=== PATIENT | female | born 1945 | race Caucasian/White ===

== ENCOUNTER → 2016-08-17 | Outpatient (CLI) | payer MEDICARE, MEDICAID ==
[~2016-08-17] MED LIST: ACHD5005 PO; AMLO10TA PO; AMLO5TAB2 PO; ASCO500T20 PO; ASP325T; ASP325TEC PO; ASP81TEC PO; ATOR40TA PO; ATOR40TA70 PO; BENZ200C25 PO; BNZ20T PO; BNZ40T PO; CHOL20002 PO; CLOP75TA28 PO; CLPD75T PO; CODE118S2 PO; CPR500T PO; Cipro; DIPH25TA82 PO; DOXY100C2 PO; FAMO20TA5 PO; FENO135C PO; FENO135C4 PO; FERR-74 PO; FURO-125 PO; GABA-488 PO; GABA600T2 PO; GBPN300C PO; GBPN600T PO; GLMP4T; GLMP4T PO; HYDR-3816 PO; HYDR1CAP3 PO; HYDR25TA4 PO; INSU100I14 SC; INSU100I5 SC; INSU500I SQ; INSU500V SC; INSU500V SQ; ISM60TCR PO; LATA2.5D5 OU; LEVIMER; LEVO25TA5 PO; LEVO500T69 PO; LIRA0.6P3 SC; LISI10TA2 PO; LORA10TA7 PO; MAGN400T6 PO; MECL-106 PO; METF500T PO; METF500T8 PO; METO-272 PO; METO100T5; METO100T5 PO; MTF500TCR PO; MTP100TCR PO; NIA500ERT PO; NIAC100045 PO; NTR.4SL SL; OMEG1CAP26 PO; OMEP-10; ONDA-42 SL; PNT40TEC PO; PRM25T PO; PROP1TAB77; RANO500T3 PO; SIMV40TA2 PO; SITA100T PO; TRAM50TA2 PO; VIT1CAPS9; [UNRECOGNIZED DRUG - REMARK]
--- OUTSIDE RECORDS SUMMARY | 2016-08-17 13:56 | XMS REPORT | Continuity of Care Document ---
Author Author [facility] Organization [facility] Address Unknown Phone Unavailable Care Team Providers Care Meeting Coordinator Name Role Phone BRAULIO GERMAN DO PCP Insurance Providers Payer Name Policy Number Subscriber Name Relationship Wps Medicare [id number] Jossue Mcgee 18 Self / Same As Patient Medicaid [place] [id number] Jossue Mcgee 18 Self / Same As Patient Advance Directives Directive Response Recorded Date/Time Advance Directives No 09/08/14 8:00pm Health Care Power of Music Journalist No 09/08/14 8:00pm Organ Donor No 09/08/14 8:00pm Problems Medical Problems Problem Onset Date Status Lumbar radiculopathy Unknown Active Medications Medication Dose Route Sig Days/Qty Instructions Order Date Discontinued Date Status Benazepril HCl 40 Mg PO DAILY TAKES IN THE EVENING 10/30/08 01/22/14 Discontinued Metformin HCl 2,000 Mg PO DAILY 10/30/08 10/08/10 Discontinued Glimepiride 10/30/08 07/07/10 Discontinued Omeprazole 10/30/08 10/27/09 Discontinued Ciprofloxacin 1 Tab PO TWICE A DAY 7 Days OR 10/30/08 09/25/09 Discontinued Promethazine HCl 1 Tab PO QID PRN 20 Qty 10/30/08 09/25/09 Discontinued [Levimer 45 Units] 09/25/09 09/26/09 Discontinued Insulin Determir 51 Unit SC 09/26/09 Active Clopidogrel Bisulfate 75 Mg PO DAILY 10/27/09 Active Metoprolol Succinate 100 Mg PO DAILY 10/27/09 Active Niacin 100 Mg PO BEDTIME 10/27/09 01/22/14 Discontinued Simvastatin 40 Mg PO BEDTIME 10/27/09 06/13/13 Discontinued Magnesium Oxide 400 Mg PO DAILY 10/27/09 Active Aspirin 10/27/09 07/07/10 Discontinued Famotidine (Pepcid) 20 Mg PO DAILY 10/27/09 09/13/11 Discontinued [place]-3/Dha/Epa/Fish Oil 1,000 Mg PO THREE TIMES A DAY 10/27/09 Active Vit C/Vit E/Lutein/Min/[place]-3 10/27/09 07/07/10 Discontinued Glimepiride 8 Mg PO DAILY 10/27/09 12/23/13 Discontinued Propoxyphene HCl/Acetaminophen 10/27/09 07/07/10 Discontinued Metoprolol Succinate 12/07/09 07/07/10 Discontinued Levofloxacin 1 Tab PO Every day 10 Qty FOR INFECTION 12/08/09 07/07/10 Discontinued Ascorbic Acid 1,000 Mg PO DAILY 07/07/10 Active Aspirin 325 Mg PO DAILY 07/07/10 09/13/11 Discontinued Amlodipine Besylate (Norvasc 5 Mg) 10 Mg PO DAILY 07/07/10 01/22/14 Discontinued [Novalog Slide Scale] PER HOME SCHEDULE 07/07/10 10/08/10 Discontinued Metformin HCl 2,000 Mg PO AT SUPPER 10/08/10 01/22/14 Discontinued Insulin Aspart 32 Units SC BEFORE MEALS 10/08/10 Active Promethazine HCl 25 Mg PO THREE TIMES A DAY PRN NAUSEA 10/08/10 Active Diphenhydramine HCl (Benadryl) 1 Tab PO DAILY 10/08/10 09/13/11 Discontinued Hydrocodone Bit/Acetaminophen 2 Tab PO GIVE EVERY 6 HR ON SCHEDULE 09/13/11 Discontinued Doxycycline Hyclate (Vibramycin) 1 Each PO TWICE A DAY 10 Days 09/13/11 Discontinued Benzonatate (Tessalon Perles) 1 Each PO TID PRN 14 Qty 10/08/10 Discontinued Metoprolol Succinate 50 Mg PO BEDTIME 09/13/11 01/22/14 Discontinued Pantoprazole Sod 40 Mg PO DAILY 09/13/11 12/23/13 Discontinued Tramadol Hcl 50 Mg PO TWICE A DAY PRN PAIN NEEDED FOR PAIN 09/13/11 Active Aspirin 81 Mg PO DAILY 09/13/11 Active Acetaminophen/Hydrocodone Bitart 1 - 2 Each PO EVERY 6 HOURS PRN 14 Qty 10/26/12 06/13/13 Discontinued Gabapentin 600 Mg PO THREE TIMES A DAY 06/13/13 Active Gabapentin 600 Mg PO BEDTIME 06/13/13 08/23/13 Discontinued Atorvastatin Calcium 40 Mg PO BEDTIME 06/13/13 Active Fenofibrate 135 Mg PO BEDTIME 06/13/13 Active Loratadine 10 Mg PO DAILY PRN ALLERGIES NEEDED FOR ALLERGIES Active Promethazine HCl/Codeine 5-10 Ml PO THREE TIMES A DAY PRN COUGH 12/23 Active Sitagliptin Phosphate 100 Mg PO 1800 12/23/13 Active Ondansetron Hcl 4 Mg SL EVERY 4HRS 5 Qty FOR NAUSEA AND VOMITING 01/22/14 Discontinued [Cipro] TWICE A DAY 14 Qty 12/23/13 01/22/14 Discontinued Metoprolol Succinate (Toprol Xl) 50 Mg PO BEDTIME 01/22/14 Active Benazepril HCl 40 Mg PO BEDTIME 01/22/14 Active Niacin 1,000 Mg PO BEDTIME 01/22/14 Active Metformin HCl (Glucophage Xr) 2,000 Mg PO BEDTIME TAKES 4 (500MG) TABLETS 01/22/14 Active Amlodipine Besylate 10 Mg PO DAILY 01/22/14 Active Nitroglycerin 0 SL NEEDED 01/22/14 Active Hydrocodone Bit/Acetaminophen 1 Tab PO EVERY 6 HOURS PRN PAIN 20 Qty Active Social History Social History Problem Response Recorded Date/Time Alcohol Use Denies Use 09/08/2014 8:00pm Recreational Drug Use No 09/08/2014 8:00pm Recent Foreign Travel No 12/23/2013 1:21pm Recent Infectious Disease Exposure No 12/23/2013 1:21pm Sexually Transmitted Disease No 09/08/2014 8:00pm Hospital Discharge Instructions No hospital discharge instructions. Plan of Care No plan of care. Functional Status No functional status results. Allergies, Adverse Reactions, Alerts Allergen Type Severity Reaction Status Last Updated Penicillins ([id number]) Allergy Unknown Active 01/22/14 Sulfa (Sulfonamide Antibiotics) ([id number]) Allergy Mild Active metaxalone ([id number]) Allergy Mild Active 10/16/07 Ibuprofen Adverse Reaction Mild MAKES HER SICK; CAN TAKE ASA Active Cephalexin Allergy Mild Active 10/16/07 amoxicillin ([id number]) Allergy Mild Active 10/16/07 diphenhydramine ([id number]) Allergy Mild Active 10/16/07 desloratadine ([id number]) Allergy Mild Active 10/16/07 Immunizations Name Given Type Date of Pneumonia Vaccine 09/15/11 Historical Date of Influenza Vaccine 05/13/13 Historical Vital Signs No known vital signs results. Results Laboratory Results Test Name Result Units Flags Reference Collection Date/Time Result Date/ Time Comments Urine Color YELLOW 10/23/2014 3:23pm 10/23/2014 3:53pm Urine Clarity SLIGHTLY CLOUDY 10/23/2014 3:23pm 10/23/2014 3:53pm Urine pH 6 5-9 10/23/2014 3:23pm 10/23/2014 3:53pm Urine Specific [place] 1.020 1.016-1.022 10/23/2014 3:23pm 2014 3:53pm Urine Protein NEGATIVE NEGATIVE 10/23/2014 3:23pm 10/23/2014 3:53pm Urine Glucose (UA) NEGATIVE NEGATIVE 10/23/2014 3:23pm 10/23/2014 3: 53pm Urine RBC (Auto) NEGATIVE NEGATIVE 10/23/2014 3:23pm 10/23/2014 3: 53pm Urine Ketones NEGATIVE NEGATIVE 10/23/2014 3:23pm 10/23/2014 3:53pm Urine Nitrite NEGATIVE NEGATIVE 10/23/2014 3:23pm 10/23/2014 3:53pm Urine Bilirubin NEGATIVE NEGATIVE 10/23/2014 3:23pm 10/23/2014 3: 53pm Urine Urobilinogen NORMAL MG/DL NORMAL 10/23/2014 3:23pm 10/23/2014 3: 53pm Urine Leukocyte Esterase 1+ * NEGATIVE 10/23/2014 3:23pm 10/23/2014 3: 53pm Urine RBC NONE /HPF 10/23/2014 3:23pm 10/23/2014 3:53pm Urine WBC RARE /HPF 10/23/2014 3:23pm 10/23/2014 3:53pm Urine Bacteria NEGATIVE /HPF 10/23/2014 3:23pm 10/23/2014 3:53pm Urine Squamous Epithelial Cells 0-2 /HPF 10/23/2014 3:23pm 2014 3:53pm Urine Crystals NONE /LPF 10/23/2014 3:23pm 10/23/2014 3:53pm Urine Casts NONE /LPF 10/23/2014 3:23pm 10/23/2014 3:53pm Urine Mucus NEGATIVE /LPF 10/23/2014 3:23pm 10/23/2014 3:53pm Urine Culture Indicated NO 10/23/2014 3:23pm 10/23/2014 3:53pm Urine Total Volume 2800 ML 10/25/2014 7:00am 10/25/2014 8:43am Urine Random Total Protein < 7 MG/DL 01-0310/23/2014 3:23pm 10/23/2014 3:59pm Urine Total Protein mg/dL < 6 MG/DL L 01-0310/25/2014 7:00am 10/25/2014 8 :43am Urine Creatinine 64 MG/DL 30-125 10/25/2014 7:00am 10/25/2014 8:43am Urine Creatinine 24 Hour 1792 MG/24H H 800-1700 10/25/2014 7:00am 2014 8:43am Sodium Level 141 MMOL/L 135-145 10/23/2014 3:17pm 10/23/2014 3:49pm Potassium Level 4.3 MMOL/L 3.6-5.0 10/23/2014 3:17pm 10/23/2014 3:49pm Chloride Level 103 MMOL/L 98-107 10/23/2014 3:17pm 10/23/2014 3:49pm Carbon Dioxide Level 27 MMOL/L 21-32 10/23/2014 3:17pm 10/23/2014 3: 49pm Blood Urea Nitrogen 34 MG/DL H 7-18 10/23/2014 3:17pm 10/23/2014 3:49pm Creatinine 1.53 MG/DL H 0.60-1.30 10/23/2014 3:17pm 10/23/2014 3:49pm BUN/Creatinine Ratio 22 10/23/2014 3:17pm 10/23/2014 3:49pm Estimat Glomerular Filtration Rate 34 10/23/2014 3:17pm 10/23/2014 3:49pm GFR INTERPRETIVE DATA UNITS FOR ESTIMATED GFR (eGFR): mL/min/1.73 M2 REFERENCE RANGE FOR ESTIMATED GFR (eGFR) eGFR NORMAL eGFR >60 MODERATELY DECREASED eGFR 30-59 SEVERLY DECREASED eGFR 15-29 KIDNEY FAILURE <15 (OR DIALYSIS) Glucose Level 151 MG/DL H 70-105 10/23/2014 3:17pm 10/23/2014 3:49pm Calcium Level 9.7 MG/DL 8.5-10.1 10/23/2014 3:17pm 10/23/2014 3:49pm Phosphorus Level 4.2 MG/DL 2.3-4.7 10/23/2014 3:17pm 10/23/2014 3:49pm Albumin 3.9 G/DL 3.2-4.5 10/23/2014 3:pm 10/23/2014 3:49pm Calcium (PTH Intact) 9.6 MG/DL 8.5-10.5 10/23/2014 3:pm 10/24/2014 7: 33am Parathyroid Hormone (Intact) 30 PG/ML 10-65 10/23/2014 3:pm 2014 7:33am The Interpretation for this test has been moved online at: [email or web address] Enter Test Number:[id number] Vitamin B1 Level 94 NMOL/L 70-180 10/23/2014 3:17pm 10/28/2014 8:56am INTERPRETIVE INFORMATION: Vitamin B1, Whole Blood This assay measures the concentration of thiamine diphosphate (TDP), the primary active form of vitamin B1. Approximately 90 percent of vitamin B1 present in whole blood is TDP. Thiamine and thiamine monophosphate, which comprise the remaining 10 percent, are not measured. Performed by [facility], [address] [place] [id number] [email or web address] Vitamin B12 Level 615 PG/ML 200-1000 10/23/2014 3:17pm 10/24/2014 7: 33am Vitamin D 25-Hydroxy 11 L NG/ML 30-100 10/23/2014 3:17pm 10/24/2014 7: 33am Fluorescein dye has been shown to affect the Vitamin D assay and results may be falsely elevated. Patients that have had a procedure using this dye should be deferred 72 hours prior to blood samples drawn for this assay. Vitamin B6 Level 50.9 NMOL/L 20.0-125.0 10/23/2014 3:17pm 10/28/2014 8: 56am INTERPRETIVE INFORMATION: Vitamin B6 (Pyridoxal 5-Phosphate) Pyridoxal 5'-phosphate measured in a specimen collected following an 8 hour or overnight fast accurately indicates vitamin B6 nutritional status. Non-fasting specimen concentration reflects recent vitamin intake. Test developed and characteristics determined by [facility]. See Compliance Statement B: [facility]/CS Performed by [facility], [address] [place] [id number] [email or web address] White Blood Count 5.0 10^3/uL 4.3-11.0 12/30/2014 8:12/30/2014 8: 38am Red Blood Count 3.95 10^6/uL L 4.35-5.85 12/30/2014 8:12/30/2014 8: 38am Hemoglobin 11.8 G/DL 11.5-16.0 12/30/2014 8:12/30/2014 8:38am Hematocrit 36 % 35-52 12/30/2014 8:12/30/2014 8:38am Mean Corpuscular Volume 92 FL 80-99 12/30/2014 8:12/30/2014 8: 38am Mean Corpuscular Hemoglobin 30 PG 25-34 12/30/2014 8:12/30/2014 8: 38am Mean Corpuscular Hemoglobin Concent 32 G/DL 32-36 12/30/2014 8:02/2015 8:38am Red Cell Distribution Width 12.9 % 10.0-14.5 12/30/2014 8:2014 8:38am Platelet Count 225 10^3/uL 130-400 12/30/2014 8:12/30/2014 8:38am Mean Platelet Volume 8.9 FL 7.4-10.4 12/30/2014 8:12/30/2014 8: 38am Sodium Level 140 MMOL/L 135-145 12/30/2014 8:12/30/2014 8:49am Potassium Level 4.6 MMOL/L 3.6-5.0 12/30/2014 8:23am 12/30/2014 8:49am Chloride Level 108 MMOL/L H 98-107 12/30/2014 8:am 12/30/2014 8:49am Carbon Dioxide Level 24 MMOL/L 21-32 12/30/2014 8:am 12/30/2014 8: 49am Blood Urea Nitrogen 42 MG/DL H 7-18 12/30/2014 8:am 12/30/2014 8:49am Creatinine 1.60 MG/DL H 0.60-1.30 12/30/2014 8:am 12/30/2014 8:49am BUN/Creatinine Ratio 26 12/30/2014 8:am 12/30/2014 8:49am Estimat Glomerular Filtration Rate 32 12/30/2014 8:am 12/30/2014 8:49am GFR INTERPRETIVE DATA UNITS FOR ESTIMATED GFR (eGFR): mL/min/1.73 M2 REFERENCE RANGE FOR ESTIMATED GFR (eGFR) eGFR NORMAL eGFR >60 MODERATELY DECREASED eGFR 30-59 SEVERLY DECREASED eGFR 15-29 KIDNEY FAILURE <15 (OR DIALYSIS) Glucose Level 190 MG/DL H 70-105 12/30/2014 8:am 12/30/2014 8:49am Calcium Level 9.4 MG/DL 8.5-10.1 12/30/2014 8:12/30/2014 8:49am Vitamin D 25-Hydroxy 35 NG/ML 30-100 12/30/2014 8:am 12/31/2014 8: 01am Fluorescein dye has been shown to affect the Vitamin D assay and results may be falsely elevated. Patients that have had a procedure using this dye should be deferred 72 hours prior to blood samples drawn for this assay. Procedures No known history of procedures. Encounters Encounter Location Date/Time Registered Clinic Via [facility] 12/30/14 8:07am Discharged Recurring Via [facility] 10/25/14 8:02am
[2016-08-17 14:26] LABS: ALBUMIN 3.9 G/DL (3.2-4.5); CREATININE SERUM 1.66 MG/DL (0.60-1.30); PHOSPHORUS 3.1 MG/DL (2.3-4.7); POTASSIUM 4.6 MMOL/L (3.6-5.0)
== END ==
LOC: LAB 13:49
PROVIDERS: ATTEND Internal Medicine Nephrology
DX: I12.9 Hypertensive chronic kidney disease with stage 1 through stage 4 chronic kidney disease, or unspecified chronic kidney disease (principal); N18.3 Chronic kidney disease, stage 3 (moderate); R60.9 Edema, unspecified; E11.9 Type 2 diabetes mellitus without complications
CPT/HCPCS: 36415; 80069

== ENCOUNTER → 2016-08-30 | Outpatient (CLI) | payer MEDICARE, MEDICAID ==
--- OUTSIDE RECORDS SUMMARY | 2016-08-30 14:51 | XMS REPORT | Continuity of Care Document ---
Author Author [facility] Organization [facility] Address Unknown Phone Unavailable Care Team Providers Care Continuous Mining Machine Coal Miner Name Role Phone BRAULIO GERMAN DO PCP Insurance Providers Payer Name Policy Number Subscriber Name Relationship Wps Medicare [id number] Jossue Mcgee 18 Self / Same As Patient Medicaid [place] [id number] Jossue Mcgee 18 Self / Same As Patient Advance Directives Directive Response Recorded Date/Time Advance Directives No 09/08/14 8:00pm Health Care Power of Client Experience Administrator No 09/08/14 8:00pm Organ Donor No 09/08/14 [...] 20 Mg PO DAILY 10/27/09 09/13/11 Discontinued [place]-3/Dha/Epa/Fish Oil 1,000 Mg PO THREE TIMES A DAY 10/27/09 Active Vit C/Vit E/Lutein/Min/[place]-3 10/27/09 07/07/10 Discontinued Glimepiride 8 Mg PO [...] Type Severity Reaction Status Last Updated Penicillins ([id number]) Allergy Unknown Active 01/22/14 Sulfa (Sulfonamide Antibiotics) ([id number]) Allergy Mild Active metaxalone ([id number]) Allergy Mild Active 10/16/07 Ibuprofen Adverse Reaction Mild MAKES HER SICK; CAN TAKE ASA Active Cephalexin Allergy Mild Active 10/16/07 amoxicillin ([id number]) Allergy Mild Active 10/16/07 diphenhydramine (P999846774) Allergy Mild Active 10/16/07 desloratadine ([id number]) Allergy Mild Active 10/16/07 Immunizations Name Given [...] 5-9 10/23/2014 3:23pm 10/23/2014 3:53pm Urine Specific [place] 1.020 1.016-1.022 10/23/2014 3:23pm 2014 3:53pm Urine [...] this test has been moved online at: [email or web address] Enter Test Number:[id number] Vitamin B1 Level 94 NMOL/L 70-180 10/23/2014 3:17pm 10/28/2014 8:56am INTERPRETIVE INFORMATION: Vitamin B1, Whole Blood This assay measures the concentration of thiamine diphosphate (TDP), the primary active form of vitamin B1. Approximately 90 percent of vitamin B1 present in whole blood is TDP. Thiamine and thiamine monophosphate, which comprise the remaining 10 percent, are not measured. Performed by [facility], [address] [place] [id number] [email or web address] Vitamin B12 Level 615 PG/ML 200-1000 10/23/2014 [...] intake. Test developed and characteristics determined by [facility]. See Compliance Statement B: [facility]/CS Performed by [facility], [address] [place] [id number] [email or web address] White Blood Count 5.0 10^3/uL 4.3-11.0 12/30/2014 [...] Encounters Encounter Location Date/Time Registered Clinic Via [facility] 12/30/14 8:07am Discharged Recurring Via [facility] 10/25/14 8:02am
[2016-08-30 15:14] LABS: BASOPHILS % (AUTO) 0 % (0-10); EOSINOPHILS # (AUTO) 0.1 10^3/uL (0.0-0.3); EOSINOPHILS % (AUTO) 3 % (0-10); LYMPHOCYTES # (AUTO) 1.2 X 10^3 (1.0-4.0); LYMPHOCYTES % (AUTO) 26 % (12-44); MEAN CORPUSCULAR HEMOGLOBIN 32 PG (25-34); MEAN CORPUSCULAR HGB CONC 33 G/DL (32-36); MEAN CORPUSCULAR VOLUME 96 FL (80-99); MEAN PLATELET VOLUME 8.6 FL (7.4-10.4); MONOCYTES # (AUTO) 0.4 X 10^3 (0.0-1.0); MONOCYTES % (AUTO) 10 % (0-12); NEUTROPHILS # (AUTO) 2.8 X 10^3 (1.8-7.8); NEUTROPHILS % (AUTO) 61 % (42-75); PLATELET COUNT 216 10^3/uL (130-400); RED BLOOD COUNT 3.61 10^6/uL (4.35-5.85); RED CELL DISTRIBUTION WIDTH 12.9 % (10.0-14.5); WHITE BLOOD COUNT 4.5 10^3/uL (4.3-11.0)
[2016-08-30 15:21] LABS: BILIRUBIN,URINE NEGATIVE (NEGATIVE); KETONES,URINE NEGATIVE (NEGATIVE); LEUKOCYTE ESTERASE ,URINE NEGATIVE (NEGATIVE); NITRITE,URINE NEGATIVE (NEGATIVE); PH,URINE 6 (5-9); PROTEIN,URINE NEGATIVE (NEGATIVE); UROBILINOGEN,URINE NORMAL (NORMAL)
[2016-08-30 15:54] LABS: WBC,URINE RARE /HPF
[2016-08-31 07:45] LABS: CALCIUM PARA THYROID HORMONE 9.3 mg/dL (8.5-10.5); FOLIC ACID 11.7 ng/mL (1.5-24.0)
== END ==
LOC: LAB 14:46
PROVIDERS: ATTEND Internal Medicine Nephrology
DX: E11.22 Type 2 diabetes mellitus with diabetic chronic kidney disease (principal); I12.9 Hypertensive chronic kidney disease with stage 1 through stage 4 chronic kidney disease, or unspecified chronic kidney disease; N18.3 Chronic kidney disease, stage 3 (moderate); R60.9 Edema, unspecified
CPT/HCPCS: 36415; 81000; 82306; 82570; 82607; 82728; 82746; 83540; 83735; 83970; 84156; 85025

== ENCOUNTER 2016-09-30 14:04 | Outpatient (RCR) | payer MEDICARE, MEDICAID ==
--- OUTSIDE RECORDS SUMMARY | 2016-09-30 14:08 | XMS REPORT | Continuity of Care Document ---
Author Author [facility] Organization [facility] Address Unknown Phone Unavailable Care Team Providers Care Promotions Manager Name Role Phone BRAULIO GERMAN DO PCP Insurance Providers Payer Name Policy Number Subscriber Name Relationship Wps Medicare [id number] Jossue Mcgee 18 Self / Same As Patient Medicaid [place] [id number] Jossue Mcgee 18 Self / Same As Patient Advance Directives Directive Response Recorded Date/Time Advance Directives No 09/08/14 8:00pm Health Care Power of Water Quality Analyst No 09/08/14 8:00pm Organ Donor No 09/08/14 [...] 20 Mg PO DAILY 10/27/09 09/13/11 Discontinued [place]-3/Dha/Epa/Fish Oil 1,000 Mg PO THREE TIMES A DAY 10/27/09 Active Vit C/Vit E/Lutein/Min/[place]-3 10/27/09 07/07/10 Discontinued Glimepiride 8 Mg PO [...] Type Severity Reaction Status Last Updated Penicillins ([id number]) Allergy Unknown Active 01/22/14 Sulfa (Sulfonamide Antibiotics) ([id number]) Allergy Mild Active metaxalone (O080608430) Allergy Mild Active 10/16/07 Ibuprofen Adverse Reaction Mild MAKES HER SICK; CAN TAKE ASA Active Cephalexin Allergy Mild Active 10/16/07 amoxicillin (G733673701) Allergy Mild Active 10/16/07 diphenhydramine (B408167446) Allergy Mild Active 10/16/07 desloratadine (I032898409) Allergy Mild Active 10/16/07 Immunizations Name Given [...] 5-9 10/23/2014 3:23pm 10/23/2014 3:53pm Urine Specific [place] 1.020 1.016-1.022 10/23/2014 3:23pm 2014 3:53pm Urine [...] this test has been moved online at: [email or web address] Enter Test Number:[id number] Vitamin B1 Level 94 NMOL/L 70-180 10/23/2014 3:17pm 10/28/2014 8:56am INTERPRETIVE INFORMATION: Vitamin B1, Whole Blood This assay measures the concentration of thiamine diphosphate (TDP), the primary active form of vitamin B1. Approximately 90 percent of vitamin B1 present in whole blood is TDP. Thiamine and thiamine monophosphate, which comprise the remaining 10 percent, are not measured. Performed by [email or web address], [address] [place] [id number] [email or web address] Vitamin B12 Level 615 PG/ML 200-1000 10/23/2014 [...] intake. Test developed and characteristics determined by [email or web address]. See Compliance Statement B: [facility]/CS Performed by [email or web address], [address] [place] [address] www.[email or web address] White Blood Count 5.0 10^3/uL 4.3-11.0 12/30/2014 [...] Encounters Encounter Location Date/Time Registered Clinic [facility] 12/30/14 8:07am Discharged Recurring [facility] 10/25/14 8:02am
== END 2016-10-01 13:48 | disposition home or self-care (01) ==
PROVIDERS: ATTEND Internal Medicine Endocrinology, Diabetes & Metabolism
DX: R60.9 Edema, unspecified (principal)

== ENCOUNTER → 2016-10-11 | Outpatient (CLI) | payer MEDICARE, MEDICAID ==
--- OUTSIDE RECORDS SUMMARY | 2016-10-11 10:03 | XMS REPORT | Continuity of Care Document ---
Author Author [facility] Organization [facility] Address Unknown Phone Unavailable Care Team Providers Care Elevated Guard Name Role Phone BRAULIO GERMAN DO PCP Insurance Providers Payer Name Policy Number Subscriber Name Relationship Wps Medicare [id number] Jossue Mcgee 18 Self / Same As Patient Medicaid [place] [id number] Jossue Mcgee 18 Self / Same As Patient Advance Directives Directive Response Recorded Date/Time Advance Directives No 09/08/14 8:00pm Health Care Power of Grouter Helper No 09/08/14 8:00pm Organ Donor No 09/08/14 [...] 20 Mg PO DAILY 10/27/09 09/13/11 Discontinued [place]-3/Dha/Epa/Fish Oil 1,000 Mg PO THREE TIMES A DAY 10/27/09 Active Vit C/Vit E/Lutein/Min/[place]-3 10/27/09 07/07/10 Discontinued Glimepiride 8 Mg PO [...] Type Severity Reaction Status Last Updated Penicillins ([id number]) Allergy Unknown Active 01/22/14 Sulfa (Sulfonamide Antibiotics) ([id number]) Allergy Mild Active metaxalone (N692442589) Allergy Mild Active 10/16/07 Ibuprofen Adverse Reaction Mild MAKES HER SICK; CAN TAKE ASA Active Cephalexin Allergy Mild Active 10/16/07 amoxicillin (G476613649) Allergy Mild Active 10/16/07 diphenhydramine ([id number]) Allergy Mild Active 10/16/07 desloratadine (L663839281) Allergy Mild Active 10/16/07 Immunizations Name Given [...] 5-9 10/23/2014 3:23pm 10/23/2014 3:53pm Urine Specific [place] 1.020 1.016-1.022 10/23/2014 3:23pm 2014 3:53pm Urine [...] this test has been moved online at: [email or web address] Enter Test Number:[id number] Vitamin B1 Level 94 NMOL/L 70-180 10/23/2014 3:17pm 10/28/2014 8:56am INTERPRETIVE INFORMATION: Vitamin B1, Whole Blood This assay measures the concentration of thiamine diphosphate (TDP), the primary active form of vitamin B1. Approximately 90 percent of vitamin B1 present in whole blood is TDP. Thiamine and thiamine monophosphate, which comprise the remaining 10 percent, are not measured. Performed by [facility], [address] [place] [id number] [email or web address] Vitamin B12 Level 615 PG/ML 200-1000 10/23/2014 [...] intake. Test developed and characteristics determined by [facility]. See Compliance Statement B: [facility]/CS Performed by [facility], [address] [place] [id number] [email or web address] White Blood Count 5.0 10^3/uL 4.3-11.0 12/30/2014 [...] Encounters Encounter Location Date/Time Registered Clinic [facility] 12/30/14 8:07am Discharged Recurring [facility] 10/25/14 8:02am
[2016-10-11 10:33] LABS: ALBUMIN 3.9 G/DL (3.2-4.5); CALCIUM 9.2 MG/DL (8.5-10.1); CREATININE SERUM 1.77 MG/DL (0.60-1.30); POTASSIUM 4.5 MMOL/L (3.6-5.0)
== END ==
LOC: LAB 09:58
PROVIDERS: ATTEND Internal Medicine Nephrology
DX: I12.9 Hypertensive chronic kidney disease with stage 1 through stage 4 chronic kidney disease, or unspecified chronic kidney disease (principal); E11.22 Type 2 diabetes mellitus with diabetic chronic kidney disease; N18.3 Chronic kidney disease, stage 3 (moderate); R60.9 Edema, unspecified
CPT/HCPCS: 36415; 80069

== ENCOUNTER → 2016-12-29 | Outpatient (CLI) | payer MEDICARE, MEDICAID ==
[2016-12-29 09:43] LABS: CHOLESTEROL 170 MG/DL (< 200); DIRECT LDL 96 MG/DL (1-129); TRIGLYCERIDES 156 MG/DL (<150); VLDL CHOLESTEROL 31 MG/DL (5-40)
== END ==
LOC: LAB 12-28 11:55
PROVIDERS: ATTEND Internal Medicine Endocrinology, Diabetes & Metabolism
DX: E11.9 Type 2 diabetes mellitus without complications (principal)
CPT/HCPCS: 36415; 80061

== ENCOUNTER 2017-01-09 16:06 | Emergency (ER) | payer MEDICARE, MEDICAID ==
[~2017-01-09] VITALS: Ht 160 cm; Wt 95.3 kg
--- NOTE | 2017-01-09 17:07 | ED Lower Extremity ---
General Chief Complaint: Lower Extremity Stated Complaint: R KNEE PAIN Source: patient Exam Limitations: no limitations History of Present Illness Time seen by provider: 17:05 Initial Comments [place] right knee yesterday while shopping. Pain to right knee since then Onset: yesterday Severity: moderate Pain/Injury Location: right knee Method of Injury: twisted Modifying Factors: Worse With Movement Allergies and Home Medications Allergies Coded Allergies: Sulfa (Sulfonamide Antibiotics) (Unverified Allergy, Mild, 10/16/07) amoxicillin (Unverified Allergy, Mild, 10/16/07) cephalexin (Unverified Allergy, Mild, 10/16/07) desloratadine (Unverified Allergy, Mild, 10/16/07) diphenhydramine (Unverified Allergy, Mild, 10/16/07) metaxalone (Unverified Allergy, Mild, 10/16/07) Penicillins (Unverified Allergy, Unknown, 01/22/14) ibuprofen (Unverified Adverse Reaction, Mild, MAKES HER SICK; CAN TAKE ASA , 09/26/09) Home Medications Amlodipine Besylate 10 Mg Tablet, 10 MG PO DAILY, (Reported) Ascorbic Acid 500 Mg Tablet, 1,000 MG PO DAILY, (Reported) TAKES 2 (500MG) TABLETS Aspirin 81 Mg Tabec, 81 MG PO HS, (Reported) Atorvastatin Calcium 40 Mg Tablet, 40 MG PO HS, (Reported) Cholecalciferol (Vitamin D3) 2,000 Unit Capsule, 2,000 UNIT PO DAILY, (Reported) Clopidogrel Bisulfate 75 Mg Tablet, 75 MG PO DAILY, (Reported) Fenofibric Acid (Choline) 135 Mg Capsule.dr, 135 MG PO EVERY EVENING, (Reported) Ferrous Sulfate 325 Mg Tablet, 325 MG PO BID, (Reported) Gabapentin 600 Mg Tablet, 600 MG PO TID, (Reported) Hydrocodone/Acetaminophen 1 Each Tablet, 1 TAB PO Q6H PRN for PAIN, (Reported) Insulin Regular, Human 500 Unit/1 Ml Insuln.pen, 75 UNIT SQ 0700, (Reported) Insulin Regular, Human 500 Unit/1 Ml Insuln.pen, 50 UNIT SQ 1200, (Reported) Insulin Regular, Human 500 Unit/1 Ml Insuln.pen, 110 UNIT SQ 1700, (Reported) Isosorbide Mononitrate 60 Mg Tab.sr.24h, 60 MG PO DAILY, (Reported) Latanoprost 2.5 Ml Drops, 1 DROP OU HS, (Reported) Loratadine 10 Mg Tablet, 10 MG PO DAILY, (Reported) Meclizine HCl 25 Mg Tablet, 25 MG PO TID PRN for AD, (Reported) Metoprolol Succinate 100 Mg Tab.sr.24h, 50 MG PO HS, (Reported) TAKES 1/2 (100MG) TABLET Metoprolol Succinate 100 Mg Tab.sr.24h, 100 MG PO DAILY, (Reported) Niacin 1,000 Mg Tab.er.24h, 1,000 MG PO HS, (Reported) Nitroglycerin 0.4 Mg Tab, 0.4 MG SL UD PRN for CHEST PAIN, (Reported) [place]-3/Dha/Epa/Fish Oil 1 Each Capsule, 1,000 MG PO TID, (Reported) Promethazine Hcl 25 Mg Tab, 25 MG PO TID PRN for NAUSEA, (Reported) Ranolazine 500 Mg Tab.er.12h, 500 MG PO BID, #60 Ref 4 Prescribed by: KHOA HELTON on 08/31/15 0748 Constitutional: see HPI EENTM: see HPI Respiratory: no symptoms reported Cardiovascular: no symptoms reported Genitourinary: no symptoms reported Musculoskeletal: see HPI Skin: no symptoms reported Psychiatric/Neurological: No Symptoms Reported Past Jusmpre-Vjuzfk-Aiopkh Hx Patient Social History Former Smoker/When Quit: Aug 26, 1975 Recent Foreign Travel: No Contact w/Someone Who Travel: No Recent Hopitalizations: No Immunizations Up To Date Tetanus Booster (TDap): Unknown PED Vaccines UTD: No Date of Pneumonia Vaccine: Jul 05, 2012 Date of Influenza Vaccine: Mar 31, 2016 Seasonal Allergies Seasonal Allergies: Yes Surgeries HX Surgeries: Yes (TUBAL LIGATION AND GALLBLADER REMOVAL) Surgeries: Coronary Stent, Gallbladder, Orthopedic, Tonsillectomy, Tubal Ligation, Vascular Surgery Respiratory Hx Respiratory Disorders: No Cardiovascular Hx Cardiac Disorders: Yes Cardiac Disorders: Coronary Artery Disease, Heart Attack, Hypertension, Peripheral Vascular Neurological Hx Neurological Disorders: Yes Neurological Disorders: Headaches /Migraines 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 System Hx 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 Disorders: No Sexually Transmitted Disease: No HIV/AIDS: No Female 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 Disorders: 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 Genitourinary Hx Genitourinary Disorders: Yes Genitourinary Disorders: Renal Failure Gastrointestinal Hx Gastrointestinal Disorders: No Gastrointestinal Disorders: Gastroesophageal Reflux Musculoskeletal Hx Musculoskeletal Disorders: No Musculoskeletal Disorders: Arthritis Endocrine Hx Endocrine Disorders: Yes Endocrine Disorders: Diabetes, Insulin dep, Hypothyroidsim HEENT HX ENT Disorders: Yes ("SINUS PROBLEMS") Cancer Hx Cancer: No Psychosocial Hx Psychiatric Problems: No Behavioral Health Disorders: Anxiety, Depression Integumentary HX Skin/Integumentary Disorder: No Blood Transfusions Hx Blood Disorders: No Adverse Reaction to a Blood Tr: No Family Medical History Significant Family History: Heart Disease, Diabetes, Hypertension, Vascular Disease Family Medial History: Diabetes mellitus 19 MOTHER, Onset:Unknown FH: breast cancer Lip cancer 19 FATHER, Onset:40's - 50 Physical Exam Vital Signs Vital Sign - Last 12Hours 01/09/17 16:40 Temp 98.0 Pulse 60 Resp 18 B/P (MAP) 185/78 Pulse Ox 98 Capillary Refill : Less Than 3 Seconds General Appearance: WD/WN, no apparent distress HEENT: PERRL/EOMI, normal ENT inspection Neck: non-tender, full range of motion Respiratory: no respiratory distress, no accessory muscle use Gastrointestinal: normal bowel sounds, non tender, soft Hips: bilateral hip non-tender, bilateral hip normal inspection, bilateral hip normal range of motion Legs: bilateral leg non-tender, bilateral leg normal inspection, bilateral leg normal range of motion Knees: right knee pain, right knee other (no swelling erythema or ecchymosis) Ankles: bilateral ankle non-tender, bilateral ankle normal inspection, bilateral ankle normal range of motion Feet: bilateral foot non-tender, bilateral foot normal inspection, bilateral foot normal range of motion Neurologic/Psychiatric: alert, normal mood/affect, oriented x 3 Skin: normal color, warm/dry Progress/Results/Core Measures Results/Orders My Orders Orders - ANGEL RAMÍREZ APRN Knee, Right, 3 Views (01/09/17 17:05) Vital Signs/I&O Vital Sign - Last 12Hours 01/09/17 16:40 Temp 98.0 Pulse 60 Resp 18 B/P (MAP) 185/78 Pulse Ox 98 Departure Impression Impression: Primary Impression: Sprain of knee Disposition: 01 HOME, SELF-CARE Condition: Stable Departure-Patient Inst. Decision time for Depature: 17:40 Referrals: BRAULIO GERMAN DO (PCP/Family) Primary Care Physician Patient Instructions: Knee Sprain (DC) Add. Discharge Instructions: 1. Return to ER for any concerns 2. See your doctor next week All discharge instructions reviewed with patient and/or family. Voiced understanding. ANGEL RAMÍREZ APRN Jan 09, 2017 17:06
--- NOTE | 2017-01-09 17:36 | Diagnostic Imaging Report ---
INDICATION: Right knee pain since yesterday. EXAMINATION: Right knee, 01/09/2017. FINDINGS: Three views of the knee. Lucencies along the lateral tibial plateau appear to be stable since 08/19/2009 and are likely caused by the superimposed fibular head. The remaining osseous structures appear unremarkable other than degenerative findings in the patellofemoral joint space. There is a small joint effusion. No dislocations. Atherosclerotic disease is noted. IMPRESSION: Degenerative findings with no definite superimposed acute abnormality. If pain persists, further imaging recommended. Dictated by: Dictated on workstation # [id number]
[2017-01-09 17:47] VITALS: BP 185/78
== END 2017-01-09 17:47 | disposition home or self-care (01) ==
LOC: EDUNIT# 16:06 → ER 16:08
DX: S83.91XA Sprain of unspecified site of right knee, initial encounter (principal); I25.10 Atherosclerotic heart disease of native coronary artery without angina pectoris; I10 Essential (primary) hypertension; M19.90 Unspecified osteoarthritis, unspecified site; E11.9 Type 2 diabetes mellitus without complications; E03.9 Hypothyroidism, unspecified; F32.9 Major depressive disorder, single episode, unspecified; F41.9 Anxiety disorder, unspecified; Z79.82 Long term (current) use of aspirin; Z79.4 Long term (current) use of insulin; Z95.5 Presence of coronary angioplasty implant and graft; X50.0XXA Overexertion from strenuous movement or load, initial encounter
CPT/HCPCS: 73562; 99282

== ENCOUNTER → 2017-04-04 | Outpatient (CLI) | payer MEDICARE, MEDICAID ==
[2017-04-04 11:32] LABS: BASOPHILS % (AUTO) 1 % (0-10); EOSINOPHILS # (AUTO) 0.2 10^3/uL (0.0-0.3); EOSINOPHILS % (AUTO) 4 % (0-10); LYMPHOCYTES # (AUTO) 1.1 X 10^3 (1.0-4.0); LYMPHOCYTES % (AUTO) 27 % (12-44); MEAN CORPUSCULAR HEMOGLOBIN 31 PG (25-34); MEAN CORPUSCULAR HGB CONC 33 G/DL (32-36); MEAN CORPUSCULAR VOLUME 95 FL (80-99); MEAN PLATELET VOLUME 9.2 FL (7.4-10.4); MONOCYTES # (AUTO) 0.4 X 10^3 (0.0-1.0); MONOCYTES % (AUTO) 9 % (0-12); NEUTROPHILS # (AUTO) 2.4 X 10^3 (1.8-7.8); NEUTROPHILS % (AUTO) 59 % (42-75); PLATELET COUNT 233 10^3/uL (130-400); RED BLOOD COUNT 3.83 10^6/uL (4.35-5.85); WHITE BLOOD COUNT 4.1 10^3/uL (4.3-11.0)
[2017-04-04 11:54] LABS: BILIRUBIN,URINE NEGATIVE (NEGATIVE); KETONES,URINE NEGATIVE (NEGATIVE); LEUKOCYTE ESTERASE ,URINE NEGATIVE (NEGATIVE); NITRITE,URINE NEGATIVE (NEGATIVE); PH,URINE 6 (5-9); PROTEIN,URINE NEGATIVE (NEGATIVE); UROBILINOGEN,URINE NORMAL (NORMAL)
[2017-04-04 11:59] LABS: ALBUMIN 3.8 GM/DL (3.2-4.5); CALCIUM 9.5 MG/DL (8.5-10.1); CREATININE SERUM 1.98 MG/DL (0.60-1.30); MAGNESIUM 1.9 MG/DL (1.8-2.4); PHOSPHORUS 3.8 MG/DL (2.3-4.7); POTASSIUM 4.1 MMOL/L (3.6-5.0)
[2017-04-04 12:38] LABS: WBC,URINE 0-2 /HPF
[2017-04-05 08:03] LABS: CALCIUM PARA THYROID HORMONE 9.6 mg/dL (8.5-10.5); FOLIC ACID 9.6 ng/mL (1.5-24.0)
[2017-04-06 08:09] LABS: PTH INTACT IRMA 22.5 pg/mL (10.0-65.0)
== END ==
LOC: LAB 10:31
PROVIDERS: ATTEND Internal Medicine Nephrology
DX: I12.9 Hypertensive chronic kidney disease with stage 1 through stage 4 chronic kidney disease, or unspecified chronic kidney disease (principal); N18.3 Chronic kidney disease, stage 3 (moderate); E11.29 Type 2 diabetes mellitus with other diabetic kidney complication; R60.9 Edema, unspecified
CPT/HCPCS: 36415; 80069; 81000; 82306; 82570; 82607; 82728; 82746; 83540; 83735; 83970; 84156; 85025

== ENCOUNTER 2017-05-10 02:56 | Inpatient (IN) | payer MEDICARE, MEDICAID ==
[~2017-05-10] VITALS: Ht 160 cm; Wt 109.8 kg
[2017-05-10] MEDS ORDERED: RT-ALBUTEROL SULF 2.5 MG/3 ML PRE-MIX VIAL ONE (03:01)
--- NOTE | 2017-05-10 03:08 | ED Respiratory ---
General Stated Complaint: SOB Source: patient, EMS Exam Limitations: no limitations History of Present Illness Time seen by provider: 02:56 Initial Comments Patient presents to ER by EMS with chief complaint of shortness of breath. The past 3 or 4 days she's been progressively getting worse. She typically uses 2 L per nasal cannula and was still feeling short of breath even on this so she called EMS. EMS of the can audibly hear her wheezing when they came and put her on higher O2 flow and started DuoNeb and made 2 attempts at getting a peripheral IV started. The patient is short of breath and unable to give much history but did bring in a list of her paperwork to include meds and allergies and history of surgeries. She also reports that she felt cold but EMS says that she had a temperature of 97.5 Fahrenheit within the arrived. She's had a mildly productive cough. No chest pain no nausea, vomiting, diarrhea, rash. Allergies and Home Medications Allergies Coded Allergies: Sulfa (Sulfonamide Antibiotics) (Unverified Allergy, Mild, 10/16/07) amoxicillin (Unverified Allergy, Mild, 10/16/07) cephalexin (Unverified Allergy, Mild, 10/16/07) desloratadine (Unverified Allergy, Mild, 10/16/07) diphenhydramine (Unverified Allergy, Mild, 10/16/07) metaxalone (Unverified Allergy, Mild, 10/16/07) Penicillins (Unverified Allergy, Unknown, 01/22/14) ibuprofen (Unverified Adverse Reaction, Mild, MAKES HER SICK; CAN TAKE ASA , 09/26/09) Home Medications Amlodipine Besylate 10 Mg Tablet, 10 MG PO DAILY, (Reported) Ascorbic Acid 500 Mg Tablet, 1,000 MG PO DAILY, (Reported) TAKES 2 (500MG) TABLETS Aspirin 81 Mg Tabec, 81 MG PO HS, (Reported) Atorvastatin Calcium 40 Mg Tablet, 40 MG PO HS, (Reported) Cholecalciferol (Vitamin D3) 2,000 Unit Capsule, 2,000 UNIT PO DAILY, (Reported) Clopidogrel Bisulfate 75 Mg Tablet, 75 MG PO DAILY, (Reported) Fenofibric Acid (Choline) 135 Mg Capsule.dr, 135 MG PO EVERY EVENING, (Reported) Ferrous Sulfate 325 Mg Tablet, 325 MG PO BID, (Reported) Gabapentin 600 Mg Tablet, 600 MG PO TID, (Reported) Hydrocodone/Acetaminophen 1 Each Tablet, 1 TAB PO Q6H PRN for PAIN, (Reported) Insulin Regular, Human 500 Unit/1 Ml Insuln.pen, 75 UNIT SQ 0700, (Reported) Insulin Regular, Human 500 Unit/1 Ml Insuln.pen, 50 UNIT SQ 1200, (Reported) Insulin Regular, Human 500 Unit/1 Ml Insuln.pen, 110 UNIT SQ 1700, (Reported) Isosorbide Mononitrate 60 Mg Tab.sr.24h, 60 MG PO DAILY, (Reported) Latanoprost 2.5 Ml Drops, 1 DROP OU HS, (Reported) Loratadine 10 Mg Tablet, 10 MG PO DAILY, (Reported) Meclizine HCl 25 Mg Tablet, 25 MG PO TID PRN for AD, (Reported) Metoprolol Succinate 100 Mg Tab.sr.24h, 50 MG PO HS, (Reported) TAKES 1/2 (100MG) TABLET Metoprolol Succinate 100 Mg Tab.sr.24h, 100 MG PO DAILY, (Reported) Niacin 1,000 Mg Tab.er.24h, 1,000 MG PO HS, (Reported) Nitroglycerin 0.4 Mg Tab, 0.4 MG SL UD PRN for CHEST PAIN, (Reported) [place]-3/Dha/Epa/Fish Oil 1 Each Capsule, 1,000 MG PO TID, (Reported) Promethazine Hcl 25 Mg Tab, 25 MG PO TID PRN for NAUSEA, (Reported) Ranolazine 500 Mg Tab.er.12h, 500 MG PO BID, #60 Ref 4 Prescribed by: KHOA HELTON on 08/31/15 0748 Constitutional: see HPI, No chills, No diaphoresis, No fever, malaise EENTM: No hearing loss, No ear pain Respiratory: cough, short of breath Cardiovascular: No chest pain, No palpitations Gastrointestinal: No abdominal pain, No constipation, No diarrhea, No nausea, No vomiting Genitourinary: No discharge, No dysuria : No Musculoskeletal: No back pain, No joint pain Skin: No pruritus, No rash Psychiatric/Neurological: Denies Headache, Denies Numbness, Denies Paresthesia Past Rhmihnq-Piurax-Jadbmo Hx Patient Social History Former Smoker, Quit: Jan 15, 1976 Recent Foreign Travel: No Contact w/Someone Who Travel: No Recent Hopitalizations: No Immunizations Up To Date Tetanus Booster (TDap): Unknown PED Vaccines UTD: No Date of Pneumonia Vaccine: Jul 05, 2012 Date of Influenza Vaccine: Mar 31, 2016 Seasonal Allergies Seasonal Allergies: Yes Surgeries History of Surgeries: Yes (TUBAL LIGATION AND GALLBLADER REMOVAL) Surgeries: Coronary Stent, Gallbladder, Orthopedic, Tonsillectomy, Tubal Ligation, Vascular Surgery Respiratory History of Respiratory Disorde: No Currently Using CPAP: No Currently Using BIPAP: No Cardiovascular History of Cardiac Disorders: Yes Cardiac Disorders: Coronary Artery Disease, Heart Attack, Hypertension, Peripheral Vascular Neurological History of Neurological Disord: Yes Neurological Disorders: Headaches /Migraines 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 System Hx 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 Disorders: No Sexually Transmitted Disease: No HIV/AIDS: No 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 Genitourinary Genitourinary Disorders: Renal Failure Gastrointestinal History of Gastrointestinal Di: No Gastrointestinal Disorders: Gastroesophageal Reflux Musculoskeletal History of Musculoskeletal Dis: No Musculoskeletal Disorders: Arthritis Endocrine History of Endocrine Disorders: Yes Endocrine Disorders: Diabetes, Insulin dep, Hypothyroidsim Cancer History of Cancer: No Psychosocial History of Psychiatric Problem: No Behavioral Health Disorders: Anxiety, Depression Integumentary History of Skin or Integumenta: No Blood Transfusions History of Blood Disorders: No Adverse Reaction to a Blood Tr: No Family Medical History Significant Family History: Heart Disease, Diabetes, Hypertension, Vascular Disease Family Medial History: Diabetes mellitus 19 MOTHER, Onset:Unknown FH: breast cancer Lip cancer 19 FATHER, Onset:40's - 50 Physical Exam Vital Signs Vital Sign - Last 12Hours 05/10/17 02:56 Temp 97.2 Pulse 80 Resp 24 B/P (MAP) 157/85 Pulse Ox 100 O2 Delivery OxyMask O2 Flow Rate 8.00 Capillary Refill : General Appearance: moderate distress, obese Eyes: Bilateral Eye Normal Inspection, Bilateral Eye PERRL, Bilateral Eye EOMI HEENT: PERRL/EOMI, normal ENT inspection, TMs normal, pharynx normal Neck: non-tender, normal inspection Respiratory: chest non-tender, respiratory distress (moderate), decreased breath sounds, accessory muscle use, wheezing (bilateral), expiration Cardiovascular: normal peripheral pulses, regular rate, rhythm Gastrointestinal: normal bowel sounds, non tender, soft Extremities: normal capillary refill, pedal edema (bilateral 1+ pitting edema) Neurologic/Psychiatric: alert, oriented x 3 Skin: normal color, warm/dry Focused Exam Evaluation Lactate Level Laboratory Tests 05/10/17 03:00: Lactic Acid Level 1.23 Lactic Acid Level Laboratory Tests Test 05/10/17 03:00 Lactic Acid Level 1.23 MMOL/L (0.50-2.00) Progress/Results/Core Measures Results/Orders Lab Results Laboratory Tests Test 05/10/17 03:00 05/10/17 03:20 Range/Units White Blood Count 5.6 4.3-11.0 10^3/uL Red Blood Count 3.94 L 4.35-5.85 10^6/uL Hemoglobin 12.2 11.5-16.0 G/DL Hematocrit 39 35-52 % Mean Corpuscular Volume 98 80-99 FL Mean Corpuscular Hemoglobin 31 25-34 PG Mean Corpuscular Hemoglobin Concent 32 32-36 G/DL Red Cell Distribution Width 13.4 10.0-14.5 % Platelet Count 200 130-400 10^3/uL Mean Platelet Volume 9.3 7.4-10.4 FL Neutrophils (%) (Auto) 66 42-75 % Lymphocytes (%) (Auto) 22 12-44 % Monocytes (%) (Auto) 9 0-12 % Eosinophils (%) (Auto) 3 0-10 % Basophils (%) (Auto) 0 0-10 % Neutrophils # (Auto) 3.7 1.8-7.8 X 10^3 Lymphocytes # (Auto) 1.2 1.0-4.0 X 10^3 Monocytes # (Auto) 0.5 0.0-1.0 X 10^3 Eosinophils # (Auto) 0.2 0.0-0.3 10^3/uL Basophils # (Auto) 0.0 0.0-0.1 10^3/uL Sodium Level 142 135-145 MMOL/L Potassium Level 4.3 3.6-5.0 MMOL/L Chloride Level 101 98-107 MMOL/L Carbon Dioxide Level 27 21-32 MMOL/L Anion Gap 14 5-14 MMOL/L Blood Urea Nitrogen 31 H 7-18 MG/DL Creatinine 1.77 H 0.60-1.30 MG/DL Estimat Glomerular Filtration Rate 28 BUN/Creatinine Ratio 18 Glucose Level 313 H 70-105 MG/DL Lactic Acid Level 1.23 0.50-2.00 MMOL/L Calcium Level 10.1 8.5-10.1 MG/DL Magnesium Level 2.1 1.8-2.4 MG/DL Total Bilirubin 0.7 0.1-1.0 MG/DL Aspartate Amino Transf (AST/SGOT) 43 H 5-34 U/L Alanine Aminotransferase (ALT/SGPT) 58 H 0-55 U/L Alkaline Phosphatase 68 40-136 U/L Troponin I < 0.30 <0.30 NG/ML C-Reactive Protein High Sensitivity 0.91 H 0.00-0.50 MG/DL B-Type Natriuretic Peptide 143.8 H <100.0 PG/ML Total Protein 8.3 H 6.4-8.2 GM/DL Albumin 4.4 3.2-4.5 GM/DL Blood Gas Puncture Site RRAD Blood Gas Patient Temperature 97.2 Arterial Blood pH 7.35 L 7.37-7.43 Arterial Blood Partial Pressure CO2 56 H 35-45 MMHG Arterial Blood Partial Pressure O2 180 H 79-93 MMHG Arterial Blood HCO3 30 H 23-27 MMOL/L Arterial Blood Total CO2 31.9 H 21.0-31.0 MMOL/L Arterial Blood Oxygen Saturation 100 94-100 % Arterial Blood Base Excess 4.7 H -2.5-2.5 MMOL/L Av Test YES-POS Blood Gas Ventilator Setting NO Blood Gas Inspired Oxygen 6L My Orders Orders - SHUKRI SMALLS BNP (05/10/17 03:03) Cbc With Automated Diff (05/10/17 03:03) Comprehensive Metabolic Panel (05/10/17 03:03) Hs C Reactive Protein (05/10/17 03:03) Lactic Acid Analyzer (05/10/17 03:03) Magnesium (05/10/17 03:03) Troponin I (05/10/17 03:03) Ua Culture If Indicated (05/10/17 03:03) Blood Culture (05/10/17 03:03) Sputum Culture (05/10/17 03:03) Chest 1 View, Ap/Pa Only (05/10/17 03:03) Saline Lock/Iv-Start (05/10/17 03:03) Monitor-Rhythm Ecg Trace Only (05/10/17 03:03) Arterial Blood Gas (05/10/17 03:03) Ekg Tracing (05/10/17 03:03) Albuterol Pre-Mix Nebs (Rt) (Proventil P (05/10/17 03:01) Azithromycin Injection (Zithromax Inject (05/10/17 04:00) Methylprednisolone Sod Succ (Solu-Medrol (05/10/17 04:00) Medications Given in ED Current Medications Medications Dose Ordered Sig/Nat Route Start Time Stop Time Status Last Admin Dose Admin Albuterol Sulfate 2.5 mg STK-MED ONCE .ROUTE 05/10/17 03:01 05/10/17 03:10 DC 05/10/17 03:13 10 MG Vital Signs/I&O Vital Sign - Last 12Hours 05/10/17 05/10/17 02:56 03:16 Temp 97.2 Pulse 80 Resp 24 B/P (MAP) 157/85 Pulse Ox 100 100 O2 Delivery OxyMask Nasal Cannula O2 Flow Rate 8.00 6.00 ECG Initial ECG Impression Date: May 10, 2017 Initial ECG Impression Time: 03:05 Initial ECG Rate: 72 Initial ECG Rhythm: Normal Sinus Initial ECG Intervals: QT (QTC 504 ms) Initial ECG Impression: Normal, Nonspecific Changes Initial ECG Comparisson: Unchanged Comment Left bundle branch block unchanged from previous EKG . No T- wave elevation or depression. Diagnostic Imaging Diagonstic Imaging: Xray Plain Films/CT/US/NM/MRI: chest Comments Poor penetration probably secondary to body habitus. There is some possible infiltrates versus atelectasis bilateral basilar. Reviewed: Reviewed by Me Departure Communication (Admissions) Time/Spoke to Admitting Phy: 04:[address] German: Discussed the case, clinical findings, imaging, lab and he is okay with admission, azithromycin, Solu-Medrol and nebulizers. Impression Impression: Primary Impression: COPD with exacerbation Additional Impressions: Respiratory distress Hypercapnia Disposition: ADMITTED INPATIENT Condition: Improved Admissions Decision to Admit Reason: Admit from ER (General) Decision to Admit/Date: May 10, 2017 Time/Decision to Admit Time: 03:58 Departure-Patient Inst. Referrals: BRAULIO GERMAN DO (PCP/Family) Primary Care Physician Copy Copies To 1: BRAULIO GERMAN TITUS J May 10, 2017 03:08
[2017-05-10 03:13] LABS: BASOPHILS % (AUTO) 0 % (0-10); EOSINOPHILS # (AUTO) 0.2 10^3/uL (0.0-0.3); EOSINOPHILS % (AUTO) 3 % (0-10); LYMPHOCYTES # (AUTO) 1.2 X 10^3 (1.0-4.0); LYMPHOCYTES % (AUTO) 22 % (12-44); MEAN CORPUSCULAR HEMOGLOBIN 31 PG (25-34); MEAN CORPUSCULAR HGB CONC 32 G/DL (32-36); MEAN CORPUSCULAR VOLUME 98 FL (80-99); MEAN PLATELET VOLUME 9.3 FL (7.4-10.4); MONOCYTES # (AUTO) 0.5 X 10^3 (0.0-1.0); MONOCYTES % (AUTO) 9 % (0-12); NEUTROPHILS # (AUTO) 3.7 X 10^3 (1.8-7.8); NEUTROPHILS % (AUTO) 66 % (42-75); PLATELET COUNT 200 10^3/uL (130-400); RED BLOOD COUNT 3.94 10^6/uL (4.35-5.85); RED CELL DISTRIBUTION WIDTH 13.4 % (10.0-14.5); WHITE BLOOD COUNT 5.6 10^3/uL (4.3-11.0)
[2017-05-10 03:29] LABS: ABG BASE EXCESS 4.7 MMOL/L (-2.5-2.5); ABG HCO3 30 MMOL/L (23-27); ABG OXYGEN SATURATION 100 % (94-100); ABG PCO2 56 MMHG (35-45); ABG PH 7.35 (7.37-7.43); ABG PO2 180 MMHG (79-93); ABG TCO2 31.9 MMOL/L (21.0-31.0)
[2017-05-10 03:32] LABS: ALLENS TEST YES-POS; PATIENT TEMP 97.2
[2017-05-10 03:40] LABS: ALANINE AMINOTRANSFERASE 58 U/L (0-55); ALBUMIN 4.4 GM/DL (3.2-4.5); ANION GAP 14 MMOL/L (5-14); ASPARTATE AMINO TRANSFERASE 43 U/L (5-34); BILIRUBIN,TOTAL 0.7 MG/DL (0.1-1.0); BLOOD UREA NITROGEN 31 MG/DL (7-18); BUN/CREATININE RATIO 18; CALCIUM 10.1 MG/DL (8.5-10.1); CARBON DIOXIDE 27 MMOL/L (21-32); CHLORIDE 101 MMOL/L (98-107); CREATININE SERUM 1.77 MG/DL (0.60-1.30); GFR ESTIMATED 28; GLUCOSE 313 MG/DL (70-105); MAGNESIUM 2.1 MG/DL (1.8-2.4); POTASSIUM 4.3 MMOL/L (3.6-5.0); SODIUM 142 MMOL/L (135-145); TOTAL PROTEIN 8.3 GM/DL (6.4-8.2); hs C REACTIVE PROTEIN 0.91 MG/DL (0.00-0.50)
[2017-05-10 03:46] LABS: TROPONIN I < 0.30 NG/ML (<0.30)
[2017-05-10] MEDS ORDERED: AZITHROMYCIN INJECTION 500 MG in NS (IVPB) 250 ML IV ONE (04:00)
[2017-05-10] MEDS ORDERED: methylPREDNISolone 125 MG (Solu-MEDROL) VIAL IVP ONE (04:00)
[2017-05-10] MEDS ORDERED: ONDANSETRON 4 MG/2 ML (SDV) Z0FRAN ONE (04:07)
[2017-05-10] MEDS ORDERED: ONDANSETRON 4 MG/2 ML (SDV) Z0FRAN IVP ONE ×2 (04:15→04:30)
[2017-05-10 04:45] VITALS: BP 130/72
[2017-05-10 05:28] VITALS: BP 130/72
[2017-05-10] MEDS: PANTOPRAZOLE 40 MG/10 ML (PROTONIX) VIAL IV SCH ×2 (05:49→09:58)
[2017-05-10] MEDS: NITROGLYCERIN 0.4 MG SL TABS BTL 25'S SL PRN ×2 (05:55→08:07)
[2017-05-10] MEDS ORDERED: ACETAMINOPHEN 500 MG TAB (TYLENOL) PO PRN (06:00)
[2017-05-10] MEDS ORDERED: RT-ALBUTEROL SULF 2.5 MG/3 ML PRE-MIX VIAL IH PRN (06:00)
[2017-05-10] MEDS ORDERED: methylPREDNISolone 125 MG (Solu-MEDROL) VIAL IV SCH ×2 (06:00→12:00)
[2017-05-10] MEDS: inSUlin (REGULAR) HUMAN 1 UNIT/0.01 ML (CHARGE PER UNIT) SC SCH ×6 (06:14→22:23)
--- NOTE | 2017-05-10 07:20 | Diagnostic Imaging Report ---
INDICATION: Shortness of breath. Comparison with 04/15/2016. FINDINGS: The lungs are clear. The heart is not enlarged. No pulmonary edema. No pneumothorax or pleural effusion. IMPRESSION: Normal portable chest. Dictated by: Dictated on workstation # [id number]
[2017-05-10] MEDS: RT-ALBUTEROL/IPRATROPIUM 3 ML (DUONEB) VIAL IH SCH ×5 (07:26→21:56)
[2017-05-10] MEDS ORDERED: HYDROcodone/APAP 7.5 MG/325 MG (LORTAB, LORCET PLUS) TABLET PO ONE (07:47)
[2017-05-10 08:00] VITALS: BP 133/61
--- NOTE | 2017-05-10 08:00 | History & Physicial ---
History of Present Illness History of Present Illness Reason for visit/HPI patient called EMS due to shortness of breath. Patient brought to the emergency room where patient was in respiratory distress. Patient given treatments and admitted Patient this morning is complaining of right chest pain and right arm pain. Patient has renal insufficiency. Patient has COPD. Patient and known diabetic. Patient admitted Date of Admission May 10, 2017 at 04:12 Time Seen by Provider: 07:55 I consulted on this patient on 05/10/17 07:54 Attending Physician Wyatt German DO Admitting Physician Wyatt German DO Consult Allergies and Home Medications Allergies Coded Allergies: Sulfa (Sulfonamide Antibiotics) (Unverified Allergy, Mild, 10/16/07) amoxicillin (Unverified Allergy, Mild, 10/16/07) cephalexin (Unverified Allergy, Mild, 10/16/07) desloratadine (Unverified Allergy, Mild, 10/16/07) diphenhydramine (Unverified Allergy, Mild, 10/16/07) metaxalone (Unverified Allergy, Mild, 10/16/07) Penicillins (Unverified Allergy, Unknown, 01/22/14) ibuprofen (Unverified Adverse Reaction, Mild, MAKES HER SICK; CAN TAKE ASA , 09/26/09) Home Medications Amlodipine Besylate 10 Mg Tablet, 10 MG PO DAILY, (Reported) Ascorbic Acid 500 Mg Tablet, 1,000 MG PO DAILY, (Reported) TAKES 2 (500MG) TABLETS Aspirin 81 Mg Tabec, 81 MG PO HS, (Reported) Atorvastatin Calcium 40 Mg Tablet, 40 MG PO HS, (Reported) Cholecalciferol (Vitamin D3) 2,000 Unit Capsule, 2,000 UNIT PO DAILY, (Reported) Clopidogrel Bisulfate 75 Mg Tablet, 75 MG PO DAILY, (Reported) Fenofibric Acid (Choline) 135 Mg Capsule.dr, 135 MG PO EVERY EVENING, (Reported) Ferrous Sulfate 325 Mg Tablet, 325 MG PO BID, (Reported) Gabapentin 600 Mg Tablet, 600 MG PO TID, (Reported) Hydrocodone/Acetaminophen 1 Each Tablet, 1 TAB PO Q6H PRN for PAIN, (Reported) Insulin Regular, Human 500 Unit/1 Ml Insuln.pen, 75 UNIT SQ 0700, (Reported) Insulin Regular, Human 500 Unit/1 Ml Insuln.pen, 50 UNIT SQ 1200, (Reported) Insulin Regular, Human 500 Unit/1 Ml Insuln.pen, 110 UNIT SQ 1700, (Reported) Isosorbide Mononitrate 60 Mg Tab.sr.24h, 60 MG PO DAILY, (Reported) Latanoprost 2.5 Ml Drops, 1 DROP OU HS, (Reported) Loratadine 10 Mg Tablet, 10 MG PO DAILY, (Reported) Meclizine HCl 25 Mg Tablet, 25 MG PO TID PRN for AD, (Reported) Metoprolol Succinate 100 Mg Tab.sr.24h, 50 MG PO HS, (Reported) TAKES 1/2 (100MG) TABLET Metoprolol Succinate 100 Mg Tab.sr.24h, 100 MG PO DAILY, (Reported) Niacin 1,000 Mg Tab.er.24h, 1,000 MG PO HS, (Reported) Nitroglycerin 0.4 Mg Tab, 0.4 MG SL UD PRN for CHEST PAIN, (Reported) [place]-3/Dha/Epa/Fish Oil 1 Each Capsule, 1,000 MG PO TID, (Reported) Promethazine Hcl 25 Mg Tab, 25 MG PO TID PRN for NAUSEA, (Reported) Ranolazine 500 Mg Tab.er.12h, 500 MG PO BID, #60 Ref 4 Prescribed by: KHOA HELTON on 08/31/15 0748 Past Msqcuzj-Rmulod-Fthguh Hx Patient Social History Marrital Status: Employed/Student: unemployed Alcohol Use: Denies Use Recreational Drug Use: No Smoking Status: Former Smoker Former Smoker, Quit: Jan 15, 1976 Recent Foreign Travel: No Contact w/other who traveled: No Recent Hopitalizations: No Recent Infectious Disease Expo: No Immunizations Up To Date Tetanus Booster (TDap): Unknown Pediatric: No Date of Pneumonia Vaccine: Jul 15, 2012 Date of Influenza Vaccine: Mar 31, 2016 Seasonal Allergies Seasonal Allergies: Yes Surgeries Yes (TUBAL LIGATION AND GALLBLADER REMOVAL) Coronary Stent, Gallbladder, Orthopedic, Tonsillectomy, Tubal Ligation, Vascular Surgery Respiratory No COPD Currently Using CPAP: No Currently Using BIPAP: No Cardiovascular Yes Coronary Artery Disease, Heart Attack, Hypertension, Peripheral Vascular Neurological Yes Headaches /Migraines 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 System Hx 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 Disorders: No Sexually Transmitted Disease: No HIV/AIDS: No Female 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 Disorders: Denies 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 Genitourinary Renal Failure Gastrointestinal No Gastroesophageal Reflux Musculoskeletal No Arthritis Endocrine History of Endocrine Disorders: Yes Endocrine Disorders: Diabetes, Insulin dep, Hypothyroidsim Cancer No Psychosocial History of Psychiatric Problem: No Behavioral Health Disorders: Anxiety, Depression Integumentary History of Skin or Integumenta: No Blood Transfusions History of Blood Disorders: No Adverse Reaction to a Blood Tr: No Family Medical History Significant Family History: Heart Disease, Diabetes, Hypertension, Vascular Disease Family Hx: Diabetes mellitus 19 MOTHER, Onset:Unknown FH: breast cancer Lip cancer 19 FATHER, Onset:40's - 50 Constitutional: no symptoms reported EENTM: no symptoms reported Respiratory: dyspnea on exertion, short of breath, wheezing Cardiovascular: chest pain (right sided chest pain and right hand pain), other (right sided chest pain) Gastrointestinal: no symptoms reported Genitourinary: other (renal insufficiency history) Physical Exam Vital Signs Vital Sign - Last 12Hours 05/10/17 02:56 Temp 97.2 Pulse 80 Resp 24 B/P (MAP) 157/85 Pulse Ox 100 O2 Delivery OxyMask O2 Flow Rate 8.00 Capillary Refill : Less Than 3 Seconds General Appearance: No Apparent Distress, WD/WN Eyes: Bilateral Eye Normal Inspection HEENT: Normal ENT Inspection Neck: Full Range of Motion, Normal Inspection Respiratory: No Accessory Muscle Use, No Respiratory Distress, Decreased Breath Sounds Cardiovascular: Regular Rate, Rhythm, No Murmur Gastrointestinal: Non Tender, Soft Assessment/Plan Assessment and Plan COPD with acute exacerbation. Hypocapnia. Renal insufficiency. Diabetes. Coronary artery disease. Chest pain. Hypertension. Problems: Clinical Quality Measures DVT/VTE Risk/Contraindication: Risk Factor Score Per Nursin RFS Level Per Nursing on Admit: 4+=Very High WYATT GERMAN DO May 10, 2017 08:00
[2017-05-10] MEDS: fentaNYL INJECTION 100 MCG/2 ML AMP IVP NR ×2 (08:02→09:51)
[2017-05-10] MEDS: HYDROcodone/APAP 7.5 MG/325 MG (LORTAB, LORCET PLUS) TABLET PO PRN ×4 (08:02→20:23)
[2017-05-10] MEDS ORDERED: fentaNYL INJECTION 100 MCG/2 ML AMP IVP NR (09:30)
[2017-05-10] MEDS ORDERED: ALPRAZolam 0.5 MG (XANAX) TAB PO NR (09:30)
[2017-05-10] MEDS ORDERED: ASPI-983 PO (09:57)
[2017-05-10] MEDS ORDERED: FURO40TA4 PO (09:57)
[2017-05-10] MEDS ORDERED: ASCO500T7 PO (09:57)
[2017-05-10] MEDS ORDERED: GABA-488 PO (09:57)
[2017-05-10] MEDS ORDERED: NITR0.4T39 SL (09:57)
[2017-05-10] MEDS ORDERED: LORA10TA7 PO (09:57)
[2017-05-10] MEDS ORDERED: RANO500T3 PO (09:57)
[2017-05-10] MEDS ORDERED: DOXA4TAB2 PO (09:57)
[2017-05-10] MEDS ORDERED: FENO135C4 PO (09:57)
[2017-05-10] MEDS ORDERED: ATOR80TA76 PO (09:57)
[2017-05-10] MEDS ORDERED: OMEG-160 PO (09:57)
[2017-05-10] MEDS ORDERED: CLOP75TA28 PO (09:57)
[2017-05-10] MEDS ORDERED: NIAC100045 PO (09:57)
[2017-05-10] MEDS ORDERED: ISM60TCR PO (09:57)
[2017-05-10] MEDS ORDERED: AMLO10TA2 PO (09:57)
[2017-05-10] MEDS ORDERED: CETI10TA17 PO (09:57)
[2017-05-10] MEDS ORDERED: METO-274 PO ×2 (10:09)
[2017-05-10] MEDS ORDERED: PROM25TA14 PO (10:09)
--- NOTE | 2017-05-10 10:20 | Consultation-Cardiology ---
HPI-Cardiology Cardiology Consultation: Date of Consultation 05/09/17 Time Seen by Provider: 10:15 Date of Admission 05-09-17 Attending Physician Wyatt Cuba DO Admitting Physician Wyatt Cuba DO Consulting Physician Giovanni Gallagher MD HPI: Chief Complaint: Chest pain Ms. Mcgee is a 71 year old female who has been admitted to [facility]note 3] from the ED with c/o increasing shortness of breath over the last 3 days at home. She is currently reporting mid-sternal sharp stabbing pain with radiation into her right arm. She describes it as severe. She states it has been constant since early this morning with the stabbing sensation coming and going. She is tender with palpation in the mid-sternal region. She also reports increased bilat LE edema over the course of the last few days. She is anxious. She has increased stress at home. She reports a frequent cough. She reports chills. No c/o n/v/ d. Nursing staff reports she is anxious and has been reporting chest pain since the time of her admission early this morning. Review of Systems-Cardiology Review of Systems Constitutional: chills, No fever, No lightheadedness Ears/Nose/Throat: No chronic hearing loss, No ear discharge, No ear pain, No nasal drainage, No ulcerations Respiratory: As described under HPI Cardiovascular: As described under HPI Gastrointestinal: No abdomen distended, No abdominal pain, No blood streaked bowels, No constipation, No diarrhea, No nausea, No vomiting, No stool coloration changes Genitourinary: No burning, No dysuria, No discharge, No frequency, No flank pain, No hematuria, No urgency : No Skin: No rash, No skin related problems, No ulcerations Psychiatric/Neurological: No anxiety, No depression, No seizure, No focal weakness, No syncope Hematologic: No bleeding abnormalities ESH-Cgdgnp-Xedacn Hx Patient Social History Marrital Status: Employed/Student: unemployed Alcohol Use: Denies Use Recreational Drug Use: No Smoking Status: Former Smoker Former smoker/When Quit: Aug 26, 1975 Recent Foreign Travel: No Recent Infectious Disease Expo: No Hospitalization with Isolation: Denies Physical Abuse Screen: No Sexual Abuse: No Immunizations Up To Date Tetanus Booster (TDap): Unknown Date of Pneumonia Vaccine: Jul 15, 2012 Date of Influenza Vaccine: Mar 31, 2016 Past Medical History PMH As described under Assessment. Family Medical History Family History: 19 FATHER Lip cancer, Onset:40's - 50 19 MOTHER Diabetes mellitus, Onset:Unknown Relation not specified for: FH: breast cancer Allergies and Home Medications Allergies Coded Allergies: Sulfa (Sulfonamide Antibiotics) (Unverified Allergy, Mild, 10/16/07) amoxicillin (Unverified Allergy, Mild, 10/16/07) cephalexin (Unverified Allergy, Mild, 10/16/07) desloratadine (Unverified Allergy, Mild, 10/16/07) diphenhydramine (Unverified Allergy, Mild, 10/16/07) metaxalone (Unverified Allergy, Mild, 10/16/07) Penicillins (Unverified Allergy, Unknown, 01/22/14) ibuprofen (Unverified Adverse Reaction, Mild, MAKES HER SICK; CAN TAKE ASA , 09/26/09) Home Medications Amlodipine Besylate 10 Mg Tablet, 10 MG PO DAILY, (Reported) Ascorbic Acid 500 Mg Tablet, 1,000 MG PO DAILY, (Reported) TAKES 2 (500MG) TABLETS Aspirin 81 Mg Tablet.dr, 81 MG PO HS, (Reported) Atorvastatin Calcium 80 Mg Tablet, 80 MG PO HS, (Reported) Cetirizine HCl 10 Mg Tablet, 10 MG PO DAILY, (Reported) Cholecalciferol (Vitamin D3) 2,000 Unit Capsule, 2,000 UNIT PO DAILY, (Reported) Clopidogrel Bisulfate 75 Mg Tablet, 75 MG PO DAILY, (Reported) Doxazosin Mesylate 4 Mg Tablet, 4 MG PO DAILY, (Reported) Fenofibric Acid (Choline) 135 Mg Capsule.dr, 135 MG PO HS, (Reported) Furosemide 40 Mg Tablet, 40 MG PO DAILY, (Reported) Gabapentin 300 Mg Capsule, 600 MG PO BID, (Reported) TAKES 2 (300MG) CAPSULES Insulin Regular, Human 500 Unit/1 Ml Insuln.pen, 100 UNIT SQ 0700, (Reported) Insulin Regular, Human 500 Unit/1 Ml Insuln.pen, 80 UNIT SQ 1200, (Reported) Insulin Regular, Human 500 Unit/1 Ml Insuln.pen, 110 UNIT SQ 1700, (Reported) Isosorbide Mononitrate 60 Mg Tab, 60 MG PO DAILY, (Reported) Latanoprost 2.5 Ml Drops, 1 DROP OU HS, (Reported) Meclizine HCl 25 Mg Tablet, 25 MG PO TID PRN for DIZZINESS, (Reported) Metoprolol Succinate 100 Mg Tab.er.24h, 50 MG PO HS, (Reported) LAST FILLED 30 DAY SUPPLY 02-22-17 TAKES 1/2 (100MG) TABLET Metoprolol Succinate 100 Mg Tab.er.24h, 100 MG PO DAILY, (Reported) LAST FILLED 30 DAY SUPPLY 02-22-17 Niacin 1,000 Mg Tab.er.24h, 1,000 MG PO HS, (Reported) Nitroglycerin 0.4 Mg Tab.subl, 0.4 MG SL UD PRN for CHEST PAIN, (Reported) [place]-3/Dha/Epa/Fish Oil 1 Each Capsule, 1,000 MG PO TID, (Reported) Promethazine HCl 25 Mg Tablet, 25 MG PO TID PRN for NAUSEA/VOMITING-2ND LINE, ( Reported) Ranolazine 500 Mg Tab.er.12h, 500 MG PO BID, (Reported) Physical Exam-Cardiology Physical Exam Vital Signs/I&O Vital Sign - Last 12Hours 05/10/17 05/10/17 05/10/17 05/10/17 03:16 04:39 04:45 04:45 Temp 97.9 Pulse 100 81 Resp 20 22 B/P (MAP) 130/72 Pulse Ox 100 97 92 92 O2 Delivery Nasal Cannula Nasal Cannula Nasal Cannula Nasal Cannula O2 Flow Rate 6.00 3.00 2.00 2.00 05/10/17 05/10/17 05/10/17 05/10/17 05:28 07:26 08:00 08:00 Temp 98.6 Pulse 90 70 Resp 18 B/P (MAP) 133/61 Pulse Ox 92 93 95 O2 Delivery Nasal Cannula Nasal Cannula Nasal Cannula O2 Flow Rate 2.00 2.00 2.00 05/10/17 05/10/17 11:20 12:00 Temp 97.9 Pulse 78 Resp 18 B/P (MAP) 131/67 Pulse Ox 90 90 O2 Delivery Nasal Cannula Nasal Cannula O2 Flow Rate 2.00 2.00 Capillary Refill : Less Than 3 Seconds Constitutional: appears stated age, No apparent distress, well-developed, well- nourished HEENT: PERRL, No discharge, hearing is well preserved, oral hygience is good, No ulceration, No xanthelasmas are seen Neck: No carotid bruit, carotid pulses are 2 + bilaterally Respiratory: No accessory muscle use, No respiratory distress, chest expansion is symmetric, chest is bilaterally symmetric, lungs clear to percussion, lungs clear to auscultation Cardiovascular: regular rate-rhythm, No JVD, S1 and S2, systolic murmur Gastrointestinal: round, distended, audible bowel sounds, No spleenomegaly Extremities: No clubbing, No cyanosis, significant edema (bilat mod LE edema) Neurologic/Psychiatric: alert, oriented x 3, power is 5/5 both on sides Skin: No rash, No ulcerations Other comments tenderness to palpation mid-sternal Data Review Labs Laboratory Tests 05/10/17 03:00: White Blood Count 5.6, Red Blood Count 3.94L, Hemoglobin 12.2, Hematocrit 39, Mean Corpuscular Volume 98, Mean Corpuscular Hemoglobin 31, Mean Corpuscular Hemoglobin Concent 32, Red Cell Distribution Width 13.4, Platelet Count 200, Mean Platelet Volume 9.3, Neutrophils (%) (Auto) 66, Lymphocytes (%) (Auto) 22, Monocytes (%) (Auto) 9, Eosinophils (%) (Auto) 3, Basophils (%) (Auto) 0, Neutrophils # (Auto) 3.7, Lymphocytes # (Auto) 1.2, Monocytes # (Auto) 0.5, Eosinophils # (Auto) 0.2, Basophils # (Auto) 0.0, Sodium Level 142, Potassium Level 4.3, Chloride Level 101, Carbon Dioxide Level 27, Anion Gap 14, Blood Urea Nitrogen 31H, Creatinine 1.77H, Estimat Glomerular Filtration Rate 28, BUN/ Creatinine Ratio 18, Glucose Level 313H, Lactic Acid Level 1.23, Calcium Level 10.1, Magnesium Level 2.1, Total Bilirubin 0.7, Aspartate Amino Transf (AST/SGOT ) 43H, Alanine Aminotransferase (ALT/SGPT) 58H, Alkaline Phosphatase 68, Troponin I < 0.30, C-Reactive Protein High Sensitivity 0.91H, B-Type Natriuretic Peptide 143.8H, Total Protein 8.3H, Albumin 4.4 05/10/17 03:20: Blood Gas Puncture Site RRAD, Blood Gas Patient Temperature 97.2, Arterial Blood pH 7.35L, Arterial Blood Partial Pressure CO2 56H, Arterial Blood Partial Pressure O2 180H, Arterial Blood HCO3 30H, Arterial Blood Total CO2 31.9H, Arterial Blood Oxygen Saturation 100, Arterial Blood Base Excess 4.7H, Av Test YES-POS, Blood Gas Ventilator Setting NO, Blood Gas Inspired Oxygen 6L 05/10/17 06:07: Glucometer 350H 05/10/17 09:48: Troponin I < 0.30 05/10/17 11:28: Glucometer 506*H 05/10/17 13:30: Urine Color YELLOW, Urine Clarity CLEAR, Urine pH 5, Urine Specific [place] 1.010L, Urine Protein NEGATIVE, Urine Glucose (UA) 4+H, Urine Ketones NEGATIVE, Urine Nitrite NEGATIVE, Urine Bilirubin NEGATIVE, Urine Urobilinogen NORMAL, Urine Leukocyte Esterase NEGATIVE, Urine RBC (Auto) NEGATIVE, Urine RBC NONE, Urine WBC RARE, Urine Squamous Epithelial Cells 2-5, Urine Crystals NONE, Urine Bacteria TRACE, Urine Casts NONE, Urine Mucus NEGATIVE, Urine Culture Indicated NO Radiology NAME: JOSSUE MCGEE [facility] REC#: [id number] PT STATUS: ADM IN : 1945 PHYSICIAN: SHUKRI SMALLS MD ADMIT DATE: 05/10/17 Draft Date of Exam:05/10/17 CHEST 1 VIEW, AP/PA ONLY INDICATION: Shortness of breath. Comparison with 04/15/2016. FINDINGS: The lungs are clear. The heart is not enlarged. No pulmonary edema. No pneumothorax or pleural effusion. IMPRESSION: Normal portable chest. 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 She has undergone left femoral popliteal surgery by Dr. Bose at [facility] on 08/04/10. PAD [facility] by [facility]. She underwent stent placement to the left popliteal in April [address] Sarabia at [facility]. Cardiac cath on August 26, 2015 she underwent stenting to the proximal LAD with a Promus 2.75 x 20 stent and balloon angioplasty to the proximal diagonal of an 80% lesion with reduction to 50%. The mid LAD has a patent stent. The RCA has diffuse disease unchanged compared to the previous study. The distal LAD is chronically occluded with collateral. The distal Cx has 50% blockage which was unchanged from cardiac cath of January 2014. Cardiac cath on 01-15-[address] Siddiqi showed normal left main coronary artery. Patent stent within the prox LAD. 80% mid LAD stenosis. 100% occlusion of the distal LAD with left to left collaterals to the apical portion of the LAD. 80% mid Cx stenosis. Tortuous RCA with mod severe prox and mid plaquing with a 70% distal RCA stenosis. She has had repeat surgical consult with Dr Bullard on 06-09, CABG has been advised. She has had second CV surgical opinion with Dr Pina at [facility] in early 2016. He has advised against CABG Thallium Viability study of April 2016 showed diffusely viable myocardium Echocardiogram of 01-09-16 showed normal global LV systolic function with an ejection fraction of approx 60%. Aortic valve sclerosis without significant aortic stenosis. Mitral annular calcification, mild without evidence of mitral stenosis. Mild MR and TR. PASP approx 30-35mmHg Normal left ventricular end-diastolic pressure at the time of cardiac catheterization of September 2009. Hypertension, controlled. Hyperlipidemia, being treated with atorvastatin and being managed by Dr. Cuba. Maturity onset diabetes mellitus, being managed by Dr. Cuba and Dr Wade. Gastroesophageal reflux. History of cholecystectomy. History of tubal ligation. History of degenerative joint disease. Carotid arterial disease consisting of chronic total occlusion of the left internal carotid and mild disease involving the right carotid per ultrasonography of June 2012 and per subsequent carotid CTA of July 2011. Carotid ultrasonography of June 2012 showed mild carotid arterial disease involving the right internal carotid and chronic total occlusion of the left internal carotid. Carotid u/s of January 2015was unchanged. 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 No evidence of aortoiliac dilatation. This is being followed by [facility] Chronic anemia, followed by Dr Cuba CKD stage 4, followed by her contracting engineer (Dr Ashvin Serrano) at [place], [place] Chronic bilat LE edema likely in some part d/t venous insufficiency and/or calcium channel deonte tx Discussion and Recomendations Complex management issue d/t multiple co-morbidities as listed above. Mid- sternal chest pain which is worse with palpation without any evidence thus far of ACS. Continue current medication regimen including Lasix, BB, Imdur and Ranexa. Management of COPD and pneumonia per medical services. Monitor lab closely. We would like to thank medical services for this consult. Further recommendations will be based on her hospital course. This consult is being scribed by Floridalma De La Torre APRN on behalf of Dr. Gallagher after discussion regarding plan of care. Clinical Quality Measures DVT/VTE Risk/Contraindication: Risk Factor Score Per Nursin RFS Level Per Nursing on Admit: 4+=Very High Contraindications-Pharm: Other *list below* Physician Assessment Physician Assessment Reports some improvement of sternal and R shoulder and arm pain that she has had continuously for approx 3 days; this has not, however, resolved completely Lungs: dec bs at bases Cor: reg Ext: bilat mod pitting and nonpitting edema (chronic) ECG: NSR with LBBB (unchanged) A&R * As documented in our note above that I updated (Italics) and as noted below * Complex diagnostic and management issue due to multiple comorbidities * Although she has significant CAD (see above), her current episode doesn't appear to be primarily cardiac * We have resumed her usual cardiac meds and will continue to follow closely * I had a detailed discussion with her and her fam and answered CV-related questions * Monitor labs YA DE LA TORRE May 10, 2017 10:20 IGOVANNI GALLAGHER MD [facility] CCDS May 10, 2017 15:05
[2017-05-10] MEDS: fentaNYL INJECTION 100 MCG/2 ML AMP IVP PRN ×6 (11:43→22:22)
[2017-05-10] MEDS ORDERED: inSUlin (REGULAR) HUMAN 1 UNIT/0.01 ML (CHARGE PER UNIT) SC NR ×2 (11:45→18:30)
[2017-05-10 12:00] VITALS: BP 131/67
[2017-05-10] MEDS ORDERED: methylPREDNISolone 40 MG/ML (Solu-MEDROL) VIAL IV SCH (12:00)
[2017-05-10 13:37] LABS: BILIRUBIN,URINE NEGATIVE (NEGATIVE); KETONES,URINE NEGATIVE (NEGATIVE); LEUKOCYTE ESTERASE ,URINE NEGATIVE (NEGATIVE); NITRITE,URINE NEGATIVE (NEGATIVE); PH,URINE 5 (5-9); PROTEIN,URINE NEGATIVE (NEGATIVE); UROBILINOGEN,URINE NORMAL (NORMAL)
[2017-05-10] MEDS: DICLOFENAC 1% GEL 100 GM (VOLTAREN) TUBE TOP SCH ×3 (13:39→20:24)
[2017-05-10 14:01] LABS: WBC,URINE RARE /HPF
[2017-05-10 15:22] VITALS: BP 128/64
[2017-05-10] MEDS ORDERED: NITROGLYCERIN 0.4 MG SL TABS BTL 25'S SL PRN (16:15)
[2017-05-10] MEDS ORDERED: MECLIZINE 25 MG (ANTIVERT) TAB PO PRN (16:15)
[2017-05-10] MEDS ORDERED: PROMETHAZINE 25 MG (PHENERGAN) TAB PO PRN (16:15)
[2017-05-10] MEDS ORDERED: inSUlin NPH (NovoLIN N) 1 UNIT/0.01 ML (CHARGE PER UNIT) SQ ONE (18:30)
[2017-05-10] MEDS: OMEGA 3 (FISH OIL) 1000 MG CAP PO SCH (18:33)
[2017-05-10] MEDS ORDERED: inSUlin NPH (NovoLIN N) 1 UNIT/0.01 ML (CHARGE PER UNIT) SQ NR (18:33)
[2017-05-10 19:30] VITALS: BP 118/65
[2017-05-10] MEDS: LATANOPROST 0.005% (XALATAN) OPHTH SOLN 2.5 ML OU SCH (20:22)
[2017-05-10] MEDS: meTOproloL SUCCINATE 50 MG (TOPROL XL) TAB PO SCH (20:23)
[2017-05-10] MEDS: RANOLAZINE ER 500 MG TAB (RANEXA) PO SCH (20:23)
[2017-05-10] MEDS: ATORVASTATIN 80 MG (LIPITOR) TABLET PO SCH (20:23)
[2017-05-10] MEDS: FENOFIBRATE 134 MG (LOFIBRA) CAPSULE PO SCH (20:23)
[2017-05-10] MEDS: NIACIN ER (NIASPAN) 500 MG TAB PO SCH (20:23)
[2017-05-10] MEDS: GABAPENTIN 600 MG (NEURONTIN) TAB PO SCH (20:23)
[2017-05-10] MEDS: ASPIRIN E.C. 81 MG (ECOTRIN) TAB PO SCH (20:24)
[2017-05-11 00:50] VITALS: BP 129/60
[2017-05-11] MEDS: HYDROcodone/APAP 7.5 MG/325 MG (LORTAB, LORCET PLUS) TABLET PO PRN ×3 (00:52→21:13)
[2017-05-11] MEDS: RT-ALBUTEROL/IPRATROPIUM 3 ML (DUONEB) VIAL IH SCH ×6 (00:52→22:00)
[2017-05-11] MEDS: inSUlin (REGULAR) HUMAN 1 UNIT/0.01 ML (CHARGE PER UNIT) SC SCH ×8 (02:15→21:19)
[2017-05-11] MEDS: fentaNYL INJECTION 100 MCG/2 ML AMP IVP PRN (02:20)
[2017-05-11 04:00] VITALS: BP 124/70
[2017-05-11] MEDS: AZITHROMYCIN 250 MG/NS 250 ML IVPB IV SCH ×2 (04:23)
[2017-05-11] MEDS: ASCORBIC ACID (VIT C) 500 MG TABLET PO SCH (06:01)
[2017-05-11] MEDS: OMEGA 3 (FISH OIL) 1000 MG CAP PO SCH ×3 (06:01→16:29)
[2017-05-11] MEDS: VITAMIN D3 1,000 UNITS (CHOLECALCIFEROL) TABLET PO SCH (06:01)
[2017-05-11 07:13] LABS: BASOPHILS % (AUTO) 0 % (0-10); EOSINOPHILS % (AUTO) 0 % (0-10); LYMPHOCYTES # (AUTO) 0.5 X 10^3 (1.0-4.0); LYMPHOCYTES % (AUTO) 6 % (12-44); MEAN CORPUSCULAR HEMOGLOBIN 31 PG (25-34); MEAN CORPUSCULAR HGB CONC 31 G/DL (32-36); MEAN CORPUSCULAR VOLUME 99 FL (80-99); MEAN PLATELET VOLUME 9.7 FL (7.4-10.4); MONOCYTES # (AUTO) 0.6 X 10^3 (0.0-1.0); MONOCYTES % (AUTO) 7 % (0-12); NEUTROPHILS # (AUTO) 7.7 X 10^3 (1.8-7.8); NEUTROPHILS % (AUTO) 88 % (42-75); PLATELET COUNT 198 10^3/uL (130-400); RED BLOOD COUNT 3.28 10^6/uL (4.35-5.85); RED CELL DISTRIBUTION WIDTH 13.1 % (10.0-14.5); WHITE BLOOD COUNT 8.8 10^3/uL (4.3-11.0)
[2017-05-11 07:31] LABS: CALCIUM 9.1 MG/DL (8.5-10.1); CREATININE SERUM 2.62 MG/DL (0.60-1.30); POTASSIUM 5.2 MMOL/L (3.6-5.0)
[2017-05-11 07:42] LABS: LYMPHOCYTES % (MANUAL) 6 %; NEUTROPHILS % (MANUAL) 87 %
[2017-05-11] MEDS ORDERED: NS IV 1000 ML 1,000 ML ONE (07:47)
--- NOTE | 2017-05-11 07:49 | Progress Note (SOAP) ---
Subjective Time Seen by Provider: 07:45 Subjective/Events-last exam patient complaining of abdominal pain in the abdomen more on the right side. COPD with acute exacerbation resolved. No chest pain in the right shoulder pain today Patient not eating much Patient having abdominal pain CAT scan ordered. Patient has renal insufficiency.. Patient diabetic. Patient has multiple problems. Patient has renal insufficiency CKd4 Objective Exam Vital Signs Date Time Temp Pulse Resp B/P (MAP) Pulse Ox O2 Delivery O2 Flow Rate FiO2 05/11/17 06:09 92 Nasal Cannula 2.00 05/11/17 04:00 97.9 84 16 124/70 92 Nasal Cannula 2.00 05/11/17 00:53 95 Nasal Cannula 2.00 05/11/17 00:50 97.7 102 16 129/60 95 Nasal Cannula 3.00 05/10/17 21:57 90 Nasal Cannula 2.00 05/10/17 20:30 Nasal Cannula 2.00 05/10/17 19:30 97.0 74 18 118/65 95 Nasal Cannula 2.00 05/10/17 18:32 90 Nasal Cannula 2.00 05/10/17 15:22 97.0 90 20 128/64 94 Nasal Cannula 2.00 05/10/17 12:00 97.9 78 18 131/67 90 Nasal Cannula 2.00 05/10/17 11:20 90 Nasal Cannula 2.00 05/10/17 08:00 98.6 70 18 133/61 95 Nasal Cannula 2.00 05/10/17 08:00 Nasal Cannula 2.00 Capillary Refill : Less Than 3 Seconds General Appearance: Mild Distress HEENT: Normal ENT Inspection Neck: Full Range of Motion, Normal Inspection Respiratory: No Accessory Muscle Use, No Respiratory Distress, Decreased Breath Sounds Cardiovascular: Regular Rate, Rhythm Gastrointestinal: non tender, soft, other (abdominal pain) Results Lab Laboratory Tests 05/11/17 06:44 Laboratory Tests 05/11/17 06:44 Laboratory Tests 05/10/17 09:48: Troponin I < 0.30 05/10/17 11:28: Glucometer 506*H 05/10/17 13:30: Urine Color YELLOW, Urine Clarity CLEAR, Urine pH 5, Urine Specific [place] 1.010L, Urine Protein NEGATIVE, Urine Glucose (UA) 4+H, Urine Ketones NEGATIVE, Urine Nitrite NEGATIVE, Urine Bilirubin NEGATIVE, Urine Urobilinogen NORMAL, Urine Leukocyte Esterase NEGATIVE, Urine RBC (Auto) NEGATIVE, Urine RBC NONE, Urine WBC RARE, Urine Squamous Epithelial Cells 2-5, Urine Crystals NONE, Urine Bacteria TRACE, Urine Casts NONE, Urine Mucus NEGATIVE, Urine Culture Indicated NO 05/10/17 15:54: Glucometer 567*H 05/10/17 19:41: Glucometer 526*H 05/10/17 22:03: Glucometer 486*H 05/11/17 02:03: Glucometer 363H 05/11/17 05:59: Glucometer 271H 05/11/17 06:44: White Blood Count 8.8, Red Blood Count 3.28L, Hemoglobin 10.0L, Hematocrit 32L, Mean Corpuscular Volume 99, Mean Corpuscular Hemoglobin 31, Mean Corpuscular Hemoglobin Concent 31L, Red Cell Distribution Width 13.1, Platelet Count 198, Mean Platelet Volume 9.7, Neutrophils (%) (Auto) 88H, Lymphocytes (%) (Auto) 6L , Monocytes (%) (Auto) 7, Eosinophils (%) (Auto) 0, Basophils (%) (Auto) 0, Neutrophils # (Auto) 7.7, Lymphocytes # (Auto) 0.5L, Monocytes # (Auto) 0.6, Eosinophils # (Auto) 0.0, Basophils # (Auto) 0.0, Neutrophils % (Manual) 87, Lymphocytes % (Manual) 6, Monocytes % (Manual) 7, Blood Morphology Comment NORMAL, Sodium Level 134L, Potassium Level 5.2H, Chloride Level 98, Carbon Dioxide Level 24, Anion Gap 12, Blood Urea Nitrogen 48H, Creatinine 2.62#H, Estimat Glomerular Filtration Rate 18, BUN/Creatinine Ratio 18, Glucose Level 295H, Calcium Level 9.1 Assessment/Plan Assessment/Plan Assess & Plan/Chief Complaint abdominal pain. COPD with acute exacerbation. Diabetes. Obesity. Renal insufficiency. Chest pain resolved. Abdominal pain more on the right side. Patient a work in progress Clinical Quality Measures DVT/VTE Risk/Contraindication: Risk Factor Score Per Nursin RFS Level Per Nursing on Admit: 4+=Very High Contraindications-Pharm: Other *list below* BRAULIO GERMAN DO May 11, 2017 07:49
[2017-05-11] MEDS ORDERED: ALPRAZolam 0.5 MG (XANAX) TAB PO PRN (08:00)
[2017-05-11] MEDS ORDERED: NS IV 1000 ML 1,000 ML IV SCH (08:00)
[2017-05-11 08:15] VITALS: BP 134/56
--- NOTE | 2017-05-11 08:55 | Progress Note-Cardiology ---
Cardiology SOAP Progress Note Subjective: Lethargic this morning, sitting up in chair at the bedside. Denies any c/o chest pain at this time. C/O abdominal pain. Objective: I&O/Vital Signs Vital Sign - Last 12Hours 05/11/17 05/11/17 05/11/17 05/11/17 06:09 08:00 08:15 10:36 Temp 97.4 Pulse 88 Resp 22 B/P (MAP) 134/56 Pulse Ox 92 83 89 83 O2 Delivery Nasal Cannula Nasal Cannula Nasal Cannula Nasal Cannula O2 Flow Rate 2.00 2.00 2.00 2.00 05/11/17 05/11/17 05/11/17 12:00 14:19 16:00 Temp 96.8 97.1 Pulse 63 72 Resp 18 22 B/P (MAP) 159/82 131/60 Pulse Ox 91 89 92 O2 Delivery Nasal Cannula Nasal Cannula Nasal Cannula O2 Flow Rate 3.00 3.00 3.00 Intake and Output 05/12/17 00:00 Intake Total 450 ml Balance 450 ml Weight (Pounds): 237 Weight (Ounces): 2.5 Weight (Calculated Kilograms): 107.863634 Constitutional: appears stated age, No apparent distress, well-developed, well- nourished, other (lethargic) Respiratory: No accessory muscle use, No respiratory distress, chest expansion is symmetric, chest is bilaterally symmetric, lungs clear to percussion, lungs clear to auscultation Cardiovascular: regular rate-rhythm, No JVD, S1 and S2, systolic murmur Gastrointestional: round, distended, audible bowel sounds, No spleenomegaly Extremities: No clubbing, No cyanosis, significant edema (bilat mod LE edema) Neurologic/Psychiatric: grossly intact Skin: No rash, No ulcerations Results/Procedures: Labs Laboratory Tests 05/10/17 18:17: Glucometer 530*H 05/10/17 19:41: Glucometer 526*H 05/10/17 22:03: Glucometer 486*H 05/11/17 02:03: Glucometer 363H 05/11/17 05:59: Glucometer 271H 05/11/17 06:44: White Blood Count 8.8, Red Blood Count 3.28L, Hemoglobin 10.0L, Hematocrit 32L, Mean Corpuscular Volume 99, Mean Corpuscular Hemoglobin 31, Mean Corpuscular Hemoglobin Concent 31L, Red Cell Distribution Width 13.1, Platelet Count 198, Mean Platelet Volume 9.7, Neutrophils (%) (Auto) 88H, Lymphocytes (%) (Auto) 6L , Monocytes (%) (Auto) 7, Eosinophils (%) (Auto) 0, Basophils (%) (Auto) 0, Neutrophils # (Auto) 7.7, Lymphocytes # (Auto) 0.5L, Monocytes # (Auto) 0.6, Eosinophils # (Auto) 0.0, Basophils # (Auto) 0.0, Neutrophils % (Manual) 87, Lymphocytes % (Manual) 6, Monocytes % (Manual) 7, Blood Morphology Comment NORMAL, Sodium Level 134L, Potassium Level 5.2H, Chloride Level 98, Carbon Dioxide Level 24, Anion Gap 12, Blood Urea Nitrogen 48H, Creatinine 2.62#H, Estimat Glomerular Filtration Rate 18, BUN/Creatinine Ratio 18, Glucose Level 295H, Calcium Level 9.1, B-Type Natriuretic Peptide 1135.3H, Amylase Level 125 05/11/17 09:31: Sodium Level 136, Potassium Level 5.0, Chloride Level 99, Carbon Dioxide Level 24, Anion Gap 13, Blood Urea Nitrogen 52H, Creatinine 2.73H, Estimat Glomerular Filtration Rate 17, BUN/Creatinine Ratio 19, Glucose Level 263H, Calcium Level 9.4 05/11/17 11:03: Glucometer 261H 05/11/17 15:59: Glucometer 331H Microbiology 05/10/17 Blood Culture - Preliminary, Resulted No growth A/P: Assessment: Chest pain w/o any evidence of ACS, likely non-cardiac chest pain - no further c /o Dyspnea likely multifactorial as listed below 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 She has undergone left femoral popliteal surgery by Dr. Bose at [facility] on 08/04/10. [facility] by [facility]. She underwent stent placement to the left popliteal in April [address] Sarabia at [facility]. Cardiac cath on August 26, 2015 she underwent stenting to the proximal LAD with a Promus 2.75 x 20 stent and balloon angioplasty to the proximal diagonal of an 80% lesion with reduction to 50%. The mid LAD has a patent stent. The RCA has diffuse disease unchanged compared to the previous study. The distal LAD is chronically occluded with collateral. The distal Cx has 50% blockage which was unchanged from cardiac cath of January 2014. Cardiac cath on 01-15-[address] Siddiqi showed normal left main coronary artery. Patent stent within the prox LAD. 80% mid LAD stenosis. 100% occlusion of the distal LAD with left to left collaterals to the apical portion of the LAD. 80% mid Cx stenosis. Tortuous RCA with mod severe prox and mid plaquing with a 70% distal RCA stenosis. She has had repeat surgical consult with Dr Bullard on 06-09, CABG has been advised. She has had second CV surgical opinion with Dr Pina at [facility] in early 2016. He has advised against CABG Thallium Viability study of April 2016 showed diffusely viable myocardium Echocardiogram of 01-09-16 showed normal global LV systolic function with an ejection fraction of approx 60%. Aortic valve sclerosis without significant aortic stenosis. Mitral annular calcification, mild without evidence of mitral stenosis. Mild MR and TR. PASP approx 30-35mmHg Normal left ventricular end-diastolic pressure at the time of cardiac catheterization of September 2009. Hypertension, controlled. Hyperlipidemia, being treated with atorvastatin and being managed by Dr. Cuba. Maturity onset diabetes mellitus, being managed by Dr. Cuba and Dr Wade. Gastroesophageal reflux. History of cholecystectomy. History of tubal ligation. History of degenerative joint disease. Carotid arterial disease consisting of chronic total occlusion of the left internal carotid and mild disease involving the right carotid per ultrasonography of June 2012 and per subsequent carotid CTA of July 2011. Carotid ultrasonography of June 2012 showed mild carotid arterial disease involving the right internal carotid and chronic total occlusion of the left internal carotid. Carotid u/s of January 2015was unchanged. Carotid u/s from [facility] in May 2015 showed 60-79% stenosis - she wishes to follow with them Non-critical renal artery stenosis of the right and left per u/s on February 2013 by [facility] MONY Julien. No evidence of aortoiliac dilatation. 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 No further c/o CP C/O abdominal pain - CT of abdomen and pelvis per Dr. Cuba Lethargic this morning, easy to arouse and appropriate - received Ativan earlier this morning d/t anxiety Continue current medication regimen including Lasix, BB, Imdur and Ranexa. Uncontrolled glucose - management per medical services Receiving IVF - monitor lab closely Hyperkalemia likely d/t hyperglycemia/CKD - repeat lab Renal function continues to worsen; may need to consider transfer to tertiary facility with nephrology services available Physician Assessment Physician Assessment Cp has resolved, but has gen body discomfort, be the abd and legs Lungs: fair to good air entry Cor: reg Ext: chronic mod edema of the legs A&R * As documented in our note above (italics) and as noted below * Continue chronic cardiac regimen * Monitor labs * I spoke with her and answered her questions YA ROSALES May 11, 2017 08:55 ISABEL ESCOBAR MD FACP FAC CCDS May 11, 2017 16:22
[2017-05-11] MEDS: RANOLAZINE ER 500 MG TAB (RANEXA) PO SCH ×2 (09:45→21:13)
--- NOTE | 2017-05-11 09:45 | Diagnostic Imaging Report ---
PROCEDURE: CT abdomen and pelvis without contrast. TECHNIQUE: Multiple contiguous axial images were obtained through the abdomen and pelvis without the use of intravenous contrast. INDICATION: Right lower quadrant pain. 100 mL of Isovue-300 is administered intravenously. FINDINGS: There are patchy mixed-density areas of consolidation in the lung bases with associated very minimal effusions. This could relate to mild interstitial edema or pneumonitis. The liver demonstrates a hypodense lesion measuring 2.5 x 2.6 x 2.8 cm in a central location. This is new from 10/26/2012, exam. Further evaluation with liver ultrasound or enhanced liver mass protocol CT scan or MRI is recommended. The pancreas, the spleen, and the adrenal glands appear unremarkable. Post cholecystectomy changes are seen. The kidneys demonstrate no hydronephrosis. There is no urinary tract stone. The abdominal aorta is normal in caliber. No para-aortic significantly enlarged lymph nodes are seen. There are heavy atherosclerotic calcifications. The uterus and adnexa appear grossly unremarkable. The appendix appears normal. There is no bowel obstruction. There is diverticulosis with no evidence of diverticulitis. There is abdominal wall laxity with diastasis of the recti. A tiny fat-containing umbilical hernia seen. The osseous structures demonstrate degenerative changes. IMPRESSION: 1. Predominantly groundglass opacities in the lung bases with tiny effusions are favored to be secondary to interstitial pulmonary edema or less likely pneumonitis. 2. Diverticulosis. No diverticulitis. 3. Tiny fat-containing umbilical hernia. 4. New hypodense lesion in the liver measuring 2.8 cm in a central location. Better characterization with ultrasound could be attempted. If ultrasound is nonconclusive, liver mass protocol MRI or CT scan enhanced exam would be helpful. Dictated by: Dictated on workstation # [id number]
[2017-05-11] MEDS: FUROSEMIDE 40 MG (LASIX) TAB PO SCH (09:46)
[2017-05-11] MEDS: GABAPENTIN 600 MG (NEURONTIN) TAB PO SCH ×2 (09:46→21:12)
[2017-05-11] MEDS: meTOprolol SUCCINATE 100 MG (TOPROL XL) TAB PO SCH (09:46)
[2017-05-11] MEDS: PANTOPRAZOLE 40 MG/10 ML (PROTONIX) VIAL IV SCH (09:46)
[2017-05-11] MEDS: ISOSORBIDE MONONITRATE 60 MG (IMDUR) TAB PO SCH (09:46)
[2017-05-11] MEDS: CLOPIDOGREL 75 MG (PLAVIX) TABLET PO SCH (09:46)
[2017-05-11] MEDS: LORATADINE (CLARITIN) 10 MG TAB PO SCH (09:46)
[2017-05-11] MEDS: doxAzosin 4 MG (CARDURA) TAB PO SCH (09:46)
[2017-05-11] MEDS: DICLOFENAC 1% GEL 100 GM (VOLTAREN) TUBE TOP SCH ×4 (09:47→21:14)
--- NOTE | 2017-05-11 09:59 | Diagnostic Imaging Report ---
PA and lateral views of the chest. INDICATION: COPD exacerbation. FINDINGS: The heart is moderately enlarged. There is pulmonary vascular congestion and minimal thickening of the interstitial markings suggestive of mild interstitial edema. Small right pleural effusion seen. No pneumothorax. The mediastinum and lolita appear unremarkable. IMPRESSION: Findings suggestive of mild interstitial pulmonary edema. Dictated by: Dictated on workstation # [id number]
[2017-05-11 10:07] LABS: CALCIUM 9.4 MG/DL (8.5-10.1); CREATININE SERUM 2.73 MG/DL (0.60-1.30)
[2017-05-11 12:00] VITALS: BP 159/82
[2017-05-11 16:00] VITALS: BP 131/60
--- NOTE | 2017-05-11 16:32 | Diagnostic Imaging Report ---
EXAMINATION: Ultrasound of the liver. INDICATION: Evaluate liver lesion seen on CT scan. FINDINGS: The pancreas is obscured by bowel gas. The liver is hyperechoic which is suggestive of fatty infiltration. In the central aspect of the liver, there is a hyperechoic mass, measuring 1.9 cm in size. This is not associated with definitive internal color-flow. This is not typical of a cyst and is probably solid. The CBD is obscured. The gallbladder has been removed. The right kidney is 11.3 cm in length with no hydronephrosis or focal lesion. No fluid collection in the upright abdomen. IMPRESSION: 2.3 cm central hyperechoic liver mass of indeterminate etiology. Further characterization with a dedicated liver mass protocol enhanced MRI or CT scan is recommended. Dictated by: Dictated on workstation # [id number]
[2017-05-11 19:56] VITALS: BP 132/62
[2017-05-11] MEDS: FENOFIBRATE 134 MG (LOFIBRA) CAPSULE PO SCH (21:12)
[2017-05-11] MEDS: ASPIRIN E.C. 81 MG (ECOTRIN) TAB PO SCH (21:12)
[2017-05-11] MEDS: ATORVASTATIN 80 MG (LIPITOR) TABLET PO SCH (21:13)
[2017-05-11] MEDS: meTOproloL SUCCINATE 50 MG (TOPROL XL) TAB PO SCH (21:13)
[2017-05-11] MEDS: NIACIN ER (NIASPAN) 500 MG TAB PO SCH (21:13)
[2017-05-11] MEDS: LATANOPROST 0.005% (XALATAN) OPHTH SOLN 2.5 ML OU SCH (21:14)
[2017-05-12] VITALS (18 sets, daily range): BP systolic 116–148; BP diastolic 58–106
[2017-05-12] MEDS: RT-ALBUTEROL/IPRATROPIUM 3 ML (DUONEB) VIAL IH SCH ×4 (02:00→14:10)
[2017-05-12 04:29] LABS: ABG BASE EXCESS -0.3 MMOL/L (-2.5-2.5); ABG HCO3 27 MMOL/L (23-27); ABG OXYGEN SATURATION 84 % (94-100); ABG PCO2 67 MMHG (35-45); ABG PO2 56 MMHG (79-93); ABG TCO2 28.6 MMOL/L (21.0-31.0)
[2017-05-12 04:30] LABS: ALLENS TEST YES-POS; PATIENT TEMP 98.7
[2017-05-12] MEDS ORDERED: FUROSEMIDE 40 MG/4 ML INJ (LASIX) IVP ONE (04:30)
[2017-05-12 04:33] LABS: ABG PH 7.22 (7.37-7.43)
[2017-05-12] MEDS: AZITHROMYCIN 250 MG/NS 250 ML IVPB IV SCH ×2 (05:23)
[2017-05-12 05:29] LABS: BASOPHILS % (AUTO) 0 % (0-10); EOSINOPHILS % (AUTO) 0 % (0-10); LYMPHOCYTES # (AUTO) 0.6 X 10^3 (1.0-4.0); LYMPHOCYTES % (AUTO) 6 % (12-44); MEAN CORPUSCULAR HEMOGLOBIN 31 PG (25-34); MEAN CORPUSCULAR HGB CONC 32 G/DL (32-36); MEAN CORPUSCULAR VOLUME 99 FL (80-99); MEAN PLATELET VOLUME 9.4 FL (7.4-10.4); MONOCYTES # (AUTO) 0.8 X 10^3 (0.0-1.0); MONOCYTES % (AUTO) 8 % (0-12); NEUTROPHILS # (AUTO) 7.6 X 10^3 (1.8-7.8); NEUTROPHILS % (AUTO) 85 % (42-75); PLATELET COUNT 203 10^3/uL (130-400); RED BLOOD COUNT 3.15 10^6/uL (4.35-5.85); RED CELL DISTRIBUTION WIDTH 13.1 % (10.0-14.5); WHITE BLOOD COUNT 8.9 10^3/uL (4.3-11.0)
[2017-05-12 05:55] LABS: ALBUMIN 3.7 GM/DL (3.2-4.5); BILIRUBIN,TOTAL 0.7 MG/DL (0.1-1.0); CALCIUM 8.9 MG/DL (8.5-10.1); CREATININE SERUM 3.35 MG/DL (0.60-1.30); MAGNESIUM 2.3 MG/DL (1.8-2.4); PHOSPHORUS 5.2 MG/DL (2.3-4.7); POTASSIUM 5.8 MMOL/L (3.6-5.0); TOTAL PROTEIN 6.8 GM/DL (6.4-8.2)
[2017-05-12] MEDS ORDERED: MAGNESIUM 1 GM/100 ML IVPB 100 ML IV SCH (06:00)
[2017-05-12] MEDS ORDERED: POTASSIUM CL 10MEQ/50ML IVPB 50 ML IV SCH (06:00)
[2017-05-12] MEDS ORDERED: KCL 20 MEQ TAB (K-DUR) PO SCH (06:00)
[2017-05-12 06:06] LABS: TROPONIN I 13.06 NG/ML (<0.30)
--- NOTE | 2017-05-12 06:37 | Diagnostic Imaging Report ---
INDICATION: Respiratory distress. Comparison: 05/11/2017 Findings: Single frontal radiographic view of the chest was obtained. Exam does appear to be somewhat underpenetrated. There has been interval increase in bilateral alveolar infiltrates, right greater than left. Small effusions cannot be excluded. There is no pneumothorax. Cardiac silhouette is enlarged. Pulmonary vasculature is also slightly prominent. Bony structures show no gross acute abnormality. IMPRESSION: 1. Interval increase in bilateral alveolar infiltrate versus alveolar edema. 2. Cardiomegaly with pulmonary vascular congestion. 3. Small effusions cannot be excluded. Dictated by: Dictated on workstation # [id number]
[2017-05-12] MEDS: inSUlin (REGULAR) HUMAN 1 UNIT/0.01 ML (CHARGE PER UNIT) SC SCH ×4 (06:42→13:22)
[2017-05-12] MEDS: VITAMIN D3 1,000 UNITS (CHOLECALCIFEROL) TABLET PO SCH (06:44)
[2017-05-12] MEDS: OMEGA 3 (FISH OIL) 1000 MG CAP PO SCH ×2 (06:44→13:22)
[2017-05-12] MEDS: ASCORBIC ACID (VIT C) 500 MG TABLET PO SCH (06:44)
[2017-05-12 07:12] LABS: ABG BASE EXCESS -0.5 MMOL/L (-2.5-2.5); ABG HCO3 26 MMOL/L (23-27); ABG OXYGEN SATURATION 92 % (94-100); ABG PCO2 67 MMHG (35-45); ABG PO2 67 MMHG (79-93); ABG TCO2 28.5 MMOL/L (21.0-31.0)
[2017-05-12 07:13] LABS: ABG PH 7.22 (7.37-7.43); ALLENS TEST YES-POS; PATIENT TEMP 98.1
--- NOTE | 2017-05-12 07:41 | Progress Note (SOAP) ---
Subjective Time Seen by Provider: 07:35 Subjective/Events-last exam patient states she's feeling better. Patient not complaining of any chest pain. Blood tests are worse. Troponin elevated to 13. Potassium 5.8. BUN/creatinine and GFR worse is 14. Acute myocardial infarction. Renal failure. Diabetes. Congestive heart failure. Coronary artery disease. Peripheral artery disease. Objective Exam Vital Signs Date Time Temp Pulse Resp B/P (MAP) Pulse Ox O2 Delivery O2 Flow Rate FiO2 05/12/17 06:34 82 14 90 50.00 05/12/17 06:00 76 13 136/69 95 NIV Bilevel 50.00 05/12/17 05:00 80 13 144/71 96 NIV Bilevel 50.00 05/12/17 04:46 85 05/12/17 04:34 84 17 91 50.00 05/12/17 04:30 92 NIV CPAP 05/12/17 04:10 80 OxyMask 05/12/17 04:00 NIV Bilevel 50 05/12/17 03:50 85 Nasal Cannula 4.00 05/12/17 03:35 98.7 87 16 133/59 62 Nasal Cannula 3.00 05/12/17 00:15 98.7 83 16 138/60 93 Nasal Cannula 3.00 05/11/17 20:30 Nasal Cannula 2.00 05/11/17 19:56 98.6 85 20 132/62 90 Nasal Cannula 3.00 05/11/17 18:47 93 Nasal Cannula 3.00 05/11/17 16:00 97.1 72 22 131/60 92 Nasal Cannula 3.00 05/11/17 14:19 89 Nasal Cannula 3.00 05/11/17 12:00 96.8 63 18 159/82 91 Nasal Cannula 3.00 05/11/17 10:36 83 Nasal Cannula 2.00 05/11/17 08:15 97.4 88 22 134/56 89 Nasal Cannula 2.00 05/11/17 08:00 83 Nasal Cannula 2.00 Capillary Refill : Less Than 3 Seconds General Appearance: No Apparent Distress, WD/WN HEENT: Normal ENT Inspection Respiratory: No Accessory Muscle Use, No Respiratory Distress Cardiovascular: Regular Rate, Rhythm, No Murmur Gastrointestinal: non tender, soft Results Lab Laboratory Tests 05/11/17 09:31 05/12/17 05:16 Laboratory Tests 05/11/17 09:31: Sodium Level 136, Potassium Level 5.0, Chloride Level 99, Carbon Dioxide Level 24, Anion Gap 13, Blood Urea Nitrogen 52H, Creatinine 2.73H, Estimat Glomerular Filtration Rate 17, BUN/Creatinine Ratio 19, Glucose Level 263H, Calcium Level 9.4 05/11/17 11:03: Glucometer 261H 05/11/17 15:59: Glucometer 331H 05/11/17 20:47: Glucometer 209H 05/12/17 03:44: Glucometer 224H 05/12/17 04:21: Blood Gas Puncture Site L RAD, Blood Gas Patient Temperature 98.7, Arterial Blood pH 7.22*L, Arterial Blood Partial Pressure CO2 67H, Arterial Blood Partial Pressure O2 56L, Arterial Blood HCO3 27, Arterial Blood Total CO2 28.6, Arterial Blood Oxygen Saturation 84L, Arterial Blood Base Excess -0.3, Av Test YES-POS, Blood Gas Ventilator Setting NO, Blood Gas Inspired Oxygen 45% BPAP 05/12/17 05:16: White Blood Count 8.9, Red Blood Count 3.15L, Hemoglobin 9.8L, Hematocrit 31L, Mean Corpuscular Volume 99, Mean Corpuscular Hemoglobin 31, Mean Corpuscular Hemoglobin Concent 32, Red Cell Distribution Width 13.1, Platelet Count 203, Mean Platelet Volume 9.4, Neutrophils (%) (Auto) 85H, Lymphocytes (%) (Auto) 6L , Monocytes (%) (Auto) 8, Eosinophils (%) (Auto) 0, Basophils (%) (Auto) 0, Neutrophils # (Auto) 7.6, Lymphocytes # (Auto) 0.6L, Monocytes # (Auto) 0.8, Eosinophils # (Auto) 0.0, Basophils # (Auto) 0.0, Sodium Level 132L, Potassium Level 5.8H, Chloride Level 97L, Carbon Dioxide Level 24, Anion Gap 11, Blood Urea Nitrogen 72H, Creatinine 3.35#H, Estimat Glomerular Filtration Rate 14, BUN /Creatinine Ratio 21, Glucose Level 245H, Calcium Level 8.9, Phosphorus Level 5.2H, Magnesium Level 2.3, Total Bilirubin 0.7, Aspartate Amino Transf (AST/SGOT ) 71H, Alanine Aminotransferase (ALT/SGPT) 55, Alkaline Phosphatase 51, Troponin I 13.06*H, B-Type Natriuretic Peptide 682.4H, Total Protein 6.8, Albumin 3.7 05/12/17 07:00: Blood Gas Puncture Site LT RADIAL, Blood Gas Patient Temperature 98.1, Arterial Blood pH 7.22*L, Arterial Blood Partial Pressure CO2 67H, Arterial Blood Partial Pressure O2 67L, Arterial Blood HCO3 26, Arterial Blood Total CO2 28.5, Arterial Blood Oxygen Saturation 92L, Arterial Blood Base Excess -0.5, Av Test YES-POS, Blood Gas Ventilator Setting NO, Blood Gas Inspired Oxygen 50% BIPAP Microbiology 05/10/17 Blood Culture - Preliminary, Resulted No growth Assessment/Plan Assessment/Plan Assess & Plan/Chief Complaint abdominal pain. COPD with acute exacerbation. Diabetes. Obesity. Renal insufficiency. Chest pain resolved. Abdominal pain more on the right side. Patient a work in progress. . Acute myocardial infarction. COPD with acute exacerbation. Short of breath resolved. Obesity. Renal insufficiency worse renal failure now. Chest pain resolved. Elevated troponin. Abnormal ultrasound of liver. No abdominal pain today. 05/12/17 Clinical Quality Measures DVT/VTE Risk/Contraindication: Risk Factor Score Per Nursin RFS Level Per Nursing on Admit: 4+=Very High Contraindications-Pharm: Other *list below* BRAULIO GERMAN DO May 12, 2017 07:41
[2017-05-12] MEDS ORDERED: inSUlin (REGULAR) HUMAN 1 UNIT/0.01 ML (CHARGE PER UNIT) SC NR (08:30)
[2017-05-12] MEDS ORDERED: SODIUM BICARB 8.4% 50 MEQ/50 ML (ABBOTT) SYR IV NR (08:30)
[2017-05-12] MEDS ORDERED: DEXTROSE 50% 50 ML (IMS) SYR IV NR (08:30)
[2017-05-12] MEDS ORDERED: proPOfol 200 MG/20 ML (DIPRIVAN) VIAL IV ONE (08:31)
--- NOTE | 2017-05-12 08:43 | Pulmonary Consultation ---
History of Present Illness History of Present Illness Date of Consultation 05/12/17 08:37 Time Seen by Provider: 08:38 Date of Admission History of Present Illness 71yo patient admitted 05/10 secondary to worsening SOB with onset 3-4 days prior to admission. Pt uses 2 liters of oxygen at home secondary to hx of COPD. PT also has a hx of CKD and sees nephrology in [place]. NPC and no fevers. Pt was transferred to ICU secondary to LOC and worsening SOB. She is now on BiPAP. Cr was 1.77 on admission and is now 3.35. Pt did receive a dose of lasix last night secondary to SOB and pulmonary edema. ABG this AM shows acute respiratory acidosis. Unable to obtain complete ROS secondary to BiPAP and pt being lethargic. I am consulted for ICU management. Allergies and Home Medications Allergies Coded Allergies: Sulfa (Sulfonamide Antibiotics) (Unverified Allergy, Mild, 10/16/07) amoxicillin (Unverified Allergy, Mild, 10/16/07) cephalexin (Unverified Allergy, Mild, 10/16/07) desloratadine (Unverified Allergy, Mild, 10/16/07) diphenhydramine (Unverified Allergy, Mild, 10/16/07) metaxalone (Unverified Allergy, Mild, 10/16/07) Penicillins (Unverified Allergy, Unknown, 01/22/14) ibuprofen (Unverified Adverse Reaction, Mild, MAKES HER SICK; CAN TAKE ASA , 09/26/09) Home Medications Amlodipine Besylate 10 Mg Tablet, 10 MG PO DAILY, (Reported) Ascorbic Acid 500 Mg Tablet, 1,000 MG PO DAILY, (Reported) TAKES 2 (500MG) TABLETS Aspirin 81 Mg Tablet.dr, 81 MG PO HS, (Reported) Atorvastatin Calcium 80 Mg Tablet, 80 MG PO HS, (Reported) Cetirizine HCl 10 Mg Tablet, 10 MG PO DAILY, (Reported) Cholecalciferol (Vitamin D3) 2,000 Unit Capsule, 2,000 UNIT PO DAILY, (Reported) Clopidogrel Bisulfate 75 Mg Tablet, 75 MG PO DAILY, (Reported) Doxazosin Mesylate 4 Mg Tablet, 4 MG PO DAILY, (Reported) Fenofibric Acid (Choline) 135 Mg Capsule.dr, 135 MG PO HS, (Reported) Furosemide 40 Mg Tablet, 40 MG PO DAILY, (Reported) Gabapentin 300 Mg Capsule, 600 MG PO BID, (Reported) TAKES 2 (300MG) CAPSULES Insulin Regular, Human 500 Unit/1 Ml Insuln.pen, 100 UNIT SQ 0700, (Reported) Insulin Regular, Human 500 Unit/1 Ml Insuln.pen, 80 UNIT SQ 1200, (Reported) Insulin Regular, Human 500 Unit/1 Ml Insuln.pen, 110 UNIT SQ 1700, (Reported) Isosorbide Mononitrate 60 Mg Tab, 60 MG PO DAILY, (Reported) Latanoprost 2.5 Ml Drops, 1 DROP OU HS, (Reported) Meclizine HCl 25 Mg Tablet, 25 MG PO TID PRN for DIZZINESS, (Reported) Metoprolol Succinate 100 Mg Tab.er.24h, 50 MG PO HS, (Reported) LAST FILLED 30 DAY SUPPLY 02-22-17 TAKES 1/2 (100MG) TABLET Metoprolol Succinate 100 Mg Tab.er.24h, 100 MG PO DAILY, (Reported) LAST FILLED 30 DAY SUPPLY 02-22-17 Niacin 1,000 Mg Tab.er.24h, 1,000 MG PO HS, (Reported) Nitroglycerin 0.4 Mg Tab.subl, 0.4 MG SL UD PRN for CHEST PAIN, (Reported) [place]-3/Dha/Epa/Fish Oil 1 Each Capsule, 1,000 MG PO TID, (Reported) Promethazine HCl 25 Mg Tablet, 25 MG PO TID PRN for NAUSEA/VOMITING-2ND LINE, ( Reported) Ranolazine 500 Mg Tab.er.12h, 500 MG PO BID, (Reported) Past Rgmdkei-Rvyzhc-Hznttq Hx Patient Social History Alcohol Use: Denies Use Recreational Drug Use: No Smoking Status: Former Smoker Former Smoker, Quit: Jan 15, 1976 Recent Foreign Travel: No Contact w/Someone Who Travel: No Recent Infectious Disease Expo: No Recent Hopitalizations: No Physical Abuse: No Sexual Abuse: No Mistreated: No Fear: No Immunizations Up To Date Tetanus Booster (TDap): Unknown PED Vaccines UTD: No Date of Pneumonia Vaccine: Jul 15, 2012 Date of Influenza Vaccine: Mar 31, 2016 Seasonal Allergies Seasonal Allergies: Yes Surgeries History of Surgeries: Yes (TUBAL LIGATION AND GALLBLADER REMOVAL) Surgeries: Coronary Stent, Gallbladder, Orthopedic, Tonsillectomy, Tubal Ligation, Vascular Surgery Respiratory History of Respiratory Disorde: Yes Respiratory Disorders: COPD Currently Using CPAP: No Currently Using BIPAP: No Cardiovascular History of Cardiac Disorders: Yes Cardiac Disorders: Coronary Artery Disease, Heart Attack, Hypertension, Peripheral Vascular Neurological History of Neurological Disord: Yes Neurological Disorders: Headaches /Migraines 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 System Hx 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 Disorders: No Sexually Transmitted Disease: No HIV/AIDS: No Female 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 Disorders: Denies INTER [employer] History: Menopausal Genitourinary History of Genitourinary Disor: Yes Genitourinary Disorders: Renal Failure Gastrointestinal History of Gastrointestinal Di: Yes Gastrointestinal Disorders: Gastroesophageal Reflux Musculoskeletal History of Musculoskeletal Dis: Yes Musculoskeletal Disorders: Arthritis Endocrine History of Endocrine Disorders: Yes Endocrine Disorders: Diabetes, Insulin dep, Hypothyroidsim Are Your Blood Sugars Over 250: Yes HEENT History of HEENT Disorders: No Cancer History of Cancer: No Psychosocial History of Psychiatric Problem: Yes Behavioral Health Disorders: Anxiety, Depression Suicide Risk Score: 0 Integumentary History of Skin or Integumenta: No Blood Transfusions History of Blood Disorders: No Adverse Reaction to a Blood Tr: No Family Medical History Significant Family History: Heart Disease, Diabetes, Hypertension, Vascular Disease Family Medial History: Diabetes mellitus 19 MOTHER, Onset:Unknown FH: breast cancer Lip cancer 19 FATHER, Onset:40's - 50 Exam Exam Vital Signs Date Time Temp Pulse Resp B/P (MAP) Pulse Ox O2 Delivery O2 Flow Rate FiO2 05/12/17 08:18 81 15 94 50.00 05/12/17 06:59 84 05/12/17 06:34 82 14 90 50.00 05/12/17 06:00 76 13 136/69 95 NIV Bilevel 50.00 05/12/17 05:00 80 13 144/71 96 NIV Bilevel 50.00 05/12/17 04:46 85 05/12/17 04:34 84 17 91 50.00 05/12/17 04:30 92 NIV CPAP 05/12/17 04:10 80 OxyMask 05/12/17 04:00 NIV Bilevel 50 05/12/17 03:50 85 Nasal Cannula 4.00 05/12/17 03:35 98.7 87 16 133/59 62 Nasal Cannula 3.00 05/12/17 00:15 98.7 83 16 138/60 93 Nasal Cannula 3.00 05/11/17 20:30 Nasal Cannula 2.00 05/11/17 19:56 98.6 85 20 132/62 90 Nasal Cannula 3.00 05/11/17 18:47 93 Nasal Cannula 3.00 05/11/17 16:00 97.1 72 22 131/60 92 Nasal Cannula 3.00 05/11/17 14:19 89 Nasal Cannula 3.00 05/11/17 12:00 96.8 63 18 159/82 91 Nasal Cannula 3.00 05/11/17 10:36 83 Nasal Cannula 2.00 General Appearance: WD/WN, Moderate Distress HEENT: Normal ENT Inspection Neck: Full Range of Motion, Normal Inspection Respiratory: No Accessory Muscle Use, No Respiratory Distress Cardiovascular: Regular Rate, Rhythm, No Murmur Capillary Refill: Less Than 3 Seconds Gastrointestinal: non tender, soft Extremity: Normal Capillary Refill, Normal Inspection Skin: Normal Color Results Lab Laboratory Tests 05/11/17 06:44 05/11/17 09:31 05/12/17 05:16 Assessment/Plan Assessment/Plan Acute Respiratory failure - requiring BiPAP currently -Will intubate patient and place her on ventilator Acute on chronic renal failure -Pt has pulmonary edema, and hyperkalemia associated with worsening renal failure [facility]pt needs ventilator support Hyperkalemia -will give 10units of regular insulin, 2 amps of bicarb, continue to monitor closely -transfer for possible HD CAD with elevated troponin of 13 Echocardiogram of 01-09-16 showed normal global LV systolic function with an ejection fraction of approx 60% -cardiology is following -continue to trend troponin obtain EKG IDDM PVD PER CARDIOLOGY Multivessel CAD. Cardiac cath on August 26, 2015 she underwent stenting to the proximal LAD with a Promus 2.75 x 20 stent and balloon angioplasty to the proximal diagonal of an 80% lesion with reduction to 50%. The mid LAD has a patent stent. The RCA has diffuse disease unchanged compared to the previous study. The distal LAD is chronically occluded with collateral. The distal Cx has 50% blockage which was unchanged from cardiac cath of January 2014. Cardiac cath on 01-15-[address] Siddiqi showed normal left main coronary artery. Patent stent within the prox LAD. 80% mid LAD stenosis. 100% occlusion of the distal LAD with left to left collaterals to the apical portion of the LAD. 80% mid Cx stenosis. Tortuous RCA with mod severe prox and mid plaquing with a 70% distal RCA stenosis. She has had repeat surgical consult with Dr Bullard on 06-09, CABG has been advised. She has had second CV surgical opinion with Dr Pina at [facility] in early 2016. He has advised against CABG 120min of ICU time spent with patient discussing with Dr. Cuba, Dr. Gallagher and transferring patient to [facility]. I have also discussed with patient and daughter at bedside. Will transfer pt to via helicopter. I called and discussed with anesthesia for intubation. Clinical Quality Measures DVT/VTE Risk/Contraindication: Risk Factor Score Per Nursin RFS Level Per Nursing on Admit: 4+=Very High Contraindications-Pharm: Other *list below* GAYATRI GARZA DO May 12, 2017 08:43
[2017-05-12] MEDS ORDERED: NS IV 1000 ML 1,000 ML ONE (08:52)
--- NOTE | 2017-05-12 09:21 | Progress Note-Cardiology ---
Cardiology SOAP Progress Note Subjective: Transferred overnight to ICU for increasing shortness of breath, hypoxia, and mental status changes. Currently on BiPAP, not able to provide any meaningful history Objective: I&O/Vital Signs Vital Sign - Last 12Hours 05/12/17 05/12/17 05/12/17 05/12/17 00:15 03:35 03:50 04:00 Temp 98.7 98.7 Pulse 83 87 Resp 16 16 B/P (MAP) 138/60 133/59 Pulse Ox 93 62 85 O2 Delivery Nasal Cannula Nasal Cannula Nasal Cannula NIV Bilevel O2 Flow Rate 3.00 3.00 4.00 FiO2 50 05/12/17 05/12/17 05/12/17 05/12/17 04:10 04:30 04:34 04:46 Pulse 84 85 Resp 17 Pulse Ox 80 92 91 O2 Delivery OxyMask NIV CPAP O2 Flow Rate 50.00 05/12/17 05/12/17 05/12/17 05/12/17 05:00 06:00 06:34 06:59 Pulse 80 76 82 84 Resp 13 13 14 B/P (MAP) 144/71 136/69 Pulse Ox 96 95 90 O2 Delivery NIV Bilevel NIV Bilevel O2 Flow Rate 50.00 50.00 50.00 05/12/17 08:18 Pulse 81 Resp 15 Pulse Ox 94 O2 Flow Rate 50.00 Weight (Pounds): 242 Weight (Ounces): 2.5 Weight (Calculated Kilograms): [id number] Constitutional: appears stated age, apparent distress (short of breath and on BiPAP), well-developed, well-nourished, other (lethargic) Respiratory: No accessory muscle use, No respiratory distress, chest expansion is symmetric, other (diminished air entry at bases; a few scattered rhonchi) Cardiovascular: regular rate-rhythm, No JVD, S1 and S2, systolic murmur Gastrointestional: round, distended, No guarding, audible bowel sounds, No spleenomegaly Extremities: No clubbing, No cyanosis, significant edema (bilat mod LE edema) Neurologic/Psychiatric: grossly intact Skin: No rash, No ulcerations Results/Procedures: Labs Laboratory Tests 05/11/17 09:31: Sodium Level 136, Potassium Level 5.0, Chloride Level 99, Carbon Dioxide Level 24, Anion Gap 13, Blood Urea Nitrogen 52H, Creatinine 2.73H, Estimat Glomerular Filtration Rate 17, BUN/Creatinine Ratio 19, Glucose Level 263H, Calcium Level 9.4 05/11/17 11:03: Glucometer 261H 05/11/17 15:59: Glucometer 331H 05/11/17 20:47: Glucometer 209H 05/12/17 03:44: Glucometer 224H 05/12/17 04:21: Blood Gas Puncture Site L RAD, Blood Gas Patient Temperature 98.7, Arterial Blood pH 7.22*L, Arterial Blood Partial Pressure CO2 67H, Arterial Blood Partial Pressure O2 56L, Arterial Blood HCO3 27, Arterial Blood Total CO2 28.6, Arterial Blood Oxygen Saturation 84L, Arterial Blood Base Excess -0.3, Av Test YES-POS, Blood Gas Ventilator Setting NO, Blood Gas Inspired Oxygen 45% BPAP 05/12/17 05:16: White Blood Count 8.9, Red Blood Count 3.15L, Hemoglobin 9.8L, Hematocrit 31L, Mean Corpuscular Volume 99, Mean Corpuscular Hemoglobin 31, Mean Corpuscular Hemoglobin Concent 32, Red Cell Distribution Width 13.1, Platelet Count 203, Mean Platelet Volume 9.4, Neutrophils (%) (Auto) 85H, Lymphocytes (%) (Auto) 6L , Monocytes (%) (Auto) 8, Eosinophils (%) (Auto) 0, Basophils (%) (Auto) 0, Neutrophils # (Auto) 7.6, Lymphocytes # (Auto) 0.6L, Monocytes # (Auto) 0.8, Eosinophils # (Auto) 0.0, Basophils # (Auto) 0.0, Sodium Level 132L, Potassium Level 5.8H, Chloride Level 97L, Carbon Dioxide Level 24, Anion Gap 11, Blood Urea Nitrogen 72H, Creatinine 3.35#H, Estimat Glomerular Filtration Rate 14, BUN /Creatinine Ratio 21, Glucose Level 245H, Calcium Level 8.9, Phosphorus Level 5.2H, Magnesium Level 2.3, Total Bilirubin 0.7, Aspartate Amino Transf (AST/SGOT ) 71H, Alanine Aminotransferase (ALT/SGPT) 55, Alkaline Phosphatase 51, Troponin I 13.06*H, B-Type Natriuretic Peptide 682.4H, Total Protein 6.8, Albumin 3.7 05/12/17 07:00: Blood Gas Puncture Site LT RADIAL, Blood Gas Patient Temperature 98.1, Arterial Blood pH 7.22*L, Arterial Blood Partial Pressure CO2 67H, Arterial Blood Partial Pressure O2 67L, Arterial Blood HCO3 26, Arterial Blood Total CO2 28.5, Arterial Blood Oxygen Saturation 92L, Arterial Blood Base Excess -0.5, Av Test YES-POS, Blood Gas Ventilator Setting NO, Blood Gas Inspired Oxygen 50% BIPAP Microbiology 05/10/17 Blood Culture - Preliminary, Resulted No growth Laboratory Tests 05/11/17 06:44 05/11/17 09:31 05/12/17 05:16 A/P: Assessment: Acute resp failure and hypoxia Ac NTEMI, likely due to hypoxia on top of known multivessel CAD (see below) Acute on chronic renal failure Hyperkalemia due to acute renal failure Obesity with probable obesity-hypoventilation Acute exacerbation of COPD Elevated liver enzymes of undetermined etiology DM - insulin dependent - glucose levels not well controlled Peripheral arterial disease. She has [place] [facility] [place] [facility]. She underwent stent placement to the left popliteal in April [address] Sarabia at [facility] Multivessel CAD. Cardiac cath on August 26, 2015 she underwent stenting to the proximal LAD with a Promus 2.75 x 20 stent and balloon angioplasty to the proximal diagonal of an 80% lesion with reduction to 50%. The mid LAD has a patent stent. The RCA has diffuse disease unchanged compared to the previous study. The distal LAD is chronically occluded with collateral. The distal Cx has 50% blockage which was unchanged from cardiac cath of January 2014. Cardiac cath on 01-15-[address] Siddiqi showed normal left main coronary artery. Patent stent within the prox LAD. 80% mid LAD stenosis. 100% occlusion of the distal LAD with left to left collaterals to the apical portion of the LAD. 80% mid Cx stenosis. Tortuous RCA with mod severe prox and mid plaquing with a 70% distal RCA stenosis. She has had repeat surgical consult with Dr Bullard on 06-09, CABG has been advised. She has had second CV surgical opinion with Dr Pina at [facility] in early 2016. He has advised against CABG Thallium Viability study of April 2016 showed diffusely viable myocardium Echocardiogram of 01-09-16 showed normal global LV systolic function with an ejection fraction of approx 60%. Aortic valve sclerosis without significant aortic stenosis. Mitral annular calcification, mild without evidence of mitral stenosis. Mild MR and TR. PASP approx 30-35mmHg Normal left ventricular end-diastolic pressure at the time of cardiac catheterization of September 2009. Hypertension, controlled. Hyperlipidemia, being treated with atorvastatin and being managed by Dr. Cuba. Maturity onset diabetes mellitus, being managed by Dr. Cuba and Dr Wade. Gastroesophageal reflux. History of cholecystectomy. History of tubal ligation. History of degenerative joint disease. Carotid arterial disease consisting of chronic total occlusion of the left internal carotid and mild disease involving the right carotid per ultrasonography of June 2012 and per subsequent carotid CTA of July 2011. Carotid ultrasonography of June 2012 showed mild carotid arterial disease involving the right internal carotid and chronic total occlusion of the left internal carotid. Carotid u/s of January 2015was unchanged. 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 No evidence of aortoiliac dilatation. 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
[2017-05-12] MEDS ORDERED: PROPOFOL DRIP (ICU) 100 ML IV ONE (09:29)
--- NOTE | 2017-05-12 09:43 | Anesthesia-Procedure Note ---
Procedure Start/Stop Time Date of Procedure: May 12, 2017 Start Time: 09:15 Referring Physician: Mirian Stop Time: 09:25 Procedures/Interventions RSI: Yes 100% pre-Ox, [id number]: Yes Intubation Method: orotracheal Roy (size used 0-4): 2 Videoscope used: No Grade View: 2 Medications: Propofol (80mg), Succinylcholine (100mg) Mask Ventilation: positive Positive End Tide CO2: Yes Breath Sounds after Intubation: bilateral-equal ETT Securred @ (cm): 21 Intubated with ease: Yes Intubation Complications: no complications Post Intubation Xray-done: Yes (ordered) Care turned over to: Dr. Vela Procedures Peripheral 22G IV started x 1attempt to left forearm. LISA WRIGHT CRNA May 12, 2017 09:43
[2017-05-12] MEDS ORDERED: SUCCINYLCHOLINE INJ 100 MG/5 ML SYR INJ NR (09:45)
[2017-05-12] MEDS ORDERED: proPOfol 200 MG/20 ML (DIPRIVAN) VIAL IV NR (09:45)
[2017-05-12] MEDS: PROPOFOL DRIP (ICU) 100 ML IV SCH ×2 (09:50→14:42)
--- NOTE | 2017-05-12 10:05 | Diagnostic Imaging Report ---
INDICATION: Respiratory failure EXAMINATION: Portable chest at 9:51 AM There is an ET tube projected over the trachea. NG tube enters the stomach. There are diffuse alveolar infiltrates in the lungs which appear worse than the previous study. There is cardiomegaly. IMPRESSION: Unfavorable changes in the lungs with progressive alveolar opacification suspicious for acute pulmonary edema. Dictated by: Dictated on workstation # [id number]
[2017-05-12] MEDS: PANTOPRAZOLE 40 MG/10 ML (PROTONIX) VIAL IV SCH (10:24)
[2017-05-12] MEDS ORDERED: NS IV 1000 ML 1,000 ML IV SCH (10:30)
[2017-05-12 11:37] LABS: ABG BASE EXCESS 1.8 MMOL/L (-2.5-2.5); ABG HCO3 28 MMOL/L (23-27); ABG OXYGEN SATURATION 93 % (94-100); ABG PCO2 61 MMHG (35-45); ABG PO2 69 MMHG (79-93); ABG TCO2 29.6 MMOL/L (21.0-31.0)
[2017-05-12 11:39] LABS: ABG PH 7.28 (7.37-7.43); ALLENS TEST YES-POS
[2017-05-12 11:40] LABS: PATIENT TEMP 99.4
[2017-05-12] MEDS: doxAzosin 4 MG (CARDURA) TAB PO SCH (11:40)
[2017-05-12] MEDS: GABAPENTIN 600 MG (NEURONTIN) TAB PO SCH (11:41)
[2017-05-12] MEDS: LORATADINE (CLARITIN) 10 MG TAB PO SCH (11:41)
[2017-05-12] MEDS: RANOLAZINE ER 500 MG TAB (RANEXA) PO SCH (11:41)
[2017-05-12] MEDS: FUROSEMIDE 40 MG (LASIX) TAB PO SCH (11:41)
[2017-05-12] MEDS: CLOPIDOGREL 75 MG (PLAVIX) TABLET PO SCH (11:41)
[2017-05-12] MEDS: meTOprolol SUCCINATE 100 MG (TOPROL XL) TAB PO SCH (11:41)
[2017-05-12] MEDS: ISOSORBIDE MONONITRATE 60 MG (IMDUR) TAB PO SCH (11:41)
[2017-05-12] MEDS: DICLOFENAC 1% GEL 100 GM (VOLTAREN) TUBE TOP SCH ×2 (11:44→14:42)
[2017-05-12] MEDS ORDERED: INFLUENZA TRIvalent 2017-2018 0.5 ML/45 MCG SYR IM ONE (13:15)
== END 2017-05-12 16:55 | disposition short-term general hospital (02) | DRG 208 ==
LOC: EDUNIT# 02:59 → ER 03:01 → 4TH 04:12 → ICU 05-12 04:40
PROVIDERS: ADMIT Family Medicine; ATTEND Family Medicine
PROC: 5A1935Z Respiratory Ventilation, Less than 24 Consecutive Hours (ICD-10-PCS; principal; 2017-05-12)
DX: J44.1 Chronic obstructive pulmonary disease with (acute) exacerbation (principal); R06.03 Acute respiratory distress; I12.9 Hypertensive chronic kidney disease with stage 1 through stage 4 chronic kidney disease, or unspecified chronic kidney disease; N18.4 Chronic kidney disease, stage 4 (severe); I21.9 Acute myocardial infarction, unspecified; R06.89 Other abnormalities of breathing; R07.89 Other chest pain; M79.601 Pain in right arm; E11.65 Type 2 diabetes mellitus with hyperglycemia; R74.8 Abnormal levels of other serum enzymes; I25.10 Atherosclerotic heart disease of native coronary artery without angina pectoris; E87.5 Hyperkalemia; D64.9 Anemia, unspecified; I25.2 Old myocardial infarction; E11.51 Type 2 diabetes mellitus with diabetic peripheral angiopathy without gangrene; K21.9 Gastro-esophageal reflux disease without esophagitis; M19.91 Primary osteoarthritis, unspecified site; E03.9 Hypothyroidism, unspecified; F41.9 Anxiety disorder, unspecified; F32.9 Major depressive disorder, single episode, unspecified; I73.9 Peripheral vascular disease, unspecified; I87.2 Venous insufficiency (chronic) (peripheral); E78.5 Hyperlipidemia, unspecified; I65.22 Occlusion and stenosis of left carotid artery; I08.1 Rheumatic disorders of both mitral and tricuspid valves; Z79.4 Long term (current) use of insulin; Z95.5 Presence of coronary angioplasty implant and graft; Z87.891 Personal history of nicotine dependence; Z95.828 Presence of other vascular implants and grafts
CPT/HCPCS: 36415; 71010; 71020; 74176; 76705; 80048; 80053; 81000; 82150; 82805; 82962; 83605; 83735; 83880; 84100; 84484; 85007; 85025; 85027; 86141; 87040; 87070; 87077; 87205; 93005; 94002; 94640; 94660; 94664; 94760; 94799; 96365; 96375

== ENCOUNTER → 2017-06-08 | Outpatient (CLI) | payer MEDICARE, MEDICAID ==
[~2017-06-08] MED LIST changes: +AMLO10TA2 PO; +ASCO500T7 PO; +ASPI-983 PO; +ATOR80TA76 PO; +CETI10TA17 PO; +DOXA4TAB2 PO; +FURO40TA4 PO; +METO-395 PO; +NITR0.4T39 SL; +OMEG-160 PO; +PROM25TA14 PO
== END ==
LOC: WOUNDCARE 13:56
PROVIDERS: ATTEND Surgery
DX: L89.312 Pressure ulcer of right buttock, stage 2 (principal); L22 Diaper dermatitis; E11.622 Type 2 diabetes mellitus with other skin ulcer; E66.01 Morbid (severe) obesity due to excess calories; Z68.35 Body mass index [BMI] 35.0-35.9, adult
CPT/HCPCS: 99213

== ENCOUNTER → 2017-06-15 | Outpatient (CLI) | payer MEDICARE, MEDICAID | LOC: WOUNDCARE 13:58 | PROVIDERS: ATTEND Surgery | DX: L89.312 Pressure ulcer of right buttock, stage 2 (principal); E11.622 Type 2 diabetes mellitus with other skin ulcer; L22 Diaper dermatitis; E66.01 Morbid (severe) obesity due to excess calories; Z68.35 Body mass index [BMI] 35.0-35.9, adult | CPT/HCPCS: 99212 ==

== ENCOUNTER → 2017-07-01 | Outpatient (CLI) | payer MEDICARE, MEDICAID ==
[2017-07-01 11:51] LABS: MEAN PLATELET VOLUME 8.3 FL (7.4-10.4); RED BLOOD COUNT 2.94 10^6/uL (4.35-5.85); RED CELL DISTRIBUTION WIDTH 15.3 % (10.0-14.5); WHITE BLOOD COUNT 4.6 10^3/uL (4.3-11.0)
[2017-07-01 11:54] LABS: BILIRUBIN,URINE NEGATIVE (NEGATIVE); KETONES,URINE NEGATIVE (NEGATIVE); LEUKOCYTE ESTERASE ,URINE NEGATIVE (NEGATIVE); NITRITE,URINE NEGATIVE (NEGATIVE); PH,URINE 7 (5-9); PROTEIN,URINE NEGATIVE (NEGATIVE); UROBILINOGEN,URINE NORMAL (NORMAL)
[2017-07-01 12:01] LABS: WBC,URINE RARE /HPF
[2017-07-01 12:07] LABS: ALBUMIN 3.8 GM/DL (3.2-4.5); CALCIUM 9.3 MG/DL (8.5-10.1); CREATININE SERUM 2.07 MG/DL (0.60-1.30); MAGNESIUM 2.2 MG/DL (1.8-2.4); PHOSPHORUS 3.4 MG/DL (2.3-4.7); URIC ACID 7.4 MG/DL (2.6-7.2)
[2017-07-02 13:51] LABS: CALCIUM PARA THYROID HORMONE 9.4 mg/dL (8.5-10.5)
[2017-07-02 13:52] LABS: FOLIC ACID 7.3 ng/mL (1.5-24.0)
== END ==
LOC: LAB 11:15
PROVIDERS: ATTEND Internal Medicine Nephrology
DX: D63.1 Anemia in chronic kidney disease (principal); N18.4 Chronic kidney disease, stage 4 (severe); I12.9 Hypertensive chronic kidney disease with stage 1 through stage 4 chronic kidney disease, or unspecified chronic kidney disease; E11.22 Type 2 diabetes mellitus with diabetic chronic kidney disease; E11.65 Type 2 diabetes mellitus with hyperglycemia
CPT/HCPCS: 36415; 80069; 81000; 82306; 82570; 82607; 82728; 82746; 83540; 83735; 83970; 84156; 84550; 85027

== ENCOUNTER 2017-07-13 13:10 | Outpatient (RCR) | payer MEDICARE, MEDICAID ==
[2017-07-08] MEDS: IRON SUCROSE 200 MG/10 ML (VENOFER) VIAL IV SCH (12:35)
[2017-07-08 12:44] VITALS: BP 132/51
[2017-07-11] MEDS: IRON SUCROSE 200 MG/10 ML (VENOFER) VIAL IV SCH (13:34)
[2017-07-11 13:35] VITALS: BP 165/63
[~2017-07-13] VITALS: Ht 152.4 cm; Wt 100.3 kg
[~2017-07-13 13:10] MED LIST changes: -FERR-74 PO; +FERR325T18 PO; +HYDR-34 PO
[2017-07-13] MEDS ORDERED: IRON SUCROSE 200 MG/10 ML (VENOFER) VIAL IV ONE (13:16)
[2017-07-13] MEDS: IRON SUCROSE 200 MG/10 ML (VENOFER) VIAL IV SCH (13:40)
[2017-07-13 14:15] VITALS: BP 159/58
[2017-09-05] MEDS ORDERED: PANT40TA3 PO (10:59)
[2017-09-05] MEDS ORDERED: HYDR-3923 PO (10:59)
[2017-09-05] MEDS ORDERED: CARV12.53 PO (10:59)
[2017-09-05] MEDS ORDERED: DABI150C5 PO (10:59)
[2017-09-05] MEDS ORDERED: POTA10CA43 PO (10:59)
== END 2017-10-06 | disposition home or self-care (01) ==
LOC: SDC 13:10
PROVIDERS: ATTEND Family Medicine
DX: D64.9 Anemia, unspecified (principal); N19 Unspecified kidney failure
CPT/HCPCS: 96365

== ENCOUNTER → 2017-08-29 | Outpatient (CLI) | payer MEDICARE, MEDICAID | LOC: WOUNDCARE 10:13 | PROVIDERS: ATTEND Surgery | DX: E11.622 Type 2 diabetes mellitus with other skin ulcer (principal); L97.221 Non-pressure chronic ulcer of left calf limited to breakdown of skin; L97.211 Non-pressure chronic ulcer of right calf limited to breakdown of skin; I87.333 Chronic venous hypertension (idiopathic) with ulcer and inflammation of bilateral lower extremity; I70.232 Atherosclerosis of native arteries of right leg with ulceration of calf; I70.242 Atherosclerosis of native arteries of left leg with ulceration of calf; I89.0 Lymphedema, not elsewhere classified; I50.9 Heart failure, unspecified; E11.22 Type 2 diabetes mellitus with diabetic chronic kidney disease; N18.4 Chronic kidney disease, stage 4 (severe); D64.9 Anemia, unspecified | CPT/HCPCS: 99214 ==

== ENCOUNTER 2017-09-05 09:27 | Outpatient (RCR) | payer MEDICARE, MEDICAID ==
[~2017-09-05 09:27] MED LIST changes: -CARV12.53 PO; -DABI150C5 PO; -HEParin (CATH LAB) 0 ML IV ONE; -HYDR-3923 PO; -LIDOCAINE 1% INJ 50 ML (XYLOCAINE) VIAL ONE; -NS IV 1000 ML 0 ML ONE; -PANT40TA3 PO; -POTA10CA43 PO
[2017-09-05] MEDS ORDERED: CARV12.53 PO (10:59)
[2017-09-05] MEDS ORDERED: HYDR-3923 PO (10:59)
[2017-09-05] MEDS ORDERED: DABI150C5 PO (10:59)
[2017-09-05] MEDS ORDERED: POTA10CA43 PO (10:59)
[2017-09-05] MEDS ORDERED: PANT40TA3 PO (10:59)
== END 2017-09-20 | disposition home or self-care (01) ==
LOC: CR 09:27
PROVIDERS: ATTEND Internal Medicine Cardiovascular Disease
DX: Z48.812 Encounter for surgical aftercare following surgery on the circulatory system (principal); I25.2 Old myocardial infarction; Z95.5 Presence of coronary angioplasty implant and graft
CPT/HCPCS: 93798

== ENCOUNTER 2017-09-05 10:29 | Day surgery (SDC) | payer MEDICARE, MEDICAID ==
[2017-09-05] VITALS (8 sets, daily range): BP systolic 122–157; BP diastolic 52–64
[~2017-09-05] VITALS: Ht 160 cm; Wt 109.3 kg
[2017-09-05] MEDS: NS IV 1000 ML 1,000 ML IV SCH ×2 (10:32→13:21)
[2017-09-05 10:37] LABS: HEMOGLOBIN 9.3 G/DL (11.5-16.0); MEAN PLATELET VOLUME 8.9 FL (7.4-10.4); RED BLOOD COUNT 3.17 10^6/uL (4.35-5.85); RED CELL DISTRIBUTION WIDTH 15.2 % (10.0-14.5); WHITE BLOOD COUNT 6.4 10^3/uL (4.3-11.0)
[2017-09-05 10:40] LABS: INR 1.4 (0.8-1.4); PROTHROMBIN TIME PATIENT 17.5 SEC (12.2-14.7)
[2017-09-05 10:48] LABS: ALBUMIN 3.5 GM/DL (3.2-4.5); BILIRUBIN,TOTAL 0.5 MG/DL (0.1-1.0); CALCIUM 9.6 MG/DL (8.5-10.1); CREATININE SERUM 2.85 MG/DL (0.60-1.30); POTASSIUM 4.7 MMOL/L (3.6-5.0); TOTAL PROTEIN 6.5 GM/DL (6.4-8.2)
[2017-09-05] MEDS ORDERED: PANT40TA3 PO ×2 (10:59)
[2017-09-05] MEDS ORDERED: DABI150C5 PO ×2 (10:59)
[2017-09-05] MEDS ORDERED: CARV12.53 PO ×2 (10:59)
[2017-09-05] MEDS ORDERED: POTA10CA43 PO ×2 (10:59)
[2017-09-05] MEDS ORDERED: HYDR-3923 PO ×2 (10:59)
[2017-09-05] MEDS ORDERED: fentaNYL INJECTION 100 MCG/2 ML AMP ONE (12:50)
[2017-09-05] MEDS ORDERED: MIDAZOLAM 5 MG/5 ML (VERSED) VIAL ONE (12:50)
--- NOTE | 2017-09-05 13:08 | Cardiac Procedure Note-CS/ASA ---
Pre-Procedure Note Pre-Op Procedure Note H&P Reviewed The H&P was reviewed, patient examined and no changes noted. Date H&P Reviewed: Sep 05, 2017 Time H&P Reviewed: 13:07 Conscious Sedation Pre-Proced Time Reviewed: 13:07 ASA Class: 3 Airway Mallampati Classification: (tanacross appropriate class) I. II. III, IV Lungs Heart ASA score ASA 1: a normal healthy patient ASA 2: a patient with a mild systemic disease (mid diabetes, controlled hypertension, obesity ASA 3: a patient with a severe systemic disease that limits activity (angina , COPD, prior Myocardial infarction) ASA 4: a patient with an incapacitating disease that is a constant threat to life (CHF, renal failure) ASA 5: a moribund patient not expected to survive 24 hrs. (ruptured aneurysm) ASA 6: a declared brain patient whose organs are being harvested. For emergent operations, add the letter E after the classification Grade 1 Sedation Plan: Analgesia, Amnesia, Plan communicated to team members, Discussed options with patient/fam, Discussed risks with patient/fam Note The patient is an appropriate candidate to undergo the planned procedure, sedation, and anesthesia. The patient immediately re-assessed prior to indication. Gene PHIPPS MD Sep 05, 2017 1:08 pm
[2017-09-05] MEDS ORDERED: NS IV 1000 ML 1,000 ML ONE ×2 (13:15→13:42)
[2017-09-05] MEDS ORDERED: HEParin (CATH LAB) 2,000 ML IV ONE (13:42)
[2017-09-05] MEDS ORDERED: LIDOCAINE 1% INJ 50 ML (XYLOCAINE) VIAL ONE (13:42)
[2017-09-05] MEDS ORDERED: NS IV 1000 ML 1,000 ML IV SCH (13:52)
--- NOTE | 2017-09-05 13:56 | Cardiology Post Procedure Note ---
Post-Procedure Note Physician (s)/Teacher Theater Arts (s) Physician Gene PHIPPS MD Pre-Procedure Diagnosis Pre-Procedure Diagnosis: non healing ulcers, critical limb ischemia Post-Procedure Note Procedure Start Date: Sep 05, 2017 Procedure Start Time: 13:15 Name of Procedure: Abdominal aortogram, bilateral extremity angiograms. Findings/Procedure Note moderate PAD, no severe or critical stenosis is noted. Anesthesia Type: Conscious Sedation Estimated blood loss (mL): 10 Contrast Amount: 29 Post-Procedure Diagnosis Post-operative diagnosis: Moderate PAD Gene PHIPPS MD Sep 05, 2017 1:56 pm
[2017-09-05] MEDS ORDERED: PATIENT MAY USE OWN MEDS, ALL PO SCH (14:00)
--- NOTE | 2017-09-06 00:31 | OPERATIVE REPORT ---
DATE OF SERVICE: 09/05/2017 PERIPHERAL ANGIOGRAPHY REPORT PERFORMING PHYSICIAN: Dr. Lloyd Phipps REFERRING PHYSICIAN: Dr. Jonny Wynn. INDICATION: Critical limb ischemia, bilateral nonhealing ulcers. PREOPERATIVE INDICATIONS: 1. Critical limb ischemia. 2. Bilateral nonhealing ulcers. 3. History of right common iliac stenting and vascular surgery to the right lower extremity. POSTOPERATIVE DIAGNOSIS: Moderate peripheral arterial disease. HISTORY: The patient is a 72-year-old lady with history of diabetes, hypertension, chronic kidney disease stage IV, PAD with previous history of vascular bypass grafting as well as stenting. She has bilateral nonhealing ulcers which are worse on the left lower extremity as compared to the right. She was referred by Dr. Wynn. Her primary accountant tax is Dr. Gallagher and fashion artist is Dr. Christine Phipps. She follows with Dr. Wynn in the wound clinic for her bilateral nonhealing ulcers and was referred for vascular evaluation. Due to a possible critical limb ischemia and nonhealing ulcers, urgent peripheral angiography was performed. PROCEDURE PERFORMED: 1. Right lower extremity angiography. 2. Abdominal aortogram. 3. Left lower extremity angiography. 4. Mynx closure of the right femoral artery. COMPLICATIONS: None. SPECIMENS: None. ESTIMATED BLOOD LOSS: 10 mL. ANESTHESIA: Conscious sedation. ANTICOAGULATION: None. CONTRAST: 29 mL. FLUOROSCOPY TIME: 4.5 minutes. FLUOROSCOPY DOSE: 268 mGy. PROCEDURE IN DETAIL: The patient was brought to the mechanical laboratory technician after informed consent was taken. All the risks and complications were explained in detail, especially the risk of worsening kidney function and dialysis. Once the patient and family accepted the risk and complication, we proceeded to the mechanical laboratory technician. She was draped and prepped in the usual sterile fashion. Access was gained in the right femoral artery with a 6-Danish sheath. We performed right femoral angiography by injecting through the sheath. We then took a pigtail catheter, which was placed in the distal abdominal aorta and we performed an aortogram with bilateral iliac angiograms. We then took a Storq wire and a pigtail catheter was taken out, and a rim catheter was advanced. We did a crossover with the rim catheter and placed the tip of the wire in the common femoral artery. The rim catheter was advanced till the distal external iliac artery in the left lower extremity and then an angiogram was performed of the left lower extremity as well. RIGHT LOWER EXTREMITY: Patent right external iliac artery. Moderate disease noted in the ostium and proximal SFA. Mild to moderate disease noted in the mid and distal SFA. Moderate calcified lesion noted in the popliteal artery. Mild disease noted at the ostium of the anterior tibial artery. Three-vessel runoff is noted with an anterior tibial, posterior tibial and deep peroneal artery. Distal abdominal aortogram does not show any significant disease. There is mild disease at the ostium of the right common iliac artery. There is a stent in the right common iliac artery which is patent. Left common iliac artery and external iliac artery are patent. LEFT LOWER EXTREMITY: Patent left external iliac artery and common femoral artery. Mild disease is noted in the distal common femoral artery and ostial SFA. The picayune superficial femoral artery is occluded. There is a patent vascular graft from the SFA to the popliteal artery. There is a stent in the distal aspect of the graft. Moderate in-stent restenosis is noted in the stent. Three-vessel runoff is noted below the left knee. The patient tolerated the procedure well, did not have any complication. Mynx closure was performed of the right femoral artery. CONCLUSION: 1. Moderate SFA disease in the right lower extremity. Mild to moderate SFA disease in the left lower extremity. Patent fem-pop graft with a stent in the distal aspect of the graft with moderate in-stent restenosis. Patent right common iliac artery stent. Bilateral ulcers are unlikely due to severe arterial insufficiency. Continue to follow arterial disease clinically. 2. Good hydration was recommended to the patient. The patient will likely require renal function testing in the next three to four days and follow up with her fashion artist, Dr. Christine Phipps as an outpatient. Job ID: [id number] DocumentID: [id number] Dictated Date: 09/05/2017 14:14:28 Open Hearth Helper Date: 09/06/2017 00:31:11 Dictated By: ELO PHIPPS MD
== END 2017-09-05 18:30 | disposition home or self-care (01) ==
LOC: CATH 10:29
PROVIDERS: ATTEND Internal Medicine Interventional Cardiology
DX: I70.232 Atherosclerosis of native arteries of right leg with ulceration of calf (principal); I70.242 Atherosclerosis of native arteries of left leg with ulceration of calf; L97.221 Non-pressure chronic ulcer of left calf limited to breakdown of skin; L97.211 Non-pressure chronic ulcer of right calf limited to breakdown of skin; E11.9 Type 2 diabetes mellitus without complications; I12.9 Hypertensive chronic kidney disease with stage 1 through stage 4 chronic kidney disease, or unspecified chronic kidney disease; N18.4 Chronic kidney disease, stage 4 (severe); Z88.1 Allergy status to other antibiotic agents; Z88.8 Allergy status to other drugs, medicaments and biological substances; Z88.2 Allergy status to sulfonamides; E78.5 Hyperlipidemia, unspecified; I25.10 Atherosclerotic heart disease of native coronary artery without angina pectoris; Z79.899 Other long term (current) drug therapy; Z79.4 Long term (current) use of insulin; I65.23 Occlusion and stenosis of bilateral carotid arteries
CPT/HCPCS: 36415; 75625; 75716; 80053; 80061; 85027; 85610; 85730; 87081

== ENCOUNTER → 2017-09-05 | Outpatient (CLI) | payer MEDICARE, MEDICAID ==
[~2017-09-05] MED LIST changes: +CARV12.53 PO; +DABI150C5 PO; +HEParin (CATH LAB) 0 ML IV ONE; +HYDR-3923 PO; +LIDOCAINE 1% INJ 50 ML (XYLOCAINE) VIAL ONE; +NS IV 1000 ML 0 ML ONE; +PANT40TA3 PO; +POTA10CA43 PO
== END ==
LOC: WOUNDCARE 08:25
PROVIDERS: ATTEND Surgery
DX: E11.622 Type 2 diabetes mellitus with other skin ulcer (principal); L97.221 Non-pressure chronic ulcer of left calf limited to breakdown of skin; L97.211 Non-pressure chronic ulcer of right calf limited to breakdown of skin; I87.333 Chronic venous hypertension (idiopathic) with ulcer and inflammation of bilateral lower extremity; I70.232 Atherosclerosis of native arteries of right leg with ulceration of calf; I70.242 Atherosclerosis of native arteries of left leg with ulceration of calf; I89.0 Lymphedema, not elsewhere classified; I50.9 Heart failure, unspecified; E11.22 Type 2 diabetes mellitus with diabetic chronic kidney disease; N18.4 Chronic kidney disease, stage 4 (severe); D64.9 Anemia, unspecified
CPT/HCPCS: 99213

== ENCOUNTER → 2017-09-09 | Outpatient (CLI) | payer MEDICARE, MEDICAID ==
[~2017-09-09] MED LIST changes: +CARV12.53 PO; +DABI150C5 PO; +HYDR-3923 PO; +PANT40TA3 PO; +POTA10CA43 PO
[2017-09-09 09:03] LABS: ALBUMIN 3.7 GM/DL (3.2-4.5); BILIRUBIN,TOTAL 0.6 MG/DL (0.1-1.0); CALCIUM 9.2 MG/DL (8.5-10.1); CREATININE SERUM 2.43 MG/DL (0.60-1.30); POTASSIUM 4.7 MMOL/L (3.6-5.0)
== END ==
LOC: LAB 08:19
PROVIDERS: ATTEND Internal Medicine Interventional Cardiology
DX: R74.8 Abnormal levels of other serum enzymes (principal)
CPT/HCPCS: 36415; 80053

== ENCOUNTER → 2017-09-09 | Outpatient (CLI) | payer MEDICARE, MEDICAID | LOC: WOUNDCARE 08:37 | PROVIDERS: ATTEND Surgery | DX: E11.622 Type 2 diabetes mellitus with other skin ulcer (principal); L03.116 Cellulitis of left lower limb; L97.221 Non-pressure chronic ulcer of left calf limited to breakdown of skin; L97.211 Non-pressure chronic ulcer of right calf limited to breakdown of skin; I87.333 Chronic venous hypertension (idiopathic) with ulcer and inflammation of bilateral lower extremity; I70.232 Atherosclerosis of native arteries of right leg with ulceration of calf; I70.242 Atherosclerosis of native arteries of left leg with ulceration of calf; I89.0 Lymphedema, not elsewhere classified; I50.9 Heart failure, unspecified; N18.4 Chronic kidney disease, stage 4 (severe); D64.9 Anemia, unspecified | CPT/HCPCS: 99213 ==

== ENCOUNTER → 2017-09-14 | Outpatient (CLI) | payer MEDICARE, MEDICAID | LOC: WOUNDCARE 08:59 | PROVIDERS: ATTEND Surgery | DX: E11.622 Type 2 diabetes mellitus with other skin ulcer (principal); L97.221 Non-pressure chronic ulcer of left calf limited to breakdown of skin; L97.211 Non-pressure chronic ulcer of right calf limited to breakdown of skin; I89.0 Lymphedema, not elsewhere classified; I87.333 Chronic venous hypertension (idiopathic) with ulcer and inflammation of bilateral lower extremity; L03.116 Cellulitis of left lower limb; I70.232 Atherosclerosis of native arteries of right leg with ulceration of calf; I70.242 Atherosclerosis of native arteries of left leg with ulceration of calf; I50.9 Heart failure, unspecified; N18.4 Chronic kidney disease, stage 4 (severe) | CPT/HCPCS: 99213 ==

== ENCOUNTER → 2017-09-19 | Outpatient (CLI) | payer MEDICARE, MEDICAID | LOC: WOUNDCARE 10:33 | PROVIDERS: ATTEND Surgery | DX: E11.622 Type 2 diabetes mellitus with other skin ulcer (principal); L97.222 Non-pressure chronic ulcer of left calf with fat layer exposed; L97.211 Non-pressure chronic ulcer of right calf limited to breakdown of skin; I89.0 Lymphedema, not elsewhere classified; I87.333 Chronic venous hypertension (idiopathic) with ulcer and inflammation of bilateral lower extremity; L03.116 Cellulitis of left lower limb; I70.232 Atherosclerosis of native arteries of right leg with ulceration of calf; I70.242 Atherosclerosis of native arteries of left leg with ulceration of calf; I50.9 Heart failure, unspecified; E11.22 Type 2 diabetes mellitus with diabetic chronic kidney disease; N18.4 Chronic kidney disease, stage 4 (severe) | CPT/HCPCS: 11042; 97597 ==

== ENCOUNTER → 2017-09-21 | Outpatient (CLI) | payer MEDICARE, MEDICAID | LOC: WOUNDCARE 08:03 | PROVIDERS: ATTEND Surgery | DX: E11.622 Type 2 diabetes mellitus with other skin ulcer (principal); L97.222 Non-pressure chronic ulcer of left calf with fat layer exposed; L97.211 Non-pressure chronic ulcer of right calf limited to breakdown of skin; I89.0 Lymphedema, not elsewhere classified | CPT/HCPCS: 99213 ==

== ENCOUNTER → 2017-09-26 | Outpatient (CLI) | payer MEDICARE, MEDICAID | LOC: WOUNDCARE 10:18 | PROVIDERS: ATTEND Surgery | DX: E11.622 Type 2 diabetes mellitus with other skin ulcer (principal); L97.222 Non-pressure chronic ulcer of left calf with fat layer exposed; L97.211 Non-pressure chronic ulcer of right calf limited to breakdown of skin; I89.0 Lymphedema, not elsewhere classified; I87.333 Chronic venous hypertension (idiopathic) with ulcer and inflammation of bilateral lower extremity; I70.232 Atherosclerosis of native arteries of right leg with ulceration of calf; I70.242 Atherosclerosis of native arteries of left leg with ulceration of calf; I50.9 Heart failure, unspecified; N18.4 Chronic kidney disease, stage 4 (severe) | CPT/HCPCS: 11042 ==

== ENCOUNTER → 2017-10-03 | Outpatient (CLI) | payer MEDICARE, MEDICAID | LOC: WOUNDCARE 13:59 | PROVIDERS: ATTEND Surgery | DX: E11.622 Type 2 diabetes mellitus with other skin ulcer (principal); L97.222 Non-pressure chronic ulcer of left calf with fat layer exposed; I87.332 Chronic venous hypertension (idiopathic) with ulcer and inflammation of left lower extremity; I89.0 Lymphedema, not elsewhere classified; I50.9 Heart failure, unspecified; N18.4 Chronic kidney disease, stage 4 (severe) ==

== ENCOUNTER → 2017-10-10 | Outpatient (CLI) | payer MEDICARE, MEDICAID | LOC: WOUNDCARE 10:23 | PROVIDERS: ATTEND Surgery | DX: E11.622 Type 2 diabetes mellitus with other skin ulcer (principal); I87.332 Chronic venous hypertension (idiopathic) with ulcer and inflammation of left lower extremity; L97.222 Non-pressure chronic ulcer of left calf with fat layer exposed; I89.0 Lymphedema, not elsewhere classified; I50.9 Heart failure, unspecified; N18.4 Chronic kidney disease, stage 4 (severe) | CPT/HCPCS: 11042 ==

== ENCOUNTER 2017-10-17 10:47 | Inpatient (IN) | payer MEDICARE, MEDICAID ==
[~2017-10-17] VITALS: Ht 160 cm; Wt 106.8 kg
--- OUTSIDE RECORDS SUMMARY | 2017-10-17 10:55 | XMS REPORT | Clinical Summary ---
Author Author [facility] Address Unknown Phone Unavailable Care Team Providers Care Complaint Adjuster Name Role Phone PP Unavailable Allergies Not on File Current Medications Not on file Active Problems Not on file Social History Tobacco Use Types Packs/Day Years Used Date Never Assessed Sex Assigned at Date Recorded Not on file Plan of Treatment Health Maintenance Due Date Last Done Comments Hepatitis C Screening 1945 DTaP,Tdap,and Td Vaccines 12/27/1966 (1 - Tdap) Breast Cancer 12/27/1997 Screening-Mammogram Colon Cancer Screening 12/27/1997 Zoster Vaccine (#1) 12/28/2007 Pneumo-Adult (1 of 2 - 12/27/2012 PCV13) Influenza Vaccine (#1) 2017 Results Not on filefrom Last 3 Months
[2017-10-17] MEDS ORDERED: methylPREDNISolone 125 MG (Solu-MEDROL) VIAL IV STA (10:56)
[2017-10-17] MEDS ORDERED: RT-ALBUTEROL/IPRATROPIUM 3 ML (DUONEB) VIAL INH ONE (11:00)
[2017-10-17] MEDS ORDERED: DEXAMETHASONE 4 MG/ML SDV (DECADRON) IH ONE (11:00)
[2017-10-17] MEDS ORDERED: ONDANSETRON 4 MG/2 ML (SDV) Z0FRAN IVP ONE (11:00)
[2017-10-17] MEDS ORDERED: ACETAMINOPHEN 500 MG TAB (TYLENOL) PO ONE (11:00)
--- NOTE | 2017-10-17 11:05 | ED General ---
General Stated Complaint: LETHARGIC/NAUSEA Source of Information: Patient, EMS History of Present Illness Date Seen by Provider: Oct 17, 2017 Time Seen by Provider: 10:47 Initial Comments PT ARRIVES VIA EMS FROM HOME MULTIPLE COMPLAINTS HAS AN APPOINTMENT WITH DR. GERMAN TODAY FOR THESE COMPLAINTS, BUT "COULDN'T WAIT" EMS REPORT THEY WERE CALLED FOR PT WITH GENERALIZED WEAKNESS AND DECREASED MENTATION EMS NOTED TEMP OF 101.4 ACCUCHECK 278 BY EMS PT STATES SHE HAS NOT FELT WELL FOR A FEW DAYS DECREASED ACTIVITY WITH GENERALIZED WEAKNESS AND TOO WEAK TO WALK TO BATHROOM PT HAS HAD NAUSEA, AND DRY HEAVES NO ABDOMINAL PAIN NO CHEST PAIN HAS OCCASIONAL SHORTNESS OF BREATH--WEARS O2 AT 2L/NC CONTINUOUSLY, AND HAS BEEN DX WITH COPD, BUT DOES NOT HAVE ANY INHALERS OR NEBULIZER AT HOME. PT HAS HAD A PRODUCTIVE COUGH FOR A COUPLE OF DAYS--WHITE TO BROWN SPUTUM PT HAS CHRONIC LEG WOUNDS-STATES NO CHANGE IN WOUNDS. NO PAIN ON URINATION PCP: DR. GERMAN Allergies and Home Medications Allergies Coded Allergies: Sulfa (Sulfonamide Antibiotics) (Unverified Allergy, Mild, 10/16/07) amoxicillin (Unverified Allergy, Mild, 10/16/07) cephalexin (Unverified Allergy, Mild, 10/16/07) desloratadine (Unverified Allergy, Mild, 10/16/07) diphenhydramine (Unverified Allergy, Mild, 10/16/07) metaxalone (Unverified Allergy, Mild, 10/16/07) Penicillins (Unverified Allergy, Unknown, 01/22/14) ibuprofen (Unverified Adverse Reaction, Mild, MAKES HER SICK; CAN TAKE ASA , 09/26/09) Home Medications Atorvastatin Calcium 80 Mg Tablet, 80 MG PO HS, (Reported) Carvedilol 25 Mg Tablet, 25 MG PO BID, (Reported) Cholecalciferol (Vitamin D3) 2,000 Unit Capsule, 2,000 UNIT PO DAILY, (Reported) Clopidogrel Bisulfate 75 Mg Tablet, 75 MG PO DAILY, (Reported) Dabigatran Etexilate Mesylate 150 Mg Capsule, 150 MG PO BID, (Reported) Dorzolamide HCl 10 Ml Drops, 1 DROP OU TID, (Reported) Fenofibric Acid (Choline) 135 Mg Capsule., 135 MG PO DAILY, (Reported) LAST FILLED 07/12/17 #90 Furosemide 40 Mg Tablet, 40 MG PO DAILY, (Reported) Gabapentin 300 Mg Capsule, 600 MG PO BID, (Reported) TAKES 2 (300 MG) CAPSULES Hydralazine HCl 25 Mg Tablet, 25 MG PO TID, (Reported) Insulin Regular, Human 500 Unit/1 Ml Insuln.pen, 80 UNIT SQ 0700, (Reported) Insulin Regular, Human 500 Unit/1 Ml Insuln.pen, 70 UNIT SQ 1200, (Reported) Insulin Regular, Human 500 Unit/1 Ml Insuln.pen, 90 UNIT SQ 1700, (Reported) Isosorbide Mononitrate 60 Mg Tab, 60 MG PO DAILY, (Reported) Latanoprost 2.5 Ml Drops, 1 DROP OU HS, (Reported) Niacin 1,000 Mg Tab.er.24h, 1,000 MG PO HS, (Reported) Nitroglycerin 0.4 Mg Tab.subl, 0.4 MG SL UD PRN for CHEST PAIN, (Reported) [place]-3/Dha/Epa/Fish Oil 1 Each Capsule, 1,000 MG PO TID, (Reported) Pantoprazole Sodium 40 Mg Tablet.dr, 40 MG PO DAILY, (Reported) Potassium Chloride 10 Meq Capsule.er, 10 MEQ PO BID, (Reported) Ranolazine 500 Mg Tab.er.12h, 500 MG PO BID, (Reported) Patient Home Medication List Home Medication List Reviewed: Yes Constitutional: see HPI, fever, malaise, weakness EENTM: no symptoms reported Respiratory: see HPI, cough, dyspnea on exertion, short of breath Cardiovascular: No chest pain, edema (CHRONIC, STABLE), No palpitations, No syncope Gastrointestinal: see HPI, No abdominal pain, loss of appetite, nausea (DRY HEAVES) Genitourinary: No decreased output, No dysuria, No frequency Musculoskeletal: no symptoms reported Skin: see HPI Psychiatric/Neurological: See HPI, Denies Headache, Denies Numbness, Denies Paresthesia, Denies Tingling Hematologic/Lymphatic: No Symptoms Reported Immunological/Allergic: no symptoms reported Past Oxkhnic-Nrslst-Vodffh Hx Patient Social History Alcohol Use: Denies Use Recreational Drug Use: No Smoking Status: Former Smoker (3 PPD) Type Used: Cigarettes Recent Hopitalizations: No Immunizations Up To Date Tetanus Booster (TDap): Unknown PED Vaccines UTD: No Date of Pneumonia Vaccine: Jul 15, 2012 Date of Influenza Vaccine: Mar 31, 2017 Seasonal Allergies Seasonal Allergies: Yes Surgeries History of Surgeries: Yes (FEM-POP BYPASS WITH STENTS IN LEGS; CARDIAC AND PERIPHERAL ANGIOGRAMS; CARDIAC STENTS; COLONOSCOPIES) Surgeries: Cardiac, Coronary Stent, Gallbladder, Orthopedic, Tonsillectomy, Tubal Ligation, Vascular Surgery Respiratory History of Respiratory Disorde: Yes (O2 AT 2L/NC CONTINUOUSLY) Respiratory Disorders: COPD Currently Using CPAP: No Currently Using BIPAP: No Cardiovascular History of Cardiac Disorders: Yes (SEVERE PERIPHERAL VASCULAR DISEASE WITH FEM- POP BYPASS AND STENTS; CARDIAC STENTS; CAROTID DISEASE;) Cardiac Disorders: Chronic Edema/Swelling, Coronary Artery Disease, Heart Attack, High Cholesterol, Hypertension, Peripheral Vascular Neurological History of Neurological Disord: Yes Neurological Disorders: Headaches /Migraines 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 System Hx 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 Disorders: No Sexually Transmitted Disease: No HIV/AIDS: No Female 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 Disorders: Denies 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: 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 Genitourinary History of Genitourinary Disor: Yes Genitourinary Disorders: Renal Failure Gastrointestinal History of Gastrointestinal Di: Yes Gastrointestinal Disorders: Gastroesophageal Reflux Musculoskeletal History of Musculoskeletal Dis: Yes Musculoskeletal Disorders: Arthritis Endocrine History of Endocrine Disorders: Yes Endocrine Disorders: Diabetes, Insulin dep, Hypothyroidsim HEENT History of HEENT Disorders: No Cancer History of Cancer: No Psychosocial History of Psychiatric Problem: Yes Behavioral Health Disorders: Anxiety, Depression Integumentary History of Skin or Integumenta: Yes (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 ) Blood Transfusions History of Blood Disorders: No Adverse Reaction to a Blood Tr: No Family Medical History Significant Family History: Heart Disease, Diabetes, Hypertension, Vascular Disease Family Medial History: Diabetes mellitus 19 MOTHER, Onset:Unknown FH: breast cancer Lip cancer 19 FATHER, Onset:40's - 50 Physical Exam Vital Signs Vital Signs - First Documented 10/17/17 10/17/17 10/17/17 11:06 11:51 16:39 Temp 101.5 Pulse 84 Resp 16 B/P (MAP) 150/54 (86) Pulse Ox 93 O2 Delivery Room Air O2 Flow Rate 2.00 FiO2 32 Capillary Refill : General Appearance: No Apparent Distress, WD/WN, Obese, Other (SLIGHTLY LETHARGIC, SOMEWHAT DRAMATIC, WITH MOANING ON ARRIVAL. THEN WAILING/SCREAMING WITH LAB DRAWS AND ANY MOVMENTS OF BODY BY STAFF. PT IS SHIVERING ON ARRIVAL AND HEAVY BLANKET FROM HOME) HEENT: Other (EDENTULOUS) Neck: Normal Inspection Respiratory: No Accessory Muscle Use, No Respiratory Distress, Decreased Breath Sounds (IN RLL), Rales (IN LLL) Cardiovascular: Regular Rate, Rhythm, No Murmur Gastrointestinal: Non Tender, Soft Extremity: Other (PT HAS HEAVY DRESSINGS AND JONATHON HOSE IN PLACE TO BOTH LOWER LEGS. ) Neurologic/Psychiatric: Alert, Oriented x3, No Motor/Sensory Deficits (GROSSLY INTACT), rod drawer II-XII Norm as Tested Skin: Normal Color, Warm/Dry, Other (LEG WOUNDS WITH DRESSINGS IN PLACE) Focused Exam Evaluation Lactate Level Laboratory Tests 10/17/17 11:30: Lactic Acid Level 0.90 Lactic Acid Level Date of ETT Placement: May 12, 2017 Time of ETT Placement: 923 Progress/Results/Core Measures Suspected Sepsis SIRS Temperature: Pulse: Respiratory Rate: Laboratory Tests 10/17/17 10:55: White Blood Count 11.1H Blood Pressure / Mean: Laboratory Tests 10/17/17 11:30: Lactic Acid Level 0.90 Laboratory Tests 10/17/17 10:55: Platelet Count 278 10/17/17 11:30: Creatinine 2.25H, INR Comment 1.4, Total Bilirubin 0.7 Results/Orders Lab Results Laboratory Tests Test 10/17/17 10:55 10/17/17 11:30 10/17/17 12:30 10/17/17 15:52 Range/Units White Blood Count 11.1 H 4.3-11.0 10^3/uL Red Blood Count 3.19 L 4.35-5.85 10^6/uL Hemoglobin 9.1 L 11.5-16.0 G/DL Hematocrit 29 L 35-52 % Mean Corpuscular Volume 92 80-99 FL Mean Corpuscular Hemoglobin 29 25-34 PG Mean Corpuscular Hemoglobin Concent 31 L 32-36 G/DL Red Cell Distribution Width 16.2 H 10.0-14.5 % Platelet Count 278 130-400 10^3/uL Mean Platelet Volume 9.8 7.4-10.4 FL Neutrophils (%) (Auto) 84 H 42-75 % Lymphocytes (%) (Auto) 8 L 12-44 % Monocytes (%) (Auto) 8 0-12 % Eosinophils (%) (Auto) 1 0-10 % Basophils (%) (Auto) 0 0-10 % Neutrophils # (Auto) 9.3 H 1.8-7.8 X 10^3 Lymphocytes # (Auto) 0.9 L 1.0-4.0 X 10^3 Monocytes # (Auto) 0.9 0.0-1.0 X 10^3 Eosinophils # (Auto) 0.1 0.0-0.3 10^3/uL Basophils # (Auto) 0.0 0.0-0.1 10^3/uL Neutrophils % (Manual) 85 % Lymphocytes % (Manual) 6 % Monocytes % (Manual) 5 % Eosinophils % (Manual) 1 % Basophils % (Manual) 0 % Band Neutrophils 3 % Polychromasia SLIGHT Anisocytosis SLIGHT Prothrombin Time 17.2 H 12.2-14.7 SEC INR Comment 1.4 0.8-1.4 Activated Partial Thromboplast Time 45 H 24-35 SEC Sodium Level 138 135-145 MMOL/L Potassium Level 4.3 3.6-5.0 MMOL/L Chloride Level 97 L 98-107 MMOL/L Carbon Dioxide Level 32 21-32 MMOL/L Anion Gap 9 5-14 MMOL/L Blood Urea Nitrogen 38 H 7-18 MG/DL Creatinine 2.25 H 0.60-1.30 MG/DL Estimat Glomerular Filtration Rate 22 BUN/Creatinine Ratio 17 Glucose Level 240 H 70-105 MG/DL Lactic Acid Level 0.90 0.50-2.00 MMOL/L Calcium Level 9.1 8.5-10.1 MG/DL Magnesium Level 1.9 1.8-2.4 MG/DL Total Bilirubin 0.7 0.1-1.0 MG/DL Aspartate Amino Transf (AST/SGOT) 24 5-34 U/L Alanine Aminotransferase (ALT/SGPT) 25 0-55 U/L Alkaline Phosphatase 40 40-136 U/L Troponin I < 0.30 <0.30 NG/ML B-Type Natriuretic Peptide 440.6 H <100.0 PG/ML Total Protein 6.8 6.4-8.2 GM/DL Albumin 3.5 3.2-4.5 GM/DL Urine Color YELLOW Urine Clarity CLEAR Urine pH 7 5-9 Urine Specific [place] 1.010 L 1.016-1.022 Urine Protein 2+ H NEGATIVE Urine Glucose (UA) 4+ H NEGATIVE Urine Ketones 2+ H NEGATIVE Urine Nitrite NEGATIVE NEGATIVE Urine Bilirubin NEGATIVE NEGATIVE Urine Urobilinogen NORMAL NORMAL MG/DL Urine Leukocyte Esterase 1+ H NEGATIVE Urine RBC (Auto) NEGATIVE NEGATIVE Urine RBC 0-2 /HPF Urine WBC 2-5 /HPF Urine Squamous Epithelial Cells 2-5 /HPF Urine Crystals NONE /LPF Urine Bacteria NEGATIVE /HPF Urine Casts NONE /LPF Urine Mucus NEGATIVE /LPF Urine Culture Indicated NO Glucometer 371 H 70-110 MG/DL Micro Results Microbiology 10/17/17 Influenza Types A,B Antigen (JSOE ELIAS) - Final, Complete My Orders Orders - MAYCO MOORE DO Saline Lock/Iv-Start (10/17/17 10:56) Ekg Tracing (10/17/17 10:56) O2 (10/17/17 10:56) Monitor-Rhythm Ecg Trace Only (10/17/17 10:56) BNP (10/17/17 10:56) Cbc With Automated Diff (10/17/17 10:56) Comprehensive Metabolic Panel (10/17/17 10:56) Lactic Acid Analyzer (10/17/17 10:56) Magnesium (10/17/17 10:56) Protime With Inr (10/17/17 10:56) Partial Thromboplastin Time (10/17/17 10:56) Troponin I (10/17/17 10:56) Ua Culture If Indicated (10/17/17 10:56) Blood Culture (10/17/17 10:56) Influenza A And B Antigens (10/17/17 10:56) Chest 1 View, Ap/Pa Only (10/17/17 10:56) Albuterol/Ipra Inhalation Soln (Duoneb I (10/17/17 11:00) Dexamethasone Injection (Decadron Inject (10/17/17 11:00) Rt Request For Service (10/17/17 10:56) Ondansetron Injection (Zofran Injectio (10/17/17 11:00) Methylprednisolone Sod Succ (Solu-Medrol (10/17/17 10:56) Svn Sm Volume Nebulizer Rt-Rfs (10/17/17 10:56) Acetaminophen Tablet (Tylenol Tablet) (10/17/17 11:00) Manual Differential (10/17/17 10:55) Levofloxacin 500 Mg/100 Ml Iv (Levaquin (10/17/17 12:30) Fentanyl Injection (Sublimaze Injection (10/17/17 12:26) Diazepam Injection (Valium Injection) (10/17/17 12:30) Medications Given in ED Current Medications Medications Dose Ordered Sig/Nat Route Start Time Stop Time Status Last Admin Dose Admin Acetaminophen 1,000 mg ONCE ONCE PO 10/17/17 11:00 10/17/17 11:01 DC 10/17/17 11:31 1,000 MG Albuterol/ Ipratropium 3 ml ONCE ONCE INH 10/17/17 11:00 10/17/17 11:01 DC 10/17/17 11:51 3 ML Dexamethasone Sodium Phosphate 20 mg ONCE ONCE IH 10/17/17 11:00 10/17/17 11:01 DC 10/17/17 11:51 20 MG Ondansetron HCl 4 mg ONCE ONCE IVP 10/17/17 11:00 10/17/17 11:01 DC 10/17/17 11:31 4 MG Vital Signs/I&O Vital Sign - Last 12Hours 10/17/17 10/17/17 10/17/17 10/17/17 11:06 11:51 14:10 14:11 Temp 101.5 98.9 Pulse 84 74 Resp 16 20 B/P (MAP) 150/54 (86) 189/78 (115) Pulse Ox 93 97 96 O2 Delivery Room Air Nasal Cannula Nasal Cannula Nasal Cannula O2 Flow Rate 2.00 3.00 3.00 10/17/17 10/17/17 10/17/17 10/17/17 14:42 15:49 16:00 16:39 Temp 98.5 Pulse 66 72 72 Resp 18 B/P (MAP) 173/64 (100) Pulse Ox 96 96 O2 Delivery Nasal Cannula Nasal Cannula O2 Flow Rate 2.50 3.00 FiO2 32 10/17/17 18:00 Temp 98.4 Pulse 70 Resp 18 B/P (MAP) 182/63 (102) Pulse Ox 97 O2 Delivery Nasal Cannula O2 Flow Rate 3.00 Capillary Refill : Progress Note : Progress Note 1225--PT WAILING AND SCREAMING WITH C/O BILATERAL LEG CRAMPS-IS A COMMON PROBLEM FOR PT. EASED WITH MEDICATIONS NO DETERIORATION IN PT'S CONDITION DURING ER STAY ECG Initial ECG Impression Date: Oct 17, 2017 Initial ECG Impression Time: 11:17 Initial ECG Rate: 81 Initial ECG Rhythm: Normal Sinus (LBBB) Initial ECG Comparisson: Unchanged Diagnostic Imaging Comments CXR--BIBASILAR INFILTRATES AND SMALL BILATERAL PLEURAL EFFUSIONS--RIGHT> LEFT. PER RADIOLOGIST REPORT @ 1216 Reviewed: Reviewed by Me Departure Communication (Admissions) Progress Notes 1216--SPOKE WITH DR. GERMAN, ACCEPTS PT FOR ADMIT. ADVISES [place], WITH PHARMACY TO DOSE Impression Impression: Primary Impression: Bilateral pneumonia Additional Impressions: Sepsis IDDM (insulin dependent diabetes mellitus) CHRONIC LEG WOUNDS Chronic renal failure Disposition: ADMITTED INPATIENT Condition: Stable Admissions Decision to Admit Reason: Admit from ER (General) Decision to Admit/Date: Oct 17, 2017 Time/Decision to Admit Time: 12:15 Departure-Patient Inst. Referrals: BRAULIO GERMAN DO (PCP/Family) Primary Care Physician MAYCO MOORE DO Oct 17, 2017 11:05
[2017-10-17 11:14] LABS: BASOPHILS % (AUTO) 0 % (0-10); EOSINOPHILS # (AUTO) 0.1 10^3/uL (0.0-0.3); EOSINOPHILS % (AUTO) 1 % (0-10); HEMATOCRIT 29 % (35-52); HEMOGLOBIN 9.1 G/DL (11.5-16.0); LYMPHOCYTES # (AUTO) 0.9 X 10^3 (1.0-4.0); LYMPHOCYTES % (AUTO) 8 % (12-44); MEAN CORPUSCULAR HEMOGLOBIN 29 PG (25-34); MEAN CORPUSCULAR HGB CONC 31 G/DL (32-36); MEAN CORPUSCULAR VOLUME 92 FL (80-99); MEAN PLATELET VOLUME 9.8 FL (7.4-10.4); MONOCYTES # (AUTO) 0.9 X 10^3 (0.0-1.0); MONOCYTES % (AUTO) 8 % (0-12); NEUTROPHILS # (AUTO) 9.3 X 10^3 (1.8-7.8); NEUTROPHILS % (AUTO) 84 % (42-75); PLATELET COUNT 278 10^3/uL (130-400); RED BLOOD COUNT 3.19 10^6/uL (4.35-5.85); RED CELL DISTRIBUTION WIDTH 16.2 % (10.0-14.5); WHITE BLOOD COUNT 11.1 10^3/uL (4.3-11.0)
--- NOTE | 2017-10-17 11:26 | Diagnostic Imaging Report ---
Clinical indication: Patient with lethargy and vomiting since this morning. Exam: Portable chest x-ray upright view. Comparisons: Chest x-ray dated 05/12/2017. Findings: There is interval removal of the ET tube and orogastric feeding tube. There is bilateral lung groundglass and patchy infiltrates (right side more than the left) with some sparing of left upper lobe. There is blunting of the right costophrenic angle and left costophrenic angle region and pleural effusions can't be completely excluded. The pulmonary vasculature and cardiac silhouette are within normal limits. There are hypertrophic spurs involving the thoracic spine. There is hypertrophic spurring of the right shoulder region. Impression: 1: There is bilateral lung infiltrates (right side more than the left) and possible small bilateral pleural effusions. 2: Interval removal of the ET tube and orogastric feeding tube. Dictated by: Dictated on workstation # [id number]
[2017-10-17 12:00] LABS: ALANINE AMINOTRANSFERASE 25 U/L (0-55); ALBUMIN 3.5 GM/DL (3.2-4.5); ALKALINE PHOSPHATASE 40 U/L (40-136); BILIRUBIN,TOTAL 0.7 MG/DL (0.1-1.0); BUN/CREATININE RATIO 17; CALCIUM 9.1 MG/DL (8.5-10.1); CARBON DIOXIDE 32 MMOL/L (21-32); CHLORIDE 97 MMOL/L (98-107); CREATININE SERUM 2.25 MG/DL (0.60-1.30); GFR ESTIMATED 22; GLUCOSE 240 MG/DL (70-105); INR 1.4 (0.8-1.4); MAGNESIUM 1.9 MG/DL (1.8-2.4); POTASSIUM 4.3 MMOL/L (3.6-5.0); PROTHROMBIN TIME PATIENT 17.2 SEC (12.2-14.7); SODIUM 138 MMOL/L (135-145); TOTAL PROTEIN 6.8 GM/DL (6.4-8.2)
[2017-10-17 12:02] LABS: ANISOCYTOSIS SLIGHT; BAND NEUTROPHILS 3 %; BASOPHILS % (MANUAL) 0 %; EOSINOPHILS % (MANUAL) 1 %; LYMPHOCYTES % (MANUAL) 6 %; MONOCYTES % (MANUAL) 5 %; NEUTROPHILS % (MANUAL) 85 %; POLYCHROMASIA SLIGHT
[2017-10-17] MEDS ORDERED: fentaNYL INJECTION 100 MCG/2 ML AMP IVP STA (12:26)
[2017-10-17] MEDS ORDERED: LEVOFLOXACIN 500 MG/100 ML IV 100 ML IV ONE (12:30)
[2017-10-17] MEDS ORDERED: DIAZEPAM INJ 10 MG/2 ML (VALIUM) SYR IV ONE (12:30)
[2017-10-17 13:03] LABS: BILIRUBIN,URINE NEGATIVE (NEGATIVE); CLARITY,URINE CLEAR; COLOR,URINE YELLOW; GLUCOSE, URINE (UA) 4+ (NEGATIVE); KETONES,URINE 2+ (NEGATIVE); LEUKOCYTE ESTERASE ,URINE 1+ (NEGATIVE); NITRITE,URINE NEGATIVE (NEGATIVE); PH,URINE 7 (5-9); PROTEIN,URINE 2+ (NEGATIVE); UROBILINOGEN,URINE NORMAL (NORMAL)
--- OUTSIDE RECORDS SUMMARY | 2017-10-17 13:05 | XMS REPORT | Clinical Summary ---
Author Author [facility] Address Unknown Phone Unavailable Care Team Providers Care Terminal Supervisor Name Role Phone PP Unavailable Allergies Not [...]
[2017-10-17 13:36] LABS: BACTERIA,URINE NEGATIVE /HPF; RBC,URINE 0-2 /HPF
[2017-10-17 14:11] VITALS: BP 189/78
[2017-10-17] MEDS ORDERED: CATHETER FLUSH 10 ML SYR IV PRN (14:15)
[2017-10-17] MEDS ORDERED: DORZ10DR2 OU (14:47)
[2017-10-17] MEDS ORDERED: CARV25TA PO (14:47)
[2017-10-17 16:00] VITALS: BP 173/64
[2017-10-17] MEDS: inSUlin (REGULAR) HUMAN 1 UNIT/0.01 ML (CHARGE PER UNIT) SC SCH ×3 (16:03→21:05)
[2017-10-17] MEDS ORDERED: NITROGLYCERIN 0.4 MG SL TABS BTL 25'S SL PRN (16:30)
[2017-10-17 16:39] VITALS: BP 173/64
[2017-10-17] MEDS ORDERED: RT-ALBUTEROL/IPRATROPIUM 3 ML (DUONEB) VIAL INH PRN (16:45)
[2017-10-17] MEDS ORDERED: [UNRECOGNIZED DRUG - OTHER] SQ SCH (17:00)
[2017-10-17] MEDS ORDERED: INSULIN REGULAR HUMAN SQ SCH (17:00)
[2017-10-17 18:00] VITALS: BP 182/63
[2017-10-17] MEDS: KCL 10 MEQ TAB (MICRO K) PO SCH (18:06)
[2017-10-17] MEDS: OMEGA 3 (FISH OIL) 1000 MG CAP PO SCH (18:06)
[2017-10-17] MEDS: RANOLAZINE ER 500 MG TAB (RANEXA) PO SCH (18:52)
[2017-10-17] MEDS: hydrALAZINE (APRESOLINE) 25 MG TAB PO SCH (18:52)
[2017-10-17] MEDS: GABAPENTIN 300 MG (NEURONTIN) CAP PO SCH (18:52)
[2017-10-17] MEDS: CARVEDILOL 12.5 MG (COREG) TABLET PO SCH (18:52)
--- NOTE | 2017-10-17 19:05 | History & Physicial ---
History of Present Illness History of Present Illness Reason for visit/HPI Patient came to the emergency room via EMS. Patient had multiple problems. Patient coughing up phlegm ran White. Patient short of breath couldn't breathe. Onset one week ago. Patient has trouble walking and get around due to shortness of breath. Patient has a history of diabetes, coronary artery disease and renal insufficiency. COPD area Surgery coronary stents, gallbladder, tonsils, carpal tunnel and stents in legs Date of Admission Oct 17, 2017 at 12:15 pm Time Seen by Provider: 19:00 I consulted on this patient on 10/17/17 19:01 Attending Physician Wyatt German DO Admitting Physician Wyatt German DO Consult Allergies and Home Medications Allergies Coded Allergies: Sulfa (Sulfonamide Antibiotics) (Unverified Allergy, Mild, 10/16/07) amoxicillin (Unverified Allergy, Mild, 10/16/07) cephalexin (Unverified Allergy, Mild, 10/16/07) desloratadine (Unverified Allergy, Mild, 10/16/07) diphenhydramine (Unverified Allergy, Mild, 10/16/07) metaxalone (Unverified Allergy, Mild, 10/16/07) Penicillins (Unverified Allergy, Unknown, 01/22/14) ibuprofen (Unverified Adverse Reaction, Mild, MAKES HER SICK; CAN TAKE ASA , 09/26/09) Home Medications Atorvastatin Calcium 80 Mg Tablet, 80 MG PO HS, (Reported) Carvedilol 25 Mg Tablet, 25 MG PO BID, (Reported) Cholecalciferol (Vitamin D3) 2,000 Unit Capsule, 2,000 UNIT PO DAILY, (Reported) Clopidogrel Bisulfate 75 Mg Tablet, 75 MG PO DAILY, (Reported) Dabigatran Etexilate Mesylate 150 Mg Capsule, 150 MG PO BID, (Reported) Dorzolamide HCl 10 Ml Drops, 1 DROP OU TID, (Reported) Fenofibric Acid (Choline) 135 Mg Capsule.dr, 135 MG PO DAILY, (Reported) LAST FILLED 07/12/17 #90 Furosemide 40 Mg Tablet, 40 MG PO DAILY, (Reported) Gabapentin 300 Mg Capsule, 600 MG PO BID, (Reported) TAKES 2 (300 MG) CAPSULES Hydralazine HCl 25 Mg Tablet, 25 MG PO TID, (Reported) Insulin Regular, Human 500 Unit/1 Ml Insuln.pen, 80 UNIT SQ 0700, (Reported) Insulin Regular, Human 500 Unit/1 Ml Insuln.pen, 70 UNIT SQ 1200, (Reported) Insulin Regular, Human 500 Unit/1 Ml Insuln.pen, 90 UNIT SQ 1700, (Reported) Isosorbide Mononitrate 60 Mg Tab, 60 MG PO DAILY, (Reported) Latanoprost 2.5 Ml Drops, 1 DROP OU HS, (Reported) Niacin 1,000 Mg Tab.er.24h, 1,000 MG PO HS, (Reported) Nitroglycerin 0.4 Mg Tab.subl, 0.4 MG SL UD PRN for CHEST PAIN, (Reported) [place]-3/Dha/Epa/Fish Oil 1 Each Capsule, 1,000 MG PO TID, (Reported) Pantoprazole Sodium 40 Mg Tablet.dr, 40 MG PO DAILY, (Reported) Potassium Chloride 10 Meq Capsule.er, 10 MEQ PO BID, (Reported) Ranolazine 500 Mg Tab.er.12h, 500 MG PO BID, (Reported) Patient Home Medication List Home Medication List Reviewed: Yes Past Bawohgu-Gbiaut-Jevxwv Hx Patient Social History Marrital Status: Employed/Student: unemployed Alcohol Use: Denies Use Recreational Drug Use: No Smoking Status: Former Smoker Former Smoker, Quit: Sep 05, 1985 Type Used: Cigarettes Physical Abuse Screen: No Sexual Abuse: No Recent Foreign Travel: No Contact w/other who traveled: No Recent Hopitalizations: No Recent Infectious Disease Expo: No Immunizations Up To Date Tetanus Booster (TDap): Unknown Pediatric: No Date of Pneumonia Vaccine: Jul 15, 2012 Date of Influenza Vaccine: Mar 31, 2017 Seasonal Allergies Seasonal Allergies: Yes Surgeries Yes (TUBAL LIGATION AND GALLBLADER REMOVAL) Coronary Stent, Gallbladder, Orthopedic, Tonsillectomy, Tubal Ligation, Vascular Surgery Respiratory Yes COPD Currently Using CPAP: No Currently Using BIPAP: No Cardiovascular Yes Coronary Artery Disease, Heart Attack, Hypertension, Peripheral Vascular Neurological Yes Headaches /Migraines 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 System Hx 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 Disorders: No Sexually Transmitted Disease: No HIV/AIDS: No Female 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 Disorders: 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 Genitourinary Yes Renal Failure Gastrointestinal Yes Gastroesophageal Reflux Musculoskeletal Yes Arthritis Endocrine History of Endocrine Disorders: Yes Endocrine Disorders: Diabetes, Insulin dep, Hypothyroidsim Are Your Blood Sugars Over 250: Yes HEENT History of HEENT Disorders: No HEENT Disorders: Cataract Cancer No Psychosocial History of Psychiatric Problem: Yes Behavioral Health Disorders: Anxiety, Depression Integumentary History of Skin or Integumenta: No Blood Transfusions History of Blood Disorders: No (had to have iron iv) Adverse Reaction to a Blood Tr: No Family Medical History Significant Family History: Heart Disease, Diabetes, Hypertension, Vascular Disease Family Hx: Diabetes mellitus 19 MOTHER, Onset:Unknown FH: breast cancer Lip cancer 19 FATHER, Onset:40's - 50 Constitutional: weakness EENTM: no symptoms reported Respiratory: dyspnea on exertion, short of breath Cardiovascular: no symptoms reported Gastrointestinal: no symptoms reported Genitourinary: no symptoms reported Physical Exam Vital Signs Vital Signs - First Documented 10/17/17 10/17/17 10/17/17 11:06 11:51 16:39 Temp 101.5 Pulse 84 Resp 16 B/P (MAP) 150/54 (86) Pulse Ox 93 O2 Delivery Room Air O2 Flow Rate 2.00 FiO2 32 Capillary Refill : Less Than 3 Seconds General Appearance: No Apparent Distress, WD/WN Eyes: Bilateral Eye Normal Inspection HEENT: Normal ENT Inspection Neck: Full Range of Motion, Normal Inspection Respiratory: Decreased Breath Sounds Cardiovascular: Regular Rate, Rhythm Gastrointestinal: Non Tender, Soft Assessment/Plan Assessment and Plan Bilateral pneumonia. Sepsis. Insulin-dependent diabetic mellitus. Chronic leg pain. Chronic renal insufficiency. Diabetes Problems: Admission Diagnosis Admission Status: Inpatient Order (span 2 midnights) Reason for Inpatient Admission: Short of breath. Pneumonia bilateral. Diabetes. Renal insufficiency. Clinical Quality Measures DVT/VTE Risk/Contraindication: Risk Factor Score Per Nursin RFS Level Per Nursing on Admit: 4+=Very High WYATT GERMAN DO Oct 17, 2017 7:05 pm
[2017-10-17] MEDS: RT-ALBUTEROL/IPRATROPIUM 3 ML (DUONEB) VIAL INH SCH (19:08)
[2017-10-17 19:50] VITALS: BP 180/77
[2017-10-17] MEDS ORDERED: NON-FORMULARY MEDICATION 1 EA EA (Carvedilol 25 MG) PO SCH (21:00)
[2017-10-17] MEDS ORDERED: NON-FORMULARY MEDICATION 1 EA EA (Potassium Chloride 10 MEQ) PO SCH (21:00)
[2017-10-17] MEDS ORDERED: NIACIN 1000 MG PO SCH (21:00)
[2017-10-17] MEDS: DORZOLAMIDE 2% 10 ML BTL (TRUSOPT) OU SCH (21:05)
[2017-10-17] MEDS: ATORVASTATIN 80 MG (LIPITOR) TABLET PO SCH (21:05)
[2017-10-17] MEDS: LATANOPROST 0.005% (XALATAN) OPHTH SOLN 2.5 ML OU SCH (21:05)
[2017-10-17] MEDS: CATHETER FLUSH 10 ML SYR IV SCH (21:06)
[2017-10-17] MEDS: NIACIN ER (NIASPAN) 500 MG TAB PO SCH (21:06)
[2017-10-17] MEDS: DABIGATRAN 150 MG (PRADAXA) CAPSULE PO SCH (21:06)
[2017-10-18 00:13] VITALS: BP 167/71
[2017-10-18] MEDS ORDERED: HYDROcodone/APAP 5 MG/325 MG (LORTAB) TAB PO PRN (02:00)
[2017-10-18] MEDS: RT-ALBUTEROL/IPRATROPIUM 3 ML (DUONEB) VIAL INH SCH ×4 (02:28→21:20)
[2017-10-18 04:26] VITALS: BP 139/64
[2017-10-18] MEDS: inSUlin (REGULAR) HUMAN 1 UNIT/0.01 ML (CHARGE PER UNIT) SC SCH ×5 (05:39→21:50)
[2017-10-18 06:25] LABS: BASOPHILS % (AUTO) 0 % (0-10); EOSINOPHILS % (AUTO) 0 % (0-10); HEMATOCRIT 26 % (35-52); HEMOGLOBIN 7.9 G/DL (11.5-16.0); LYMPHOCYTES # (AUTO) 0.5 X 10^3 (1.0-4.0); LYMPHOCYTES % (AUTO) 6 % (12-44); MEAN CORPUSCULAR HEMOGLOBIN 28 PG (25-34); MEAN CORPUSCULAR HGB CONC 30 G/DL (32-36); MEAN CORPUSCULAR VOLUME 93 FL (80-99); MEAN PLATELET VOLUME 8.9 FL (7.4-10.4); MONOCYTES # (AUTO) 0.3 X 10^3 (0.0-1.0); MONOCYTES % (AUTO) 3 % (0-12); NEUTROPHILS # (AUTO) 7.6 X 10^3 (1.8-7.8); NEUTROPHILS % (AUTO) 91 % (42-75); PLATELET COUNT 215 10^3/uL (130-400); RED BLOOD COUNT 2.82 10^6/uL (4.35-5.85); RED CELL DISTRIBUTION WIDTH 15.4 % (10.0-14.5); WHITE BLOOD COUNT 8.3 10^3/uL (4.3-11.0)
[2017-10-18 06:55] LABS: ALBUMIN 3.3 GM/DL (3.2-4.5); BILIRUBIN,TOTAL 0.5 MG/DL (0.1-1.0); CREATININE SERUM 2.11 MG/DL (0.60-1.30); POTASSIUM 4.8 MMOL/L (3.6-5.0); TOTAL PROTEIN 6.5 GM/DL (6.4-8.2)
[2017-10-18] MEDS: CATHETER FLUSH 10 ML SYR IV SCH ×3 (07:00→21:50)
[2017-10-18] MEDS ORDERED: [UNRECOGNIZED DRUG - OTHER] SQ SCH (07:00)
[2017-10-18] MEDS: OMEGA 3 (FISH OIL) 1000 MG CAP PO SCH ×3 (07:00→18:18)
[2017-10-18] MEDS ORDERED: INSULIN REGULAR HUMAN 80 UNIT SQ SCH (07:00)
[2017-10-18] MEDS: KCL 10 MEQ TAB (MICRO K) PO SCH ×2 (07:00→18:18)
[2017-10-18] MEDS ORDERED: inSUlin (REGULAR) HUMAN 1 UNIT/0.01 ML (CHARGE PER UNIT) SC SCH ×2 (07:00→12:00)
[2017-10-18] MEDS: PANTOPRAZOLE 40 MG (PROTONIX) TAB PO SCH (07:01)
--- NOTE | 2017-10-18 07:35 | Progress Note (SOAP) ---
Subjective Time Seen by Provider: 07:30 Subjective/Events-last exam Patient feeling better today patient not vomiting. Patient states she can get up today Patient states she could move better. Pneumonia. Sepsis. Diabetes. Renal insufficiency. Coronary artery disease. Vomiting. Weakness. Focused Exam Evaluation Lactate Level Laboratory Tests 10/17/17 11:30: Lactic Acid Level 0.90 Objective Exam Vital Signs Date Time Temp Pulse Resp B/P (MAP) Pulse Ox O2 Delivery O2 Flow Rate FiO2 10/18/17 04:26 97.3 54 18 139/64 (89) 98 Nasal Cannula 2.50 10/18/17 02:29 98 Nasal Cannula 2.50 10/18/17 01:00 65 10/18/17 00:13 98.0 61 16 167/71 (103) 96 Nasal Cannula 2.50 10/17/17 21:00 Nasal Cannula 3.00 10/17/17 19:50 98.1 71 18 180/77 (111) 99 Nasal Cannula 3.00 10/17/17 19:11 94 Nasal Cannula 2.50 10/17/17 19:00 80 10/17/17 18:00 98.4 70 18 182/63 (102) 97 Nasal Cannula 3.00 10/17/17 16:39 72 96 32 10/17/17 16:00 98.5 72 18 173/64 (100) 96 Nasal Cannula 3.00 10/17/17 15:49 66 10/17/17 14:42 Nasal Cannula 2.50 10/17/17 14:11 98.9 74 20 189/78 (115) 96 Nasal Cannula 3.00 10/17/17 14:10 Nasal Cannula 3.00 10/17/17 13:50 98.2 73 20 169/55 96 Nasal Cannula 3.00 10/17/17 11:51 97 Nasal Cannula 2.00 10/17/17 11:06 101.5 84 16 150/54 (86) 93 Room Air I & O 10/18/17 07:00 Intake Total 1550 ml Output Total 1100 ml Balance 450 ml Capillary Refill : Less Than 3 Seconds General Appearance: No Apparent Distress, WD/WN HEENT: Normal ENT Inspection Neck: Full Range of Motion, Normal Inspection Respiratory: Chest Non Tender, No Accessory Muscle Use, No Respiratory Distress , Decreased Breath Sounds Cardiovascular: Regular Rate, Rhythm, No Murmur Gastrointestinal: non tender, soft Results Lab Laboratory Tests 10/17/17 10:55 10/17/17 11:30 10/18/17 05:37 Laboratory Tests 10/17/17 10:55: White Blood Count 11.1H, Red Blood Count 3.19L, Hemoglobin 9.1L, Hematocrit 29L , Mean Corpuscular Volume 92, Mean Corpuscular Hemoglobin 29, Mean Corpuscular Hemoglobin Concent 31L, Red Cell Distribution Width 16.2H, Platelet Count 278, Mean Platelet Volume 9.8, Neutrophils (%) (Auto) 84H, Lymphocytes (%) (Auto) 8L , Monocytes (%) (Auto) 8, Eosinophils (%) (Auto) 1, Basophils (%) (Auto) 0, Neutrophils # (Auto) 9.3H, Lymphocytes # (Auto) 0.9L, Monocytes # (Auto) 0.9, Eosinophils # (Auto) 0.1, Basophils # (Auto) 0.0, Neutrophils % (Manual) 85, Lymphocytes % (Manual) 6, Monocytes % (Manual) 5, Eosinophils % (Manual) 1, Basophils % (Manual) 0, Band Neutrophils 3, Polychromasia SLIGHT, Anisocytosis SLIGHT 10/17/17 11:30: Prothrombin Time 17.2H, INR Comment 1.4, Activated Partial Thromboplast Time 45H , Sodium Level 138, Potassium Level 4.3, Chloride Level 97L, Carbon Dioxide Level 32, Anion Gap 9, Blood Urea Nitrogen 38H, Creatinine 2.25H, Estimat Glomerular Filtration Rate 22, BUN/Creatinine Ratio 17, Glucose Level 240H, Lactic Acid Level 0.90, Calcium Level 9.1, Magnesium Level 1.9, Total Bilirubin 0.7, Aspartate Amino Transf (AST/SGOT) 24, Alanine Aminotransferase (ALT/SGPT) 25, Alkaline Phosphatase 40, Troponin I < 0.30, B-Type Natriuretic Peptide 440.6H, Total Protein 6.8, Albumin 3.5 10/17/17 12:30: Urine Color YELLOW, Urine Clarity CLEAR, Urine pH 7, Urine Specific [place] 1.010L, Urine Protein 2+H, Urine Glucose (UA) 4+H, Urine Ketones 2+H, Urine Nitrite NEGATIVE, Urine Bilirubin NEGATIVE, Urine Urobilinogen NORMAL, Urine Leukocyte Esterase 1+H, Urine RBC (Auto) NEGATIVE, Urine RBC 0-2, Urine WBC 2-5 , Urine Squamous Epithelial Cells 2-5, Urine Crystals NONE, Urine Bacteria NEGATIVE, Urine Casts NONE, Urine Mucus NEGATIVE, Urine Culture Indicated NO 10/17/17 15:52: Glucometer 371H 10/17/17 20:55: Glucometer 381H 10/18/17 05:37: White Blood Count 8.3, Red Blood Count 2.82L, Hemoglobin 7.9L, Hematocrit 26L, Mean Corpuscular Volume 93, Mean Corpuscular Hemoglobin 28, Mean Corpuscular Hemoglobin Concent 30L, Red Cell Distribution Width 15.4H, Platelet Count 215, Mean Platelet Volume 8.9, Neutrophils (%) (Auto) 91H, Lymphocytes (%) (Auto) 6L , Monocytes (%) (Auto) 3, Eosinophils (%) (Auto) 0, Basophils (%) (Auto) 0, Neutrophils # (Auto) 7.6, Lymphocytes # (Auto) 0.5L, Monocytes # (Auto) 0.3, Eosinophils # (Auto) 0.0, Basophils # (Auto) 0.0, Sodium Level 139, Potassium Level 4.8, Chloride Level 99, Carbon Dioxide Level 33H, Anion Gap 7, Blood Urea Nitrogen 40H, Creatinine 2.11H, Estimat Glomerular Filtration Rate 23, BUN/ Creatinine Ratio 19, Glucose Level 172H, Calcium Level 9.0, Total Bilirubin 0.5 , Aspartate Amino Transf (AST/SGOT) 23, Alanine Aminotransferase (ALT/SGPT) 22, Alkaline Phosphatase 36L, Total Protein 6.5, Albumin 3.3 10/18/17 05:38: Glucometer 179H Microbiology 10/17/17 Influenza Types A,B Antigen (JOSE ELIAS) - Final, Complete Assessment/Plan Assessment/Plan Assess & Plan/Chief Complaint Pneumonia. Sepsis. Diabetes. Coronary artery disease. Hypertension. Anemia. Renal insufficiency GFR 23. Vomiting. Weakness. Inability to walk improving Clinical Quality Measures Admission Status Admission Dx Bilateral pneumonia. Sepsis. Insulin-dependent diabetic mellitus. Chronic leg pain. Chronic renal insufficiency. Diabetes DVT/VTE Risk/Contraindication: Risk Factor Score Per Nursin RFS Level Per Nursing on Admit: 4+=Very High Contraindications-Pharm: Other *list below* BRAULIO GERMAN DO Oct 18, 2017 07:35
[2017-10-18 08:00] VITALS: BP 148/63
--- NOTE | 2017-10-18 08:35 | Diagnostic Imaging Report ---
Clinical indication: Patient with pneumonia. Exam: Portable chest x-ray upright view. Comparison: Portable chest x-ray semiupright view dated 10/17/2017. Findings: There is slight improved lung expansion of the left lung base with persistent bilateral lung infiltrates/groundglass opacification seen. Pulmonary vasculature and cardiac silhouette is stable and roughly within normal limits for portable projection. There is slight blunting of the costophrenic angles and small pleural effusions can't be completely excluded. There is no pneumothorax. There are degenerative spurs involving the thoracic spine and both shoulder regions. Impression: Slight improved lung expansion of the left lung base. Otherwise, stable chest x-ray exam with persistent bilateral lung infiltrates. Dictated by: Dictated on workstation # [id number]
[2017-10-18] MEDS ORDERED: FENOFIBRIC ACID 135 MG PO SCH (09:00)
[2017-10-18] MEDS ORDERED: NON-FORMULARY MEDICATION 1 EA EA (Cholecalciferol (Vitamin D3) (Vitamin D-3) 2,000 UNIT) PO SCH (09:00)
[2017-10-18] MEDS: VITAMIN D3 1,000 UNITS (CHOLECALCIFEROL) TABLET PO SCH (09:01)
[2017-10-18] MEDS: DABIGATRAN 150 MG (PRADAXA) CAPSULE PO SCH ×2 (09:01→21:49)
[2017-10-18] MEDS: FENOFIBRATE 134 MG (LOFIBRA) CAPSULE PO SCH (09:02)
[2017-10-18] MEDS: GABAPENTIN 300 MG (NEURONTIN) CAP PO SCH ×2 (09:02→21:49)
[2017-10-18] MEDS: CARVEDILOL 12.5 MG (COREG) TABLET PO SCH ×2 (09:02→21:49)
[2017-10-18] MEDS: CLOPIDOGREL 75 MG (PLAVIX) TABLET PO SCH (09:02)
[2017-10-18] MEDS: RANOLAZINE ER 500 MG TAB (RANEXA) PO SCH ×2 (09:02→21:49)
[2017-10-18] MEDS: FUROSEMIDE 40 MG (LASIX) TAB PO SCH (09:02)
[2017-10-18] MEDS: ISOSORBIDE MONONITRATE 60 MG (IMDUR) TAB PO SCH (09:02)
[2017-10-18] MEDS: hydrALAZINE (APRESOLINE) 25 MG TAB PO SCH ×3 (09:03→21:49)
[2017-10-18] MEDS: DORZOLAMIDE 2% 10 ML BTL (TRUSOPT) OU SCH ×3 (09:53→21:47)
[2017-10-18 12:00] VITALS: BP 132/56
[2017-10-18] MEDS ORDERED: [UNRECOGNIZED DRUG - OTHER] SQ SCH (12:00)
[2017-10-18] MEDS ORDERED: INSULIN REGULAR HUMAN 70 UNIT SQ SCH (12:00)
[2017-10-18] MEDS ORDERED: LEVOFLOXACIN 750 MG/D5W 150 ML PRE-MIX IV NR (12:30)
[2017-10-18 16:00] VITALS: BP 154/65
--- NOTE | 2017-10-18 18:32 | Wound Care Assessment ---
Wound Care Assessment Date Seen by Provider: Oct 18, 2017 Time Seen by Provider: 18:25 Chief Complaint Bilateral calf ulcers. HPI The patient is a 72 year old female with lymphedema, weeping calf ulcerations, congestive heart failure, and multiple other co-morbidities. The patient has difficulty elevating due to shortness of breath. Past Medical History: Admits Diabetes Type II, Admits Heart Disease, Admits Myocardial Infarction Smoking Status: Former Smoker (3 PPD) Recreational Drug Use: No Alcohol Use: Denies Use Review of Systems Pulmonary: Dyspnea Cardiovascular: No: Chest Pain Exam Vital Signs Date Time Temp Pulse Resp B/P (MAP) Pulse Ox O2 Delivery O2 Flow Rate FiO2 10/18/17 16:00 97.9 54 18 154/65 (94) 98 Nasal Cannula 2.50 10/17/17 16:39 32 Capillary Refill : Less Than 3 Seconds General Appearance: mild distress Respiratory: no accessory muscle use Skin: other (Bilateral calf weeping superficial ulcerations.) Results Laboratory Tests 10/17/17 20:55: Glucometer 381H 10/18/17 05:37: White Blood Count 8.3, Red Blood Count 2.82L, Hemoglobin 7.9L, Hematocrit 26L, Mean Corpuscular Volume 93, Mean Corpuscular Hemoglobin 28, Mean Corpuscular Hemoglobin Concent 30L, Red Cell Distribution Width 15.4H, Platelet Count 215, Mean Platelet Volume 8.9, Neutrophils (%) (Auto) 91H, Lymphocytes (%) (Auto) 6L , Monocytes (%) (Auto) 3, Eosinophils (%) (Auto) 0, Basophils (%) (Auto) 0, Neutrophils # (Auto) 7.6, Lymphocytes # (Auto) 0.5L, Monocytes # (Auto) 0.3, Eosinophils # (Auto) 0.0, Basophils # (Auto) 0.0, Sodium Level 139, Potassium Level 4.8, Chloride Level 99, Carbon Dioxide Level 33H, Anion Gap 7, Blood Urea Nitrogen 40H, Creatinine 2.11H, Estimat Glomerular Filtration Rate 23, BUN/ Creatinine Ratio 19, Glucose Level 172H, Calcium Level 9.0, Total Bilirubin 0.5 , Aspartate Amino Transf (AST/SGOT) 23, Alanine Aminotransferase (ALT/SGPT) 22, Alkaline Phosphatase 36L, Total Protein 6.5, Albumin 3.3 10/18/17 05:38: Glucometer 179H 10/18/17 10:51: Glucometer 305H 10/18/17 16:25: Glucometer 178H Microbiology 10/17/17 Blood Culture - Preliminary, Resulted No growth 10/17/17 Influenza Types A,B Antigen (JOSE ELIAS) - Final, Complete Microbiology 10/17/17 Blood Culture - Preliminary, Resulted No growth 10/17/17 Blood Culture - Preliminary, Resulted No growth 10/17/17 Influenza Types A,B Antigen (JOSE ELIAS) - Final, Complete Assessment/Plan/Dx 1. Bilateral calf ulcerations, partial thickness. 2. Lymphedema. 3. Congestive heart failure. Plan: Minimal dressings with ABD's frequently changed. TEJAL GUERRA MD Oct 18, 2017 18:32
[2017-10-18 20:00] VITALS: BP 156/67
[2017-10-18] MEDS: LATANOPROST 0.005% (XALATAN) OPHTH SOLN 2.5 ML OU SCH (21:47)
[2017-10-18] MEDS: ATORVASTATIN 80 MG (LIPITOR) TABLET PO SCH (21:49)
[2017-10-18] MEDS: NIACIN ER (NIASPAN) 500 MG TAB PO SCH (21:50)
[2017-10-19] VITALS: BP 136/60
[2017-10-19] MEDS: RT-ALBUTEROL/IPRATROPIUM 3 ML (DUONEB) VIAL INH SCH ×4 (02:30→19:30)
[2017-10-19 04:00] VITALS: BP 149/67
[2017-10-19] MEDS: inSUlin (REGULAR) HUMAN 1 UNIT/0.01 ML (CHARGE PER UNIT) SC SCH ×5 (06:15→20:38)
[2017-10-19] MEDS: OMEGA 3 (FISH OIL) 1000 MG CAP PO SCH ×3 (06:20→17:47)
[2017-10-19] MEDS: CATHETER FLUSH 10 ML SYR IV SCH ×3 (06:20→20:30)
[2017-10-19] MEDS: KCL 10 MEQ TAB (MICRO K) PO SCH ×2 (06:20→17:47)
[2017-10-19] MEDS: PANTOPRAZOLE 40 MG (PROTONIX) TAB PO SCH (06:20)
--- NOTE | 2017-10-19 07:33 | Progress Note (SOAP) ---
Subjective Time Seen by Provider: 07:30 Subjective/Events-last exam Patient feeling better today. Blood pressure better. Last night heart rate in bigeminy. Patient afebrile. Patient getting around better. Pneumonia. Sepsis. Coronary artery disease. Renal insufficiency. Diabetes Focused Exam Evaluation Lactate Level Laboratory Tests 10/17/17 11:30: Lactic Acid Level 0.90 Objective Exam Vital Signs Date Time Temp Pulse Resp B/P (MAP) Pulse Ox O2 Delivery O2 Flow Rate FiO2 10/19/17 04:00 97.9 56 18 149/67 (94) 97 Nasal Cannula 2.00 10/19/17 02:30 96 Nasal Cannula 2.00 10/19/17 01:00 60 10/19/17 00:00 98.3 60 17 136/60 (85) 93 Nasal Cannula 2.00 10/18/17 21:20 98 Nasal Cannula 2.00 10/18/17 21:00 Nasal Cannula 3.00 10/18/17 20:00 98.2 57 18 156/67 (96) 98 Nasal Cannula 2.50 10/18/17 19:00 57 10/18/17 16:00 97.9 54 18 154/65 (94) 98 Nasal Cannula 2.50 10/18/17 15:22 97 Nasal Cannula 2.00 10/18/17 12:59 54 10/18/17 12:00 97.9 57 20 132/56 (81) 99 Nasal Cannula 2.50 10/18/17 09:56 Nasal Cannula 3.00 10/18/17 09:32 98 Nasal Cannula 3.00 10/18/17 08:00 96.9 55 20 148/63 (91) 100 Nasal Cannula 2.50 I & O 10/19/17 07:00 Intake Total 2040 ml Output Total 2200 ml Balance -160 ml Capillary Refill : Less Than 3 Seconds General Appearance: No Apparent Distress, WD/WN HEENT: Normal ENT Inspection Neck: Full Range of Motion, Normal Inspection Respiratory: Chest Non Tender, Lungs Clear, Normal Breath Sounds, No Accessory Muscle Use, No Respiratory Distress, Decreased Breath Sounds Cardiovascular: Regular Rate, Rhythm, No Murmur Gastrointestinal: non tender, soft Results Lab Laboratory Tests 10/18/17 10:51: Glucometer 305H 10/18/17 16:25: Glucometer 178H 10/18/17 20:57: Glucometer 109 10/19/17 00:52: Glucometer 44*L 10/19/17 05:43: Glucometer 109 Microbiology 10/17/17 Blood Culture - Preliminary, Resulted No growth 10/17/17 Influenza Types A,B Antigen (JOSE ELIAS) - Final, Complete Assessment/Plan Assessment/Plan Assess & Plan/Chief Complaint Pneumonia. Sepsis. Diabetes. Coronary artery disease. Hypertension. Anemia. Renal insufficiency GFR 23. Vomiting. Weakness. Inability to walk improving. . 10/19/17. Pneumonia. Sepsis. Diabetes. Coronary artery disease. Hypertension better. Anemia. Renal insufficiency. Vomiting. Walking better. Patient feeling better. Bigeminy. Clinical Quality Measures Admission Status Admission Dx Bilateral pneumonia. Sepsis. Insulin-dependent diabetic mellitus. Chronic leg pain. Chronic renal insufficiency. Diabetes DVT/VTE Risk/Contraindication: Risk Factor Score Per Nursin RFS Level Per Nursing on Admit: 4+=Very High Contraindications-Pharm: Other *list below* BRAULIO GERMAN DO Oct 19, 2017 07:33
[2017-10-19 07:48] LABS: BASOPHILS % (AUTO) 0 % (0-10); EOSINOPHILS # (AUTO) 0.2 10^3/uL (0.0-0.3); EOSINOPHILS % (AUTO) 2 % (0-10); HEMATOCRIT 29 % (35-52); HEMOGLOBIN 8.5 G/DL (11.5-16.0); LYMPHOCYTES # (AUTO) 1.2 X 10^3 (1.0-4.0); LYMPHOCYTES % (AUTO) 12 % (12-44); MEAN CORPUSCULAR HEMOGLOBIN 28 PG (25-34); MEAN CORPUSCULAR HGB CONC 30 G/DL (32-36); MEAN CORPUSCULAR VOLUME 94 FL (80-99); MEAN PLATELET VOLUME 8.4 FL (7.4-10.4); MONOCYTES # (AUTO) 0.8 X 10^3 (0.0-1.0); MONOCYTES % (AUTO) 8 % (0-12); NEUTROPHILS # (AUTO) 7.9 X 10^3 (1.8-7.8); NEUTROPHILS % (AUTO) 79 % (42-75); PLATELET COUNT 241 10^3/uL (130-400); RED BLOOD COUNT 3.04 10^6/uL (4.35-5.85); RED CELL DISTRIBUTION WIDTH 15.5 % (10.0-14.5); WHITE BLOOD COUNT 10.1 10^3/uL (4.3-11.0)
[2017-10-19 08:00] VITALS: BP 164/72
--- NOTE | 2017-10-19 08:00 | Consultation-Cardiology ---
HPI-Cardiology Cardiology Consultation: Date of Consultation 10/19/17 Time Seen by Provider: 09:45 Date of Admission 10-17-17 Attending Physician Braulio German DO Admitting Physician Braulio German DO Consulting Physician Giovanni Gallagher MD HPI: Chief Complaint: Gen weakness PVC's Ms. Mcgee is a 72 year old female admitted to [facility] from the ED with c/o gen weakness, productive cough, fever, n/v and dyspnea. She reports her symptoms began a few days prior to admission and just progressed to the point she was too weak to walk and had to be brought by EMS to the hospital. She denies any CP or palpitations. She reports the dyspnea has improved since admission. She is feeling stronger. No further c/o n/v. She has wounds to her LE bilat for which she has been following with Dr. Wynn at the wound clinic. She feels her LE edema has improved. No c/o syncope or near syncope. Review of Systems-Cardiology Review of Systems Constitutional: fever, malaise Eyes: No vision change Ears/Nose/Throat: No epistaxis Respiratory: As described under HPI Cardiovascular: As described under HPI Gastrointestinal: nausea, vomiting Genitourinary: No dysuria, No hematuria Musculoskeletal: no symptoms reported Skin: ulcerations (bilat LE for which she is following with wound clinic; dressings in place) Psychiatric/Neurological: No anxiety, No focal weakness, No syncope Hematologic: No bleeding abnormalities OYS-Ppnyhj-Jfehyv Hx Patient Social History Marrital Status: Employed/Student: unemployed Alcohol Use: Denies Use Recreational Drug Use: No Smoking Status: Former Smoker (3 PPD) Former smoker/When Quit: Aug 26, 1975 Type Used: Cigarettes Recent Foreign Travel: No Recent Infectious Disease Expo: No Physical Abuse Screen: No Sexual Abuse: No Immunizations Up To Date Tetanus Booster (TDap): Unknown Date of Pneumonia Vaccine: Jul 15, 2012 Date of Influenza Vaccine: Mar 31, 2017 Past Medical History PMH As described under Assessment. Family Medical History Family History: 19 FATHER Lip cancer, Onset:40's - 50 19 MOTHER Diabetes mellitus, Onset:Unknown Relation not specified for: FH: breast cancer Allergies and Home Medications Allergies Coded Allergies: Sulfa (Sulfonamide Antibiotics) (Unverified Allergy, Mild, 10/16/07) amoxicillin (Unverified Allergy, Mild, 10/16/07) cephalexin (Unverified Allergy, Mild, 10/16/07) desloratadine (Unverified Allergy, Mild, 10/16/07) diphenhydramine (Unverified Allergy, Mild, 10/16/07) metaxalone (Unverified Allergy, Mild, 10/16/07) Penicillins (Unverified Allergy, Unknown, 01/22/14) ibuprofen (Unverified Adverse Reaction, Mild, MAKES HER SICK; CAN TAKE ASA , 09/26/09) Home Medications Atorvastatin Calcium 80 Mg Tablet, 80 MG PO HS, (Reported) Carvedilol 25 Mg Tablet, 25 MG PO BID, (Reported) Cholecalciferol (Vitamin D3) 2,000 Unit Capsule, 2,000 UNIT PO DAILY, (Reported) Clopidogrel Bisulfate 75 Mg Tablet, 75 MG PO DAILY, (Reported) Dabigatran Etexilate Mesylate 150 Mg Capsule, 150 MG PO BID, (Reported) Dorzolamide HCl 10 Ml Drops, 1 DROP OU TID, (Reported) Fenofibric Acid (Choline) 135 Mg Capsule.dr, 135 MG PO DAILY, (Reported) LAST FILLED 07/12/17 #90 Furosemide 40 Mg Tablet, 40 MG PO DAILY, (Reported) Gabapentin 300 Mg Capsule, 600 MG PO BID, (Reported) TAKES 2 (300 MG) CAPSULES Hydralazine HCl 25 Mg Tablet, 25 MG PO TID, (Reported) Insulin Regular, Human 500 Unit/1 Ml Insuln.pen, 80 UNIT SQ 0700, (Reported) Insulin Regular, Human 500 Unit/1 Ml Insuln.pen, 70 UNIT SQ 1200, (Reported) Insulin Regular, Human 500 Unit/1 Ml Insuln.pen, 90 UNIT SQ 1700, (Reported) Isosorbide Mononitrate 60 Mg Tab, 60 MG PO DAILY, (Reported) Latanoprost 2.5 Ml Drops, 1 DROP OU HS, (Reported) Niacin 1,000 Mg Tab.er.24h, 1,000 MG PO HS, (Reported) Nitroglycerin 0.4 Mg Tab.subl, 0.4 MG SL UD PRN for CHEST PAIN, (Reported) [place]-3/Dha/Epa/Fish Oil 1 Each Capsule, 1,000 MG PO TID, (Reported) Pantoprazole Sodium 40 Mg Tablet.dr, 40 MG PO DAILY, (Reported) Potassium Chloride 10 Meq Capsule.er, 10 MEQ PO BID, (Reported) Ranolazine 500 Mg Tab.er.12h, 500 MG PO BID, (Reported) Physical Exam-Cardiology Physical Exam Vital Signs/I&O Vital Sign - Last 12Hours 10/20/17 10/20/17 10/20/17 10/20/17 00:00 01:41 04:00 06:58 Temp 98.6 98.6 Pulse 55 59 Resp 6 18 B/P (MAP) 131/66 (87) 174/74 (107) Pulse Ox 96 98 99 98 O2 Delivery Nasal Cannula Nasal Cannula Nasal Cannula Nasal Cannula O2 Flow Rate 2.00 2.00 2.00 2.00 10/20/17 10/20/17 07:00 08:00 Temp 98.5 Pulse 65 67 Resp 18 B/P (MAP) 131/61 (84) Pulse Ox 98 O2 Delivery Nasal Cannula O2 Flow Rate 2.50 Intake and Output 10/20/17 00:00 Intake Total 1040 ml Output Total 2650 ml Balance -1610 ml Capillary Refill : Less Than 3 Seconds Constitutional: AAO x 3 HEENT: PERRL, hearing is well preserved, oral hygience is good Neck: carotid pulses are 2 + bilaterally Respiratory: other (diminished lower lobes bilat) Cardiovascular: regular rate-rhythm, No JVD, S1 and S2, systolic murmur Gastrointestinal: audible bowel sounds Rectal: deferred Extremities: no lower extremity edema bilateral Neurologic/Psychiatric: grossly intact Skin: other (dressings to bilat LE which are D&I and not removed) Data Review Labs Laboratory Tests 10/19/17 11:19: Glucometer 197H 10/19/17 15:38: Glucometer 174H 10/19/17 20:35: Glucometer 112H 10/20/17 05:26: White Blood Count 5.8, Red Blood Count 2.88L, Hemoglobin 8.2L, Hematocrit 27L, Mean Corpuscular Volume 94, Mean Corpuscular Hemoglobin 29, Mean Corpuscular Hemoglobin Concent 30L, Red Cell Distribution Width 15.9H, Platelet Count 227, Mean Platelet Volume 8.8, Neutrophils (%) (Auto) 71, Lymphocytes (%) (Auto) 16, Monocytes (%) (Auto) 9, Eosinophils (%) (Auto) 4, Basophils (%) (Auto) 0, Neutrophils # (Auto) 4.1, Lymphocytes # (Auto) 1.0, Monocytes # (Auto) 0.5, Eosinophils # (Auto) 0.2, Basophils # (Auto) 0.0, Sodium Level 141, Potassium Level 4.7, Chloride Level 100, Carbon Dioxide Level 33H, Anion Gap 8, Blood Urea Nitrogen 56H, Creatinine 2.46H, Estimat Glomerular Filtration Rate 19, BUN/ Creatinine Ratio 23, Glucose Level 124H, Calcium Level 8.7 10/20/17 05:56: Glucometer 143H Microbiology 10/17/17 Blood Culture - Preliminary, Resulted No growth 10/17/17 Influenza Types A,B Antigen (JOSE ELIAS) - Final, Complete Radiology NAME: JOSSUE MCGEE [facility] REC#: [id number] PT STATUS: ADM IN : 1945 PHYSICIAN: BRAULIO GERMAN DO ADMIT DATE: 10/17/17 Signed Date of Exam: 10/18/17 CHEST 1 VIEW, AP/PA ONLY Clinical indication: Patient with pneumonia. Exam: Portable chest x-ray upright view. Comparison: Portable chest x-ray semiupright view dated 10/17/2017. Findings: There is slight improved lung expansion of the left lung base with persistent bilateral lung infiltrates/groundglass opacification seen. Pulmonary vasculature and cardiac silhouette is stable and roughly within normal limits for portable projection. There is slight blunting of the costophrenic angles and small pleural effusions can't be completely excluded. There is no pneumothorax. There are degenerative spurs involving the thoracic spine and both shoulder regions. Impression: Slight improved lung expansion of the left lung base. Otherwise, stable chest x-ray exam with persistent bilateral lung infiltrates. 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 She has undergone left femoral popliteal surgery by Dr. Bose at [facility] on 08/04/10. She underwent stent placement to the left popliteal in April [address] [facility] Last leg arteriogram was on 09/05/[address] Serrano: mod R SFA dz, mild to mod L SFA dz, patent L fem pop with a a stent in the dital aspect of the graft with mod in stent restenosis Multivessel CAD. Cardiac cath on August 26, 2015 she underwent stenting to the proximal LAD with a Promus 2.75 x 20 stent and balloon angioplasty to the proximal diagonal of an 80% lesion with reduction to 50%. The mid LAD has a patent stent. The RCA has diffuse disease unchanged compared to the previous study. The distal LAD is chronically occluded with collateral. The distal Cx has 50% blockage which was unchanged from cardiac cath of January 2014. Cardiac cath on 01-15-[address] Siddiqi showed normal left main coronary artery. Patent stent within the prox LAD. 80% mid LAD stenosis. 100% occlusion of the distal LAD with left to left collaterals to the apical portion of the LAD. 80% mid Cx stenosis. Tortuous RCA with mod severe prox and mid plaquing with a 70% distal RCA stenosis. She has had repeat surgical consult with Dr Bullard on 06-09, CABG has been advised. She has had second CV surgical opinion with Dr Pina at [facility] in early 2016. He has advised against CABG. Last card cath and cor intervention on 05/13/17 at [facility] by Dr. Patrick Julien, [place] : received Promus [place] 2.25x32, 2.75x38 to the prox, mid and distal RCA and 2.75x32 stent to the cx into the OM1 Placed on amiodarone by her pelt salter at [facility], reason unknown Echocardiogram of 01-09-16 showed normal global LV systolic function with an ejection fraction of approx 60%. Aortic valve sclerosis without significant aortic stenosis. Mitral annular calcification, mild without evidence of mitral stenosis. Mild MR and TR. PASP approx 30-35mmHg. Echo of June 27, [address] Nguyen at [facility] showed LVEF 40-45%. Mild tricuspid regurg. PASP approx 36mmHg Hypertension, controlled. Hyperlipidemia, being treated with atorvastatin and being managed by Dr. German. Maturity onset diabetes mellitus, being managed by Dr. German and Dr Wade. Gastroesophageal reflux. History of cholecystectomy. History of tubal ligation. History of degenerative joint disease. Carotid arterial disease consisting of chronic total occlusion of the left internal carotid and mild disease involving the right carotid per ultrasonography of June 2012 and per subsequent carotid CTA of July 2011. Carotid ultrasonography of June 2012 showed mild carotid arterial disease involving the right internal carotid and chronic total occlusion of the left internal carotid. Carotid u/s of January 2015was unchanged. 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 No evidence of aortoiliac dilatation. This is being followed by [facility] Chronic anemia, followed by Dr German Chronic bilat LE edema likely in some part d/t venous insufficiency and/or calcium channel deonte tx Clinical Quality Measures DVT/VTE Risk/Contraindication: Risk Factor Score Per Nursin RFS Level Per Nursing on Admit: 4+=Very High Contraindications-Pharm: Other *list below* YA ROSALES Oct 19, 2017 08:00
[2017-10-19 08:11] LABS: CALCIUM 9.2 MG/DL (8.5-10.1); CREATININE SERUM 2.45 MG/DL (0.60-1.30); MAGNESIUM 2.4 MG/DL (1.8-2.4); POTASSIUM 4.9 MMOL/L (3.6-5.0)
[2017-10-19] MEDS: GABAPENTIN 300 MG (NEURONTIN) CAP PO SCH ×2 (08:13→20:28)
[2017-10-19] MEDS: DABIGATRAN 150 MG (PRADAXA) CAPSULE PO SCH (08:13)
[2017-10-19] MEDS: FENOFIBRATE 134 MG (LOFIBRA) CAPSULE PO SCH (08:13)
[2017-10-19] MEDS: CARVEDILOL 12.5 MG (COREG) TABLET PO SCH ×2 (08:13→20:28)
[2017-10-19] MEDS: CLOPIDOGREL 75 MG (PLAVIX) TABLET PO SCH (08:13)
[2017-10-19] MEDS: FUROSEMIDE 40 MG (LASIX) TAB PO SCH (08:13)
[2017-10-19] MEDS: hydrALAZINE (APRESOLINE) 25 MG TAB PO SCH ×3 (08:13→20:28)
[2017-10-19] MEDS: RANOLAZINE ER 500 MG TAB (RANEXA) PO SCH ×2 (08:13→20:27)
[2017-10-19] MEDS: VITAMIN D3 1,000 UNITS (CHOLECALCIFEROL) TABLET PO SCH (08:13)
[2017-10-19] MEDS: DORZOLAMIDE 2% 10 ML BTL (TRUSOPT) OU SCH ×3 (08:14→20:30)
[2017-10-19] MEDS: ISOSORBIDE MONONITRATE 60 MG (IMDUR) TAB PO SCH (08:14)
--- NOTE | 2017-10-19 09:43 | Diagnostic Imaging Report ---
Indication: Pneumonia and sepsis. Time of examination: 9:27 AM Comparison: Correlation is made with prior study from one day earlier. Findings: The heart is enlarged but stable. Congestive changes have significantly improved since yesterday. Mild residual interstitial changes and central congestion are noted. No effusion or pneumothorax is seen. Impression: Significant improvement in congestive changes when compared with examination one day earlier. Dictated by: Dictated on workstation # [id number]
[2017-10-19 12:00] VITALS: BP 136/65
[2017-10-19 16:00] VITALS: BP 136/60
[2017-10-19] MEDS ORDERED: inSUlin (REGULAR) HUMAN 1 UNIT/0.01 ML (CHARGE PER UNIT) SC SCH (17:00)
--- NOTE | 2017-10-19 18:39 | Consultation-Cardiology ---
HPI-Cardiology Cardiology Consultation: Date of Consultation 10/19/17 Time Seen by Provider: 13:00 Date of Admission Attending Physician Wyatt Cuba DO Admitting Physician Wyatt Cuba DO Consulting Physician ISABEL ESCOBAR MD, FACP, FACC HPI: Chief Complaint: Reason for consultation: Gen weakness, PVC's Ms. Mcgrath is a 72 year old female admitted to [facility] from the ED with c/o gen weakness, productive cough, fever, n/v and dyspnea. She reports her symptoms began a few days prior to admission and just progressed to the point she was too weak to walk and had to be brought by EMS to the hospital. She denies any CP or palpitations. She reports the dyspnea has improved since admission. She is feeling stronger. No further c/o n/v. She has wounds to her LE bilat for which she has been following with Dr. Wynn at the wound clinic. She feels her LE edema has improved. No c/o syncope or near syncope. Review of Systems-Cardiology Review of Systems Constitutional: fever, malaise Eyes: No vision change Ears/Nose/Throat: No epistaxis Respiratory: As described under HPI Cardiovascular: As described under HPI Gastrointestinal: nausea, vomiting Genitourinary: No dysuria, No hematuria Musculoskeletal: no symptoms reported Skin: ulcerations (bilat LE for which she is following with wound clinic; dressings in place) Psychiatric/Neurological: No anxiety, No focal weakness, No syncope Hematologic: No bleeding abnormalities XZD-Kcpkia-Hmdnce Hx Patient Social History Marrital Status: Employed/Student: unemployed Alcohol Use: Denies Use Recreational Drug Use: No Smoking Status: Former Smoker (3 PPD) Former smoker/When Quit: Aug 26, 1975 Type Used: Cigarettes Recent Foreign Travel: No Recent Infectious Disease Expo: No Physical Abuse Screen: No Sexual Abuse: No Immunizations Up To Date Tetanus Booster (TDap): Unknown Date of Pneumonia Vaccine: Jul 15, 2012 Date of Influenza Vaccine: Mar 31, 2017 Past Medical History PMH As described under Assessment. Family Medical History Family History: Diabetes mellitus 19 MOTHER, Onset:Unknown FH: breast cancer Lip cancer 19 FATHER, Onset:40's - 50 Allergies and Home Medications Allergies Coded Allergies: Sulfa (Sulfonamide Antibiotics) (Unverified Allergy, Mild, 10/16/07) amoxicillin (Unverified Allergy, Mild, 10/16/07) cephalexin (Unverified Allergy, Mild, 10/16/07) desloratadine (Unverified Allergy, Mild, 10/16/07) diphenhydramine (Unverified Allergy, Mild, 10/16/07) metaxalone (Unverified Allergy, Mild, 10/16/07) Penicillins (Unverified Allergy, Unknown, 01/22/14) ibuprofen (Unverified Adverse Reaction, Mild, MAKES HER SICK; CAN TAKE ASA , 09/26/09) Home Medications Atorvastatin Calcium 80 Mg Tablet, 80 MG PO HS, (Reported) Carvedilol 25 Mg Tablet, 25 MG PO BID, (Reported) Cholecalciferol (Vitamin D3) 2,000 Unit Capsule, 2,000 UNIT PO DAILY, (Reported) Clopidogrel Bisulfate 75 Mg Tablet, 75 MG PO DAILY, (Reported) Dabigatran Etexilate Mesylate 150 Mg Capsule, 150 MG PO BID, (Reported) Dorzolamide HCl 10 Ml Drops, 1 DROP OU TID, (Reported) Fenofibric Acid (Choline) 135 Mg Capsule.dr, 135 MG PO DAILY, (Reported) LAST FILLED 07/12/17 #90 Furosemide 40 Mg Tablet, 40 MG PO DAILY, (Reported) Gabapentin 300 Mg Capsule, 600 MG PO BID, (Reported) TAKES 2 (300 MG) CAPSULES Hydralazine HCl 25 Mg Tablet, 25 MG PO TID, (Reported) Insulin Regular, Human 500 Unit/1 Ml Insuln.pen, 80 UNIT SQ 0700, (Reported) Insulin Regular, Human 500 Unit/1 Ml Insuln.pen, 70 UNIT SQ 1200, (Reported) Insulin Regular, Human 500 Unit/1 Ml Insuln.pen, 90 UNIT SQ 1700, (Reported) Isosorbide Mononitrate 60 Mg Tab, 60 MG PO DAILY, (Reported) Latanoprost 2.5 Ml Drops, 1 DROP OU HS, (Reported) Niacin 1,000 Mg Tab.er.24h, 1,000 MG PO HS, (Reported) Nitroglycerin 0.4 Mg Tab.subl, 0.4 MG SL UD PRN for CHEST PAIN, (Reported) [place]-3/Dha/Epa/Fish Oil 1 Each Capsule, 1,000 MG PO TID, (Reported) Pantoprazole Sodium 40 Mg Tablet.dr, 40 MG PO DAILY, (Reported) Potassium Chloride 10 Meq Capsule.er, 10 MEQ PO BID, (Reported) Ranolazine 500 Mg Tab.er.12h, 500 MG PO BID, (Reported) Patient Home Medication List Home Medication List Reviewed: Yes Physical Exam-Cardiology Physical Exam Vital Signs/I&O Vital Sign - Last 12Hours 10/19/17 10/19/17 10/19/17 10/19/17 07:00 08:00 08:05 08:49 Temp 96.8 Pulse 56 60 Resp 18 B/P (MAP) 164/72 (102) Pulse Ox 99 99 O2 Delivery Nasal Cannula Nasal Cannula Nasal Cannula O2 Flow Rate 2.00 2.00 2.00 10/19/17 10/19/17 10/19/17 10/19/17 12:00 13:01 14:39 16:00 Temp 96.9 98.5 Pulse 58 63 60 Resp 18 18 B/P (MAP) 136/65 (88) 136/60 (85) Pulse Ox 99 99 93 O2 Delivery Nasal Cannula Nasal Cannula Nasal Cannula O2 Flow Rate 2.00 2.00 Intake and Output 10/19/17 00:00 Intake Total 1540 ml Output Total 1700 ml Balance -160 ml Capillary Refill : Less Than 3 Seconds Constitutional: AAO x 3 HEENT: PERRL, hearing is well preserved, oral hygience is good Neck: carotid pulses are 2 + bilaterally Respiratory: other (diminished lower lobes bilat) Cardiovascular: regular rate-rhythm, No JVD, S1 and S2, systolic murmur Gastrointestinal: audible bowel sounds Rectal: deferred Extremities: no lower extremity edema bilateral Neurologic/Psychiatric: grossly intact Skin: other (dressings to bilat LE which are D&I and not removed) Data Review Labs Laboratory Tests 10/18/17 20:57: Glucometer 109 10/19/17 00:52: Glucometer 44*L 10/19/17 05:43: Glucometer 109 10/19/17 07:35: White Blood Count 10.1, Red Blood Count 3.04L, Hemoglobin 8.5L, Hematocrit 29L, Mean Corpuscular Volume 94, Mean Corpuscular Hemoglobin 28, Mean Corpuscular Hemoglobin Concent 30L, Red Cell Distribution Width 15.5H, Platelet Count 241, Mean Platelet Volume 8.4, Neutrophils (%) (Auto) 79H, Lymphocytes (%) (Auto) 12 , Monocytes (%) (Auto) 8, Eosinophils (%) (Auto) 2, Basophils (%) (Auto) 0, Neutrophils # (Auto) 7.9H, Lymphocytes # (Auto) 1.2, Monocytes # (Auto) 0.8, Eosinophils # (Auto) 0.2, Basophils # (Auto) 0.0, Sodium Level 139, Potassium Level 4.9, Chloride Level 98, Carbon Dioxide Level 33H, Anion Gap 8, Blood Urea Nitrogen 57H, Creatinine 2.45H, Estimat Glomerular Filtration Rate 19, BUN/ Creatinine Ratio 23, Glucose Level 114H, Calcium Level 9.2, Magnesium Level 2.4 10/19/17 11:19: Glucometer 197H 10/19/17 15:38: Glucometer 174H Microbiology 10/17/17 Blood Culture - Preliminary, Resulted No growth 10/17/17 Influenza Types A,B Antigen (JOSE ELIAS) - Final, Complete Laboratory Tests 10/18/17 05:37 10/19/17 07:35 A/P-Cardiology Assessment/Admission Diagnosis Pneumonia with sepsis - management is by the [facility] PVC's seen on tele of 10-18-17 - asymptomatic Acute resp failure and hypoxia and ac NSTEMI and ac on chronic renal failure in late Apr 2017 Obesity 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 She has undergone left femoral popliteal surgery by Dr. Bose at [facility] on 08/04/10. She underwent stent placement to the left popliteal in April [address] Sarabia [facility] Last leg arteriogram was on 09/05/[address] Serrano: mod R SFA dz, mild to mod L SFA dz, patent L fem pop with a a stent in the dital aspect of the graft with mod in stent restenosis Multivessel CAD. Cardiac cath on August 26, 2015 she underwent stenting to the proximal LAD with a Promus 2.75 x 20 stent and balloon angioplasty to the proximal diagonal of an 80% lesion with reduction to 50%. The mid LAD has a patent stent. The RCA has diffuse disease unchanged compared to the previous study. The distal LAD is chronically occluded with collateral. The distal Cx has 50% blockage which was unchanged from cardiac cath of January 2014. Cardiac cath on 01-15-[address] Siddiqi showed normal left main coronary artery. Patent stent within the prox LAD. 80% mid LAD stenosis. 100% occlusion of the distal LAD with left to left collaterals to the apical portion of the LAD. 80% mid Cx stenosis. Tortuous RCA with mod severe prox and mid plaquing with a 70% distal RCA stenosis. She has had repeat surgical consult with Dr Bullard on 06-09, CABG has been advised. She has had second CV surgical opinion with Dr Pina at [facility] in early 2016. He has advised against CABG. Last card cath and cor intervention on 05/13/17 at [facility] by Uli Taylor : received Promus [place] 2.25x32, 2.75x38 to the prox, mid and distal RCA and 2.75x32 stent to the cx into the OM1 Placed on amiodarone by her property damage claims adjustor at [facility], reason unknown Echocardiogram of 01-09-16 showed normal global LV systolic function with an ejection fraction of approx 60%. Aortic valve sclerosis without significant aortic stenosis. Mitral annular calcification, mild without evidence of mitral stenosis. Mild MR and TR. PASP approx 30-35mmHg. Echo of June 27, [address] Nguyen at [facility] showed LVEF 40-45%. Mild tricuspid regurg. PASP approx 36mmHg Hypertension, controlled. Hyperlipidemia, being treated with atorvastatin and being managed by Dr. Cuba. Maturity onset diabetes mellitus, being managed by Dr. Cuba and Dr Wade. Gastroesophageal reflux. History of cholecystectomy. History of tubal ligation. History of degenerative joint disease. Carotid arterial disease consisting of chronic total occlusion of the left internal carotid and mild disease involving the right carotid per ultrasonography of June 2012 and per subsequent carotid CTA of July 2011. Carotid ultrasonography of June 2012 showed mild carotid arterial disease involving the right internal carotid and chronic total occlusion of the left internal carotid. Carotid u/s of January 2015was unchanged. Carotid u/s from [facility] in May 2015 showed 60-79% stenosis - she wishes to follow with them Non-critical renal artery stenosis of the right and left per u/s on February 2013 by [facility]. No evidence of aortoiliac dilatation. This is being followed by [facility] Chronic anemia, followed by Dr Cuba Chronic bilat LE edema likely in some part d/t venous insufficiency and/or calcium channel deonte tx Discussion and Recomendations * She suffers from multiple CV and other comorbidities * Management is complex * We recommend continuation of previous card regimen * We recommend close monitoring of lab work * I reviewed her tele strips * I discussed her CV issues with her and our treatment plan Clinical Quality Measures DVT/VTE Risk/Contraindication: Risk Factor Score Per Nursin RFS Level Per Nursing on Admit: 4+=Very High Contraindications-Pharm: Other *list below* ISABEL ESCOBAR MD FACP [facility] CCDS Oct 19, 2017 18:39
[2017-10-19 20:00] VITALS: BP 165/71
[2017-10-19] MEDS: NIACIN ER (NIASPAN) 500 MG TAB PO SCH (20:27)
[2017-10-19] MEDS: DABIGATRAN 75 MG (PRADAXA) CAPSULE PO SCH (20:27)
[2017-10-19] MEDS: LATANOPROST 0.005% (XALATAN) OPHTH SOLN 2.5 ML OU SCH (20:28)
[2017-10-19] MEDS: ATORVASTATIN 80 MG (LIPITOR) TABLET PO SCH (20:28)
[2017-10-20] VITALS: BP 131/66
[2017-10-20] MEDS: RT-ALBUTEROL/IPRATROPIUM 3 ML (DUONEB) VIAL INH SCH ×2 (01:41→06:58)
[2017-10-20 04:00] VITALS: BP 174/74
[2017-10-20 05:57] LABS: BASOPHILS % (AUTO) 0 % (0-10); EOSINOPHILS # (AUTO) 0.2 10^3/uL (0.0-0.3); EOSINOPHILS % (AUTO) 4 % (0-10); HEMATOCRIT 27 % (35-52); HEMOGLOBIN 8.2 G/DL (11.5-16.0); LYMPHOCYTES % (AUTO) 16 % (12-44); MEAN CORPUSCULAR HEMOGLOBIN 29 PG (25-34); MEAN CORPUSCULAR HGB CONC 30 G/DL (32-36); MEAN CORPUSCULAR VOLUME 94 FL (80-99); MEAN PLATELET VOLUME 8.8 FL (7.4-10.4); MONOCYTES # (AUTO) 0.5 X 10^3 (0.0-1.0); MONOCYTES % (AUTO) 9 % (0-12); NEUTROPHILS # (AUTO) 4.1 X 10^3 (1.8-7.8); NEUTROPHILS % (AUTO) 71 % (42-75); PLATELET COUNT 227 10^3/uL (130-400); RED BLOOD COUNT 2.88 10^6/uL (4.35-5.85); RED CELL DISTRIBUTION WIDTH 15.9 % (10.0-14.5); WHITE BLOOD COUNT 5.8 10^3/uL (4.3-11.0)
[2017-10-20] MEDS: inSUlin (REGULAR) HUMAN 1 UNIT/0.01 ML (CHARGE PER UNIT) SC SCH ×3 (06:09→11:51)
[2017-10-20 06:23] LABS: CALCIUM 8.7 MG/DL (8.5-10.1); CREATININE SERUM 2.46 MG/DL (0.60-1.30); POTASSIUM 4.7 MMOL/L (3.6-5.0)
[2017-10-20] MEDS: KCL 10 MEQ TAB (MICRO K) PO SCH (06:29)
[2017-10-20] MEDS: PANTOPRAZOLE 40 MG (PROTONIX) TAB PO SCH (06:29)
[2017-10-20] MEDS: OMEGA 3 (FISH OIL) 1000 MG CAP PO SCH ×2 (06:29→11:50)
[2017-10-20] MEDS: CATHETER FLUSH 10 ML SYR IV SCH (07:00)
[2017-10-20] MEDS ORDERED: inSUlin (REGULAR) HUMAN 1 UNIT/0.01 ML (CHARGE PER UNIT) SC SCH (07:00)
--- NOTE | 2017-10-20 07:37 | Progress Note (SOAP) ---
Subjective Time Seen by Provider: 07:35 Subjective/Events-last exam Patient feeling better and doing better. Lungs are clear. Patient walking around. Patient not weak area Plan to discharge today Focused Exam Evaluation Lactate Level Laboratory Tests 10/17/17 11:30: Lactic Acid Level 0.90 Objective Exam Vital Signs Date Time Temp Pulse Resp B/P (MAP) Pulse Ox O2 Delivery O2 Flow Rate FiO2 10/20/17 06:58 98 Nasal Cannula 2.00 10/20/17 04:00 98.6 59 18 174/74 (107) 99 Nasal Cannula 2.00 10/20/17 01:41 98 Nasal Cannula 2.00 10/20/17 00:00 98.6 55 6 131/66 (87) 96 Nasal Cannula 2.00 10/19/17 20:20 Nasal Cannula 10/19/17 20:00 97.9 60 18 165/71 (102) 98 Nasal Cannula 2.00 10/19/17 19:30 98 Nasal Cannula 2.00 10/19/17 19:00 60 10/19/17 16:00 98.5 60 18 136/60 (85) 93 Nasal Cannula 2.00 10/19/17 14:39 99 Nasal Cannula 2.00 10/19/17 13:01 63 10/19/17 12:00 96.9 58 18 136/65 (88) 99 Nasal Cannula 10/19/17 08:49 Nasal Cannula 2.00 10/19/17 08:05 99 Nasal Cannula 2.00 10/19/17 08:00 96.8 60 18 164/72 (102) 99 Nasal Cannula 2.00 I & O 10/20/17 07:00 Intake Total 1040 ml Output Total 2650 ml Balance -1610 ml Capillary Refill : Less Than 3 Seconds General Appearance: No Apparent Distress, WD/WN HEENT: Normal ENT Inspection Neck: Full Range of Motion Respiratory: Chest Non Tender, No Accessory Muscle Use, No Respiratory Distress Cardiovascular: Regular Rate, Rhythm Gastrointestinal: non tender, soft Results Lab Laboratory Tests 10/20/17 05:26 Laboratory Tests 10/19/17 07:35: White Blood Count 10.1, Red Blood Count 3.04L, Hemoglobin 8.5L, Hematocrit 29L, Mean Corpuscular Volume 94, Mean Corpuscular Hemoglobin 28, Mean Corpuscular Hemoglobin Concent 30L, Red Cell Distribution Width 15.5H, Platelet Count 241, Mean Platelet Volume 8.4, Neutrophils (%) (Auto) 79H, Lymphocytes (%) (Auto) 12 , Monocytes (%) (Auto) 8, Eosinophils (%) (Auto) 2, Basophils (%) (Auto) 0, Neutrophils # (Auto) 7.9H, Lymphocytes # (Auto) 1.2, Monocytes # (Auto) 0.8, Eosinophils # (Auto) 0.2, Basophils # (Auto) 0.0, Sodium Level 139, Potassium Level 4.9, Chloride Level 98, Carbon Dioxide Level 33H, Anion Gap 8, Blood Urea Nitrogen 57H, Creatinine 2.45H, Estimat Glomerular Filtration Rate 19, BUN/ Creatinine Ratio 23, Glucose Level 114H, Calcium Level 9.2, Magnesium Level 2.4 10/19/17 11:19: Glucometer 197H 10/19/17 15:38: Glucometer 174H 10/19/17 20:35: Glucometer 112H 10/20/17 05:26: White Blood Count 5.8, Red Blood Count 2.88L, Hemoglobin 8.2L, Hematocrit 27L, Mean Corpuscular Volume 94, Mean Corpuscular Hemoglobin 29, Mean Corpuscular Hemoglobin Concent 30L, Red Cell Distribution Width 15.9H, Platelet Count 227, Mean Platelet Volume 8.8, Neutrophils (%) (Auto) 71, Lymphocytes (%) (Auto) 16, Monocytes (%) (Auto) 9, Eosinophils (%) (Auto) 4, Basophils (%) (Auto) 0, Neutrophils # (Auto) 4.1, Lymphocytes # (Auto) 1.0, Monocytes # (Auto) 0.5, Eosinophils # (Auto) 0.2, Basophils # (Auto) 0.0, Sodium Level 141, Potassium Level 4.7, Chloride Level 100, Carbon Dioxide Level 33H, Anion Gap 8, Blood Urea Nitrogen 56H, Creatinine 2.46H, Estimat Glomerular Filtration Rate 19, BUN/ Creatinine Ratio 23, Glucose Level 124H, Calcium Level 8.7 10/20/17 05:56: Glucometer 143H Microbiology 10/17/17 Blood Culture - Preliminary, Resulted No growth 10/17/17 Influenza Types A,B Antigen (JOSE ELIAS) - Final, Complete Assessment/Plan Assessment/Plan Assess & Plan/Chief Complaint Pneumonia. Sepsis. Diabetes. Coronary artery disease. Hypertension. Anemia. Renal insufficiency GFR 23. Vomiting. Weakness. Inability to walk improving. . 10/19/17. Pneumonia. Sepsis. Diabetes. Coronary artery disease. Hypertension better. Anemia. Renal insufficiency. Vomiting. Walking better. Patient feeling better. Bigeminy.. . 10/20/17. Pneumonia better. Sepsis resolved. Diabetes. Coronary artery disease. Hypertension. Anemia. Renal insufficiency. Getting around good. No vomiting. Clinical Quality Measures Admission Status Admission Dx Bilateral pneumonia. Sepsis. Insulin-dependent diabetic mellitus. Chronic leg pain. Chronic renal insufficiency. Diabetes DVT/VTE Risk/Contraindication: Risk Factor Score Per Nursin RFS Level Per Nursing on Admit: 4+=Very High Contraindications-Pharm: Other *list below* BRAULIO GERMAN DO Oct 20, 2017 07:37
--- NOTE | 2017-10-20 07:41 | Discharge Inst-Simple/Standard ---
Discharge Inst-Standard Patient Instructions/Follow Up Plan of Care/Instructions/FU: Continue same Dr. Bustamante for wound care. 2 office next Tuesday Activity as Tolerated: Yes Discharge Diet: ADA Diet BRAULIO GERMAN DO Oct 20, 2017 07:41
[2017-10-20 08:00] VITALS: BP 131/61
[2017-10-20] MEDS: DABIGATRAN 75 MG (PRADAXA) CAPSULE PO SCH (08:38)
[2017-10-20] MEDS: FENOFIBRATE 134 MG (LOFIBRA) CAPSULE PO SCH (08:38)
[2017-10-20] MEDS: ISOSORBIDE MONONITRATE 60 MG (IMDUR) TAB PO SCH (08:38)
[2017-10-20] MEDS: RANOLAZINE ER 500 MG TAB (RANEXA) PO SCH (08:38)
[2017-10-20] MEDS: CARVEDILOL 12.5 MG (COREG) TABLET PO SCH (08:39)
[2017-10-20] MEDS: hydrALAZINE (APRESOLINE) 25 MG TAB PO SCH ×2 (08:39→11:50)
[2017-10-20] MEDS: CLOPIDOGREL 75 MG (PLAVIX) TABLET PO SCH (08:39)
[2017-10-20] MEDS: GABAPENTIN 300 MG (NEURONTIN) CAP PO SCH (08:39)
[2017-10-20] MEDS: FUROSEMIDE 40 MG (LASIX) TAB PO SCH (08:39)
[2017-10-20] MEDS: VITAMIN D3 1,000 UNITS (CHOLECALCIFEROL) TABLET PO SCH (08:39)
[2017-10-20] MEDS: DORZOLAMIDE 2% 10 ML BTL (TRUSOPT) OU SCH ×2 (08:41→11:51)
--- NOTE | 2017-10-20 09:54 | Progress Note-Cardiology ---
Cardiology SOAP Progress Note Subjective: Feels better today. Less short of breath. No cp or palp or syncope Objective: I&O/Vital Signs Vital Sign - Last 12Hours 10/20/17 10/20/17 10/20/17 10/20/17 04:00 06:58 07:00 08:00 Temp 98.6 Pulse 59 65 Resp 18 B/P (MAP) 174/74 (107) Pulse Ox 99 98 O2 Delivery Nasal Cannula Nasal Cannula Nasal Cannula O2 Flow Rate 2.00 2.00 2.00 10/20/17 10/20/17 08:00 12:05 Temp 98.5 Pulse 67 67 Resp 18 18 B/P (MAP) 131/61 (84) 131/61 Pulse Ox 98 98 O2 Delivery Nasal Cannula Nasal Cannula O2 Flow Rate 2.50 2.00 Intake and Output 10/20/17 00:00 Intake Total 1040 ml Output Total 2650 ml Balance -1610 ml Weight (Pounds): 235 Weight (Ounces): 8.0 Weight (Calculated Kilograms): 106.915454 Constitutional: AAO x 3 Respiratory: other (diminished lower lobes bilat) Cardiovascular: regular rate-rhythm, No JVD, S1 and S2, systolic murmur Gastrointestional: audible bowel sounds Extremities: no lower extremity edema bilateral Neurologic/Psychiatric: grossly intact Skin: other (dressings to bilat LE which are D&I and not removed) Results/Procedures: Labs Laboratory Tests 10/19/17 15:38: Glucometer 174H 10/19/17 20:35: Glucometer 112H 10/20/17 05:26: White Blood Count 5.8, Red Blood Count 2.88L, Hemoglobin 8.2L, Hematocrit 27L, Mean Corpuscular Volume 94, Mean Corpuscular Hemoglobin 29, Mean Corpuscular Hemoglobin Concent 30L, Red Cell Distribution Width 15.9H, Platelet Count 227, Mean Platelet Volume 8.8, Neutrophils (%) (Auto) 71, Lymphocytes (%) (Auto) 16, Monocytes (%) (Auto) 9, Eosinophils (%) (Auto) 4, Basophils (%) (Auto) 0, Neutrophils # (Auto) 4.1, Lymphocytes # (Auto) 1.0, Monocytes # (Auto) 0.5, Eosinophils # (Auto) 0.2, Basophils # (Auto) 0.0, Sodium Level 141, Potassium Level 4.7, Chloride Level 100, Carbon Dioxide Level 33H, Anion Gap 8, Blood Urea Nitrogen 56H, Creatinine 2.46H, Estimat Glomerular Filtration Rate 19, BUN/ Creatinine Ratio 23, Glucose Level 124H, Calcium Level 8.7 10/20/17 05:56: Glucometer 143H 10/20/17 11:09: Glucometer 259H Microbiology 10/17/17 Blood Culture - Preliminary, Resulted No growth 10/17/17 Influenza Types A,B Antigen (JOSE ELIAS) - Final, Complete A/P: Assessment: Pneumonia with sepsis - management is by the Med jorden PVC's seen on tele of 10-18-17 - asymptomatic Acute resp failure and hypoxia and ac NSTEMI and ac on chronic renal failure in late Apr 2017 Obesity 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 She has undergone left femoral popliteal surgery by Dr. Bose at [facility] on 08/04/10. She underwent stent placement to the left popliteal in April [address] [facility] Last leg arteriogram was on 09/05/[address] Serrano: mod R SFA dz, mild to mod L SFA dz, patent L fem pop with a a stent in the dital aspect of the graft with mod in stent restenosis Multivessel CAD. Cardiac cath on August 26, 2015 she underwent stenting to the proximal LAD with a Promus 2.75 x 20 stent and balloon angioplasty to the proximal diagonal of an 80% lesion with reduction to 50%. The mid LAD has a patent stent. The RCA has diffuse disease unchanged compared to the previous study. The distal LAD is chronically occluded with collateral. The distal Cx has 50% blockage which was unchanged from cardiac cath of January 2014. Cardiac cath on 01-15-[address] Siddiqi showed normal left main coronary artery. Patent stent within the prox LAD. 80% mid LAD stenosis. 100% occlusion of the distal LAD with left to left collaterals to the apical portion of the LAD. 80% mid Cx stenosis. Tortuous RCA with mod severe prox and mid plaquing with a 70% distal RCA stenosis. She has had repeat surgical consult with Dr Bullard on 06-09, CABG has been advised. She has had second CV surgical opinion with Dr Pina at [facility] in early 2016. He has advised against CABG. Last card cath and cor intervention on 05/13/17 at [facility] by Uli Taylor : received Promus Jordan 2.25x32, 2.75x38 to the prox, mid and distal RCA and 2.75x32 stent to the cx into the OM1 Placed on amiodarone by her energy audit advisor at [facility], reason unknown Echocardiogram of 01-09-16 showed normal global LV systolic function with an ejection fraction of approx 60%. Aortic valve sclerosis without significant aortic stenosis. Mitral annular calcification, mild without evidence of mitral stenosis. Mild MR and TR. PASP approx 30-35mmHg. Echo of June 27, [address] Nguyen at [facility] showed LVEF 40-45%. Mild tricuspid regurg. PASP approx 36mmHg Hypertension, controlled. Hyperlipidemia, being treated with atorvastatin and being managed by Dr. Cuba. Maturity onset diabetes mellitus, being managed by Dr. Cuba and Dr Wade. Gastroesophageal reflux. History of cholecystectomy. History of tubal ligation. History of degenerative joint disease. Carotid arterial disease consisting of chronic total occlusion of the left internal carotid and mild disease involving the right carotid per ultrasonography of June 2012 and per subsequent carotid CTA of July 2011. Carotid ultrasonography of June 2012 showed mild carotid arterial disease involving the right internal carotid and chronic total occlusion of the left internal carotid. Carotid u/s of January 2015was unchanged. 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 No evidence of aortoiliac dilatation. This is being followed by [facility] Chronic anemia, followed by Dr Cuba Chronic bilat LE edema likely in some part d/t venous insufficiency and/or calcium channel deonte tx Plan: * She suffers from multiple CV and other comorbidities * Management is complex * Cardiac status clinically stable * We recommend continuation of previous card regimen * We have discussed her CV issues with her and our treatment plan * OK to discharge home today from cardiac stand point with out pt f/u in 2 weeks Physician Assessment Physician Assessment Feels better today. No cp. Still malaise and shortness of breath, but better Lungs: good bilat AE; diminished at the bases Cor: reg Ext: no c/c/e A&R: * As documented in our note above that I updated (italics) and as noted below * Monitor labs * Monitor rhythm * I spoke with her and answered questions YA [employer]AL[employer] Oct 20, 2017 09:54 ISABEL ESCOBAR MD [facility] Oct 20, 2017 15:09
[2017-10-20] MEDS ORDERED: LEVOFLOXACIN 750 MG TAB (LEVAQUIN) PO SCH (11:00)
[2017-10-20 12:05] VITALS: BP 131/61
--- NOTE | 2017-10-21 08:43 | Discharge Summary ---
Diagnosis/Chief Complaint Date of Admission Oct 17, 2017 at 12:15 Date of Discharge Oct 20, 2017 at 12:05 Discharge Time: 08:40 Discharge Diagnosis Pneumonia. Anemia. Renal insufficiency. Coronary artery disease. Chronic kidney disease. COPD. Chronic respiratory failure. Hypertension. Hypothyroid. Lymphedema. Morbid obesity. Personal history of nicotine dependence. Hyperlipidemia. Diabetes. Sepsis Reason Hospital Visit Patient came to the emergency room via EMS. Patient had multiple problems. Patient coughing up phlegm ran White. Patient short of breath couldn't breathe. Onset one week ago. Patient has trouble walking and get around due to shortness of breath. Patient has a history of diabetes, coronary artery disease and renal insufficiency. COPD area Surgery coronary stents, gallbladder, tonsils, carpal tunnel and stents in legs Discharge Summary Discharge Physical Examination Allergies: Coded Allergies: Sulfa (Sulfonamide Antibiotics) (Unverified Allergy, Mild, 10/16/07) amoxicillin (Unverified Allergy, Mild, 10/16/07) cephalexin (Unverified Allergy, Mild, 10/16/07) desloratadine (Unverified Allergy, Mild, 10/16/07) diphenhydramine (Unverified Allergy, Mild, 10/16/07) metaxalone (Unverified Allergy, Mild, 10/16/07) Penicillins (Unverified Allergy, Unknown, 01/22/14) ibuprofen (Unverified Adverse Reaction, Mild, MAKES HER SICK; CAN TAKE ASA , 09/26/09) Vitals & I&Os Vital Signs Date Time Temp Pulse Resp B/P (MAP) Pulse Ox O2 Delivery O2 Flow Rate FiO2 10/20/17 12:05 67 18 131/61 98 Nasal Cannula 2.00 10/20/17 08:00 98.5 10/17/17 16:39 32 Hospital Course Patient in hospital did improve. Patient discharged home healing much better patient able to move around and walk Labs (last 24 hrs) Laboratory Tests 10/17/17 10:55: White Blood Count 11.1H, Red Blood Count 3.19L, Hemoglobin 9.1L, Hematocrit 29L , Mean Corpuscular Volume 92, Mean Corpuscular Hemoglobin 29, Mean Corpuscular Hemoglobin Concent 31L, Red Cell Distribution Width 16.2H, Platelet Count 278, Mean Platelet Volume 9.8, Neutrophils (%) (Auto) 84H, Lymphocytes (%) (Auto) 8L , Monocytes (%) (Auto) 8, Eosinophils (%) (Auto) 1, Basophils (%) (Auto) 0, Neutrophils # (Auto) 9.3H, Lymphocytes # (Auto) 0.9L, Monocytes # (Auto) 0.9, Eosinophils # (Auto) 0.1, Basophils # (Auto) 0.0, Neutrophils % (Manual) 85, Lymphocytes % (Manual) 6, Monocytes % (Manual) 5, Eosinophils % (Manual) 1, Basophils % (Manual) 0, Band Neutrophils 3, Polychromasia SLIGHT, Anisocytosis SLIGHT 10/17/17 11:30: Prothrombin Time 17.2H, INR Comment 1.4, Activated Partial Thromboplast Time 45H , Sodium Level 138, Potassium Level 4.3, Chloride Level 97L, Carbon Dioxide Level 32, Anion Gap 9, Blood Urea Nitrogen 38H, Creatinine 2.25H, Estimat Glomerular Filtration Rate 22, BUN/Creatinine Ratio 17, Glucose Level 240H, Lactic Acid Level 0.90, Calcium Level 9.1, Magnesium Level 1.9, Total Bilirubin 0.7, Aspartate Amino Transf (AST/SGOT) 24, Alanine Aminotransferase (ALT/SGPT) 25, Alkaline Phosphatase 40, Troponin I < 0.30, B-Type Natriuretic Peptide 440.6H, Total Protein 6.8, Albumin 3.5 10/17/17 12:30: Urine Color YELLOW, Urine Clarity CLEAR, Urine pH 7, Urine Specific [place] 1.010L, Urine Protein 2+H, Urine Glucose (UA) 4+H, Urine Ketones 2+H, Urine Nitrite NEGATIVE, Urine Bilirubin NEGATIVE, Urine Urobilinogen NORMAL, Urine Leukocyte Esterase 1+H, Urine RBC (Auto) NEGATIVE, Urine RBC 0-2, Urine WBC 2-5 , Urine Squamous Epithelial Cells 2-5, Urine Crystals NONE, Urine Bacteria NEGATIVE, Urine Casts NONE, Urine Mucus NEGATIVE, Urine Culture Indicated NO 10/17/17 15:52: Glucometer 371H 10/17/17 20:55: Glucometer 381H 10/18/17 05:37: White Blood Count 8.3, Red Blood Count 2.82L, Hemoglobin 7.9L, Hematocrit 26L, Mean Corpuscular Volume 93, Mean Corpuscular Hemoglobin 28, Mean Corpuscular Hemoglobin Concent 30L, Red Cell Distribution Width 15.4H, Platelet Count 215, Mean Platelet Volume 8.9, Neutrophils (%) (Auto) 91H, Lymphocytes (%) (Auto) 6L , Monocytes (%) (Auto) 3, Eosinophils (%) (Auto) 0, Basophils (%) (Auto) 0, Neutrophils # (Auto) 7.6, Lymphocytes # (Auto) 0.5L, Monocytes # (Auto) 0.3, Eosinophils # (Auto) 0.0, Basophils # (Auto) 0.0, Sodium Level 139, Potassium Level 4.8, Chloride Level 99, Carbon Dioxide Level 33H, Anion Gap 7, Blood Urea Nitrogen 40H, Creatinine 2.11H, Estimat Glomerular Filtration Rate 23, BUN/ Creatinine Ratio 19, Glucose Level 172H, Calcium Level 9.0, Total Bilirubin 0.5 , Aspartate Amino Transf (AST/SGOT) 23, Alanine Aminotransferase (ALT/SGPT) 22, Alkaline Phosphatase 36L, Total Protein 6.5, Albumin 3.3 10/18/17 05:38: Glucometer 179H 10/18/17 10:51: Glucometer 305H 10/18/17 16:25: Glucometer 178H 10/18/17 20:57: Glucometer 109 10/19/17 00:52: Glucometer 44*L 10/19/17 05:43: Glucometer 109 10/19/17 07:35: White Blood Count 10.1, Red Blood Count 3.04L, Hemoglobin 8.5L, Hematocrit 29L, Mean Corpuscular Volume 94, Mean Corpuscular Hemoglobin 28, Mean Corpuscular Hemoglobin Concent 30L, Red Cell Distribution Width 15.5H, Platelet Count 241, Mean Platelet Volume 8.4, Neutrophils (%) (Auto) 79H, Lymphocytes (%) (Auto) 12 , Monocytes (%) (Auto) 8, Eosinophils (%) (Auto) 2, Basophils (%) (Auto) 0, Neutrophils # (Auto) 7.9H, Lymphocytes # (Auto) 1.2, Monocytes # (Auto) 0.8, Eosinophils # (Auto) 0.2, Basophils # (Auto) 0.0, Sodium Level 139, Potassium Level 4.9, Chloride Level 98, Carbon Dioxide Level 33H, Anion Gap 8, Blood Urea Nitrogen 57H, Creatinine 2.45H, Estimat Glomerular Filtration Rate 19, BUN/ Creatinine Ratio 23, Glucose Level 114H, Calcium Level 9.2, Magnesium Level 2.4 10/19/17 11:19: Glucometer 197H 10/19/17 15:38: Glucometer 174H 10/19/17 20:35: Glucometer 112H 10/20/17 05:26: White Blood Count 5.8, Red Blood Count 2.88L, Hemoglobin 8.2L, Hematocrit 27L, Mean Corpuscular Volume 94, Mean Corpuscular Hemoglobin 29, Mean Corpuscular Hemoglobin Concent 30L, Red Cell Distribution Width 15.9H, Platelet Count 227, Mean Platelet Volume 8.8, Neutrophils (%) (Auto) 71, Lymphocytes (%) (Auto) 16, Monocytes (%) (Auto) 9, Eosinophils (%) (Auto) 4, Basophils (%) (Auto) 0, Neutrophils # (Auto) 4.1, Lymphocytes # (Auto) 1.0, Monocytes # (Auto) 0.5, Eosinophils # (Auto) 0.2, Basophils # (Auto) 0.0, Sodium Level 141, Potassium Level 4.7, Chloride Level 100, Carbon Dioxide Level 33H, Anion Gap 8, Blood Urea Nitrogen 56H, Creatinine 2.46H, Estimat Glomerular Filtration Rate 19, BUN/ Creatinine Ratio 23, Glucose Level 124H, Calcium Level 8.7 10/20/17 05:56: Glucometer 143H 10/20/17 11:09: Glucometer 259H Microbiology 10/17/17 Blood Culture - Preliminary, Resulted No growth 10/17/17 Influenza Types A,B Antigen (JOSE ELIAS) - Final, Complete Laboratory Tests 10/17/17 10:55 10/17/17 11:30 10/18/17 05:37 10/19/17 07:35 10/20/17 05:26 Pending Labs Microbiology Date/Time Source Procedure Growth Status 10/17/17 11:30 Peripheral Rt Ac Blood Culture - Preliminary No growth Resulted 10/17/17 10:55 Peripheral Lt Hand Blood Culture - Preliminary No growth Resulted 10/17/17 11:19 Nasopharynx Influenza Types A,B Antigen (JOSE ELIAS) - Final Complete Laboratory Tests 10/17/17 10:55: White Blood Count 11.1, Red Blood Count 3.19, Hemoglobin 9.1, Hematocrit 29, Mean Corpuscular Volume 92, Mean Corpuscular Hemoglobin 29, Mean Corpuscular Hemoglobin Concent 31, Red Cell Distribution Width 16.2, Platelet Count 278, Mean Platelet Volume 9.8, Neutrophils (%) (Auto) 84, Lymphocytes (%) (Auto) 8, Monocytes (%) (Auto) 8, Eosinophils (%) (Auto) 1, Basophils (%) (Auto) 0, Neutrophils # (Auto) 9.3, Lymphocytes # (Auto) 0.9, Monocytes # (Auto) 0.9, Eosinophils # (Auto) 0.1, Basophils # (Auto) 0.0, Neutrophils % (Manual) 85, Lymphocytes % (Manual) 6, Monocytes % (Manual) 5, Eosinophils % (Manual) 1, Basophils % (Manual) 0, Band Neutrophils 3, Polychromasia SLIGHT, Anisocytosis SLIGHT 10/17/17 11:30: Prothrombin Time 17.2, INR Comment 1.4, Activated Partial Thromboplast Time 45, Sodium Level 138, Potassium Level 4.3, Chloride Level 97, Carbon Dioxide Level 32, Anion Gap 9, Blood Urea Nitrogen 38, Creatinine 2.25, Estimat Glomerular Filtration Rate 22, BUN/Creatinine Ratio 17, Glucose Level 240, Lactic Acid Level 0.90, Calcium Level 9.1, Magnesium Level 1.9, Total Bilirubin 0.7, Aspartate Amino Transf (AST/SGOT) 24, Alanine Aminotransferase (ALT/SGPT) 25, Alkaline Phosphatase 40, Troponin I < 0.30, B-Type Natriuretic Peptide 440.6, Total Protein 6.8, Albumin 3.5 10/17/17 12:30: Urine Color YELLOW, Urine Clarity CLEAR, Urine pH 7, Urine Specific [place] 1.010, Urine Protein 2+, Urine Glucose (UA) 4+, Urine Ketones 2+, Urine Nitrite NEGATIVE, Urine Bilirubin NEGATIVE, Urine Urobilinogen NORMAL, Urine Leukocyte Esterase 1+, Urine RBC (Auto) NEGATIVE, Urine RBC 0-2, Urine WBC 2-5, Urine Squamous Epithelial Cells 2-5, Urine Crystals NONE, Urine Bacteria NEGATIVE, Urine Casts NONE, Urine Mucus NEGATIVE, Urine Culture Indicated NO 10/17/17 15:52: Glucometer 371 10/17/17 20:55: Glucometer 381 10/18/17 05:37: White Blood Count 8.3, Red Blood Count 2.82, Hemoglobin 7.9, Hematocrit 26, Mean Corpuscular Volume 93, Mean Corpuscular Hemoglobin 28, Mean Corpuscular Hemoglobin Concent 30, Red Cell Distribution Width 15.4, Platelet Count 215, Mean Platelet Volume 8.9, Neutrophils (%) (Auto) 91, Lymphocytes (%) (Auto) 6, Monocytes (%) (Auto) 3, Eosinophils (%) (Auto) 0, Basophils (%) (Auto) 0, Neutrophils # (Auto) 7.6, Lymphocytes # (Auto) 0.5, Monocytes # (Auto) 0.3, Eosinophils # (Auto) 0.0, Basophils # (Auto) 0.0, Sodium Level 139, Potassium Level 4.8, Chloride Level 99, Carbon Dioxide Level 33, Anion Gap 7, Blood Urea Nitrogen 40, Creatinine 2.11, Estimat Glomerular Filtration Rate 23, BUN/ Creatinine Ratio 19, Glucose Level 172, Calcium Level 9.0, Total Bilirubin 0.5, Aspartate Amino Transf (AST/SGOT) 23, Alanine Aminotransferase (ALT/SGPT) 22, Alkaline Phosphatase 36, Total Protein 6.5, Albumin 3.3 10/18/17 05:38: Glucometer 179 10/18/17 10:51: Glucometer 305 10/18/17 16:25: Glucometer 178 10/18/17 20:57: Glucometer 109 10/19/17 00:52: Glucometer 44 10/19/17 05:43: Glucometer 109 10/19/17 07:35: White Blood Count 10.1, Red Blood Count 3.04, Hemoglobin 8.5, Hematocrit 29, Mean Corpuscular Volume 94, Mean Corpuscular Hemoglobin 28, Mean Corpuscular Hemoglobin Concent 30, Red Cell Distribution Width 15.5, Platelet Count 241, Mean Platelet Volume 8.4, Neutrophils (%) (Auto) 79, Lymphocytes (%) (Auto) 12, Monocytes (%) (Auto) 8, Eosinophils (%) (Auto) 2, Basophils (%) (Auto) 0, Neutrophils # (Auto) 7.9, Lymphocytes # (Auto) 1.2, Monocytes # (Auto) 0.8, Eosinophils # (Auto) 0.2, Basophils # (Auto) 0.0, Sodium Level 139, Potassium Level 4.9, Chloride Level 98, Carbon Dioxide Level 33, Anion Gap 8, Blood Urea Nitrogen 57, Creatinine 2.45, Estimat Glomerular Filtration Rate 19, BUN/ Creatinine Ratio 23, Glucose Level 114, Calcium Level 9.2, Magnesium Level 2.4 10/19/17 11:19: Glucometer 197 10/19/17 15:38: Glucometer 174 10/19/17 20:35: Glucometer 112 10/20/17 05:26: White Blood Count 5.8, Red Blood Count 2.88, Hemoglobin 8.2, Hematocrit 27, Mean Corpuscular Volume 94, Mean Corpuscular Hemoglobin 29, Mean Corpuscular Hemoglobin Concent 30, Red Cell Distribution Width 15.9, Platelet Count 227, Mean Platelet Volume 8.8, Neutrophils (%) (Auto) 71, Lymphocytes (%) (Auto) 16, Monocytes (%) (Auto) 9, Eosinophils (%) (Auto) 4, Basophils (%) (Auto) 0, Neutrophils # (Auto) 4.1, Lymphocytes # (Auto) 1.0, Monocytes # (Auto) 0.5, Eosinophils # (Auto) 0.2, Basophils # (Auto) 0.0, Sodium Level 141, Potassium Level 4.7, Chloride Level 100, Carbon Dioxide Level 33, Anion Gap 8, Blood Urea Nitrogen 56, Creatinine 2.46, Estimat Glomerular Filtration Rate 19, BUN/ Creatinine Ratio 23, Glucose Level 124, Calcium Level 8.7 10/20/17 05:56: Glucometer 143 10/20/17 11:09: Glucometer 259 Radiology Reviewed Chest x-ray on admission shows pneumonia. Later chest x-ray shows improvement of pneumonia Discharge Home Medications: Active Scripts Active Reported Dorzolamide HCl 10 Ml Drops 1 Drop OU TID Carvedilol 25 Mg Tablet 25 Mg PO BID Pantoprazole Sodium 40 Mg Tablet.dr 40 Mg PO DAILY Hydralazine HCl 25 Mg Tablet 25 Mg PO TID Potassium Chloride 10 Meq Capsule.er 10 Meq PO BID Pradaxa (Dabigatran Etexilate Mesylate) 150 Mg Capsule 150 Mg PO BID Clopidogrel (Clopidogrel Bisulfate) 75 Mg Tablet 75 Mg PO DAILY Gabapentin 300 Mg Capsule 600 Mg PO BID TAKES 2 (300 MG) CAPSULES Fenofibric Acid (Fenofibric Acid (Choline)) 135 Mg Capsule.dr 135 Mg PO DAILY LAST FILLED 07/12/17 #90 Ranexa (Ranolazine) 500 Mg Tab.er.12h 500 Mg PO BID Furosemide 40 Mg Tablet 40 Mg PO DAILY Niacin ER (Niacin) 1,000 Mg Tab.er.24h 1,000 Mg PO HS Atorvastatin Calcium 80 Mg Tablet 80 Mg PO HS Isosorbide Mononitrate ER (Isosorbide Mononitrate) 60 Mg Tab 60 Mg PO DAILY Nitroglycerin 0.4 Mg Tab.subl 0.4 Mg SL UD PRN Fish Oil 1,000 mg Softgel ([place]-3/Dha/Epa/Fish Oil) 1 Each Capsule 1,000 Mg PO TID Humulin R U-500 Kwikpen (Insulin Regular, Human) 500 Unit/1 Ml Insuln.pen 90 Unit SQ 1700 Humulin R U-500 Kwikpen (Insulin Regular, Human) 500 Unit/1 Ml Insuln.pen 70 Unit SQ 1200 Humulin R U-500 Kwikpen (Insulin Regular, Human) 500 Unit/1 Ml Insuln.pen 80 Unit SQ 0700 Latanoprost 2.5 Ml Drops 1 Drop OU HS Vitamin D-3 (Cholecalciferol (Vitamin D3)) 2,000 Unit Capsule 2,000 Unit PO DAILY Instructions to patient/family Please see electronic discharge instructions given to patient. Clinical Quality Measures DVT/VTE Risk/Contraindication: Risk Factor Score Per Nursin RFS Level Per Nursing on Admit: 4+=Very High Contraindications-Pharm: Other *list below* BRAULIO GERMAN DO Oct 21, 2017 08:43
== END 2017-10-20 12:05 | disposition home or self-care (01) | DRG 871 ==
LOC: ER 10:47 → EDUNIT# 10:47 → 4TH 12:15
PROVIDERS: ADMIT Family Medicine; ATTEND Family Medicine
DX: A41.9 Sepsis, unspecified organism (principal); J18.9 Pneumonia, unspecified organism; J44.0 Chronic obstructive pulmonary disease with (acute) lower respiratory infection; Z68.41 Body mass index [BMI] 40.0-44.9, adult; E11.51 Type 2 diabetes mellitus with diabetic peripheral angiopathy without gangrene; E11.622 Type 2 diabetes mellitus with other skin ulcer; L97.218 Non-pressure chronic ulcer of right calf with other specified severity; L97.228 Non-pressure chronic ulcer of left calf with other specified severity; I13.0 Hypertensive heart and chronic kidney disease with heart failure and stage 1 through stage 4 chronic kidney disease, or unspecified chronic kidney disease; I50.9 Heart failure, unspecified; N18.4 Chronic kidney disease, stage 4 (severe); J96.10 Chronic respiratory failure, unspecified whether with hypoxia or hypercapnia; E66.2 Morbid (severe) obesity with alveolar hypoventilation; I25.10 Atherosclerotic heart disease of native coronary artery without angina pectoris; I25.2 Old myocardial infarction; I70.209 Unspecified atherosclerosis of native arteries of extremities, unspecified extremity; I70.401 Unspecified atherosclerosis of autologous vein bypass graft(s) of the extremities, right leg; I89.0 Lymphedema, not elsewhere classified; I65.23 Occlusion and stenosis of bilateral carotid arteries; E78.00 Pure hypercholesterolemia, unspecified; K21.9 Gastro-esophageal reflux disease without esophagitis; E03.9 Hypothyroidism, unspecified; R00.8 Other abnormalities of heart beat; F41.9 Anxiety disorder, unspecified; F32.9 Major depressive disorder, single episode, unspecified; D64.9 Anemia, unspecified; Z99.81 Dependence on supplemental oxygen; Z95.5 Presence of coronary angioplasty implant and graft; Z87.891 Personal history of nicotine dependence; Z79.4 Long term (current) use of insulin
CPT/HCPCS: 36415; 51701; 71045; 71046; 80048; 80053; 81000; 82962; 83605; 83735; 83880; 84484; 85007; 85025; 85027; 85610; 85730; 87040; 87804; 93005; 93041; 94640; 94760; 96365; 96375

== ENCOUNTER → 2017-10-26 | Outpatient (CLI) | payer MEDICARE, MEDICAID ==
[~2017-10-26] MED LIST changes: +CARV25TA PO; +DORZ10DR2 OU
== END ==
LOC: WOUNDCARE 10:19
PROVIDERS: ATTEND Surgery
DX: E11.622 Type 2 diabetes mellitus with other skin ulcer (principal); I87.332 Chronic venous hypertension (idiopathic) with ulcer and inflammation of left lower extremity; L97.222 Non-pressure chronic ulcer of left calf with fat layer exposed; L97.211 Non-pressure chronic ulcer of right calf limited to breakdown of skin; I89.0 Lymphedema, not elsewhere classified; I50.9 Heart failure, unspecified; N18.4 Chronic kidney disease, stage 4 (severe)
CPT/HCPCS: 11042; 97597

== ENCOUNTER → 2017-11-02 | Outpatient (CLI) | payer MEDICARE, MEDICAID | LOC: WOUNDCARE 13:55 | PROVIDERS: ATTEND Surgery | DX: E11.622 Type 2 diabetes mellitus with other skin ulcer (principal); I87.333 Chronic venous hypertension (idiopathic) with ulcer and inflammation of bilateral lower extremity; L97.211 Non-pressure chronic ulcer of right calf limited to breakdown of skin; L97.221 Non-pressure chronic ulcer of left calf limited to breakdown of skin; I89.0 Lymphedema, not elsewhere classified; I50.9 Heart failure, unspecified; N18.4 Chronic kidney disease, stage 4 (severe) | CPT/HCPCS: 99213 ==

== ENCOUNTER → 2017-11-09 | Outpatient (CLI) | payer MEDICARE, MEDICAID ==
[~2017-11-09] MED LIST changes: +AZIT250T12 PO; +CETI10TA20 PO; +CYCL10TA9 PO; +DORZ10DR18 OU; -DORZ10DR2 OU; +DOXY-227 PO; +DOXY100T2 PO; +NITR100C10 PO; +ONDA4TAB8 SL
== END ==
LOC: WOUNDCARE 10:54
PROVIDERS: ATTEND Surgery
DX: E11.622 Type 2 diabetes mellitus with other skin ulcer (principal); I87.333 Chronic venous hypertension (idiopathic) with ulcer and inflammation of bilateral lower extremity; L97.211 Non-pressure chronic ulcer of right calf limited to breakdown of skin; L97.221 Non-pressure chronic ulcer of left calf limited to breakdown of skin; I89.0 Lymphedema, not elsewhere classified; I50.9 Heart failure, unspecified; N18.4 Chronic kidney disease, stage 4 (severe)
CPT/HCPCS: 99213

== ENCOUNTER → 2018-01-02 | Outpatient (CLI) | payer MEDICARE, MEDICAID ==
[~2018-01-02] MED LIST changes: -AZIT250T12 PO; -CETI10TA20 PO; -CYCL10TA9 PO; -DOXY-227 PO; -DOXY100T2 PO; -NITR100C10 PO; -ONDA4TAB8 SL
== END ==
LOC: WOUNDCARE 12:27
PROVIDERS: ATTEND Surgery
DX: E11.622 Type 2 diabetes mellitus with other skin ulcer (principal); L97.221 Non-pressure chronic ulcer of left calf limited to breakdown of skin; I87.332 Chronic venous hypertension (idiopathic) with ulcer and inflammation of left lower extremity; I87.321 Chronic venous hypertension (idiopathic) with inflammation of right lower extremity; I70.242 Atherosclerosis of native arteries of left leg with ulceration of calf; I89.0 Lymphedema, not elsewhere classified; I50.9 Heart failure, unspecified; E66.01 Morbid (severe) obesity due to excess calories; Z68.41 Body mass index [BMI] 40.0-44.9, adult
CPT/HCPCS: 99213

== ENCOUNTER → 2018-01-02 | Outpatient (CLI) | payer MEDICARE, MEDICAID ==
--- NOTE | 2018-01-02 12:45 | Diagnostic Imaging Report ---
PROCEDURE: US left lower extremity venous. TECHNIQUE: Multiple real-time grayscale images were obtained over the left lower extremity in various projections. Additional duplex Doppler and color Doppler images were also obtained. INDICATION: Left leg cellulitis and swelling as well as a palpable knot in the upper medial calf. FINDINGS: There is no evidence of a left lower extremity DVT. Left lower extremity deep venous system demonstrates normal compressibility with normal response to augmentation and Valsalva. No fluid collection is seen. No focal abnormality is identified at the palpable abnormality in the upper medial calf. IMPRESSION: No evidence of left lower extremity DVT. Dictated by: Dictated on workstation # [id number]
== END ==
LOC: RAD 11:56
PROVIDERS: ATTEND Family Medicine
DX: L03.116 Cellulitis of left lower limb (principal)

== ENCOUNTER → 2018-01-09 | Outpatient (CLI) | payer MEDICARE, MEDICAID | LOC: WOUNDCARE 14:20 | PROVIDERS: ATTEND Surgery | DX: E11.622 Type 2 diabetes mellitus with other skin ulcer (principal); L97.221 Non-pressure chronic ulcer of left calf limited to breakdown of skin; I87.332 Chronic venous hypertension (idiopathic) with ulcer and inflammation of left lower extremity; I87.321 Chronic venous hypertension (idiopathic) with inflammation of right lower extremity; I70.242 Atherosclerosis of native arteries of left leg with ulceration of calf; I89.0 Lymphedema, not elsewhere classified; I50.9 Heart failure, unspecified; E66.01 Morbid (severe) obesity due to excess calories; Z68.41 Body mass index [BMI] 40.0-44.9, adult | CPT/HCPCS: 99213 ==

== ENCOUNTER → 2018-01-23 | Outpatient (CLI) | payer MEDICARE, MEDICAID ==
[~2018-01-23] MED LIST changes: +AZIT250T12 PO; +CETI10TA20 PO; +CYCL10TA9 PO; +DOXY-227 PO; +DOXY100T2 PO; +NITR100C10 PO; +ONDA4TAB8 SL
== END ==
LOC: WOUNDCARE 14:23
PROVIDERS: ATTEND Surgery
DX: E11.622 Type 2 diabetes mellitus with other skin ulcer (principal); L97.222 Non-pressure chronic ulcer of left calf with fat layer exposed; I87.332 Chronic venous hypertension (idiopathic) with ulcer and inflammation of left lower extremity; I87.321 Chronic venous hypertension (idiopathic) with inflammation of right lower extremity; I70.242 Atherosclerosis of native arteries of left leg with ulceration of calf; I89.0 Lymphedema, not elsewhere classified; I50.9 Heart failure, unspecified; E66.01 Morbid (severe) obesity due to excess calories
CPT/HCPCS: 11042; 87070; 87075; 87077; 87186; 87205

== ENCOUNTER 2018-01-24 19:20 | Emergency (ER) | payer MEDICARE, MEDICAID ==
[~2018-01-24] VITALS: Ht 162.6 cm; Wt 104.3 kg
[~2018-01-24 19:20] MED LIST changes: -AZIT250T12 PO; -CETI10TA20 PO; -CYCL10TA9 PO; -DOXY-227 PO; -DOXY100T2 PO; -NITR100C10 PO; -ONDA4TAB8 SL
[2018-01-24] MEDS ORDERED: ORPHENADRINE 60 MG/2 ML (NORFLEX) AMP IM ONE (20:00)
[2018-01-24] MEDS ORDERED: fentaNYL INJECTION 100 MCG/2 ML AMP IVP ONE (20:00)
--- NOTE | 2018-01-24 20:03 | ED Upper Extremity ---
General Chief Complaint: Upper Extremity Stated Complaint: L SIDE SHOULDER PAIN Nursing Triage Note: PATIENT STATES THAT SHE WOKE UP THIS MORNING AND HER LEFT SHOULDER HURT. SHE CANNOT GIVE ANY MORE DETAILS. DENIES INJURY. Nursing Sepsis Screen: No Definite Risk Source: patient Exam Limitations: no limitations History of Present Illness Date Seen by Provider: Jan 24, 2018 Time Seen by Provider: 19:54 Initial Comments Patient presents to ER by private conveyance with her family and a chief complaint she woke up this morning with pain in her left shoulder blade. The pain is made worse by moving her arm or shoulder. She's had to hold her arm steady sense. She took an Ultram this morning but it did not help with her pain. She cannot take NSAIDs because she is on Pradaxa and Plavix. She has not taken any Tylenol muscle rubs heat or ice. She has not seen her primary care doctor yet. She is not having any chest pain, shortness of breath, fevers chills nausea or sweats. She does have a significant history of coronary disease and bilateral cellulitis she's being treated for presently. She does not recall any traumatic event, falls and thinks she may have laid on it wrong. She does not have a history of surgery or trauma to this shoulder. She is a poorly controlled insulin-dependent diabetic. Allergies and Home Medications Allergies Coded Allergies: Sulfa (Sulfonamide Antibiotics) (Unverified Allergy, Mild, 10/16/07) amoxicillin (Unverified Allergy, Mild, 10/16/07) cephalexin (Unverified Allergy, Mild, 10/16/07) desloratadine (Unverified Allergy, Mild, 10/16/07) diphenhydramine (Unverified Allergy, Mild, 10/16/07) metaxalone (Unverified Allergy, Mild, 10/16/07) Penicillins (Unverified Allergy, Unknown, 01/22/14) ibuprofen (Unverified Adverse Reaction, Mild, MAKES HER SICK; CAN TAKE ASA , 09/26/09) Home Medications Atorvastatin Calcium 80 Mg Tablet, 80 MG PO HS, (Reported) Carvedilol 25 Mg Tablet, 25 MG PO BID, (Reported) Cholecalciferol (Vitamin D3) 2,000 Unit Capsule, 2,000 UNIT PO DAILY, (Reported) Clopidogrel Bisulfate 75 Mg Tablet, 75 MG PO DAILY, (Reported) Dabigatran Etexilate Mesylate 150 Mg Capsule, 150 MG PO BID, (Reported) Dorzolamide HCl 10 Ml Drops, 1 DROP OU TID, (Reported) Fenofibric Acid (Choline) 135 Mg Capsule.dr, 135 MG PO DAILY, (Reported) LAST FILLED 07/12/17 #90 Furosemide 40 Mg Tablet, 40 MG PO DAILY, (Reported) Gabapentin 300 Mg Capsule, 600 MG PO BID, (Reported) TAKES 2 (300 MG) CAPSULES Hydralazine HCl 25 Mg Tablet, 25 MG PO TID, (Reported) Insulin Regular, Human 500 Unit/1 Ml Insuln.pen, 80 UNIT SQ 0700, (Reported) Insulin Regular, Human 500 Unit/1 Ml Insuln.pen, 70 UNIT SQ 1200, (Reported) Insulin Regular, Human 500 Unit/1 Ml Insuln.pen, 90 UNIT SQ 1700, (Reported) Isosorbide Mononitrate 60 Mg Tab, 60 MG PO DAILY, (Reported) Latanoprost 2.5 Ml Drops, 1 DROP OU HS, (Reported) Niacin 1,000 Mg Tab.er.24h, 1,000 MG PO HS, (Reported) Nitroglycerin 0.4 Mg Tab.subl, 0.4 MG SL UD PRN for CHEST PAIN, (Reported) [place]-3/Dha/Epa/Fish Oil 1 Each Capsule, 1,000 MG PO TID, (Reported) Pantoprazole Sodium 40 Mg Tablet.dr, 40 MG PO DAILY, (Reported) Potassium Chloride 10 Meq Capsule.er, 10 MEQ PO BID, (Reported) Ranolazine 500 Mg Tab.er.12h, 500 MG PO BID, (Reported) Patient Home Medication List Home Medication List Reviewed: Yes Constitutional: No chills, No diaphoresis EENTM: No hearing loss, No ear pain Respiratory: No cough, No orthopnea, No phlegm Cardiovascular: No chest pain, No palpitations Gastrointestinal: No abdominal pain, No constipation, No diarrhea, No nausea Genitourinary: No discharge, No dysuria Musculoskeletal: see HPI; No back pain; joint pain Skin: No pruritus, No rash Past Zpiicrl-Mdqvxh-Ajeojx Hx Patient Social History Alcohol Use: Denies Use Smoking Status: Current Everyday Smoker Type Used: Cigarettes Recent Foreign Travel: No Contact w/Someone Who Travel: No Recent Infectious Disease Expo: No Recent Hopitalizations: No Immunizations Up To Date Tetanus Booster (TDap): Unknown PED Vaccines UTD: No Date of Pneumonia Vaccine: Jul 15, 2012 Date of Influenza Vaccine: Mar 31, 2017 Seasonal Allergies Seasonal Allergies: Yes Past Medical History Surgeries: Yes Cardiac, Coronary Stent, Gallbladder, Orthopedic, Tonsillectomy, Tubal Ligation , Vascular Surgery Respiratory: Yes (O2 AT 2L/NC CONTINUOUSLY) COPD Currently Using CPAP: No Currently Using BIPAP: No Cardiac: Yes Chronic Edema/Swelling, Coronary Artery Disease, Heart Attack, High Cholesterol , Hypertension, Peripheral Vascular Neurological: Yes Headaches /Migraines 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 Disorders: No Female 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 Disorders: Denies 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 ) Blood Disorders: No (had to have iron iv) Adverse Reaction/Blood Tranf: No Family Medical History Diabetes mellitus 19 MOTHER, Onset:Unknown FH: breast cancer Lip cancer 19 FATHER, Onset:40's - 50 Heart Disease, Diabetes, Hypertension, Vascular Disease Physical Exam Vital Signs Vital Signs - First Documented 01/24/18 19:35 Pulse 86 Resp 22 B/P (MAP) 123/58 (79) Pulse Ox 97 O2 Delivery Nasal Cannula O2 Flow Rate 2.00 Capillary Refill : Less Than 3 Seconds General Appearance: WD/WN, no apparent distress HEENT: PERRL/EOMI, pharynx normal Neck: non-tender, full range of motion, supple, normal inspection Cardiovascular: normal peripheral pulses, regular rate, rhythm, other ( bilateral lower extremity weeping edema with wraps; radial and ulnar pulses are 2 out of 4 bilateral symmetric) Respiratory: chest non-tender, lungs clear, normal breath sounds, no respiratory distress, no accessory muscle use, other (underlying ribs are nontender to palpation) Gastrointestinal: non tender, soft Back: normal inspection, no vertebral tenderness Shoulder: normal inspection, limited ROM (secondary to pain she has difficulty with abduction of the left shoulder and external rotation of the arm. Tender to palpation over the infraspinatus and supraspinatus as well as painful on manipulation of the scapula.), pain Elbow/Forearm: normal inspection, non-tender, no evidence of injury, normal ROM , Left Neurologic/Tendon: normal sensation, normal motor functions, normal tendon functions, responds to pain Neurologic/Psychiatric: alert, normal mood/affect, oriented x 3 Procedures/Interventions Date of ETT Placement: May 12, 2017 Time of ETT Placement: 923 Progress/Results/Core Measures Results/Orders My Orders Orders - SHUKRI SMALLS Fentanyl Injection (Sublimaze Injection (01/24/18 20:00) Orphenadrine Injection (Norflex Injectio (01/24/18 20:00) Fentanyl Injection (Sublimaze Injection (01/24/18 20:15) Shoulder, Left, 3 Views (01/24/18 20:11) Medications Given in ED Current Medications Medications Dose Ordered Sig/Nat Route Start Time Stop Time Status Last Admin Dose Admin Fentanyl Citrate 50 mcg ONCE ONCE IM 01/24/18 20:15 01/24/18 20:16 DC 01/24/18 20:08 50 MCG Orphenadrine Citrate 60 mg ONCE ONCE IM 01/24/18 20:00 01/24/18 20:01 DC 01/24/18 20:08 60 MG Vital Signs/I&O 01/24/18 19:35 Pulse 86 Resp 22 B/P (MAP) 123/58 (79) Pulse Ox 97 O2 Delivery Nasal Cannula O2 Flow Rate 2.00 Blood Pressure Mean: 79 Progress Progress Note : Time: 20:08 Progress Note Pain on movement of the scapula could indicate rotator cuff muscle and ligament strain versus bursitis. Given her poorly controlled diabetes steroids is not a good place to start. She cannot use NSAIDs because she is on Pradaxa and Plavix with a long history of heart disease. 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 German. She can consider a physical therapy outpatient workup versus following up with an orthopedic surgeon. We'll give her muscle relaxants, topical creams, and exogenous heat and ice as well. Diagnostic Imaging Diagonstic Imaging: Xray Plain Films/CT/US/NM/MRI: other (left shoulder) Comments NAME: JOSSUE MCGEE MED REC#: [id number] PHYSICIAN: SHUKRI SMALLS MD CC: ALECIA HIGGINS MD; SHUKRI SMALLS Page 1 of 1 RADIOLOGY REPORT VIA [facility]. [place], [place] CC: ALECIA HIGGINS MD; SHUKRI SMALLS Page 1 of 1 RADIOLOGY REPORT NAME: JOSSUE MCGEE [facility] REC#: [id number] PT STATUS: REG ER : 1945 PHYSICIAN: SHUKRI SMALLS MD ADMIT DATE: 01/24/18/ER Signed Date of Exam: 01/24/18 SHOULDER, LEFT, 3 VIEWS INDICATION: Left shoulder pain. No known injury. COMPARISON: None available. TECHNIQUE: 3 views of the left shoulder were obtained. FINDINGS: Moderate degenerative changes of the glenohumeral and acromioclavicular joint. Subacromial space is preserved. No fracture or focal osseous lesion. 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 No acute osseous abnormality. Dictated by: Dictated on workstation # [id number] Dict: 01/24/182033 Trans: 01/24/182053 Interpreted by: ALECIA HIGGINS MD Electronically signed by: ALECIA HIGGINS MD 01/24/182053 Reviewed: Reviewed by Me Departure Impression Primary Impression: Shoulder joint painful on movement Qualified Codes: M25.512 - Pain in left shoulder Disposition: 01 HOME, SELF-CARE Condition: Improved Departure-Patient Inst. Decision time for Depature: 21:02 Referrals: BRAULIO GERMAN DO (PCP/Family) Primary Care Physician Patient Instructions: Shoulder Bursitis Exercises Add. Discharge Instructions: Perform the shoulder exercises as demonstrated in the handout multiple times per day. You can apply ice to your shoulder as well as a heating pad. Use the muscle relaxants one tablet every 8 hours as needed. You can use the hydrocodone one tablet every 6 hours as needed for your pain. Follow-up with your primary care doctor in 1-2 weeks if your pain is not improving to discuss using physical therapy or even a referral to an orthopedic surgeon if necessary. All discharge instructions reviewed with patient and/or family. Voiced understanding. Scripts Hydrocodone Bit/Acetaminophen (Hydrocodone/Acetaminophen 5/325mg Tablet) 1 Tab Tab 1-2 EACH PO Q6H PRN for BREAKTHROUGH PAIN for 7 Days, #15 TAB 0 Refills Prov: SHUKRI SMALLS 01/24/18 Cyclobenzaprine HCl (Cyclobenzaprine HCl) 10 Mg Tablet 10 MG PO Q8H PRN for SPASMS, #15 TAB 0 Refills Prov: SHUKRI SMALLS 01/24/18 Copy Copies To 1: BRAULIO GERMAN DO SHUKRI SMALLS Jan 24, 2018 20:02
[2018-01-24] MEDS ORDERED: fentaNYL INJECTION 100 MCG/2 ML AMP IM ONE (20:15)
--- NOTE | 2018-01-24 20:37 | Diagnostic Imaging Report ---
INDICATION: Left shoulder pain. No known injury. COMPARISON: None available. TECHNIQUE: 3 views of the left shoulder were obtained. FINDINGS: Moderate degenerative changes of the glenohumeral and acromioclavicular joint. Subacromial space is preserved. No fracture or focal osseous lesion. 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 No acute osseous abnormality. Dictated by: Dictated on workstation # [id number]
[2018-01-24] MEDS ORDERED: CYCL10TA9 PO (21:05)
[2018-01-24] MEDS ORDERED: ACHD5005 PO (21:05)
[2018-01-24 21:10] VITALS: BP 123/58
== END 2018-01-24 21:14 | disposition home or self-care (01) ==
LOC: EDUNIT# 19:20 → ER 19:21
DX: M25.512 Pain in left shoulder (principal); J44.9 Chronic obstructive pulmonary disease, unspecified; I25.10 Atherosclerotic heart disease of native coronary artery without angina pectoris; I25.2 Old myocardial infarction; E78.00 Pure hypercholesterolemia, unspecified; I10 Essential (primary) hypertension; E11.59 Type 2 diabetes mellitus with other circulatory complications; I73.9 Peripheral vascular disease, unspecified; E03.9 Hypothyroidism, unspecified; F41.9 Anxiety disorder, unspecified; F32.9 Major depressive disorder, single episode, unspecified; K21.9 Gastro-esophageal reflux disease without esophagitis; G43.909 Migraine, unspecified, not intractable, without status migrainosus; F17.210 Nicotine dependence, cigarettes, uncomplicated; Z98.51 Tubal ligation status; Z90.89 Acquired absence of other organs; Z80.3 Family history of malignant neoplasm of breast; Z82.49 Family history of ischemic heart disease and other diseases of the circulatory system; Z95.5 Presence of coronary angioplasty implant and graft; Z88.2 Allergy status to sulfonamides; Z88.8 Allergy status to other drugs, medicaments and biological substances; Z88.0 Allergy status to penicillin; Z88.6 Allergy status to analgesic agent; Z88.1 Allergy status to other antibiotic agents; Z79.02 Long term (current) use of antithrombotics/antiplatelets; Z79.4 Long term (current) use of insulin
CPT/HCPCS: 73030; 96372

== ENCOUNTER → 2018-01-30 | Outpatient (CLI) | payer MEDICARE, MEDICAID ==
[~2018-01-30] MED LIST changes: +AZIT250T12 PO; +CETI10TA20 PO; +CYCL10TA9 PO; +DOXY-227 PO; +DOXY100T2 PO; +NITR100C10 PO; +ONDA4TAB8 SL
== END ==
LOC: WOUNDCARE 12:58
PROVIDERS: ATTEND Surgery
DX: E11.622 Type 2 diabetes mellitus with other skin ulcer (principal); L97.222 Non-pressure chronic ulcer of left calf with fat layer exposed; I87.332 Chronic venous hypertension (idiopathic) with ulcer and inflammation of left lower extremity; I87.321 Chronic venous hypertension (idiopathic) with inflammation of right lower extremity; I70.242 Atherosclerosis of native arteries of left leg with ulceration of calf; I89.0 Lymphedema, not elsewhere classified; I50.9 Heart failure, unspecified; E66.01 Morbid (severe) obesity due to excess calories; Z68.41 Body mass index [BMI] 40.0-44.9, adult
CPT/HCPCS: 11042

== ENCOUNTER → 2018-01-30 | Outpatient (CLI) | payer MEDICARE, MEDICAID | LOC: LAB 14:19 | PROVIDERS: ATTEND Surgery | DX: E11.622 Type 2 diabetes mellitus with other skin ulcer (principal); L97.222 Non-pressure chronic ulcer of left calf with fat layer exposed | CPT/HCPCS: 36415; 83036 ==

== ENCOUNTER → 2018-02-06 | Outpatient (CLI) | payer MEDICARE, MEDICAID | LOC: WOUNDCARE 14:39 | PROVIDERS: ATTEND Surgery | DX: E11.622 Type 2 diabetes mellitus with other skin ulcer (principal); L97.222 Non-pressure chronic ulcer of left calf with fat layer exposed; I87.332 Chronic venous hypertension (idiopathic) with ulcer and inflammation of left lower extremity; I87.321 Chronic venous hypertension (idiopathic) with inflammation of right lower extremity; I70.242 Atherosclerosis of native arteries of left leg with ulceration of calf; I89.0 Lymphedema, not elsewhere classified; I50.9 Heart failure, unspecified; E66.01 Morbid (severe) obesity due to excess calories; Z68.41 Body mass index [BMI] 40.0-44.9, adult | CPT/HCPCS: 11042 ==

== ENCOUNTER 2018-02-07 17:59 | Emergency (ER) | payer MEDICARE, MEDICAID ==
[~2018-02-07] VITALS: Ht 162.6 cm; Wt 103.0 kg
[~2018-02-07 17:59] MED LIST changes: -AZIT250T12 PO; -CETI10TA20 PO; -DOXY-227 PO; -DOXY100T2 PO; -NITR100C10 PO; -ONDA4TAB8 SL
--- OUTSIDE RECORDS SUMMARY | 2018-02-07 18:03 | XMS REPORT | Clinical Summary ---
Author Author [facility] Address Unknown Phone Unavailable Care Team Providers Care Site Specialist Name Role Phone PP Unavailable Allergies Not [...] 12/27/1997 Screening-Mammogram Colon Cancer Screening 12/27/1997 Zoster Recombinant 12/27/1997 Vaccine (RZV,Shingrix) (1 of 2 - [facility] 2 Dose Standard) Pneumo-Adult (1 of 2 - 12/27/2012 PCV13) Influenza Vaccine (#1) 2018 Results Not on filefrom Last 3 Months
--- NOTE | 2018-02-07 18:53 | ED General ---
General Chief Complaint: Respiratory Problems Stated Complaint: POSS PNEUMONIA;HIGH BP Nursing Triage Note: TO ROOM REPORTS WAS IN [place] TO SEE HER DR PALUMBO WAS SENT BY HIM TO ER [facility]. PATIENT REPORTS WAS IN ER HAVING TEST TILL 1 HR AGO. WHEN THEY WANTED TO ADMIT HER FOR POSSIBLE PNEUMONIA. SHE WANTED TO COME HOME AND BE ADMITTED. WAS DISCHARGE FROM [facility],AND TOLD TO COME STRAIGHT TO THIS ER. Nursing Sepsis Screen: No Definite Risk Source of Information: Patient, Old Records, Other ([facility] ER) Exam Limitations: No Limitations History of Present Illness Date Seen by Provider: Feb 07, 2018 Time Seen by Provider: 18:04 Initial Comments This 72-year-old woman presents to the emergency room via private vehicle after being seen at the emergency room at [facility] in [place]. She had been to see her vascular surgeon, Dr. Palumbo earlier in the day. She was advised to present to the emergency room because he was concerned about low blood pressures. Apparently she had a systolic blood pressure of 108 in one arm and 80 in the other arm. Patient was evaluated at [facility] in [place]. She apparently had some pulmonary findings concerning for pneumonia. She was advised that admission would likely be recommended. Patient decided she did not want to be admitted in [place] and therefore left before all of her results returned. She presented to this ER to complete her evaluation. Patient has a significant medical history including COPD, chronic kidney disease, coronary artery disease , venous stasis with chronic skin wounds, and diabetes. Her primary care provider is Dr. German. Her sort line worker is Dr. Serarno. Her vascular surgeon is Dr. Palumbo. Her director utilization management is Dr. Gallagher. Patient has been feeling relatively well except for intermittent vomiting since Tuesday, February 04. She is feeling better today than she has over the past couple of days. She states she will likely need to start dialysis in the near future. She has her vascular disease monitored by Dr. Palumbo on a routine basis. She sees Dr. Wynn for her leg ulcers. Allergies and Home Medications Allergies Coded Allergies: Sulfa (Sulfonamide Antibiotics) (Unverified Allergy, Mild, 10/16/07) amoxicillin (Unverified Allergy, Mild, 10/16/07) cephalexin (Unverified Allergy, Mild, 10/16/07) desloratadine (Unverified Allergy, Mild, 10/16/07) diphenhydramine (Unverified Allergy, Mild, 10/16/07) metaxalone (Unverified Allergy, Mild, 10/16/07) Penicillins (Unverified Allergy, Unknown, 01/22/14) ibuprofen (Unverified Adverse Reaction, Mild, MAKES HER SICK; CAN TAKE ASA , 09/26/09) Home Medications Atorvastatin Calcium 80 Mg Tablet, 80 MG PO HS, (Reported) Carvedilol 25 Mg Tablet, 25 MG PO BID, (Reported) Cholecalciferol (Vitamin D3) 2,000 Unit Capsule, 2,000 UNIT PO DAILY, (Reported) Clopidogrel Bisulfate 75 Mg Tablet, 75 MG PO DAILY, (Reported) Cyclobenzaprine HCl 10 Mg Tablet, 10 MG PO Q8H PRN for SPASMS Prescribed by: SHUKRI SMALLS on 01/24/182104 Dabigatran Etexilate Mesylate 150 Mg Capsule, 150 MG PO BID, (Reported) Dorzolamide HCl 10 Ml Drops, 1 DROP OU TID, (Reported) Doxycycline Hyclate 100 Mg Tablet.dr, 100 MG PO BID Prescribed by: VIC TRUONG on 02/07/182029 Fenofibric Acid (Choline) 135 Mg Capsule.dr, 135 MG PO DAILY, (Reported) LAST FILLED 07/12/17 #90 Furosemide 40 Mg Tablet, 40 MG PO DAILY, (Reported) Gabapentin 300 Mg Capsule, 600 MG PO BID, (Reported) TAKES 2 (300 MG) CAPSULES Hydralazine HCl 25 Mg Tablet, 25 MG PO TID, (Reported) Hydrocodone Bit/Acetaminophen 1 Tab Tab, 1-2 EACH PO Q6H PRN for BREAKTHROUGH PAIN Prescribed by: SHUKRI SMALLS on 01/24/182104 Insulin Regular, Human 500 Unit/1 Ml Insuln.pen, 80 UNIT SQ 0700, (Reported) Insulin Regular, Human 500 Unit/1 Ml Insuln.pen, 70 UNIT SQ 1200, (Reported) Insulin Regular, Human 500 Unit/1 Ml Insuln.pen, 90 UNIT SQ 1700, (Reported) Isosorbide Mononitrate 60 Mg Tab, 60 MG PO DAILY, (Reported) Latanoprost 2.5 Ml Drops, 1 DROP OU HS, (Reported) Niacin 1,000 Mg Tab.er.24h, 1,000 MG PO HS, (Reported) Nitroglycerin 0.4 Mg Tab.subl, 0.4 MG SL UD PRN for CHEST PAIN, (Reported) [place]-3/Dha/Epa/Fish Oil 1 Each Capsule, 1,000 MG PO TID, (Reported) Ondansetron 4 Mg Tab.rapdis, 4 MG SL Q4H PRN for NAUSEA/VOMITING-1ST LINE Prescribed by: VIC TRUONG on 02/07/182015 Pantoprazole Sodium 40 Mg Tablet.dr, 40 MG PO DAILY, (Reported) Potassium Chloride 10 Meq Capsule.er, 10 MEQ PO BID, (Reported) Ranolazine 500 Mg Tab.er.12h, 500 MG PO BID, (Reported) Patient Home Medication List Home Medication List Reviewed: Yes Review of Systems Constitutional: no symptoms reported EENTM: no symptoms reported Respiratory: see HPI Cardiovascular: see HPI Gastrointestinal: see HPI Genitourinary: see HPI : No Musculoskeletal: no symptoms reported Skin: see HPI Psychiatric/Neurological: No Symptoms Reported Hematologic/Lymphatic: No Symptoms Reported Immunological/Allergic: no symptoms reported Past Xbjcdtg-Kfkuvk-Qpbgjq Hx Patient Social History Alcohol Use: Denies Use Recreational Drug Use: No Smoking Status: Former Smoker Type Used: Cigarettes Former Smoker, Quit: Sep 05, 1985 2nd Hand Smoke Exposure: No Recent Foreign Travel: No Contact w/Someone Who Travel: No Recent Infectious Disease Expo: No Recent Hopitalizations: No Immunizations Up To Date Tetanus Booster (TDap): Unknown PED Vaccines UTD: No Date of Pneumonia Vaccine: Jul 15, 2012 Date of Influenza Vaccine: Mar 31, 2017 Seasonal Allergies Seasonal Allergies: Yes Past Medical History Surgeries: Yes Cardiac, Coronary Stent, Gallbladder, Orthopedic, Tonsillectomy, Tubal Ligation , Vascular Surgery (venous stasis, renal artery stenosis) Respiratory: Yes (O2 AT 2L/NC CONTINUOUSLY) COPD Currently Using CPAP: No Currently Using BIPAP: No Cardiac: Yes Chronic Edema/Swelling, Coronary Artery Disease, Heart Attack, High Cholesterol , Hypertension, Peripheral Vascular Neurological: Yes Headaches /Migraines 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 Disorders: No Female 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 ) Blood Disorders: No (had to have iron iv) Adverse Reaction/Blood Tranf: No Family Medical History Diabetes mellitus 19 MOTHER, Onset:Unknown FH: breast cancer Lip cancer 19 FATHER, Onset:40's - 50 Heart Disease, Diabetes, Hypertension, Vascular Disease Physical Exam Vital Signs Vital Signs - First Documented 02/07/18 17:59 Temp 98.2 Pulse 89 Resp 18 B/P (MAP) 165/84 (111) Pulse Ox 98 O2 Delivery Room Air Capillary Refill : Less Than 3 Seconds Height, Weight, BMI Height: 5'4.00" Weight: 227lbs. 0oz. 102.705777ch; 41.9 BMI Method:Stated General Appearance: No Apparent Distress, WD/WN HEENT: PERRL/EOMI, Normal ENT Inspection, Other (oropharynx somewhat dry. Nasal cannula in place) Neck: Normal Inspection Respiratory: Lungs Clear, Normal Breath Sounds, No Accessory Muscle Use, No Respiratory Distress Cardiovascular: Regular Rate, Rhythm, No Edema, No Murmur Gastrointestinal: Normal Bowel Sounds, Non Tender, Soft Extremity: Normal Capillary Refill, Pedal Edema (mild), Other (right pedal pulse palpable. Left pedal pulse not palpable but capillary refill was brisk. 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 Skin: Normal Color, Warm/Dry, Other (ulcers on left leg were dressed) Procedures/Interventions Date of ETT Placement: May 12, 2017 Time of ETT Placement: 923 Progress/Results/Core Measures Suspected Sepsis Recent Fever Within 48 Hours: No Infection Criteria Present: None New/Unexplained Altered Menta: No Sepsis Screen: No Definite Risk SIRS Temperature:98.2 Pulse: 89 Respiratory Rate: 18 Blood Pressure 165 /84 Mean: 111 Results/Orders My Orders Vital Signs/I&O Capillary Refill : Less Than 3 Seconds Blood Pressure Mean: 111 Progress Note #1: Progress Note The ER at [facility] was contacted and explained that patient left AGAINST MEDICAL ADVICE as she did not want to be admitted so far from home. Patient then presented to [place] for further evaluation. Medical records has been contacted and a release form has been faxed. We will review outside records before determining what further workup should be performed and what disposition should be. Progress Note #2: Progress Note After patient's departure pharmacy called and suggested an alternative to azithromycin due to potential for QT prolongation and patient's history of arrhythmia. Azithromycin was changed to doxycycline. Patient is being treated due to possible pulmonary inflammatory changes on the imaging. Patient was notified of multiple incidental findings that require follow-up. They are outlined in her discharge instructions. Based on findings on reports received from [facility] and vital signs in our ER, admission was not felt necessary. Departure Impression Primary Impression: Pulmonary nodule Additional Impressions: Chronic kidney disease Qualified Codes: N18.9 - Chronic kidney disease, unspecified Vomiting Qualified Codes: R11.10 - Vomiting, unspecified Breast nodule Liver cyst Disposition: HOME, SELF-CARE Condition: Stable Departure-Patient Inst. Decision time for Depature: 20:11 Referrals: BRAULIO GERMAN DO (PCP/Family) Primary Care Physician Patient Instructions: Pneumonia, Adult (DC), Single Pulmonary Nodule Add. Discharge Instructions: Keep your follow-up appointments with your doctors including your nephrology appointment tomorrow. Also follow-up with Dr. German as soon as possible. You need to discuss reimaging the abnormalities found on the CT scan done at [facility]. This includes a nodule versus lymph node in the right breast which should be followed up with mammography and/or ultrasound. There was also a cystic structure in the right side of the liver that could be further evaluated with ultrasound. Finally, there is a possible inflammatory nodule in the left lung base. A follow-up CT scan or PET scan could be performed in 3 months to further evaluate this spot. Complete your antibiotics as prescribed. Use Zofran (ondansetron) as prescribed for nausea and vomiting. Return to care if symptoms are worsening. Take your paperwork from this visit and your visit to [facility] with you at your follow-up appointments. All discharge instructions reviewed with patient and/or family. Voiced understanding. Scripts Doxycycline Hyclate (Doxycycline Hyclate) 100 Mg Tablet. 100 MG PO BID, #20 TAB Prov: VCI DORSEY MD 02/07/18 Ondansetron (Zofran Odt) 4 Mg Tab.rapdis 4 MG SL Q4H PRN for NAUSEA/VOMITING-1ST LINE, #10 TAB Prov: VIC DORSEY MD 02/07/18 Copy Copies To 1: BRAULIO GERMAN JOSHUA T MD Feb 07, 2018 18:53
[2018-02-07] MEDS ORDERED: AZIT250T12 PO (20:16)
[2018-02-07] MEDS ORDERED: ONDA4TAB8 SL (20:16)
[2018-02-07 20:20] VITALS: BP 165/84
[2018-02-07] MEDS ORDERED: DOXY-227 PO (20:30)
== END 2018-02-07 20:20 | disposition home or self-care (01) ==
LOC: EDUNIT# 17:59 → ER 18:00
DX: R91.1 Solitary pulmonary nodule (principal); N18.9 Chronic kidney disease, unspecified; R11.10 Vomiting, unspecified; N63.10 Unspecified lump in the right breast, unspecified quadrant; K76.89 Other specified diseases of liver; J44.9 Chronic obstructive pulmonary disease, unspecified; E11.51 Type 2 diabetes mellitus with diabetic peripheral angiopathy without gangrene; G43.909 Migraine, unspecified, not intractable, without status migrainosus; K21.9 Gastro-esophageal reflux disease without esophagitis; E03.9 Hypothyroidism, unspecified; F41.9 Anxiety disorder, unspecified; F32.9 Major depressive disorder, single episode, unspecified; Z88.2 Allergy status to sulfonamides; Z88.1 Allergy status to other antibiotic agents; Z88.0 Allergy status to penicillin; Z88.5 Allergy status to narcotic agent; Z79.4 Long term (current) use of insulin; Z87.891 Personal history of nicotine dependence; Z95.5 Presence of coronary angioplasty implant and graft; Z98.51 Tubal ligation status; Z90.89 Acquired absence of other organs
CPT/HCPCS: 99282

== ENCOUNTER → 2018-02-13 | Outpatient (CLI) | payer MEDICARE, MEDICAID ==
[~2018-02-13] MED LIST changes: +AZIT250T12 PO; +CETI10TA20 PO; +DOXY-227 PO; +DOXY100T2 PO; +NITR100C10 PO; +ONDA4TAB8 SL
== END ==
LOC: WOUNDCARE 14:35
PROVIDERS: ATTEND Surgery
DX: E11.622 Type 2 diabetes mellitus with other skin ulcer (principal); I70.242 Atherosclerosis of native arteries of left leg with ulceration of calf; I87.332 Chronic venous hypertension (idiopathic) with ulcer and inflammation of left lower extremity; L97.221 Non-pressure chronic ulcer of left calf limited to breakdown of skin; I87.321 Chronic venous hypertension (idiopathic) with inflammation of right lower extremity; I89.0 Lymphedema, not elsewhere classified; I50.9 Heart failure, unspecified; E66.01 Morbid (severe) obesity due to excess calories; Z68.41 Body mass index [BMI] 40.0-44.9, adult
CPT/HCPCS: 99212

== ENCOUNTER 2018-02-16 07:34 | Inpatient (IN) | payer MEDICARE, MEDICAID ==
[~2018-02-16] VITALS: Ht 162.6 cm; Wt 104.2 kg
[2018-02-16] VITALS (12 sets, daily range): BP systolic 117–146; BP diastolic 57–87
[~2018-02-16 07:34] MED LIST changes: -CETI10TA20 PO; -DOXY100T2 PO; -NITR100C10 PO
--- OUTSIDE RECORDS SUMMARY | 2018-02-16 07:39 | XMS REPORT | Clinical Summary ---
Author Author [facility] Address Unknown Phone Unavailable Care Team Providers Care Senior Engineering Tech Name Role Phone PP Unavailable Allergies Not [...] 12/27/1997 Vaccine (RZV,Shingrix) (1 of 2 - [facility] 2 Dose Standard) Pneumo-Adult (1 of 2 - 12/27/2012 PCV13) Influenza Vaccine (#1) 2018 Results Not on filefrom Last 3 Months
[2018-02-16] MEDS ORDERED: NS IV 500 ML 500 ML IV ONE (07:44)
[2018-02-16] MEDS ORDERED: ASPIRIN 81 MG CHEW (CHILDREN'S ASA) PO ONE (07:45)
[2018-02-16] MEDS ORDERED: morphine INJ 10 MG/ML 1ML (SYR OR VIAL) IVP STA ×2 (07:47→08:28)
[2018-02-16 08:04] LABS: BASOPHILS % (AUTO) 0 % (0-10); EOSINOPHILS # (AUTO) 0.1 10^3/uL (0.0-0.3); EOSINOPHILS % (AUTO) 3 % (0-10); HEMATOCRIT 25 % (35-52); HEMOGLOBIN 8.2 G/DL (11.5-16.0); LYMPHOCYTES # (AUTO) 0.9 X 10^3 (1.0-4.0); LYMPHOCYTES % (AUTO) 19 % (12-44); MEAN CORPUSCULAR HEMOGLOBIN 31 PG (25-34); MEAN CORPUSCULAR HGB CONC 33 G/DL (32-36); MEAN CORPUSCULAR VOLUME 96 FL (80-99); MEAN PLATELET VOLUME 8.7 FL (7.4-10.4); MONOCYTES # (AUTO) 0.7 X 10^3 (0.0-1.0); MONOCYTES % (AUTO) 14 % (0-12); NEUTROPHILS # (AUTO) 3.2 X 10^3 (1.8-7.8); NEUTROPHILS % (AUTO) 65 % (42-75); PLATELET COUNT 119 10^3/uL (130-400); RED BLOOD COUNT 2.62 10^6/uL (4.35-5.85); RED CELL DISTRIBUTION WIDTH 13.5 % (10.0-14.5)
--- NOTE | 2018-02-16 08:17 | ED Chest Pain ---
General Chief Complaint: Chest Pain Stated Complaint: CP Nursing Triage Note: ASSISTED PT OUT OF CAR. COMPLAINS OF CHEST PAIN THAT RADIATES DOWN RIGHT ARM STARTING YESTERDAY. PT MOANING. CHEST PAIN REPRODUCABLE WHEN PALPATED. Nursing Sepsis Screen: No Definite Risk Source: patient Exam Limitations: no limitations History of Present Illness Date Seen by Provider: Feb 16, 2018 Time Seen by Provider: 07:39 Initial Comments Here with report of anterior chest wall pain that radiates down the right arm. Onset was yesterday and maybe even a little bit the day before. States that it has been intermittent but is quite severe this morning. She did take 2 nitroglycerin this morning and that did not help. She does report shortness of air. Pain is along the anterior chest wall and hurts worse when you touch it. Does come and go but has been more persistent this morning. 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 Associated Symptoms: No abdominal pain, No back pain; edema; No fatigue, No fever/chills, No nausea/vomiting; shortness of breath, weakness Allergies and Home Medications Allergies Coded Allergies: Sulfa (Sulfonamide Antibiotics) (Unverified Allergy, Mild, 10/16/07) amoxicillin (Unverified Allergy, Mild, 10/16/07) cephalexin (Unverified Allergy, Mild, 10/16/07) desloratadine (Unverified Allergy, Mild, 10/16/07) diphenhydramine (Unverified Allergy, Mild, 10/16/07) metaxalone (Unverified Allergy, Mild, 10/16/07) Penicillins (Unverified Allergy, Unknown, 01/22/14) ibuprofen (Unverified Adverse Reaction, Mild, MAKES HER SICK; CAN TAKE ASA , 09/26/09) Home Medications Atorvastatin Calcium 80 Mg Tablet, 80 MG PO HS, (Reported) Carvedilol 25 Mg Tablet, 25 MG PO BID, (Reported) Cholecalciferol (Vitamin D3) 2,000 Unit Capsule, 2,000 UNIT PO DAILY, (Reported) Clopidogrel Bisulfate 75 Mg Tablet, 75 MG PO DAILY, (Reported) Cyclobenzaprine HCl 10 Mg Tablet, 10 MG PO Q8H PRN for SPASMS Prescribed by: SHUKRI SMALLS on 01/24/182104 Dabigatran Etexilate Mesylate 150 Mg Capsule, 150 MG PO BID, (Reported) Dorzolamide HCl 10 Ml Drops, 1 DROP OU TID, (Reported) Doxycycline Hyclate 100 Mg Tablet.dr, 100 MG PO BID Prescribed by: VIC TRUONG on 02/07/182029 Fenofibric Acid (Choline) 135 Mg Capsule.dr, 135 MG PO DAILY, (Reported) LAST FILLED 07/12/17 #90 Furosemide 40 Mg Tablet, 40 MG PO DAILY, (Reported) Gabapentin 300 Mg Capsule, 600 MG PO BID, (Reported) TAKES 2 (300 MG) CAPSULES Hydralazine HCl 25 Mg Tablet, 25 MG PO TID, (Reported) Hydrocodone Bit/Acetaminophen 1 Tab Tab, 1-2 EACH PO Q6H PRN for BREAKTHROUGH PAIN Prescribed by: SHUKRI SMALLS on 01/24/182104 Insulin Regular, Human 500 Unit/1 Ml Insuln.pen, 80 UNIT SQ 0700, (Reported) Insulin Regular, Human 500 Unit/1 Ml Insuln.pen, 70 UNIT SQ 1200, (Reported) Insulin Regular, Human 500 Unit/1 Ml Insuln.pen, 90 UNIT SQ 1700, (Reported) Isosorbide Mononitrate 60 Mg Tab, 60 MG PO DAILY, (Reported) Latanoprost 2.5 Ml Drops, 1 DROP OU HS, (Reported) Niacin 1,000 Mg Tab.er.24h, 1,000 MG PO HS, (Reported) Nitroglycerin 0.4 Mg Tab.subl, 0.4 MG SL UD PRN for CHEST PAIN, (Reported) Redgranite-3/Dha/Epa/Fish Oil 1 Each Capsule, 1,000 MG PO TID, (Reported) Ondansetron 4 Mg Tab.rapdis, 4 MG SL Q4H PRN for NAUSEA/VOMITING-1ST LINE Prescribed by: VIC TRUONG on 02/07/182015 Pantoprazole Sodium 40 Mg Tablet.dr, 40 MG PO DAILY, (Reported) Potassium Chloride 10 Meq Capsule.er, 10 MEQ PO BID, (Reported) Ranolazine 500 Mg Tab.er.12h, 500 MG PO BID, (Reported) Patient Home Medication List Home Medication List Reviewed: Yes Review of Systems Constitutional: see HPI; No chills, No fever EENTM: No Symptoms Reported Respiratory: See HPI Cardiovascular: See HPI; Denies Irregular Heart Rate Gastrointestinal: No Symptoms Reported Genitourinary: No Symptoms Reported Musculoskeletal: see HPI, muscle pain; No muscle stiffness, No muscle cramps Skin: change in color (bilateral lower extremities venous stasis changes and diabetic ulcers) Psychiatric/Neurological: Anxiety; Denies Emotional Problems Endocrine: No Symptoms Reported All Other Systems Reviewed Negative Unless Noted: Yes Past Ulfaifb-Nwtlla-Otrlqu Hx Past Med/Social Hx: Reviewed Nursing Past Med/Soc Hx Patient Social History Alcohol Use: Denies Use Recreational Drug Use: No Smoking Status: Former Smoker Type Used: Cigarettes Former Smoker, Quit: Sep 05, 1985 2nd Hand Smoke Exposure: No Recent Foreign Travel: No Contact w/Someone Who Travel: No Recent Infectious Disease Expo: No Recent Hopitalizations: No Immunizations Up To Date Tetanus Booster (TDap): Unknown PED Vaccines UTD: No Date of Pneumonia Vaccine: Jul 15, 2012 Date of Influenza Vaccine: Mar 31, 2017 Seasonal Allergies Seasonal Allergies: Yes Past Medical History Surgeries: Yes Cardiac, Coronary Stent, Gallbladder, Orthopedic, Tonsillectomy, Tubal Ligation , Vascular Surgery Respiratory: Yes (O2 AT 2L/NC CONTINUOUSLY) COPD Currently Using CPAP: No Currently Using BIPAP: No Cardiac: Yes Chronic Edema/Swelling, Coronary Artery Disease, Heart Attack, High Cholesterol , Hypertension, Peripheral Vascular Neurological: Yes Headaches /Migraines 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 Disorders: No Female 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 Disorders: Denies 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 ) Blood Disorders: No (had to have iron iv) Adverse Reaction/Blood Tranf: No Family Medical History Reviewed Nursing Family Hx Diabetes mellitus 19 MOTHER, Onset:Unknown FH: breast cancer Lip cancer 19 FATHER, Onset:40's - 50 Heart Disease, Diabetes, Hypertension, Vascular Disease Physical Exam Vital Signs Vital Signs - First Documented 02/16/18 02/16/18 07:34 07:51 Temp 98.0 Pulse 86 Resp 20 B/P (MAP) 100/47 (64) Pulse Ox 95 O2 Delivery Room Air O2 Flow Rate 2.00 Capillary Refill : Less Than 3 Seconds Height, Weight, BMI Height: 5'2.00" Weight: 227lbs. 0oz. [id number]; 41.9 BMI Method:Stated General Appearance: No Apparent Distress, WD/WN, Anxious, Obese HEENT: PERRL/EOMI, Pharynx Normal Neck: Non Tender, Supple Respiratory: Lungs Clear, Normal Breath Sounds Cardiovascular: Regular Rate, Rhythm, No Murmur, Normal Peripheral Pulses Extremity: Normal Capillary Refill, Pedal Edema (2+ edema bilateral lower extremities to the level of the knee.) Neurologic/Psychiatric: Alert, Oriented x3 Skin: Warm/Dry, Other (right lower extremity with venous stasis changes and redness to the anterior lower leg. Left lower leg covered by a dressing for venous stasis and diabetic ulcers.) Procedures/Interventions Date of ETT Placement: May 12, 2017 Time of ETT Placement: 923 Progress/Results/Core Measures Results/Orders Lab Results Laboratory Tests Test 02/16/18 07:54 Range/Units White Blood Count 5.0 4.3-11.0 10^3/uL Red Blood Count 2.62 L 4.35-5.85 10^6/uL Hemoglobin 8.2 L 11.5-16.0 G/DL Hematocrit 25 L 35-52 % Mean Corpuscular Volume 96 80-99 FL Mean Corpuscular Hemoglobin 31 25-34 PG Mean Corpuscular Hemoglobin Concent 33 32-36 G/DL Red Cell Distribution Width 13.5 10.0-14.5 % Platelet Count 119 L 130-400 10^3/uL Mean Platelet Volume 8.7 7.4-10.4 FL Neutrophils (%) (Auto) 65 42-75 % Lymphocytes (%) (Auto) 19 12-44 % Monocytes (%) (Auto) 14 H 0-12 % Eosinophils (%) (Auto) 3 0-10 % Basophils (%) (Auto) 0 0-10 % Neutrophils # (Auto) 3.2 1.8-7.8 X 10^3 Lymphocytes # (Auto) 0.9 L 1.0-4.0 X 10^3 Monocytes # (Auto) 0.7 0.0-1.0 X 10^3 Eosinophils # (Auto) 0.1 0.0-0.3 10^3/uL Basophils # (Auto) 0.0 0.0-0.1 10^3/uL Prothrombin Time 18.9 H 12.2-14.7 SEC INR Comment 1.6 H 0.8-1.4 Activated Partial Thromboplast Time 51 H 24-35 SEC D-Dimer 0.23 0.00-0.49 UG/ML Sodium Level 137 135-145 MMOL/L Potassium Level 4.4 3.6-5.0 MMOL/L Chloride Level 101 98-107 MMOL/L Carbon Dioxide Level 25 21-32 MMOL/L Anion Gap 11 5-14 MMOL/L Blood Urea Nitrogen 40 H 7-18 MG/DL Creatinine 2.54 H 0.60-1.30 MG/DL Estimat Glomerular Filtration Rate 19 BUN/Creatinine Ratio 16 Glucose Level 311 H 70-105 MG/DL Calcium Level 9.3 8.5-10.1 MG/DL Magnesium Level 2.0 1.8-2.4 MG/DL Total Bilirubin 0.6 0.1-1.0 MG/DL Aspartate Amino Transf (AST/SGOT) 32 5-34 U/L Alanine Aminotransferase (ALT/SGPT) 26 0-55 U/L Alkaline Phosphatase 42 40-136 U/L Myoglobin 79.6 10.0-92.0 NG/ML Troponin I < 0.30 <0.30 NG/ML Total Protein 6.3 L 6.4-8.2 GM/DL Albumin 3.5 3.2-4.5 GM/DL Amylase Level 58 25-125 U/L Lipase 68 8-78 U/L My Orders Orders - VICTORIA JENKINS MD Cbc With Automated Diff (02/16/18 07:44) Magnesium (02/16/18 07:44) Chest 1 View, Ap/Pa Only (02/16/18:44) Ekg Tracing (02/16/18:44) Cardiac Profile 1 (02/16/18 07:44) Comprehensive Metabolic Panel (02/16/18 07:44) Myoglobin Serum (02/16/18 07:44) Protime With Inr (02/16/18 07:44) Partial Thromboplastin Time (02/16/18 07:44) O2 (02/16/18 07:44) Monitor-Rhythm Ecg Trace Only (02/16/18 07:44) Lipid Panel (02/17/18 06:00) Aspirin Chewable Tablet (Baby Aspirin Ch (02/16/18 07:45) Saline Lock/Iv-Start (02/16/18 07:44) Lipase (02/16/18 07:44) Amylase (02/16/18 07:44) Fibrin Degradation Products (02/16/18 07:44) Saline Lock/Iv-Start (02/16/18 07:44) Ns Iv 500 Ml (Sodium Chloride 0.9%) (02/16/18 07:44) Morphine Injection (Morphine Injection (02/16/18 07:47) Morphine Injection (Morphine Injection (02/16/18 08:28) Zantac 50mg Ivpb (02/16/18 09:30) Lidocaine 2% Viscous 15 Ml (Xylocaine Vi (02/16/18 09:30) Mylanta Po (02/16/18 09:30) Medications Given in ED Current Medications Medications Dose Ordered Sig/Nat Route Start Time Stop Time Status Last Admin Dose Admin Aspirin 324 mg ONCE ONCE PO 02/16/18 07:45 02/16/18 07:46 DC 02/16/18 07:59 324 MG Sodium Chloride 500 ml @ 0 mls/hr Q0M ONCE IV 02/16/18 07:44 02/16/18 07:46 DC 02/16/18 08:01 500 MLS/HR Vital Signs/I&O 02/16/18 02/16/18 07:34 07:51 Temp 98.0 Pulse 86 Resp 20 B/P (MAP) 100/47 (64) Pulse Ox 95 O2 Delivery Room Air Nasal Cannula O2 Flow Rate 2.00 Blood Pressure Mean: 64 Progress Progress Note : Progress Note Seen and evaluated. IV, labs, EKG and chest x-ray ordered. ASA 324 mg by mouth ordered. Morphine 4 mg IV. Monitor patient. Pain not controlled. Repeat morphine 8 mg IV. Monitor patient. 931: Pain still not controlled. GI cocktail ordered. Labs reviewed and did not show indication of acute DE at this point that given patient's history and persistent pain, she'll need to be admitted. I did discuss the case with Dr. German at 0939 and he accepts patient for admission. 0942 I discussed the case with Dr. Serrano and he accepts the patient and consult commissioner of internal revenue for Dr. Gallagher. Patient and family agree with plan. Initial ECG Impression Date: Feb 16, 2018 Initial ECG Impression Time: 07:43 Initial ECG Rate: 88 Comment Sinus rhythm with left bundle branch block. Left axis deviation. No evidence of ST elevation DE. Similar to previous of 10/17/17. Interpreted by me. Diagnostic Imaging Diagonstic Imaging: Xray Plain Films/CT/US/NM/MRI: chest Comments [facility] [place], [place] NAME: JOSSUE MCGEE [facility] REC#: [id number] PT STATUS: REG ER : 1945 PHYSICIAN: VICTORIA JENKINS MD ADMIT DATE: 02/16/18/ER Draft Date of Exam:02/16/18 CHEST 1 VIEW, AP/PA ONLY INDICATION: Chest pain and right arm pain. Study compared 10/19/2017 FINDINGS: Enlargement of the cardiac silhouette similar to the prior. Some prominence of the central pulmonary vascularity is also very similar to the previous. At today's exam, no convincing evidence for edema, pneumonia, effusion or pneumothorax. IMPRESSION: Mild cardiomegaly and vascular congestion but no jeffrey edema, pneumonia or pleural fluid evident. Very similar to previous exam. Dictated on workstation # [id number] Dict: 02/16/18 0835 Trans: 02/16/18 0922 WILLIAM [id number] Interpreted by: CAMI SEQUIERA Electronically signed by: Departure Communication (Admissions) Time/Spoke to Admitting Phy: 09:32 Time/Spoke to Consulting Phy: 09:42 Impression Primary Impression: Chest pain Qualified Codes: R07.9 - Chest pain, unspecified Disposition: 09 ADMITTED INPATIENT Condition: Stable Admissions Decision to Admit Reason: Admit from ER (General) Decision to Admit/Date: Feb 16, 2018 Time/Decision to Admit Time: 09:32 Departure-Patient Inst. Referrals: BRAULIO GERMAN DO (PCP/Family) Primary Care Physician VICTORIA JENKINS MD Feb 16, 2018 08:17
[2018-02-16 08:27] LABS: ALANINE AMINOTRANSFERASE 26 U/L (0-55); ALBUMIN 3.5 GM/DL (3.2-4.5); ALKALINE PHOSPHATASE 42 U/L (40-136); AMYLASE 58 U/L (25-125); BILIRUBIN,TOTAL 0.6 MG/DL (0.1-1.0); BUN/CREATININE RATIO 16; CALCIUM 9.3 MG/DL (8.5-10.1); CARBON DIOXIDE 25 MMOL/L (21-32); CHLORIDE 101 MMOL/L (98-107); CREATININE SERUM 2.54 MG/DL (0.60-1.30); GFR ESTIMATED 19; GLUCOSE 311 MG/DL (70-105); INR 1.6 (0.8-1.4); LIPASE 68 U/L (8-78); POTASSIUM 4.4 MMOL/L (3.6-5.0); PROTHROMBIN TIME PATIENT 18.9 SEC (12.2-14.7); SODIUM 137 MMOL/L (135-145); TOTAL PROTEIN 6.3 GM/DL (6.4-8.2)
[2018-02-16 08:36] LABS: MYOGLOBIN SERUM 79.6 NG/ML (10.0-92.0)
--- NOTE | 2018-02-16 09:22 | Diagnostic Imaging Report ---
INDICATION: Chest pain and right arm pain. Study compared 10/19/2017 FINDINGS: Enlargement of the cardiac silhouette similar to the prior. Some prominence of the central pulmonary vascularity is also very similar to the previous. At today's exam, no convincing evidence for edema, pneumonia, effusion or pneumothorax. IMPRESSION: Mild cardiomegaly and vascular congestion but no jeffrey edema, pneumonia or pleural fluid evident. Very similar to previous exam. Dictated by: Dictated on workstation # [id number]
[2018-02-16] MEDS ORDERED: LIDOCAINE 2% VISCOUS 15 ML UDC PO ONE (09:30)
[2018-02-16] MEDS ORDERED: ANTACID SUSP 30 ML UDC (MYLANTA) PO ONE (09:30)
[2018-02-16] MEDS ORDERED: raNItidine INJECTION 50 MG in NS (IVPB) 50 ML IV ONE (09:30)
[2018-02-16] MEDS ORDERED: HYDROmorphone 1 MG/ML (DILAUDID) 1 ML SYRINGE IV STA (10:23)
[2018-02-16] MEDS ORDERED: inSUlin (REGULAR) HUMAN 1 UNIT/0.01 ML (CHARGE PER UNIT) SC ONE (11:00)
[2018-02-16] MEDS ORDERED: CATHETER FLUSH 10 ML SYR IV PRN (11:45)
[2018-02-16] MEDS ORDERED: morphine INJ 4 MG/ML 1 ML (VIAL/SYRINGE) IV PRN (11:45)
[2018-02-16] MEDS: PANTOPRAZOLE 40 MG/10 ML (PROTONIX) VIAL IV SCH ×2 (11:55→21:12)
[2018-02-16] MEDS: NS IV 1000 ML 1,000 ML IV SCH (11:55)
[2018-02-16] MEDS ORDERED: RT-ALBUTEROL/IPRATROPIUM 3 ML (DUONEB) VIAL INH PRN (12:00)
[2018-02-16] MEDS: NITROGLYCERIN 0.4 MG SL TABS BTL 25'S SL PRN ×2 (12:52→12:59)
[2018-02-16] MEDS ORDERED: HYDROcodone/APAP 7.5 MG/325 MG (LORTAB, LORCET PLUS) TABLET PO PRN (14:30)
[2018-02-16] MEDS: RT-ALBUTEROL/IPRATROPIUM 3 ML (DUONEB) VIAL INH SCH ×3 (14:37→21:34)
[2018-02-16] MEDS: inSUlin ASPART (NovoLOG) 1 UNIT/0.01 ML (CHARGE PER UNIT) SC SCH ×2 (15:51→21:13)
--- NOTE | 2018-02-16 17:58 | Consultation-Cardiology ---
HPI-Cardiology Cardiology Consultation: Date of Consultation 02/16/18 Date of Admission Attending Physician Wyatt Cuba DO Admitting Physician Wyatt Cuba DO Consulting Physician Gene SERRANO MD HPI: Time Seen by Provider: 16:00 Chief Complaint: Chest pain This is a 72-year-old lady who follows with Dr. Gallagher as an outpatient. She has history of COPD, paroxysmal atrial fibrillation on Pradaxa, previous numerous PCI. She presented with chest pain radiating to the right arm. Intermittent but then became severe yesterday morning. Took 2 nitroglycerin which did not help. She also complained of shortness of breath. Review of Systems-Cardiology Review of Systems Constitutional: As described under HPI; No As described under HPI, No no symptoms reported, No chills, No fever, No lightheadedness Eyes: No As described under HPI, No no symptoms reported, No blindness, No blurred vision, No contact lenses, No drainage, No decreased acuity, No foreign body sensation, No pain, No vision change Ears/Nose/Throat: No As described under HPI, No no symptoms reported, No chronic hearing loss, No ear discharge, No ear pain, No nasal drainage, No ulcerations Respiratory: No no symptoms reported; As described under HPI; No As described under HPI, No cough, No orthopnea; shortness of breath; No SOB with excertion Cardiovascular: No no symptoms reported; As described under HPI; No As described under HPI; chest pain; No edema, No irregular heart rate, No lightheadedness, No palpitations Gastrointestinal: No no symptoms reported, No As described under HPI, No abdomen distended, No abdominal pain, No blood streaked bowels, No constipation , No diarrhea, No nausea, No vomiting, No stool coloration changes Genitourinary: No As described under HPI, No burning, No dysuria, No discharge , No frequency, No flank pain, No hematuria, No urgency : Yes : No Musculoskeletal: No no symptoms reported, No As describe under HPI, No back pain, No gout, No joint pain, No joint swelling, No muscle pain, No muscle stiffness, No neck pain, No other Skin: No no symptoms reported, No As described under HPI, No change in color, No change in hair/nails, No dryness, No lesions, No lumps, No rash, No other, No skin related problems, No ulcerations, No rash on exposed areas, No ulcerations on exposed areas Psychiatric/Neurological: No anxiety, No depression, No seizure, No focal weakness, No syncope Hematologic: No bleeding abnormalities All Other Systems Reviewed Negative Unless Noted: Yes [id number]-[id number] Hx Patient Social History Alcohol Use: Denies Use Recreational Drug Use: No Smoking Status: Former Smoker Former smoker/When Quit: Aug 26, 1975 Type Used: Cigarettes 2nd Hand Smoke Exposure: No Recent Foreign Travel: No Recent Infectious Disease Expo: No Immunizations Up To Date Tetanus Booster (TDap): Unknown Date of Pneumonia Vaccine: Jul 15, 2012 Date of Influenza Vaccine: Mar 31, 2017 Past Medical History PMH As described under Assessment. Family Medical History Family History: Diabetes mellitus 19 MOTHER, Onset:Unknown FH: breast cancer Lip cancer 19 FATHER, Onset:40's - 50 Allergies and Home Medications Allergies Coded Allergies: Sulfa (Sulfonamide Antibiotics) (Unverified Allergy, Mild, 10/16/07) amoxicillin (Unverified Allergy, Mild, 10/16/07) cephalexin (Unverified Allergy, Mild, 10/16/07) desloratadine (Unverified Allergy, Mild, 10/16/07) diphenhydramine (Unverified Allergy, Mild, 10/16/07) metaxalone (Unverified Allergy, Mild, 10/16/07) Penicillins (Unverified Allergy, Unknown, 01/22/14) ibuprofen (Unverified Adverse Reaction, Mild, MAKES HER SICK; CAN TAKE ASA , 09/26/09) Home Medications Atorvastatin Calcium 80 Mg Tablet, 80 MG PO HS, (Reported) Carvedilol 12.5 Mg Tablet, 12.5 MG PO BID, (Reported) Cetirizine HCl 10 Mg Tablet, 10 MG PO HS, (Reported) Cholecalciferol (Vitamin D3) 2,000 Unit Capsule, 2,000 UNIT PO DAILY, (Reported) Clopidogrel Bisulfate 75 Mg Tablet, 75 MG PO DAILY, (Reported) Cyclobenzaprine HCl 10 Mg Tablet, 10 MG PO Q8H PRN for SPASMS Prescribed by: SHUKRI SMALLS on 01/24/182104 Dabigatran Etexilate Mesylate 150 Mg Capsule, 150 MG PO BID, (Reported) Dorzolamide HCl 10 Ml Drops, 1 DROP OU TID, (Reported) Doxycycline Hyclate 100 Mg Tablet, 100 MG PO BID, (Reported) 10 DAY SUPPLY FILLED 02-07-18 (9 TABS LEFT IN BOTTLE) Fenofibric Acid (Choline) 135 Mg Capsule.dr, 135 MG PO DAILY, (Reported) Furosemide 40 Mg Tablet, 40 MG PO DAILY, (Reported) Gabapentin 300 Mg Capsule, 600 MG PO BID, (Reported) TAKES 2 (300 MG) CAPSULES Hydralazine HCl 25 Mg Tablet, 25 MG PO TID, (Reported) Hydrocodone Bit/Acetaminophen 1 Tab Tab, 1-2 EACH PO Q6H PRN for BREAKTHROUGH PAIN Prescribed by: SHUKRI SMALLS on 01/24/182104 Insulin Regular, Human 500 Unit/1 Ml Insuln.pen, 80 UNIT SQ 0700, (Reported) Insulin Regular, Human 500 Unit/1 Ml Insuln.pen, 60 UNIT SQ 1200, (Reported) Insulin Regular, Human 500 Unit/1 Ml Insuln.pen, 90 UNIT SQ 1700, (Reported) Isosorbide Mononitrate 60 Mg Tab, 60 MG PO DAILY, (Reported) Latanoprost 2.5 Ml Drops, 1 DROP OU HS, (Reported) Niacin 1,000 Mg Tab.er.24h, 1,000 MG PO HS, (Reported) Nitrofurantoin Monohyd/M-Cryst 100 Mg Capsule, 100 MG PO BID, (Reported) 10 DAY THERAPY FILLED 02-12-18 (#13 CAPS LEFT IN BOTTLE) Nitroglycerin 0.4 Mg Tab.subl, 0.4 MG SL UD PRN for CHEST PAIN, (Reported) [place]-3/Dha/Epa/Fish Oil 1 Each Capsule, 1,000 MG PO TID, (Reported) Ondansetron 4 Mg Tab.rapdis, 4 MG SL Q4H PRN for NAUSEA/VOMITING-1ST LINE Prescribed by: VIC TRUONG on 02/07/182015 Pantoprazole Sodium 40 Mg Tablet.dr, 40 MG PO DAILY, (Reported) Potassium Chloride 10 Meq Capsule.er, 10 MEQ PO BID, (Reported) LAST FILLED #60 11-25-17 Ranolazine 500 Mg Tab.er.12h, 500 MG PO BID, (Reported) Patient Home Medication List Home Medication List Reviewed: Yes Physical Exam-Cardiology Physical Exam Vital Signs/I&O 7/2702/17/18 02/17/18 02/17/18 02:14 04:25 06:02 06:03 Temp 97.2 Pulse 101 87 92 Resp 16 18 B/P (MAP) 112/60 (77) 128/67 (87) Pulse Ox 92 96 92 O2 Delivery Nasal Cannula Nasal Cannula Nasal Cannula O2 Flow Rate 2.00 2.00 6.00 02/17/18 02/17/18 02/17/18 02/17/18 06:05 06:15 06:30 06:43 Temp 98.9 Pulse 96 96 95 Resp 15 16 14 B/P (MAP) 131/63 (85) 133/70 (91) Pulse Ox 98 97 98 100 O2 Delivery Nasal Cannula Nasal Cannula Nasal Cannula Nasal Cannula O2 Flow Rate 6.00 6.00 6.00 5.00 02/17/18 02/17/18 02/17/18 02/17/18 06:45 06:56 07:00 07:00 Pulse 96 39 96 96 Resp 15 15 B/P (MAP) 130/66 (87) 138/64 (88) Pulse Ox 98 99 O2 Delivery Nasal Cannula Nasal Cannula O2 Flow Rate 5.00 5.00 02/17/18 02/17/18 02/17/18 02/17/18 07:46 08:00 08:00 08:00 Temp 97.8 Pulse 96 Resp 15 B/P (MAP) 130/70 (90) Pulse Ox 100 98 98 O2 Delivery Nasal Cannula Nasal Cannula Nasal Cannula Nasal Cannula O2 Flow Rate 5.00 3.00 3.00 3.00 02/17/18 02/17/18 02/17/18 02/17/18 09:00 10:00 10:40 11:00 Pulse 95 94 95 Resp 15 18 11 B/P (MAP) 131/66 (87) 130/75 (93) 126/70 (88) Pulse Ox 97 97 100 96 O2 Delivery Nasal Cannula Nasal Cannula Nasal Cannula Nasal Cannula O2 Flow Rate 3.00 3.00 3.00 3.00 02/17/18 12:00 Pulse Ox 98 O2 Delivery Nasal Cannula O2 Flow Rate 3.00 02/17/18 00:00 Intake Total 800 ml Output Total 500 ml Balance 300 ml Capillary Refill : Less Than 3 Seconds Constitutional: No appears stated age; AAO x 3; No apparent distress, No PERRL ; well-developed, well-nourished; No other HEENT: No PERRL, No normal ENT inspection, No TMs normal, No pharynx normal, No scleral icterus (R), No scleral icterus (L), No pale conjunctivae (R), No pale conjunctivae (L), No photophobia, No TM abnormal (R), No TM abnormal (L), No pharyngeal erythema, No tonsillar exudate, No other, No discharge, No EOMI, No hearing is well preserved, No hard of hearing, No oral hygience is good, No ulceration, No xanthelasmas are seen Neck: No non-tender, No full range of motion, No supple, No normal inspection, No carotid bruit, No limited range of motion, No lymphadenopathy (R), No lymphadenopathy (L), No tender lateral, No tender midline, No thyromegaly, No other, No carotid pulses are 2 + bilaterally, No with good upstrokes Respiratory: No accessory muscle use, No respiratory distress, No chest tender , No chest expansion is symmetric; chest is bilaterally symmetric; No lungs clear to percussion; lungs clear to auscultation; No crackles, No rhonchi, No rales, No stridor, No wheezing, No pleural rub, No other Cardiovascular: regular rate-rhythm; No irregularly irregular, No extra beats, No parasternal heave is noted, No JVD, No edema, No bradycardia, No tachycardia , No point of maximal impulse, No cardiac thrills are palpable; S1 and S2; No gallop/S3, No gallop/S4, No diastolic murmur, No systolic murmur, No friction rub, No click, No other Gastrointestinal: No tender, No soft, No round, No distended, No pulsatile mass , No organomegaly, No guarding, No rebound, No tenderness, No hernia, No mass, No audible bowel sounds, No abnormal bowel sounds, No abdominal bruits, No spleenomegaly, No other Rectal: deferred Extremities: No normal range of motion, No non-tender, No normal inspection, No pedal edema, No calf tenderness, No normal capillary refill, No pelvis stable , No calf tenderness, No inflammation, No pedal edema, No slow capillary refill , No swelling, No other, No abrasion, No clubbing, No cyanosis, No ecchymosis, No laceration, No no lower extremity edema bilateral, No significant edema, No tenderness, No wound Neurologic/Psychiatric: no motor/sensory deficits, alert, normal mood/affect, oriented x 3 Skin: No normal color, No warm/dry, No cyanosis, No cool, No diaphoresis, No damp, No ecchymosis, No jaundice, No mottled, No pallor, No rash, No tattoos/ piercings, No ulcerations, No rash on exposed areas, No ulcerations on exposed areas, No other Data Review Labs Laboratory Tests 02/16/18 15:21: Glucometer 367H 02/16/18 18:00: Troponin I 10.35*H 02/16/18 21:00: Glucometer 341H 02/17/18 05:17: Glucometer 287H 02/17/18 05:25: White Blood Count 7.6, Red Blood Count 2.74L, Hemoglobin 8.5L, Hematocrit 27L, Mean Corpuscular Volume 97, Mean Corpuscular Hemoglobin 31, Mean Corpuscular Hemoglobin Concent 32, Red Cell Distribution Width 14.3, Platelet Count 143, Mean Platelet Volume 9.3, Neutrophils (%) (Auto) 80H, Lymphocytes (%) (Auto) 8L , Monocytes (%) (Auto) 11, Eosinophils (%) (Auto) 0, Basophils (%) (Auto) 0, Neutrophils # (Auto) 6.1, Lymphocytes # (Auto) 0.6L, Monocytes # (Auto) 0.8, Eosinophils # (Auto) 0.0, Basophils # (Auto) 0.0, Sodium Level 137, Potassium Level 4.6, Chloride Level 102, Carbon Dioxide Level 24, Anion Gap 11, Blood Urea Nitrogen 39H, Creatinine 2.30H, Estimat Glomerular Filtration Rate 21, BUN/ Creatinine Ratio 17, Glucose Level 286H, Calcium Level 9.2, Total Bilirubin 0.6 , Aspartate Amino Transf (AST/SGOT) 256H, Alanine Aminotransferase (ALT/SGPT) 52 , Alkaline Phosphatase 44, Myoglobin 1648.3H, Total Protein 6.1L, Albumin 3.3, Triglycerides Level 179H, Cholesterol Level 141, LDL Cholesterol Direct 72, VLDL Cholesterol 36, HDL Cholesterol 39L 02/17/18 09:28: Glucometer 330H ECG Impression ECG Initial ECG Rhythm: S.Tach Comment Sinus tachycardia with left bundle-branch block. A/P-Cardiology Assessment/Admission Diagnosis Non-STEMI, Paroxysmal atrial fibrillation, Chronic kidney disease, Left bundle branch block, COPD Plan Non-STEMI, positive troponin. Bolus Plavix 300 mg. Continue aspirin. Patient was already on Pradaxa therefore that was held for possible coronary angiography on 02/17/2018. Request echocardiogram. Previous history of multiple PCI. Paroxysmal atrial fibrillation, on oral anticoagulation. On hold for now. Chronic kidney disease, creatinine 2.3. Left bundle branch block, present on previous EKGs as well. COPD, severe in nature. Previously CABG was not done for [facility] at [facility] due to severe COPD. Thank you for your consultation. Please call me if you have any questions. Llody Serrano MD, FACP, FACC, FSCAI, FHRS, CCDS Interventional Cardiology Cardiac Electrophysiology Vascular Medicine and Endovascular Interventions Clinical Quality Measures AMI/AHF: ASA po Prior to arrival: No DVT/VTE Risk/Contraindication: Risk Factor Score Per Nursin RFS Level Per Nursing on Admit: 4+=Very High Gene SERRANO MD Feb 16, 2018 5:58 pm
[2018-02-16] MEDS ORDERED: NITROGLYCERIN 0.4 MG SL TABS BTL 25'S SL PRN (18:30)
[2018-02-16] MEDS ORDERED: CYCLOBENZAPRINE 10 MG (FLEXERIL) TAB PO PRN (18:30)
--- NOTE | 2018-02-16 18:40 | History & Physicial ---
History of Present Illness History of Present Illness Reason for visit/HPI Patient came out to the emergency room. Patient having chest pain the last few days. This morning became quite severe with chest pain going down the right arm Patient has history of coronary artery disease. Patient has history of at least 9 stents. Patient has history of COPD, coronary artery disease, diabetes, renal insufficiency, Patient was told by renal specialist in 3 months or probably be on renal dialysis. Date of Admission Feb 16, 2018 at 09:45 Time Seen by Provider: 18:30 I consulted on this patient on 02/16/18 18:35 Attending Physician Wyatt German DO Admitting Physician Wyatt German DO Consult Allergies and Home Medications Allergies Coded Allergies: Sulfa (Sulfonamide Antibiotics) (Unverified Allergy, Mild, 10/16/07) amoxicillin (Unverified Allergy, Mild, 10/16/07) cephalexin (Unverified Allergy, Mild, 10/16/07) desloratadine (Unverified Allergy, Mild, 10/16/07) diphenhydramine (Unverified Allergy, Mild, 10/16/07) metaxalone (Unverified Allergy, Mild, 10/16/07) Penicillins (Unverified Allergy, Unknown, 01/22/14) ibuprofen (Unverified Adverse Reaction, Mild, MAKES HER SICK; CAN TAKE ASA , 09/26/09) Home Medications Atorvastatin Calcium 80 Mg Tablet, 80 MG PO HS, (Reported) Carvedilol 25 Mg Tablet, 12.5 MG PO BID, (Reported) Cholecalciferol (Vitamin D3) 2,000 Unit Capsule, 2,000 UNIT PO DAILY, (Reported) Clopidogrel Bisulfate 75 Mg Tablet, 75 MG PO DAILY, (Reported) Cyclobenzaprine HCl 10 Mg Tablet, 10 MG PO Q8H PRN for SPASMS Prescribed by: SHUKRI SMALLS on 01/24/182104 Dabigatran Etexilate Mesylate 150 Mg Capsule, 150 MG PO BID, (Reported) Dorzolamide HCl 10 Ml Drops, 1 DROP OU TID, (Reported) Doxycycline Hyclate 100 Mg Tablet., 100 MG PO BID Prescribed by: VIC TRUONG on 02/07/182029 Fenofibric Acid (Choline) 135 Mg Capsule.dr, 135 MG PO DAILY, (Reported) LAST FILLED 07/12/17 #90 Furosemide 40 Mg Tablet, 40 MG PO DAILY, (Reported) Gabapentin 300 Mg Capsule, 600 MG PO BID, (Reported) TAKES 2 (300 MG) CAPSULES Hydralazine HCl 25 Mg Tablet, 25 MG PO TID, (Reported) Hydrocodone Bit/Acetaminophen 1 Tab Tab, 1-2 EACH PO Q6H PRN for BREAKTHROUGH PAIN Prescribed by: SHUKRI SMALLS on 01/24/182104 Insulin Regular, Human 500 Unit/1 Ml Insuln.pen, 80 UNIT SQ 0700, (Reported) Insulin Regular, Human 500 Unit/1 Ml Insuln.pen, 60 UNIT SQ 1200, (Reported) Insulin Regular, Human 500 Unit/1 Ml Insuln.pen, 90 UNIT SQ 1700, (Reported) Isosorbide Mononitrate 60 Mg Tab, 60 MG PO DAILY, (Reported) Latanoprost 2.5 Ml Drops, 1 DROP OU HS, (Reported) Niacin 1,000 Mg Tab.er.24h, 1,000 MG PO HS, (Reported) Nitroglycerin 0.4 Mg Tab.subl, 0.4 MG SL UD PRN for CHEST PAIN, (Reported) [place]-3/Dha/Epa/Fish Oil 1 Each Capsule, 1,000 MG PO TID, (Reported) Ondansetron 4 Mg Tab.rapdis, 4 MG SL Q4H PRN for NAUSEA/VOMITING-1ST LINE Prescribed by: VIC TRUONG on 02/07/182015 Pantoprazole Sodium 40 Mg Tablet.dr, 40 MG PO DAILY, (Reported) Potassium Chloride 10 Meq Capsule.er, 10 MEQ PO DAILY, (Reported) Ranolazine 500 Mg Tab.er.12h, 500 MG PO BID, (Reported) Patient Home Medication List Home Medication List Reviewed: Yes Past Opqinyq-Hpsyet-Piqybw Hx Patient Social History Marrital Status: Employed/Student: retired Alcohol Use: Denies Use Recreational Drug Use: No Smoking Status: Former Smoker Former Smoker, Quit: Sep 05, 1985 Type Used: Cigarettes 2nd Hand Smoke Exposure: No Recent Foreign Travel: No Contact w/other who traveled: No Recent Hopitalizations: No Recent Infectious Disease Expo: No Immunizations Up To Date Tetanus Booster (TDap): Unknown Pediatric: No Date of Pneumonia Vaccine: Jul 15, 2012 Date of Influenza Vaccine: Mar 31, 2017 Seasonal Allergies Seasonal Allergies: Yes Surgeries Yes Cardiac, Coronary Stent, Gallbladder, Orthopedic, Tonsillectomy, Tubal Ligation , Vascular Surgery Respiratory Yes (O2 AT 2L/NC CONTINUOUSLY) COPD Currently Using CPAP: No Currently Using BIPAP: No Cardiovascular Yes Chronic Edema/Swelling, Coronary Artery Disease, Heart Attack, High Cholesterol , Hypertension, Peripheral Vascular Neurological Yes Headaches /Migraines 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 System Hx 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 Disorders: No Sexually Transmitted Disease: No HIV/AIDS: No Female 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 Disorders: Denies 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 ) Blood Transfusions History of Blood Disorders: No (had to have iron iv) Adverse Reaction to a Blood Tr: No Family Medical History Significant Family History: Heart Disease, Diabetes, Hypertension, Vascular Disease Family Hx: Diabetes mellitus 19 MOTHER, Onset:Unknown FH: breast cancer Lip cancer 19 FATHER, Onset:40's - 50 Constitutional: malaise, weakness Respiratory: short of breath Cardiovascular: chest pain, other (Pain going down right arm) Gastrointestinal: no symptoms reported : No Physical Exam Vital Signs Vital Signs - First Documented 02/16/18 02/16/18 07:34 07:51 Temp 98.0 Pulse 86 Resp 20 B/P (MAP) 100/47 (64) Pulse Ox 95 O2 Delivery Room Air O2 Flow Rate 2.00 Capillary Refill : Less Than 3 Seconds Height, Weight, BMI Height: 5'4.00" Weight: 229lbs. 10.0oz. 104.519511ml; 39.4 BMI Method:Stated General Appearance: No Apparent Distress, WD/WN Eyes: Bilateral Eye Normal Inspection HEENT: Normal ENT Inspection Neck: Full Range of Motion, Normal Inspection, Non Tender Respiratory: No Accessory Muscle Use, No Respiratory Distress, Decreased Breath Sounds Cardiovascular: Regular Rate, Rhythm, No Murmur Gastrointestinal: Non Tender, Soft Assessment/Plan Assessment and Plan Chest pain. Coronary artery disease. Peripheral artery disease. Diabetes. Renal insufficiency. Hypertension. Previous myocardial infarctions. Hyperlipidemia. Hypertension Admission Diagnosis Admission Status: Inpatient Order (span 2 midnights) Reason for Inpatient Admission: Chest pain. Coronary artery disease. Peripheral artery disease. Renal insufficiency. COPD. Short of breath. Diabetes. Hypertension. Hyperlipidemia Clinical Quality Measures AMI/AHF: ASA po Prior to arrival: No DVT/VTE Risk/Contraindication: Risk Factor Score Per Nursin RFS Level Per Nursing on Admit: 4+=Very High WYATT GERMAN DO Feb 16, 2018 18:40
[2018-02-16] MEDS ORDERED: PATIENT MAY USE OWN MEDS, ALL MC SCH (19:00)
[2018-02-16] MEDS ORDERED: NON-FORMULARY MEDICATION 1 EA EA (Dorzolamide HCl 1 DROP) OU SCH (21:00)
[2018-02-16] MEDS ORDERED: ATORVASTATIN 80 MG (LIPITOR) TABLET PO SCH (21:00)
[2018-02-16] MEDS ORDERED: GABAPENTIN 300 MG (NEURONTIN) CAP PO SCH (21:00)
[2018-02-16] MEDS ORDERED: NON-FORMULARY MEDICATION 1 EA EA (Dabigatran Etexilate Mesylate (Pradaxa) 150 MG) PO SCH (21:00)
[2018-02-16] MEDS ORDERED: NON-FORMULARY MEDICATION 1 EA EA (Ranolazine (Ranexa) 500 MG) PO SCH (21:00)
[2018-02-16] MEDS ORDERED: NON-FORMULARY MEDICATION 1 EA EA (Hydralazine HCl 25 MG) PO SCH (21:00)
[2018-02-17] VITALS (18 sets, daily range): BP systolic 95–153; BP diastolic 58–84
[2018-02-17] MEDS: RT-ALBUTEROL/IPRATROPIUM 3 ML (DUONEB) VIAL INH SCH ×4 (02:12→15:16)
[2018-02-17 05:53] LABS: BASOPHILS % (AUTO) 0 % (0-10); EOSINOPHILS % (AUTO) 0 % (0-10); HEMATOCRIT 27 % (35-52); HEMOGLOBIN 8.5 G/DL (11.5-16.0); LYMPHOCYTES # (AUTO) 0.6 X 10^3 (1.0-4.0); LYMPHOCYTES % (AUTO) 8 % (12-44); MEAN CORPUSCULAR HEMOGLOBIN 31 PG (25-34); MEAN CORPUSCULAR HGB CONC 32 G/DL (32-36); MEAN CORPUSCULAR VOLUME 97 FL (80-99); MEAN PLATELET VOLUME 9.3 FL (7.4-10.4); MONOCYTES # (AUTO) 0.8 X 10^3 (0.0-1.0); MONOCYTES % (AUTO) 11 % (0-12); NEUTROPHILS # (AUTO) 6.1 X 10^3 (1.8-7.8); NEUTROPHILS % (AUTO) 80 % (42-75); PLATELET COUNT 143 10^3/uL (130-400); RED BLOOD COUNT 2.74 10^6/uL (4.35-5.85); RED CELL DISTRIBUTION WIDTH 14.3 % (10.0-14.5); WHITE BLOOD COUNT 7.6 10^3/uL (4.3-11.0)
[2018-02-17 06:15] LABS: CALCIUM 9.2 MG/DL (8.5-10.1); CREATININE SERUM 2.3 MG/DL (0.60-1.30); POTASSIUM 4.6 MMOL/L (3.6-5.0)
[2018-02-17 06:16] LABS: ALBUMIN 3.3 GM/DL (3.2-4.5); BILIRUBIN,TOTAL 0.6 MG/DL (0.1-1.0); TOTAL PROTEIN 6.1 GM/DL (6.4-8.2)
[2018-02-17 06:40] LABS: MYOGLOBIN SERUM 1648.3 NG/ML (10.0-92.0)
[2018-02-17] MEDS: NS IV 1000 ML 1,000 ML IV SCH (06:50)
[2018-02-17] MEDS: inSUlin ASPART (NovoLOG) 1 UNIT/0.01 ML (CHARGE PER UNIT) SC SCH (06:50)
--- NOTE | 2018-02-17 07:32 | Diagnostic Imaging Report ---
Indication: Shortness breath Portable chest 5:51 AM Heart size and pulmonary vascularity both mildly increased. There some perihilar alveolar edema. Impression: Pulmonary edema Dictated by: Dictated on workstation # [id number]
--- NOTE | 2018-02-17 07:34 | Progress Note (SOAP) ---
Subjective Time Seen by Provider: 07:20 Subjective/Events-last exam Patient had episode of bradycardia and syncope last night. Patient transferred to ICU. Troponin positive. Patient to have angiography today. Patient stable this morning. Patient has renal insufficiency. Patient has diabetes. Patient has 9 stents previously Diabetes. Coronary artery disease. Peripheral artery disease. Objective Exam Vital Signs Date Time Temp Pulse Resp B/P (MAP) Pulse Ox O2 Delivery O2 Flow Rate FiO2 02/17/18 06:45 96 15 130/66 (87) 98 Nasal Cannula 5.00 02/17/18 06:43 95 14 100 Nasal Cannula 5.00 02/17/18 06:30 96 16 133/70 (91) 98 Nasal Cannula 6.00 02/17/18 06:15 98.9 96 15 131/63 (85) 97 Nasal Cannula 6.00 02/17/18 06:03 92 02/17/18 06:02 87 18 128/67 (87) 92 Nasal Cannula 6.00 02/17/18 04:25 97.2 101 16 112/60 (77) 96 Nasal Cannula 2.00 02/17/18 02:14 92 Nasal Cannula 2.00 02/17/18 01:00 96 02/16/18 23:30 97.1 97 19 117/57 (77) 100 Nasal Cannula 2.00 02/16/18 21:35 94 Nasal Cannula 2.00 02/16/18 21:13 100 Nasal Cannula 2.00 02/16/18 19:53 97.2 96 20 126/58 (80) 97 Nasal Cannula 2.00 02/16/18 19:00 97 02/16/18 18:14 94 Nasal Cannula 2.00 02/16/18 16:15 97.5 95 20 129/81 (97) 97 Nasal Cannula 2.00 02/16/18 15:15 97.5 92 20 133/76 (95) 97 Nasal Cannula 2.00 02/16/18 14:45 95 18 130/78 (95) 97 Nasal Cannula 2.00 02/16/18 14:38 98 Nasal Cannula 2.00 02/16/18 14:32 106 02/16/18 13:45 87 18 122/70 (87) 94 Nasal Cannula 2.00 02/16/18 12:45 92 18 122/77 (92) 97 Nasal Cannula 2.00 7/26/18 12:30 Nasal Cannula 2.00 02/16/18 12:30 92 18 135/79 (97) 95 Nasal Cannula 2.00 02/16/18 12:15 97 18 131/87 (102) 97 Nasal Cannula 2.00 02/16/18 12:11 97 Nasal Cannula 2.00 02/16/18 12:02 86 97 02/16/18 12:00 97 20 134/79 (97) 98 Nasal Cannula 2.00 02/16/18 11:30 97.4 86 16 146/62 (90) 96 Nasal Cannula 2.00 02/16/18 11:04 84 13 127/67 100 Nasal Cannula 2.00 02/16/18 07:51 Nasal Cannula 2.00 02/16/18 07:34 98.0 86 20 100/47 (64) 95 Room Air I & O 02/17/18 07:00 Intake Total 1300 ml Output Total 500 ml Balance 800 ml Capillary Refill : Less Than 3 Seconds General Appearance: No Apparent Distress, WD/WN HEENT: Normal ENT Inspection Neck: Full Range of Motion Respiratory: No Accessory Muscle Use, No Respiratory Distress, Decreased Breath Sounds Cardiovascular: Regular Rate, Rhythm, No Murmur Gastrointestinal: non tender, soft Results Lab Laboratory Tests 02/16/18 07:54 02/17/18 05:25 Laboratory Tests 02/16/18 07:54: White Blood Count 5.0, Red Blood Count 2.62L, Hemoglobin 8.2L, Hematocrit 25L, Mean Corpuscular Volume 96, Mean Corpuscular Hemoglobin 31, Mean Corpuscular Hemoglobin Concent 33, Red Cell Distribution Width 13.5, Platelet Count 119L, Mean Platelet Volume 8.7, Neutrophils (%) (Auto) 65, Lymphocytes (%) (Auto) 19, Monocytes (%) (Auto) 14H, Eosinophils (%) (Auto) 3, Basophils (%) (Auto) 0, Neutrophils # (Auto) 3.2, Lymphocytes # (Auto) 0.9L, Monocytes # (Auto) 0.7, Eosinophils # (Auto) 0.1, Basophils # (Auto) 0.0, Prothrombin Time 18.9H, INR Comment 1.6H, Activated Partial Thromboplast Time 51H, D-Dimer 0.23, Sodium Level 137, Potassium Level 4.4, Chloride Level 101, Carbon Dioxide Level 25, Anion Gap 11, Blood Urea Nitrogen 40H, Creatinine 2.54H, Estimat Glomerular Filtration Rate 19, BUN/Creatinine Ratio 16, Glucose Level 311H, Calcium Level 9.3, Magnesium Level 2.0, Total Bilirubin 0.6, Aspartate Amino Transf (AST/SGOT ) 32, Alanine Aminotransferase (ALT/SGPT) 26, Alkaline Phosphatase 42, Myoglobin 79.6, Troponin I < 0.30, Total Protein 6.3L, Albumin 3.5, Amylase Level 58, Lipase 68 02/16/18 10:55: Glucometer 340H 02/16/18 15:21: Glucometer 367H 02/16/18 18:00: Troponin I 10.35*H 02/16/18 21:00: Glucometer 341H 02/17/18 05:17: Glucometer 287H 02/17/18 05:25: White Blood Count 7.6, Red Blood Count 2.74L, Hemoglobin 8.5L, Hematocrit 27L, Mean Corpuscular Volume 97, Mean Corpuscular Hemoglobin 31, Mean Corpuscular Hemoglobin Concent 32, Red Cell Distribution Width 14.3, Platelet Count 143, Mean Platelet Volume 9.3, Neutrophils (%) (Auto) 80H, Lymphocytes (%) (Auto) 8L , Monocytes (%) (Auto) 11, Eosinophils (%) (Auto) 0, Basophils (%) (Auto) 0, Neutrophils # (Auto) 6.1, Lymphocytes # (Auto) 0.6L, Monocytes # (Auto) 0.8, Eosinophils # (Auto) 0.0, Basophils # (Auto) 0.0, Sodium Level 137, Potassium Level 4.6, Chloride Level 102, Carbon Dioxide Level 24, Anion Gap 11, Blood Urea Nitrogen 39H, Creatinine 2.30H, Estimat Glomerular Filtration Rate 21, BUN/ Creatinine Ratio 17, Glucose Level 286H, Calcium Level 9.2, Total Bilirubin 0.6 , Aspartate Amino Transf (AST/SGOT) 256H, Alanine Aminotransferase (ALT/SGPT) 52 , Alkaline Phosphatase 44, Myoglobin 1648.3H, Total Protein 6.1L, Albumin 3.3, Triglycerides Level 179H, Cholesterol Level 141, LDL Cholesterol Direct 72, VLDL Cholesterol 36, HDL Cholesterol 39L Assessment/Plan Assessment/Plan Assess & Plan/Chief Complaint Acute [place]. Bradycardia. Nonresponsive. Coronary artery disease. Diabetes. Peripheral artery disease. Renal insufficiency. Patient have angiography today Clinical Quality Measures Admission Status Admission Dx Chest pain. Coronary artery disease. Peripheral artery disease. Diabetes. Renal insufficiency. Hypertension. Previous myocardial infarctions. Hyperlipidemia. Hypertension AMI/AHF: ASA po Prior to arrival: No DVT/VTE Risk/Contraindication: Risk Factor Score Per Nursin RFS Level Per Nursing on Admit: 4+=Very High Contraindications-Pharm: Other *list below* Contraindications-Mechi: Other *list below* BRAULIO GERMAN DO Feb 17, 2018 07:34
[2018-02-17] MEDS ORDERED: LIDOCAINE 1% INJ 20 ML 20 ML VIAL ONE (08:04)
[2018-02-17] MEDS ORDERED: NS IV 1000 ML 0 ML ONE (08:05)
[2018-02-17] MEDS ORDERED: HEParin (CATH LAB) 2,000 ML IV ONE (08:05)
[2018-02-17] MEDS ORDERED: ASPIRIN E.C. 81 MG (ECOTRIN) TAB PO SCH (09:00)
[2018-02-17] MEDS ORDERED: PANTOPRAZOLE 40 MG (PROTONIX) TAB PO SCH (09:00)
[2018-02-17] MEDS ORDERED: CLOPIDOGREL 300 MG (PLAVIX) TABLET PO NR (09:00)
[2018-02-17] MEDS ORDERED: ISOSORBIDE MONONITRATE 60 MG (IMDUR) TAB PO SCH (09:00)
[2018-02-17] MEDS ORDERED: CLOPIDOGREL 75 MG (PLAVIX) TABLET PO SCH (09:00)
[2018-02-17] MEDS ORDERED: FUROSEMIDE 40 MG (LASIX) TAB PO SCH (09:00)
[2018-02-17] MEDS: PANTOPRAZOLE 40 MG/10 ML (PROTONIX) VIAL IV SCH (09:29)
[2018-02-17] MEDS ORDERED: inSUlin ASPART (NovoLOG) 1 UNIT/0.01 ML (CHARGE PER UNIT) SC SCH (12:00)
[2018-02-17] MEDS ORDERED: MIDAZOLAM 5 MG/5 ML (VERSED) VIAL ONE (12:14)
[2018-02-17] MEDS ORDERED: fentaNYL INJECTION 100 MCG/2 ML AMP ONE (12:15)
[2018-02-17] MEDS ORDERED: CARV12.53 PO (12:57)
[2018-02-17] MEDS ORDERED: DOXY100T2 PO (12:57)
[2018-02-17] MEDS ORDERED: VERAPAMIL 5 MG/2 ML (CALAN) VIAL IV ONE (12:57)
[2018-02-17] MEDS ORDERED: NITRO DRIP 25000 MCG/D5W 250 ML IV ONE (12:57)
[2018-02-17] MEDS ORDERED: NITR100C10 PO (12:57)
[2018-02-17] MEDS ORDERED: HEParin 1000 UNIT/ML (10ML VIAL) FOR BOLUS ONE (12:57)
[2018-02-17] MEDS ORDERED: CETI10TA20 PO (12:57)
--- NOTE | 2018-02-17 14:09 | Cardiology Progress Note ---
Cardiology SOAP Progress Note Subjective: Evidence of speech therapist early intervention noted. Objective: I&O/Vital Signs 02/17/18 02/17/18 02/17/18 02/17/18 02:14 04:25 06:02 06:03 Temp 97.2 Pulse 101 87 92 Resp 16 18 B/P (MAP) 112/60 (77) 128/67 (87) Pulse Ox 92 96 92 O2 Delivery Nasal Cannula Nasal Cannula Nasal Cannula O2 Flow Rate 2.00 2.00 6.00 02/17/18 02/17/18 02/17/18 02/17/18 06:05 06:15 06:30 06:43 Temp 98.9 Pulse 96 96 95 Resp 15 16 14 B/P (MAP) 131/63 (85) 133/70 (91) Pulse Ox 98 97 98 100 O2 Delivery Nasal Cannula Nasal Cannula Nasal Cannula Nasal Cannula O2 Flow Rate 6.00 6.00 6.00 5.00 02/17/18 02/17/18 02/17/18 02/17/18 06:45 06:56 07:00 07:00 Pulse 96 39 96 96 Resp 15 15 B/P (MAP) 130/66 (87) 138/64 (88) Pulse Ox 98 99 O2 Delivery Nasal Cannula Nasal Cannula O2 Flow Rate 5.00 5.00 02/17/18 02/17/18 02/17/18 02/17/18 07:46 08:00 08:00 08:00 Temp 97.8 Pulse 96 Resp 15 B/P (MAP) 130/70 (90) Pulse Ox 100 98 98 O2 Delivery Nasal Cannula Nasal Cannula Nasal Cannula Nasal Cannula O2 Flow Rate 5.00 3.00 3.00 3.00 02/17/18 02/17/18 02/17/18 02/17/18 09:00 10:00 10:40 11:00 Pulse 95 94 95 Resp 15 18 11 B/P (MAP) 131/66 (87) 130/75 (93) 126/70 (88) Pulse Ox 97 97 100 96 O2 Delivery Nasal Cannula Nasal Cannula Nasal Cannula Nasal Cannula O2 Flow Rate 3.00 3.00 3.00 3.00 02/17/18 12:00 Pulse Ox 98 O2 Delivery Nasal Cannula O2 Flow Rate 3.00 02/17/18 00:00 Intake Total 800 ml Output Total 500 ml Balance 300 ml Weight (Pounds): 229 Weight (Ounces): 10.0 Weight (Calculated Kilograms): [id number] Constitutional: No appears stated age; AAO x 3; No apparent distress, No PERRL ; well-developed, well-nourished; No other Respiratory: No accessory muscle use, No respiratory distress, No chest tender , No chest expansion is symmetric; chest is bilaterally symmetric; No lungs clear to percussion; lungs clear to auscultation; No crackles, No rhonchi, No rales, No stridor, No wheezing, No pleural rub, No other Cardiovascular: regular rate-rhythm; No irregularly irregular, No extra beats, No parasternal heave is noted, No JVD, No edema, No bradycardia, No tachycardia , No point of maximal impulse, No cardiac thrills are palpable; S1 and S2; No gallop/S3, No gallop/S4, No diastolic murmur, No systolic murmur, No friction rub, No click, No other Gastrointestional: No tender, No soft, No round, No distended, No pulsatile mass, No organomegaly, No guarding, No rebound, No tenderness, No hernia, No mass, No audible bowel sounds, No abnormal bowel sounds, No abdominal bruits, No spleenomegaly, No other Extremities: No normal range of motion, No non-tender, No normal inspection, No pedal edema, No calf tenderness, No normal capillary refill, No pelvis stable , No calf tenderness, No inflammation, No pedal edema, No slow capillary refill , No swelling, No other, No abrasion, No clubbing, No cyanosis, No ecchymosis, No laceration, No no lower extremity edema bilateral, No significant edema, No tenderness, No wound Neurologic/Psychiatric: no motor/sensory deficits, alert, normal mood/affect, oriented x 3 Skin: No normal color, No warm/dry, No cyanosis, No cool, No diaphoresis, No damp, No ecchymosis, No jaundice, No mottled, No pallor, No rash, No tattoos/ piercings, No ulcerations, No rash on exposed areas, No ulcerations on exposed areas, No other Results/Procedures: Labs Laboratory Tests 02/16/18 15:21: Glucometer 367H 02/16/18 18:00: Troponin I 10.35*H 7/26/18 21:00: Glucometer 341H 02/17/18 05:17: Glucometer 287H 02/17/18 05:25: White Blood Count 7.6, Red Blood Count 2.74L, Hemoglobin 8.5L, Hematocrit 27L, Mean Corpuscular Volume 97, Mean Corpuscular Hemoglobin 31, Mean Corpuscular Hemoglobin Concent 32, Red Cell Distribution Width 14.3, Platelet Count 143, Mean Platelet Volume 9.3, Neutrophils (%) (Auto) 80H, Lymphocytes (%) (Auto) 8L , Monocytes (%) (Auto) 11, Eosinophils (%) (Auto) 0, Basophils (%) (Auto) 0, Neutrophils # (Auto) 6.1, Lymphocytes # (Auto) 0.6L, Monocytes # (Auto) 0.8, Eosinophils # (Auto) 0.0, Basophils # (Auto) 0.0, Sodium Level 137, Potassium Level 4.6, Chloride Level 102, Carbon Dioxide Level 24, Anion Gap 11, Blood Urea Nitrogen 39H, Creatinine 2.30H, Estimat Glomerular Filtration Rate 21, BUN/ Creatinine Ratio 17, Glucose Level 286H, Calcium Level 9.2, Total Bilirubin 0.6 , Aspartate Amino Transf (AST/SGOT) 256H, Alanine Aminotransferase (ALT/SGPT) 52 , Alkaline Phosphatase 44, Myoglobin 1648.3H, Total Protein 6.1L, Albumin 3.3, Triglycerides Level 179H, Cholesterol Level 141, LDL Cholesterol Direct 72, VLDL Cholesterol 36, HDL Cholesterol 39L 02/17/18 09:28: Glucometer 330H A/P: Assessment/Dx: Non-STEMI, Paroxysmal atrial fibrillation, Chronic kidney disease, Left bundle branch block, COPD, Severe bradycardia with brief CPR. Plan: Non-STEMI, positive troponin. Aspirin, Plavix. Coronary angiography done with right radial access showed severe ostial LAD stenosis, severe hazy looking ostial left circumflex artery stenosis, severe mid RCA stenosis. LV gram was not done due to chronic kidney disease. Previous history of multiple PCI. Plan to transfer to or other Center with surgical backup for high-risk PCI versus CABG. Start low-dose heparin infusion. Paroxysmal atrial fibrillation, on oral anticoagulation. On hold for now. Chronic kidney disease, creatinine 2.3. Left bundle branch block, present on previous EKGs as well. COPD, severe in nature. Previously CABG was not done for multivessel CAD at [facility] due to severe COPD. Thank you for your consultation. Please call me if you have any questions. Lloyd Serrano MD, FACP, FACC, FSCAI, FHRS, CCDS Interventional Cardiology Cardiac Electrophysiology Vascular Medicine and Endovascular Interventions Clinical Quality Measures AMI/AHF: ASA po Prior to arrival: Gene Monae MD Feb 17, 2018 2:09 pm
[2018-02-17] MEDS ORDERED: NS IV 1000 ML 1,000 ML IV SCH (14:10)
--- NOTE | 2018-02-17 14:10 | Cardiac Procedure Note-CS/ASA ---
Pre-Procedure Note Pre-Op Procedure Note H&P Reviewed The H&P was reviewed, patient examined and no changes noted. Date H&P Reviewed: Feb 17, 2018 Time H&P Reviewed: 12:30 Conscious Sedation Pre-Proced Time Reviewed: 12:30 ASA Class: 3 Airway Mallampati Classification: (p[place] band appropriate class) I. II. III, IV Lungs Heart ASA score ASA 1: a normal healthy patient ASA 2: a patient with a mild systemic disease (mid diabetes, controlled hypertension, obesity ASA 3: a patient with a severe systemic disease that limits activity (angina , COPD, prior Myocardial infarction) ASA 4: a patient with an incapacitating disease that is a constant threat to life (CHF, renal failure) ASA 5: a moribund patient not expected to survive 24 hrs. (ruptured aneurysm) ASA 6: a declared brain patient whose organs are being harvested. For emergent operations, add the letter E after the classification Grade 1 Sedation Plan: Analgesia, Amnesia, Plan communicated to team members, Discussed options with patient/fam, Discussed risks with patient/fam Note The patient is an appropriate candidate to undergo the planned procedure, sedation, and anesthesia. The patient immediately re-assessed prior to indication. Gene PHIPPS MD Feb 17, 2018 2:10 pm
[2018-02-17] MEDS ORDERED: PATIENT MAY USE OWN MEDS, ALL PO SCH (14:15)
[2018-02-17] MEDS ORDERED: NON-FORMULARY MEDICATION 1 EA EA IV SCH (14:15)
--- NOTE | 2018-02-17 14:18 | Coronary Angiography Report ---
Coronary Angiography Report DATE OF PROCEDURE: 02/17/18 INDICATION: Non-STEMI. PREOPERATIVE DIAGNOSIS: Non-STEMI. POSTOPERATIVE DIAGNOSIS: Severe three-vessel CAD. HISTORY: This is a 72-year-old lady with history of severe COPD, previous multiple PCI, paroxysmal atrial fibrillation on oral anticoagulation, chronic kidney disease with creatinine of 2.3. She presented with prolonged episode of chest pain and positive troponin. Working diagnosis of non-ST elevation VT. 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 Therefore, the patient was scheduled for coronary angiography. PROCEDURES PERFORMED: 1.Coronary angiography. 2.Left heart catheterization. COMPLICATIONS: None. SPECIMENS: None. ESTIMATED BLOOD LOSS: 10 mL ANESTHESIA: Conscious sedation ANTICOAGULATION: IV heparin CONTRAST: 65 mL. FLUOROSCOPY: 5 minutes. FLOUROSCOPY DOSE: 714 MGy. 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 All the risks and complications were explained in detail; this included the risk of bleeding, vascular damage, stroke , VT and even . The patient was draped and prepped in the usual sterile fashion. Access was gained in the right radial artery with a 6 [place] sheath. Coronary angiography and left heart catheterization was performed with the [place] catheter. FINDINGS: 1.Left main: Patent. 2.LAD: Severe ostial stenosis. Stenosis severity is 80 percent. A stent is noted in the proximal LAD. It is unclear whether the ostial stenosis is within the stent or just outside. Occluded distal LAD with left to left collaterals. 3.Left circumflex artery: Severe hazy looking ostial stenosis. Stenosis severity 99 percent. Likely culprit artery. Moderate to severe OM stenosis. Proximal left circumflex artery stent is noted. 4.RCA: Severe mid RCA stenosis likely within a stent. 5.Left heart catheterization: 111/18 mmHg. LVEDP 29 mmHg. Aortic pressure 95/ 56 mmHg. No gradient across the aortic valve. LV gram not done due to chronic kidney disease. CONCLUSIONS: 1. Severe three-vessel CAD. Previously CABG was refused due to severe COPD and patient underwent PCI. I will transfer the patient to or other center with surgical backup for either high risk CABG or PCI. 2. Continue aspirin, Plavix. Start low-dose heparin. Lloyd Serrano MD, FACP, FACC, [facility] Interventional Cardiology Gene SERRANO MD Feb 17, 2018 2:18 pm
[2018-02-17] MEDS ORDERED: HEParin DRIP 25000 UNIT/500ML 500 ML IV SCH (14:45)
[2018-02-17] MEDS ORDERED: FERR325T18 PO (15:40)
[2018-02-18] MEDS ORDERED: ASPIRIN E.C. 81 MG (ECOTRIN) TAB PO SCH (09:00)
[2018-02-18] MEDS ORDERED: CLOPIDOGREL 75 MG (PLAVIX) TABLET PO SCH ×2 (09:00)
--- NOTE | 2018-02-20 08:16 | Discharge Summary ---
Diagnosis/Chief Complaint Date of Admission Feb 17, 2018 at 06:00 Date of Discharge Feb 17, 2018 at 16:50 Discharge Time: 08:10 Discharge Diagnosis on-ST elevated CT. LAD severe. Left circumflex artery severe. Severe RCA. Severe COPD. Proximal atrial fibrillation. CTD. diabetes. Severe bradycardia Reason Hospital Visit Patient came out to the emergency room. Patient having chest pain the last few days. This morning became quite severe with chest pain going down the right arm Patient has history of coronary artery disease. Patient has history of at least 9 stents. Patient has history of COPD, coronary artery disease, diabetes, renal insufficiency, Patient was told by renal specialist in 3 months or probably be on renal dialysis. Discharge Summary Procedures coronary angiography Consultations cardiology Discharge Physical Examination Allergies: Coded Allergies: Sulfa (Sulfonamide Antibiotics) (Unverified Allergy, Mild, 10/16/07) amoxicillin (Unverified Allergy, Mild, 10/16/07) cephalexin (Unverified Allergy, Mild, 10/16/07) desloratadine (Unverified Allergy, Mild, 10/16/07) diphenhydramine (Unverified Allergy, Mild, 10/16/07) metaxalone (Unverified Allergy, Mild, 10/16/07) Penicillins (Unverified Allergy, Unknown, 01/22/14) ibuprofen (Unverified Adverse Reaction, Mild, MAKES HER SICK; CAN TAKE ASA , 09/26/09) Vitals & I&Os Vital Signs Date Time Temp Pulse Resp B/P (MAP) Pulse Ox O2 Delivery O2 Flow Rate FiO2 02/17/18 16:50 95 16 124/64 98 Nasal Cannula 4.00 02/17/18 08:00 97.8 Hospital Course patient transferred to tertiary [facility] Labs (last 24 hrs) Laboratory Tests 02/16/18 07:54: White Blood Count 5.0, Red Blood Count 2.62L, Hemoglobin 8.2L, Hematocrit 25L, Mean Corpuscular Volume 96, Mean Corpuscular Hemoglobin 31, Mean Corpuscular Hemoglobin Concent 33, Red Cell Distribution Width 13.5, Platelet Count 119L, Mean Platelet Volume 8.7, Neutrophils (%) (Auto) 65, Lymphocytes (%) (Auto) 19, Monocytes (%) (Auto) 14H, Eosinophils (%) (Auto) 3, Basophils (%) (Auto) 0, Neutrophils # (Auto) 3.2, Lymphocytes # (Auto) 0.9L, Monocytes # (Auto) 0.7, Eosinophils # (Auto) 0.1, Basophils # (Auto) 0.0, Prothrombin Time 18.9H, INR Comment 1.6H, Activated Partial Thromboplast Time 51H, D-Dimer 0.23, Sodium Level 137, Potassium Level 4.4, Chloride Level 101, Carbon Dioxide Level 25, Anion Gap 11, Blood Urea Nitrogen 40H, Creatinine 2.54H, Estimat Glomerular Filtration Rate 19, BUN/Creatinine Ratio 16, Glucose Level 311H, Calcium Level 9.3, Magnesium Level 2.0, Total Bilirubin 0.6, Aspartate Amino Transf (AST/SGOT ) 32, Alanine Aminotransferase (ALT/SGPT) 26, Alkaline Phosphatase 42, Myoglobin 79.6, Troponin I < 0.30, Total Protein 6.3L, Albumin 3.5, Amylase Level 58, Lipase 68 02/16/18 10:55: Glucometer 340H 02/16/18 15:21: Glucometer 367H 02/16/18 18:00: Troponin I 10.35*H 02/16/18 21:00: Glucometer 341H 02/17/18 05:17: Glucometer 287H 02/17/18 05:25: White Blood Count 7.6, Red Blood Count 2.74L, Hemoglobin 8.5L, Hematocrit 27L, Mean Corpuscular Volume 97, Mean Corpuscular Hemoglobin 31, Mean Corpuscular Hemoglobin Concent 32, Red Cell Distribution Width 14.3, Platelet Count 143, Mean Platelet Volume 9.3, Neutrophils (%) (Auto) 80H, Lymphocytes (%) (Auto) 8L , Monocytes (%) (Auto) 11, Eosinophils (%) (Auto) 0, Basophils (%) (Auto) 0, Neutrophils # (Auto) 6.1, Lymphocytes # (Auto) 0.6L, Monocytes # (Auto) 0.8, Eosinophils # (Auto) 0.0, Basophils # (Auto) 0.0, Sodium Level 137, Potassium Level 4.6, Chloride Level 102, Carbon Dioxide Level 24, Anion Gap 11, Blood Urea Nitrogen 39H, Creatinine 2.30H, Estimat Glomerular Filtration Rate 21, BUN/ Creatinine Ratio 17, Glucose Level 286H, Calcium Level 9.2, Total Bilirubin 0.6 , Aspartate Amino Transf (AST/SGOT) 256H, Alanine Aminotransferase (ALT/SGPT) 52 , Alkaline Phosphatase 44, Myoglobin 1648.3H, Total Protein 6.1L, Albumin 3.3, Triglycerides Level 179H, Cholesterol Level 141, LDL Cholesterol Direct 72, VLDL Cholesterol 36, HDL Cholesterol 39L 02/17/18 09:28: Glucometer 330H Laboratory Tests 02/16/18 07:54 02/17/18 05:25 Pending Labs Laboratory Tests 02/16/18 07:54: White Blood Count 5.0, Red Blood Count 2.62, Hemoglobin 8.2, Hematocrit 25, Mean Corpuscular Volume 96, Mean Corpuscular Hemoglobin 31, Mean Corpuscular Hemoglobin Concent 33, Red Cell Distribution Width 13.5, Platelet Count 119, Mean Platelet Volume 8.7, Neutrophils (%) (Auto) 65, Lymphocytes (%) (Auto) 19, Monocytes (%) (Auto) 14, Eosinophils (%) (Auto) 3, Basophils (%) (Auto) 0, Neutrophils # (Auto) 3.2, Lymphocytes # (Auto) 0.9, Monocytes # (Auto) 0.7, Eosinophils # (Auto) 0.1, Basophils # (Auto) 0.0, Prothrombin Time 18.9, INR Comment 1.6, Activated Partial Thromboplast Time 51, D-Dimer 0.23, Sodium Level 137, Potassium Level 4.4, Chloride Level 101, Carbon Dioxide Level 25, Anion Gap 11, Blood Urea Nitrogen 40, Creatinine 2.54, Estimat Glomerular Filtration Rate 19, BUN/Creatinine Ratio 16, Glucose Level 311, Calcium Level 9.3, Magnesium Level 2.0, Total Bilirubin 0.6, Aspartate Amino Transf (AST/SGOT) 32, Alanine Aminotransferase (ALT/SGPT) 26, Alkaline Phosphatase 42, Myoglobin 79.6 , Troponin I < 0.30, Total Protein 6.3, Albumin 3.5, Amylase Level 58, Lipase 68 02/16/18 10:55: Glucometer 340 02/16/18 15:21: Glucometer 367 02/16/18 18:00: Troponin I 10.35 02/16/18 21:00: Glucometer 341 02/17/18 05:17: Glucometer 287 02/17/18 05:25: White Blood Count 7.6, Red Blood Count 2.74, Hemoglobin 8.5, Hematocrit 27, Mean Corpuscular Volume 97, Mean Corpuscular Hemoglobin 31, Mean Corpuscular Hemoglobin Concent 32, Red Cell Distribution Width 14.3, Platelet Count 143, Mean Platelet Volume 9.3, Neutrophils (%) (Auto) 80, Lymphocytes (%) (Auto) 8, Monocytes (%) (Auto) 11, Eosinophils (%) (Auto) 0, Basophils (%) (Auto) 0, Neutrophils # (Auto) 6.1, Lymphocytes # (Auto) 0.6, Monocytes # (Auto) 0.8, Eosinophils # (Auto) 0.0, Basophils # (Auto) 0.0, Sodium Level 137, Potassium Level 4.6, Chloride Level 102, Carbon Dioxide Level 24, Anion Gap 11, Blood Urea Nitrogen 39, Creatinine 2.30, Estimat Glomerular Filtration Rate 21, BUN/ Creatinine Ratio 17, Glucose Level 286, Calcium Level 9.2, Total Bilirubin 0.6, Aspartate Amino Transf (AST/SGOT) 256, Alanine Aminotransferase (ALT/SGPT) 52, Alkaline Phosphatase 44, Myoglobin 1648.3, Total Protein 6.1, Albumin 3.3, Triglycerides Level 179, Cholesterol Level 141, LDL Cholesterol Direct 72, VLDL Cholesterol 36, HDL Cholesterol 39 02/17/18 09:28: Glucometer 330 Discussion & Recommendations atient had non-ST elevated CT. Patient had coronary angiography. . Patient transferred to tertiary hospital Discharge Home Medications: Active Scripts Active Zofran Odt (Ondansetron) 4 Mg Tab.rapdis 4 Mg SL Q4H PRN Hydrocodone/Acetaminophen 5/325mg Tablet (Acetaminophen/Hydrocodone Bitart) 1 Tab Tab 1-2 Each PO Q6H PRN 7 Days Cyclobenzaprine HCl 10 Mg Tablet 10 Mg PO Q8H PRN Reported Ferrous Sulfate 325 Mg Tablet 325 Mg PO DAILY Zyrtec (Cetirizine HCl) 10 Mg Tablet 10 Mg PO HS Doxycycline Hyclate 100 Mg Tablet 100 Mg PO BID 10 Days 10 DAY SUPPLY FILLED 02-07-18 (9 TABS LEFT IN BOTTLE) Nitrofurantoin Ogle-Mcr 100 mg (Nitrofurantoin Monohyd/M-Cryst) 100 Mg Capsule 100 Mg PO BID 10 Days 10 DAY THERAPY FILLED 7-22-18 (#13 CAPS LEFT IN BOTTLE) Carvedilol 12.5 Mg Tablet 12.5 Mg PO BID Dorzolamide HCl 10 Ml Drops 1 Drop OU TID Pantoprazole Sodium 40 Mg Tablet.dr 40 Mg PO DAILY Hydralazine HCl 25 Mg Tablet 25 Mg PO TID Potassium Chloride 10 Meq Capsule.er 10 Meq PO BID LAST FILLED #60 5-4-18 Pradaxa (Dabigatran Etexilate Mesylate) 150 Mg Capsule 150 Mg PO BID Clopidogrel (Clopidogrel Bisulfate) 75 Mg Tablet 75 Mg PO DAILY Gabapentin 300 Mg Capsule 600 Mg PO BID TAKES 2 (300 MG) CAPSULES Fenofibric Acid (Fenofibric Acid (Choline)) 135 Mg Capsule.dr 135 Mg PO DAILY Ranexa (Ranolazine) 500 Mg Tab.er.12h 500 Mg PO BID Furosemide 40 Mg Tablet 40 Mg PO DAILY Niacin ER (Niacin) 1,000 Mg Tab.er.24h 1,000 Mg PO HS Atorvastatin Calcium 80 Mg Tablet 80 Mg PO HS Isosorbide Mononitrate ER (Isosorbide Mononitrate) 60 Mg Tab 60 Mg PO DAILY Nitroglycerin 0.4 Mg Tab.subl 0.4 Mg SL UD PRN Fish Oil 1,000 mg Softgel ([place]-3/Dha/Epa/Fish Oil) 1 Each Capsule 1,000 Mg PO TID Humulin R U-500 Kwikpen (Insulin Regular, Human) 500 Unit/1 Ml Insuln.pen 100 Unit SQ 1700 Humulin R U-500 Kwikpen (Insulin Regular, Human) 500 Unit/1 Ml Insuln.pen 60 Unit SQ 1200 Humulin R U-500 Kwikpen (Insulin Regular, Human) 500 Unit/1 Ml Insuln.pen 80 Unit SQ 0700 Latanoprost 2.5 Ml Drops 1 Drop OU HS Vitamin D-3 (Cholecalciferol (Vitamin D3)) 2,000 Unit Capsule 2,000 Unit PO DAILY Instructions to patient/family Please see electronic discharge instructions given to patient. Clinical Quality Measures AMI/AHF: ASA po Prior to arrival: No DVT/VTE Risk/Contraindication: Risk Factor Score Per Nursin RFS Level Per Nursing on Admit: 4+=Very High Contraindications-Pharm: Other *list below* Contraindications-Mechi: Other *list below* BRAULIO GERMAN DO Feb 20, 2018 08:16
== END 2018-02-17 16:50 | disposition short-term general hospital (02) | DRG 281 ==
LOC: EDUNIT# 07:34 → ER 07:35 → UNDOADMOB 09:45 → 4TH 09:45 → INTOOBSV 02-17 06:00 → OBSVTOIN 02-17 06:00 → 4TH 02-17 06:01 → ICU 02-17 06:01 → UNDODISIN 02-17 16:50
PROVIDERS: ADMIT Family Medicine; ATTEND Family Medicine
PROC: 4A023N7 Measurement of Cardiac Sampling and Pressure, Left Heart, Percutaneous Approach (ICD-10-PCS; principal; 2018-02-17)
PROC: B2111ZZ Fluoroscopy of Multiple Coronary Arteries using Low Osmolar Contrast (ICD-10-PCS; 2018-02-17)
DX: I21.4 Non-ST elevation (NSTEMI) myocardial infarction (principal); I25.10 Atherosclerotic heart disease of native coronary artery without angina pectoris; E11.622 Type 2 diabetes mellitus with other skin ulcer; L97.829 Non-pressure chronic ulcer of other part of left lower leg with unspecified severity; E11.51 Type 2 diabetes mellitus with diabetic peripheral angiopathy without gangrene; I12.9 Hypertensive chronic kidney disease with stage 1 through stage 4 chronic kidney disease, or unspecified chronic kidney disease; N18.9 Chronic kidney disease, unspecified; I25.2 Old myocardial infarction; J44.9 Chronic obstructive pulmonary disease, unspecified; I70.1 Atherosclerosis of renal artery; I87.8 Other specified disorders of veins; E78.00 Pure hypercholesterolemia, unspecified; E03.9 Hypothyroidism, unspecified; K21.9 Gastro-esophageal reflux disease without esophagitis; M19.91 Primary osteoarthritis, unspecified site; G43.909 Migraine, unspecified, not intractable, without status migrainosus; F41.9 Anxiety disorder, unspecified; F32.9 Major depressive disorder, single episode, unspecified; E66.9 Obesity, unspecified; I44.7 Left bundle-branch block, unspecified; Z87.891 Personal history of nicotine dependence; Z95.5 Presence of coronary angioplasty implant and graft; Z99.81 Dependence on supplemental oxygen; Z79.4 Long term (current) use of insulin; Z68.39 Body mass index [BMI] 39.0-39.9, adult
CPT/HCPCS: 36415; 71045; 80053; 80061; 82150; 82962; 83690; 83735; 83874; 84484; 85025; 85379; 85610; 85730; 93005; 93041; 93306; 93458; 94640; 94760; 96365; 96372; 96375; 96376; G0378